=== PATIENT | female | born 1975 | race American Indian/Alaskan Native ===

== ENCOUNTER 2016-08-13 11:55 | Emergency (ER) | payer MEDICAID ==
[2016-08-13 12:06] VITALS: BP 145/79
[2016-08-13 12:51] LABS: Basophils % (Auto) 0.4 % (0.0-1.8); Eosinophils % (Auto) 1.3 % (0.0-4.3); Hemoglobin 13.2 gm/dl (10.1-14.3); Mean Corpuscular HGB Conc 32 % (30-34); Mean Corpuscular Hemoglobin 27 pg (28-32); Mean Corpuscular Volume 82 fl (79-97); Platelet Count 323 K/mm3 (140-440); Red Cell Distribution Width 13.5 % (13.2-15.2); White Blood Count 11.6 K/mm3 (4.5-11.0)
[2016-08-13 12:58] LABS: Anion Gap 19 mmol/L; Blood Urea Nitrogen 7 mg/dL (7-17); Carbon Dioxide 23 mmol/L (22-30); Chloride 99.8 mmol/L (98-107); Glucose 358 mg/dL (65-100); Potassium 4.1 mmol/L (3.6-5.0); Sodium 138 mmol/L (137-145)
[2016-08-13 13:39] LABS: Bacteria,Urine 1+ /HPF (Negative); Bilirubin,Urine NEG (Negative); Blood,Urine NEG (Negative); Ketones,Urine NEG (Negative); Leukocyte Esterase,Urine NEG (Negative); Mucus,Urine FEW /HPF; Nitrite,Urine NEG (Negative); Protein,Urine <15 mg/dL mg/dL (Negative); Urobilinogen,Urine < 2.0 mg/dL (<2.0)
[2016-08-13] MEDS ORDERED: NACL 0.9% 1000 ML 1,000 ML IV ONE (16:57)
--- NOTE | 2016-08-13 16:58 | Emergency Department Report ---
HPI - General Chief Complaint: Skin/Abscess/Foreign Body Time Seen by Provider: 08/13/16 16:30 - HPI HPI: Room 38 The patient is a 41-year-old female presenting with chief complaint of abscess. The patient states she knows no abscess in her left groin 2 days ago. Patient denies any history of drainage or fever. The patient gives her pain a score of 10/10. The patient states she has a frequent history of abscesses Location: Left groin Duration: 2 days Quality: Pain Severity: 10/10 Modifying factors: [see above] Context: [see above] Mode of transportation: Patient drove herself to the emergency department and there are no visitors present ED Past Medical Hx - Past Medical History Previous Medical History?: Yes Hx Hypertension: Yes Hx Diabetes: Yes Hx Arthritis: Yes Hx Psychiatric Treatment: Yes (schizophrenia / bipolar) Additional medical history: INSOMNIA. FIBROIDS - Surgical History Past Surgical History?: Yes Additional Surgical History: MULTIPLE ABSCESS--I&D'S. tonsillectomy. tubal ligation - Family History Family history: no significant - Social History Smoking Status: Current Every Day Smoker Substance Use Type: None - Medications Home Medications: Home Medications Medication Instructions Recorded Confirmed Last Taken Type Albuterol Sulfate [Ventolin HFA] 2 puff IH Q4H PRN 04/08/15 04/08/15 Unknown History Canagliflozin [Invokana] 1,000 mg PO DAILY 04/08/15 04/08/15 Unknown History Canagliflozin/Metformin HCl 1 each PO BID #60 tablet 04/08/15 Unknown Rx [Invokamet 150-1,000 mg Tablet] Carisoprodol [Soma] 350 mg PO TID 04/08/15 04/08/15 Unknown History Diazepam Tab [Valium] 5 mg PO BID PRN 04/08/15 04/08/15 Unknown History Gabapentin [Neurontin] 300 mg PO BID 04/08/15 04/08/15 Unknown History HYDROcodone/APAP 5-325 [[place] 1 each PO Q6HR PRN #20 tablet 04/08/15 Unknown Rx 5/325] Promethazine [Phenergan TAB] 25 mg PO Q6HR PRN #30 tab 04/08/15 Unknown Rx Sulfamethoxazole/Trimethoprim 1 each PO BID #14 tablet 04/08/15 Unknown Rx [Bactrim DS TAB] Temazepam [Restoril] 30 mg PO DAILY 04/08/15 04/08/15 Unknown History Ziprasidone [Geodon] 40 mg PO BID 04/08/15 04/08/15 Unknown History Clindamycin [Clindamycin CAP] 300 mg PO Q8H #30 cap 08/31/15 Unknown Rx HYDROcodone/APAP 10-325 [[place] 1 each PO Q8HR PRN #14 tablet 08/31/15 Unknown Rx 10-325 mg TAB] Ziprasidone [Geodon] 40 mg PO BID #60 capsule 12/23/15 Unknown Rx HYDROcodone/APAP 5-325 [[place] 1 - 2 each PO Q6HR PRN #14 tablet 08/13/16 Unknown Rx 5/325] Sulfamethoxazole/Trimethoprim 1 each PO BID #14 tablet 08/13/16 Unknown Rx [Bactrim DS TAB] ED Review of Systems ROS: Stated complaint: ABCESS ON GROIN Other details as noted in HPI Comment: All other systems reviewed and negative Constitutional: denies: chills, fever Eyes: denies: eye pain, eye discharge, vision change ENT: denies: ear pain, throat pain Respiratory: denies: cough, shortness of breath, wheezing Cardiovascular: denies: chest pain, palpitations Endocrine: no symptoms reported Gastrointestinal: denies: abdominal pain, nausea, diarrhea Genitourinary: denies: urgency, dysuria, discharge Musculoskeletal: denies: back pain, joint swelling, arthralgia Skin: lesions Neurological: denies: headache, weakness, paresthesias Psychiatric: denies: anxiety, depression Hematological/Lymphatic: denies: easy bleeding, easy bruising Physical Exam - Physical Exam Vital Signs: Vital Signs 08/13/16 12:00 Temperature 98.1 F Pulse Rate 89 Respiratory 20 Rate Blood Pressure 145/79 O2 Sat by Pulse 100 Oximetry Physical Exam: GENERAL: The patient is well-developed well-nourished female sitting on stretcher not appearing to be in acute distress. [] HEENT: Normocephalic. Atraumatic. Extraocular motions are intact. Patient has moist mucous membranes. NECK: Supple. Trachea midline CHEST/LUNGS: There is no respiratory distress noted. HEART/CARDIOVASCULAR: Regular. There is no tachycardia. ABDOMEN: Abdomen is soft SKIN: There is an approximately 2 cm diameter region of induration to the lateral aspect of the left labia with overlying erythema. There is no edema. There is no diaphoresis. NEURO: The patient is awake, alert, and oriented. The patient is cooperative. The patient has normal speech MUSCULOSKELETAL: There is no evidence of acute injury. ED Course Vital Signs 08/13/16 12:00 Temperature 98.1 F Pulse Rate 89 Respiratory 20 Rate Blood Pressure 145/79 O2 Sat by Pulse 100 Oximetry - Reevaluation(s) Reevaluation #1: 08/13/16 18:17 Accu-Chek 236 - I & D Left Groin Type of Procedure: Simple Site: left groin/labia Blade Size: 11 I & D Procedure: betadine prep, sterile dressing applied, gauze wick placed Progress: At approximately 7 mm incision was made overlying the abscess after injection of lidocaine 1% plain. Approximately 2 mL's purulent discharge expressed. Wound was irrigated copiously with normal saline and then packed with 1/4 inch iodoform gauze. Patient tolerated well ED Medical Decision Making - Lab Data Result diagrams: 08/13/16 12:28 08/13/16 12:28 Laboratory Tests 08/13/16 08/13/16 08/13/16 12:28 12:28 12:40 WBC 11.6 H RBC 5.00 Hgb 13.2 Hct 41.0 MCV 82 MCH 27 L MCHC 32 RDW 13.5 Plt Count 323 Lymph % (Auto) 23.7 [place] % (Auto) 4.5 Eos % (Auto) 1.3 Baso % (Auto) 0.4 Lymph # 2.7 Saunders # 0.5 Eos # 0.1 Baso # 0.1 Seg Neutrophils % 70.1 H Seg Neutrophils # 8.1 H Sodium 138 Potassium 4.1 Chloride 99.8 Carbon Dioxide 23 Anion Gap 19 BUN 7 Creatinine 0.5 L Estimated GFR > 60 BUN/Creatinine Ratio 14.00 Glucose 358 H Calcium 9.0 Urine Color Yellow Urine Turbidity Slightly-cloudy Urine pH 7.0 Ur Specific [place] 1.018 Urine Protein <15 mg/dl Urine Glucose (UA) Neg Urine Ketones Neg Urine Blood Neg Urine Nitrite Neg Urine Bilirubin Neg Urine Urobilinogen < 2.0 Ur Leukocyte Esterase Neg Urine WBC (Auto) 2.0 Urine RBC (Auto) 2.0 U Epithel Cells (Auto) 17.0 H Urine Bacteria (Auto) 1+ Amorphous Crystals Few Urine Mucus Few - Differential Diagnosis abscess Critical care attestation.: If time is entered above; I have spent that time in minutes in the direct care of this critically ill patient, excluding procedure time. ED Disposition Clinical Impression: Abscess of groin, left, Hyperglycemia Disposition: - TO HOME OR SELFCARE Is pt being admited?: No Does the pt Need Aspirin: No Condition: Stable Instructions: Abscess (ED) Additional Instructions: Return to the emergency Department or see your primary doctor in 48 hours for reevaluation. Return to the emergency department immediately should you develop worsening symptoms, fever, inability to tolerate food or liquid or any other concerns. Prescriptions: HYDROcodone/APAP 5-325 [[place] 5/325] 1 - 2 each PO Q6HR PRN #14 tablet PRN Reason: Pain Sulfamethoxazole/Trimethoprim [Bactrim DS TAB] 1 each PO BID #14 tablet Referrals: PRIMARY CARE [Primary Care Provider] - 08/15/16 Time of Disposition: 18:16
[2016-08-13] MEDS ORDERED: NACL 0.9% IR ONE (17:34)
[2016-08-13] MEDS ORDERED: XYLOCAINE 1% 20 mL INFILTRATI ONE (17:35)
== END 2016-08-13 18:29 | disposition home or self-care (01) ==
LOC: ED 11:55
DX: L02.214 Cutaneous abscess of groin (principal); I10 Essential (primary) hypertension; E11.65 Type 2 diabetes mellitus with hyperglycemia; M19.90 Unspecified osteoarthritis, unspecified site; F20.9 Schizophrenia, unspecified; F31.9 Bipolar disorder, unspecified; F17.210 Nicotine dependence, cigarettes, uncomplicated
CPT/HCPCS: 10060; 36415; 80048; 81001; 82962; 85025; 87116; 96360; 99284; J7030

== ENCOUNTER 2016-11-11 10:06 | Emergency (ER) | payer MEDICAID ==
--- NOTE | 2016-11-11 13:05 | Emergency Department Report ---
ED General Adult HPI - General Chief complaint: Extremity Injury, Lower Stated complaint: ABSCESS, DIABETIC NERVE PAIN Time Seen by Provider: 11/11/16 12:50 Source: patient Mode of arrival: Ambulatory Limitations: No Limitations - History of Present Illness Initial comments: PT states she has diabetic neuropathy. PT states she has had an increase in pain x 3 days. PT states her entire leg hurts. PT states she is on [place] 10mg for this. PT states she can not get more pain medication until 11-15-16. Pt states she ran out of her pain medication at the beginning of the month. PT also c/o L labial abscess. PT states she has hx of same and she is currently not on any antibiotics. PT denies fevers, chills, nausea, and vomiting. MD Complaint: Abscess and pain -: Gradual Location: genitals, lower extremity Severity scale (0 -10): 10 Quality: burning, sharp Consistency: constant Improves with: none Worsens with: movement, other (palpation ) Associated Symptoms: denies other symptoms. denies: fever/chills, loss of appetite, nausea/vomiting, weakness - Related Data Home Medications Medication Instructions Recorded Confirmed Last Taken Albuterol Sulfate [Ventolin HFA] 2 puff IH Q4H PRN 04/08/15 04/08/15 Unknown Carisoprodol [Soma] 350 mg PO TID 04/08/15 04/08/15 Unknown Diazepam Tab [Valium] 5 mg PO BID PRN 04/08/15 04/08/15 Unknown Gabapentin [Neurontin] 300 mg PO BID 04/08/15 04/08/15 Unknown Temazepam [Restoril] 30 mg PO DAILY 04/08/15 04/08/15 Unknown Previous Rx's Medication Instructions Recorded Last Taken Type HYDROcodone/APAP 10-325 [[place] 1 each PO Q8HR PRN #14 tablet 08/31/15 Unknown Rx 10-325 mg TAB] Ziprasidone [Geodon] 40 mg PO BID #60 capsule 12/23/15 Unknown Rx Clindamycin [Clindamycin CAP] 300 mg PO Q8H #30 cap 11/11/16 Unknown Rx traMADol [Ultram] 50 mg PO Q6HR PRN #12 tablet 11/11/16 Unknown Rx Allergies Allergy/AdvReac Type Severity Reaction Status Date / Time Penicillins Allergy Rash Verified 11/11/16 10:34 ED Review of Systems ROS: Stated complaint: ABSCESS, DIABETIC NERVE PAIN Other details as noted in HPI Comment: All other systems reviewed and negative Constitutional: denies: chills, fever, malaise, weakness Gastrointestinal: denies: abdominal pain, nausea, vomiting Genitourinary: abnormal menses (pt states she is late ), other (PT c/o L labial abscess ). denies: dysuria Musculoskeletal: as per HPI Skin: as per HPI ED Past Medical Hx - Past Medical History Hx Hypertension: Yes Hx Diabetes: Yes Hx Arthritis: Yes Hx Psychiatric Treatment: Yes (schizophrenia / bipolar) Additional medical history: INSOMNIA. FIBROIDS - Surgical History Additional Surgical History: MULTIPLE ABSCESS--I&D'S. tonsillectomy. tubal ligation - Social History Smoking Status: Current Every Day Smoker Substance Use Type: None - Medications Home Medications: Home Medications Medication Instructions Recorded Confirmed Last Taken Type Albuterol Sulfate [Ventolin HFA] 2 puff IH Q4H PRN 04/08/15 04/08/15 Unknown History Carisoprodol [Soma] 350 mg PO TID 04/08/15 04/08/15 Unknown History Diazepam Tab [Valium] 5 mg PO BID PRN 04/08/15 04/08/15 Unknown History Gabapentin [Neurontin] 300 mg PO BID 04/08/15 04/08/15 Unknown History Temazepam [Restoril] 30 mg PO DAILY 04/08/15 04/08/15 Unknown History HYDROcodone/APAP 10-325 [[place] 1 each PO Q8HR PRN #14 tablet 08/31/15 Unknown Rx 10-325 mg TAB] Ziprasidone [Geodon] 40 mg PO BID #60 capsule 12/23/15 Unknown Rx Clindamycin [Clindamycin CAP] 300 mg PO Q8H #30 cap 11/11/16 Unknown Rx traMADol [Ultram] 50 mg PO Q6HR PRN #12 tablet 11/11/16 Unknown Rx ED Physical Exam - General Limitations: No Limitations General appearance: alert, in no apparent distress, obese - Head Head exam: Present: atraumatic, normocephalic, normal inspection - Eye Eye exam: Present: normal appearance, PERRL, EOMI. Absent: conjunctival injection, nystagmus - ENT ENT exam: Present: normal exam, mucous membranes moist, normal external ear exam - Neck Neck exam: Present: normal inspection, full ROM - Respiratory Respiratory exam: Present: normal lung sounds bilaterally. Absent: respiratory distress, wheezes, chest wall tenderness - Cardiovascular Cardiovascular Exam: Present: regular rate, normal rhythm, normal heart sounds - GI/Abdominal GI/Abdominal exam: Present: soft, normal bowel sounds. Absent: distended, tenderness, guarding, rebound - External exam: Present: swelling (2 cm indurated area to L labia. scar noted to site. Area ttp but not fluculant. No surrounding cellulitis ) - Extremities Exam Extremities exam: Present: normal inspection, full ROM, normal capillary refill , other (PT reports pain down her R leg ). Absent: tenderness, pedal edema, joint swelling, calf tenderness - Back Exam Back exam: Present: normal inspection, full ROM. Absent: tenderness, CVA tenderness (R), CVA tenderness (L), muscle spasm, paraspinal tenderness, vertebral tenderness - Neurological Exam Neurological exam: Present: alert, oriented X3, normal gait - Psychiatric Psychiatric exam: Present: normal affect, normal mood - Skin Skin exam: Present: warm, dry, intact, normal color ED Course Vital Signs 11/11/16 11/11/16 11/11/16 10:34 14:45 15:15 Temperature 98 F Pulse Rate 89 Respiratory 16 16 16 Rate Blood Pressure 134/67 Blood Pressure [Left] O2 Sat by Pulse 100 Oximetry 11/11/16 15:49 Temperature 98.4 F Pulse Rate 84 Respiratory 18 Rate Blood Pressure Blood Pressure 157/87 [Left] O2 Sat by Pulse 100 Oximetry I was not informed of the last set of vital signs. However, pt was instructed to return to the ED in 2 days and her bp will be rechecked at that time. - Reevaluation(s) Reevaluation #1: 11/11/16 13:08 Reviewed pt's history in the [facility] [facility] website. It appears pt filled 90 tablets of [place] 10 mg on 10-31-16. 10/31/2016 2 10/31/2016 HYDROCODON-ACETAMINOPHN 10-325 90.0 30 SELAM OGU [id number] ANA (1426) 0 30.0 Medicaid G Reevaluation #2: 11/11/16 14:06 PT aware of UA result and plan of care. Reevaluation #3: 11/11/16 15:23 PT states her pain decreased sp Toradol. PT aware she will need to keep her appointment with her PCP for RX for [place]. PT given strict return precautions. PT has no questions at this time. - Pulse Oximetry Interpretation Digit-Finger Initial Pulse Oximetry Readin Actions Taken: none ED Medical Decision Making - Lab Data Result diagrams: 11/11/16 14:26 11/11/16 14:12 Labs 11/11/16 11/11/16 11/11/16 10:42 13:27 14:12 WBC RBC Hgb Hct MCV MCH MCHC RDW Plt Count Lymph % (Auto) [place] % (Auto) Eos % (Auto) Baso % (Auto) Lymph # [place] # Eos # Baso # Seg Neutrophils % Seg Neutrophils # VBG pH Sodium 137 Potassium 4.2 Chloride 100.3 Carbon Dioxide 26 Anion Gap 15 BUN 6 L Creatinine 0.4 L Estimated GFR > 60 BUN/Creatinine Ratio 15.00 Glucose 203 H POC Glucose 261 H Calcium 9.1 Urine Color Yellow Urine Turbidity Clear Urine pH 5.0 Ur Specific [place] 1.032 H Urine Protein <15 mg/dl Urine Glucose (UA) >=500 Urine Ketones Tr Urine Blood Mod Urine Nitrite Pos Urine Bilirubin Neg Urine Urobilinogen < 2.0 Ur Leukocyte Esterase Neg Urine WBC (Auto) 8.0 H Urine RBC (Auto) 10.0 U Epithel Cells (Auto) 18.0 H Urine Bacteria (Auto) 4+ Urine HCG, Qual Negative 11/11/16 11/11/16 14:12 14:26 WBC 12.1 H RBC 5.13 H Hgb 13.7 Hct 42.0 MCV 82 MCH 27 L MCHC 33 RDW 13.9 Plt Count 317 Lymph % (Auto) 27.5 [place] % (Auto) 5.5 Eos % (Auto) 1.4 Baso % (Auto) 0.5 Lymph # 3.3 [place] # 0.7 Eos # 0.2 Baso # 0.1 Seg Neutrophils % 65.1 Seg Neutrophils # 7.9 H VBG pH 7.330 Sodium Potassium Chloride Carbon Dioxide Anion Gap BUN Creatinine Estimated GFR BUN/Creatinine Ratio Glucose POC Glucose Calcium Urine Color Urine Turbidity Urine pH Ur Specific [place] Urine Protein Urine Glucose (UA) Urine Ketones Urine Blood Urine Nitrite Urine Bilirubin Urine Urobilinogen Ur Leukocyte Esterase Urine WBC (Auto) Urine RBC (Auto) U Epithel Cells (Auto) Urine Bacteria (Auto) Urine HCG, Qual UA suggests UTI, However, pt is asymptomatic. and the ua is contaminated. Urine culture pending. - Medical Decision Making PT with very early abscess to L labia. Not ready for I and D. PT aware she will need to return in 2 days for recheck and possible I and D at that time. - Differential Diagnosis abscess, cellulitis, drug seeking, chronic pain Critical Care Time: No Critical care attestation.: If time is entered above; I have spent that time in minutes in the direct care of this critically ill patient, excluding procedure time. ED Disposition Clinical Impression: Abscess of left genital labia Chronic pain Qualifiers: Chronic pain type: other chronic pain Qualified Code(s): G89.29 - Other chronic pain UTI (urinary tract infection) Qualifiers: Urinary tract infection type: acute cystitis Hematuria presence: with hematuria Qualified Code(s): N30.01 - Acute cystitis with hematuria Disposition: TO HOME OR SELFCARE Is pt being admited?: No Does the pt Need Aspirin: No Condition: Stable Instructions: Urinary Tract Infection in Women (ED), Chronic Pain (ED), Abscess (ED) Additional Instructions: Warm compresses to abscess at least four times a day. Take antibiotics as prescribed Return to the ED in 2 days for recheck No driving or Alcohol after taking Ultram for pain Return sooner if you have nausea, vomiting, fevers, chills, or elevated blood sugar Follow up with the doctor who prescribes your pain medication for a refill Prescriptions: Clindamycin [Clindamycin CAP] 300 mg PO Q8H #30 cap traMADol [Ultram] 50 mg PO Q6HR PRN #12 tablet PRN Reason: Pain Referrals: QUIN JEFFERS MD, PHD [Primary Care Provider] - 3-5 Days Time of Disposition: 15:32
[2016-11-11 13:48] LABS: Bacteria,Urine 4+ /HPF (Negative); Bilirubin,Urine NEG (Negative); Blood,Urine MOD (Negative); Ketones,Urine TR mg/dL (Negative); Leukocyte Esterase,Urine NEG (Negative); Nitrite,Urine POS (Negative); Protein,Urine <15 mg/dL mg/dL (Negative); Urobilinogen,Urine < 2.0 mg/dL (<2.0)
[2016-11-11] MEDS ORDERED: NACL 0.9% 1000 ML 1,000 ML IV ONE (14:04)
[2016-11-11] MEDS ORDERED: TORADOL IV ONE (14:05)
[2016-11-11 14:43] LABS: Anion Gap 15 mmol/L; Blood Urea Nitrogen 6 mg/dL (7-17); Calcium 9.1 mg/dL (8.4-10.2); Carbon Dioxide 26 mmol/L (22-30); Chloride 100.3 mmol/L (98-107); Glucose 203 mg/dL (65-100); Potassium 4.2 mmol/L (3.6-5.0); Sodium 137 mmol/L (137-145)
[2016-11-11 14:54] LABS: Basophils % (Auto) 0.5 % (0.0-1.8); Eosinophils % (Auto) 1.4 % (0.0-4.3); Hemoglobin 13.7 gm/dl (10.1-14.3); Mean Corpuscular HGB Conc 33 % (30-34); Mean Corpuscular Hemoglobin 27 pg (28-32); Mean Corpuscular Volume 82 fl (79-97); Platelet Count 317 K/mm3 (140-440); Red Blood Count 5.13 M/mm3 (3.65-5.03); Red Cell Distribution Width 13.9 % (13.2-15.2); White Blood Count 12.1 K/mm3 (4.5-11.0)
[2016-11-11] MEDS ORDERED: CLEOCIN PO ONE (15:34)
[2016-11-11 15:50] VITALS: BP 157/87
== END 2016-11-11 15:51 | disposition home or self-care (01) ==
LOC: ED 10:06
DX: N76.4 Abscess of vulva (principal); N30.01 Acute cystitis with hematuria; M79.604 Pain in right leg; G89.29 Other chronic pain; I10 Essential (primary) hypertension; E11.9 Type 2 diabetes mellitus without complications; F17.200 Nicotine dependence, unspecified, uncomplicated
CPT/HCPCS: 36415; 80048; 81001; 81025; 82805; 82962; 85025; 87076; 87086; 87186; 96361; 96374; 99283; J1885; J7030

== ENCOUNTER 2017-01-08 09:42 | Outpatient (CLI) | payer MEDICAID ==
[~2017-01-08 09:42] MED LIST: NACL ONE
[2017-01-08] MEDS ORDERED: XYLOCAINE TOPICAL 4% TP NR (09:56)
[2017-01-08] MEDS ORDERED: XYLOCAINE TOPICAL 4% TP ONE (10:46)
== END 2017-01-08 09:43 | disposition home or self-care (01) ==
LOC: WOUND 09:42
PROVIDERS: ATTEND Internal Medicine
DX: E11.622 Type 2 diabetes mellitus with other skin ulcer (principal); L98.491 Non-pressure chronic ulcer of skin of other sites limited to breakdown of skin; L89.214 Pressure ulcer of right hip, stage 4; E11.40 Type 2 diabetes mellitus with diabetic neuropathy, unspecified; J44.9 Chronic obstructive pulmonary disease, unspecified; I10 Essential (primary) hypertension; F17.200 Nicotine dependence, unspecified, uncomplicated; Z68.35 Body mass index [BMI] 35.0-35.9, adult

== ENCOUNTER 2017-01-22 09:48 | Outpatient (CLI) | payer MEDICAID ==
[2017-01-22] MEDS ORDERED: XYLOCAINE TOPICAL 4% TP ONE (12:00)
== END 2017-01-22 09:49 | disposition home or self-care (01) ==
LOC: WOUND 09:48
PROVIDERS: ATTEND Surgery
DX: E11.622 Type 2 diabetes mellitus with other skin ulcer (principal); L98.491 Non-pressure chronic ulcer of skin of other sites limited to breakdown of skin; L89.214 Pressure ulcer of right hip, stage 4; E11.40 Type 2 diabetes mellitus with diabetic neuropathy, unspecified; J44.9 Chronic obstructive pulmonary disease, unspecified; E66.01 Morbid (severe) obesity due to excess calories; I10 Essential (primary) hypertension; F17.200 Nicotine dependence, unspecified, uncomplicated; Z68.35 Body mass index [BMI] 35.0-35.9, adult

== ENCOUNTER 2017-02-26 09:07 | Outpatient (CLI) | payer MEDICAID ==
[2017-02-26] MEDS ORDERED: XYLOCAINE TOPICAL 4% TP ONE ×2 (09:26→09:31)
== END 2017-02-26 09:08 | disposition home or self-care (01) ==
LOC: WOUND 09:07
PROVIDERS: ATTEND Internal Medicine
DX: E11.622 Type 2 diabetes mellitus with other skin ulcer (principal); L98.491 Non-pressure chronic ulcer of skin of other sites limited to breakdown of skin; L89.214 Pressure ulcer of right hip, stage 4; E11.40 Type 2 diabetes mellitus with diabetic neuropathy, unspecified; J44.9 Chronic obstructive pulmonary disease, unspecified; E66.01 Morbid (severe) obesity due to excess calories; I10 Essential (primary) hypertension; F17.200 Nicotine dependence, unspecified, uncomplicated; Z68.35 Body mass index [BMI] 35.0-35.9, adult

== ENCOUNTER 2017-03-12 09:04 | Outpatient (CLI) | payer MEDICAID ==
[2017-03-12] MEDS ORDERED: XYLOCAINE TOPICAL 2% 5ML ONE (09:17)
[2017-03-12] MEDS ORDERED: XYLOCAINE TOPICAL 2% 5ML TP ONE (09:21)
== END 2017-03-12 09:05 | disposition home or self-care (01) ==
LOC: WOUND 09:04
PROVIDERS: ATTEND Internal Medicine
DX: E11.622 Type 2 diabetes mellitus with other skin ulcer (principal); L89.214 Pressure ulcer of right hip, stage 4; L98.491 Non-pressure chronic ulcer of skin of other sites limited to breakdown of skin; E11.40 Type 2 diabetes mellitus with diabetic neuropathy, unspecified; E11.39 Type 2 diabetes mellitus with other diabetic ophthalmic complication; H40.9 Unspecified glaucoma; J44.9 Chronic obstructive pulmonary disease, unspecified; E66.01 Morbid (severe) obesity due to excess calories; I10 Essential (primary) hypertension; F17.200 Nicotine dependence, unspecified, uncomplicated

== ENCOUNTER 2017-03-26 09:39 | Outpatient (CLI) | payer MEDICAID ==
[2017-03-26] MEDS ORDERED: XYLOCAINE TOPICAL 4% TP ONE (09:48)
== END 2017-03-26 09:40 | disposition home or self-care (01) ==
LOC: WOUND 09:39
PROVIDERS: ATTEND Internal Medicine
DX: E11.622 Type 2 diabetes mellitus with other skin ulcer (principal); L97.811 Non-pressure chronic ulcer of other part of right lower leg limited to breakdown of skin; L89.214 Pressure ulcer of right hip, stage 4; E11.40 Type 2 diabetes mellitus with diabetic neuropathy, unspecified; J44.9 Chronic obstructive pulmonary disease, unspecified; E66.01 Morbid (severe) obesity due to excess calories; E11.8 Type 2 diabetes mellitus with unspecified complications; Z68.35 Body mass index [BMI] 35.0-35.9, adult; I10 Essential (primary) hypertension; F17.200 Nicotine dependence, unspecified, uncomplicated

== ENCOUNTER 2017-04-09 09:27 | Outpatient (CLI) | payer MEDICAID ==
[2017-04-09] MEDS ORDERED: XYLOCAINE TOPICAL 4% TP ONE ×2 (09:45→09:55)
== END 2017-04-09 09:28 | disposition home or self-care (01) ==
LOC: WOUND 09:27
PROVIDERS: ATTEND Internal Medicine
DX: E11.622 Type 2 diabetes mellitus with other skin ulcer (principal); L98.411 Non-pressure chronic ulcer of buttock limited to breakdown of skin; L89.214 Pressure ulcer of right hip, stage 4; E11.40 Type 2 diabetes mellitus with diabetic neuropathy, unspecified; E66.01 Morbid (severe) obesity due to excess calories; J44.9 Chronic obstructive pulmonary disease, unspecified; I10 Essential (primary) hypertension; E11.39 Type 2 diabetes mellitus with other diabetic ophthalmic complication; H40.89 Other specified glaucoma; F17.200 Nicotine dependence, unspecified, uncomplicated

== ENCOUNTER 2017-05-20 04:39 | Emergency (ER) | payer MEDICAID ==
[2017-05-20 05:22] LABS: Basophils # (Auto) 0.1 K/mm3 (0.0-0.1); Basophils % (Auto) 0.6 % (0.0-1.8); Eosinophils # (Auto) 0.2 K/mm3 (0.0-0.4); Eosinophils % (Auto) 1.6 % (0.0-4.3); Hematocrit 42.6 % (30.3-42.9); Hemoglobin 13.9 gm/dl (10.1-14.3); Lymphocytes # (Auto) 2.5 K/mm3 (1.2-5.4); Lymphocytes % (Auto) 24.3 % (13.4-35.0); Mean Corpuscular HGB Conc 33 % (30-34); Mean Corpuscular Hemoglobin 27 pg (28-32); Mean Corpuscular Volume 83 fl (79-97); Monocytes # (Auto) 0.6 K/mm3 (0.0-0.8); Monocytes % (Auto) 5.8 % (0.0-7.3); Platelet Count 282 K/mm3 (140-440); Red Blood Count 5.15 M/mm3 (3.65-5.03); Red Cell Distribution Width 13.6 % (13.2-15.2)
[2017-05-20 06:00] LABS: Bacteria,Urine 1+ /HPF (Negative); Bilirubin,Urine NEG (Negative); Blood,Urine NEG (Negative); Color,Urine Yellow (Yellow); Mucus,Urine FEW /HPF; Protein,Urine <15 mg/dL mg/dL (Negative); RBC,Urine < 1.0 /HPF (0.0-6.0); Urobilinogen,Urine < 2.0 mg/dL (<2.0)
[2017-05-20 06:04] LABS: Alanine Aminotransferase 10 units/L (7-56); Albumin 3.7 g/dL (3.9-5); BUN/Creatinine Ratio 18; Blood Urea Nitrogen 11 mg/dL (7-17); Calcium 8.8 mg/dL (8.4-10.2); Hemolysis Index 0; Lipase 57 units/L (13-60)
--- NOTE | 2017-05-20 08:04 | Emergency Department Report ---
ED General Adult HPI - General Chief complaint: Abdominal Pain Stated complaint: ABDOMINAL,LEFT LEG PAIN Time Seen by Provider: 05/20/17 07:53 Source: patient Mode of arrival: Ambulatory Limitations: No Limitations - History of Present Illness Initial comments: Patient has a history of chronic pain. She is on gabapentin. She is diabetic with peripheral neuropathy. She states her left leg pain which between her knee and her ankle is typical of her diabetic neuropathy. She also complains of left lower quadrant pain. She states she's had some nausea and vomited once but no signs of GI bleeding. She hasn't had her insulin since yesterday. She denies fever or chills. She is not nauseated at this time. -: year(s) Location: abdomen (for 4 days), lower extremity (time series) Quality: aching Consistency: intermittent Improves with: none Worsens with: none Associated Symptoms: denies other symptoms Treatments Prior to Arrival: none - Related Data Home Medications Medication Instructions Recorded Confirmed Last Taken Albuterol Sulfate [Ventolin HFA] 2 puff IH Q4H PRN 04/08/15 04/08/15 Unknown Carisoprodol [Soma] 350 mg PO TID 04/08/15 04/08/15 Unknown Diazepam Tab [Valium] 5 mg PO BID PRN 04/08/15 04/08/15 Unknown Gabapentin [Neurontin] 300 mg PO BID 04/08/15 04/08/15 Unknown Temazepam [Restoril] 30 mg PO DAILY 04/08/15 04/08/15 Unknown Previous Rx's Medication Instructions Recorded Last Taken Type HYDROcodone/APAP 10-325 [[place] 1 each PO Q8HR PRN #14 tablet 08/31/15 Unknown Rx 10-325 mg TAB] Ziprasidone [Geodon] 40 mg PO BID #60 capsule 12/23/15 Unknown Rx Clindamycin [Clindamycin CAP] 300 mg PO Q8H #30 cap 11/11/16 Unknown Rx traMADol [Ultram] 50 mg PO Q6HR PRN #12 tablet 11/11/16 Unknown Rx HYDROcodone/APAP 5-325 [[place] 1 each PO Q6HR PRN #10 tablet 05/20/17 Unknown Rx 5/325] Nitrofurantoin Monohyd/M-Cryst 100 mg PO BID #14 capsule 05/20/17 Unknown Rx [Macrobid 100 mg Capsule] Ondansetron [Zofran Odt] 4 mg PO Q6HR #7 tab.rapdis 05/20/17 Unknown Rx Allergies Allergy/AdvReac Type Severity Reaction Status Date / Time Penicillins Allergy Rash Verified 11/11/16 10:34 ED Review of Systems ROS: Stated complaint: ABDOMINAL,LEFT LEG PAIN Other details as noted in HPI Constitutional: denies: chills, fever Eyes: denies: eye pain, eye discharge, vision change ENT: denies: ear pain, throat pain Respiratory: denies: cough, shortness of breath, wheezing Cardiovascular: denies: chest pain, palpitations Endocrine: no symptoms reported Gastrointestinal: abdominal pain, nausea, vomiting. denies: diarrhea Genitourinary: denies: urgency, dysuria, discharge Musculoskeletal: as per HPI, other. denies: back pain, joint swelling, arthralgia Skin: denies: rash, lesions Neurological: denies: headache, weakness, paresthesias Psychiatric: denies: anxiety, depression Hematological/Lymphatic: denies: easy bleeding, easy bruising ED Past Medical Hx - Past Medical History Hx Hypertension: Yes Hx Diabetes: Yes Hx Arthritis: Yes Hx Psychiatric Treatment: Yes (schizophrenia / bipolar) Additional medical history: INSOMNIA, NEUROPATHY,. FIBROIDS - Surgical History Additional Surgical History: MULTIPLE ABSCESS--I&D'S. tonsillectomy. tubal ligation - Social History Smoking Status: Current Every Day Smoker Substance Use Type: None - Medications Home Medications: Home Medications Medication Instructions Recorded Confirmed Last Taken Type Albuterol Sulfate [Ventolin HFA] 2 puff IH Q4H PRN 04/08/15 04/08/15 Unknown History Carisoprodol [Soma] 350 mg PO TID 04/08/15 04/08/15 Unknown History Diazepam Tab [Valium] 5 mg PO BID PRN 04/08/15 04/08/15 Unknown History Gabapentin [Neurontin] 300 mg PO BID 04/08/15 04/08/15 Unknown History Temazepam [Restoril] 30 mg PO DAILY 04/08/15 04/08/15 Unknown History HYDROcodone/APAP 10-325 [[place] 1 each PO Q8HR PRN #14 tablet 08/31/15 Unknown Rx 10-325 mg TAB] Ziprasidone [Geodon] 40 mg PO BID #60 capsule 12/23/15 Unknown Rx Clindamycin [Clindamycin CAP] 300 mg PO Q8H #30 cap 11/11/16 Unknown Rx traMADol [Ultram] 50 mg PO Q6HR PRN #12 tablet 11/11/16 Unknown Rx HYDROcodone/APAP 5-325 [[place] 1 each PO Q6HR PRN #10 tablet 05/20/17 Unknown Rx 5/325] Nitrofurantoin Monohyd/M-Cryst 100 mg PO BID #14 capsule 05/20/17 Unknown Rx [Macrobid 100 mg Capsule] Ondansetron [Zofran Odt] 4 mg PO Q6HR #7 tab.rapdis 05/20/17 Unknown Rx ED Physical Exam - General Limitations: Physical Limitation General appearance: alert, in no apparent distress, obese - Head Head exam: Present: atraumatic, normocephalic - Eye Eye exam: Present: normal appearance, PERRL, EOMI. Absent: scleral icterus - ENT ENT exam: Present: mucous membranes moist - Neck Neck exam: Present: normal inspection - Respiratory Respiratory exam: Present: normal lung sounds bilaterally. Absent: respiratory distress - Cardiovascular Cardiovascular Exam: Present: regular rate, normal rhythm. Absent: systolic murmur, diastolic murmur, rubs, gallop - GI/Abdominal GI/Abdominal exam: Present: soft, tenderness (mild discomfort to deep palpation in the left lower quadrant only), guarding, normal bowel sounds. Absent: distended, rebound, rigid, organomegaly, mass, bruit, pulsatile mass, hernia - Extremities Exam Extremities exam: Present: normal inspection, full ROM, normal capillary refill , other (neurovascular exam is intact). Absent: tenderness, pedal edema, joint swelling, calf tenderness - Back Exam Back exam: Present: normal inspection. Absent: CVA tenderness (R), CVA tenderness (L) - Neurological Exam Neurological exam: Present: alert, oriented X3, CN II-XII intact. Absent: motor sensory deficit - Psychiatric Psychiatric exam: Present: normal affect, normal mood - Skin Skin exam: Present: warm, dry, intact, normal color. Absent: rash ED Course Vital Signs 05/20/17 05/20/17 05/20/17 04:59 07:59 08:43 Temperature 98 F Pulse Rate 89 Respiratory 18 16 20 Rate Blood Pressure 157/90 O2 Sat by Pulse 100 99 Oximetry - Reevaluation(s) Reevaluation #1: Patient was given IV fluid and insulin. CT of the abdomen showed no correlating lesion. She is appropriate for outpatient management. She will be treated presumptively for a UTI considering her positive nitrite. She was given ceftriaxone which was well-tolerated. She will be continued on Macrobid. Urine culture will be pending. 05/20/17 09:17 Reevaluation #2: Patient states symptoms resolved. Looks well. Abdomen nontender. Ready for discharge. Went over plan. She will follow up with primary care provider. 05/20/17 09:25 ED Medical Decision Making - Lab Data Result diagrams: 05/20/17 05:09 05/20/17 05:09 Laboratory Results - last 24 hr 05/20/17 05/20/17 05/20/17 05:09 05:09 05:09 WBC 10.2 RBC 5.15 H Hgb 13.9 Hct 42.6 MCV 83 MCH 27 L MCHC 33 RDW 13.6 Plt Count 282 Lymph % (Auto) 24.3 [place] % (Auto) 5.8 Eos % (Auto) 1.6 Baso % (Auto) 0.6 Lymph # 2.5 [place] # 0.6 Eos # 0.2 Baso # 0.1 Seg Neutrophils % 67.7 Seg Neutrophils # 6.9 Sodium 137 Potassium 4.2 Chloride 99.4 Carbon Dioxide 25 Anion Gap 17 BUN 11 Creatinine 0.6 L Estimated GFR > 60 BUN/Creatinine Ratio 18 Glucose 393 H Calcium 8.8 Total Bilirubin 0.20 AST 9 ALT 10 Alkaline Phosphatase 57 Total Protein 6.6 Albumin 3.7 L Albumin/Globulin Ratio 1.3 Lipase 57 HCG, Qual Negative Urine Color Urine Turbidity Urine pH Ur Specific [place] Urine Protein Urine Glucose (UA) Urine Ketones Urine Blood Urine Nitrite Urine Bilirubin Urine Urobilinogen Ur Leukocyte Esterase Urine WBC (Auto) Urine RBC (Auto) U Epithel Cells (Auto) Urine Bacteria (Auto) Urine Mucus 05/20/17 Unknown WBC RBC Hgb Hct MCV MCH MCHC RDW Plt Count Lymph % (Auto) [place] % (Auto) Eos % (Auto) Baso % (Auto) Lymph # [place] # Eos # Baso # Seg Neutrophils % Seg Neutrophils # Sodium Potassium Chloride Carbon Dioxide Anion Gap BUN Creatinine Estimated GFR BUN/Creatinine Ratio Glucose Calcium Total Bilirubin AST ALT Alkaline Phosphatase Total Protein Albumin Albumin/Globulin Ratio Lipase HCG, Qual Urine Color Yellow Urine Turbidity Clear Urine pH 6.0 Ur Specific [place] 1.031 H Urine Protein <15 mg/dl Urine Glucose (UA) >=500 Urine Ketones Neg Urine Blood Neg Urine Nitrite Pos Urine Bilirubin Neg Urine Urobilinogen < 2.0 Ur Leukocyte Esterase Neg Urine WBC (Auto) 2.0 Urine RBC (Auto) < 1.0 U Epithel Cells (Auto) 6.0 Urine Bacteria (Auto) 1+ Urine Mucus Few Critical care attestation.: If time is entered above; I have spent that time in minutes in the direct care of this critically ill patient, excluding procedure time. ED Disposition Clinical Impression: Abdominal pain Qualifiers: Abdominal location: left lower quadrant Qualified Code(s): R10.32 - Left lower quadrant pain Type 2 diabetes mellitus with hyperglycemia Qualifiers: Diabetes mellitus intermediate insulin use: with intermediate use Qualified Code(s): E11.65 - Type 2 diabetes mellitus with hyperglycemia UTI (urinary tract infection) Qualifiers: Urinary tract infection type: site unspecified Hematuria presence: without hematuria Qualified Code(s): N39.0 - Urinary tract infection, site not specified Diabetic neuropathy Qualifiers: Diabetes mellitus type: type 2 Diabetes mellitus complication detail: with other neurological complication Qualified Code(s): E11.49 - Type 2 diabetes mellitus with other diabetic neurological complication Cholelithiasis Qualifiers: Cholelithiasis location: gallbladder Cholecystitis presence: without cholecystitis Biliary obstruction: without biliary obstruction Qualified Code(s) : K80.20 - Calculus of gallbladder without cholecystitis without obstruction Disposition: - TO HOME OR SELFCARE Is pt being admited?: No Does the pt Need Aspirin: No Condition: Stable Instructions: Diabetes Mellitus Type 2 in Adults (ED), Abdominal Pain (ED) Additional Instructions: Follow-up with your primary care provider. Use sliding scale on your insulin. Prescriptions: HYDROcodone/APAP 5-325 [[place] 5/325] 1 each PO Q6HR PRN #10 tablet PRN Reason: Pain Nitrofurantoin Monohyd/M-Cryst [Macrobid 100 mg Capsule] 100 mg PO BID #14 capsule Ondansetron [Zofran Odt] 4 mg PO Q6HR #7 tab.rapdis Referrals: QUIN JEFFERS MD, PHD [Staff Physician] - 05/22/17 Time of Disposition: 09:24
[2017-05-20] MEDS ORDERED: ZOFRAN IV ONE (08:09)
[2017-05-20] MEDS ORDERED: NACL 0.9% 1000 ML 1,000 ML IV ONE (08:09)
[2017-05-20] MEDS ORDERED: DILAUDID IV ONE (08:09)
[2017-05-20] MEDS ORDERED: ROCEPHIN/NS 1 GM/50 ML 1 GM/50 ML BAG IV ONE (08:09)
[2017-05-20] MEDS ORDERED: cefTRIAXone 1 GM in NACL 0.9% 20 ML IV ONE (08:15)
--- NOTE | 2017-05-20 09:04 | Cat Scan Report ---
FINAL REPORT EXAM: CT ABDOMEN PELVIS WO CON HISTORY: abd pain LLQ TECHNIQUE: Noncontrast CT of the abdomen and pelvis performed. No IV or gastrointestinal contrast was administered. Coronal and sagittal reformatted images were obtained. PRIORS: 04/07/2015 FINDINGS: The visualized aspects of the lung bases are clear. Within the limitations of a non-enhanced study, the visualized liver, spleen, pancreas, adrenal glands and kidneys demonstrate no significant abnormalities. There is cholelithiasis. There is no abdominal aortic aneurysm. There is no evidence of intestinal obstruction. The appendix is normal. There are no abnormal fluid collections seen. There is no free intraperitoneal air. The bladder is unremarkable. There is no abnormal pelvic mass or fluid collections seen. IMPRESSION: Cholelithiasis
[2017-05-20] MEDS ORDERED: HumuLIN R IV ONE (09:19)
[2017-05-20 10:17] VITALS: BP 144/86
== END 2017-05-20 10:15 | disposition home or self-care (01) ==
LOC: ED 04:39
DX: N39.0 Urinary tract infection, site not specified (principal); K80.20 Calculus of gallbladder without cholecystitis without obstruction; E11.40 Type 2 diabetes mellitus with diabetic neuropathy, unspecified; E11.65 Type 2 diabetes mellitus with hyperglycemia; I10 Essential (primary) hypertension; M19.90 Unspecified osteoarthritis, unspecified site; F17.200 Nicotine dependence, unspecified, uncomplicated; Z88.0 Allergy status to penicillin
CPT/HCPCS: 36415; 74176; 80053; 81001; 83690; 84703; 85025; 87086; 96361; 96374; 96375; 99284; J0696; J1170; J2405; J7030; 87076; 87186; J1815

== ENCOUNTER 2018-04-13 10:16 | Inpatient (IN) | payer MEDICAID ==
[2018-04-13 10:40] LABS: Basophils # (Auto) 0.1 K/mm3 (0.0-0.1); Basophils % (Auto) 0.4 % (0.0-1.8); Eosinophils # (Auto) 0.1 K/mm3 (0.0-0.4); Eosinophils % (Auto) 0.3 % (0.0-4.3); Hematocrit 39.4 % (30.3-42.9); Hemoglobin 12.9 gm/dl (10.1-14.3); Lymphocytes # (Auto) 2.1 K/mm3 (1.2-5.4); Lymphocytes % (Auto) 13.4 % (13.4-35.0); Mean Corpuscular HGB Conc 33 % (30-34); Mean Corpuscular Volume 82 fl (79-97); Monocytes # (Auto) 1.2 K/mm3 (0.0-0.8); Monocytes % (Auto) 7.6 % (0.0-7.3); Platelet Count 366 K/mm3 (140-440); Red Cell Distribution Width 12.9 % (13.2-15.2)
[2018-04-13] MEDS ORDERED: NACL 0.9% 500 ML 500 ML IV ONE (10:47)
[2018-04-13] MEDS ORDERED: CLEOCIN 300 MG/50 mL 300 MG/50 ML BAG IV ONE (10:47)
[2018-04-13] MEDS ORDERED: TORADOL IV ONE (10:47)
[2018-04-13] MEDS ORDERED: SUBLIMAZE IV ONE (10:47)
[2018-04-13] MEDS ORDERED: BOOSTRIX IM ONE (10:47)
[2018-04-13] MEDS ORDERED: NACL 0.9% 1000 ML 2,000 ML IV ONE (10:48)
--- NOTE | 2018-04-13 10:49 | Emergency Department Report ---
ED General Adult HPI - General Chief complaint: Wound/Laceration Stated complaint: FEET INFECTED/SWOLLEN/DIABETIC Time Seen by Provider: 04/13/18 10:39 Source: patient, RN notes reviewed, old records reviewed Mode of arrival: Ambulatory Limitations: Physical Limitation - History of Present Illness Initial comments: This is a 42-year-old female. The patient reports that she is not . Past medical history includes chronic wounds, diabetes, and psychiatric disease. Patient presents to the emergency room today with a complaint of nontraumatic right plantar medial foot pain, redness, swelling and defects under the great toe. Symptoms present for the past 3 days, aching, sharp, increased with palpation, decreased with rest, range of motion, and do not radiate anywhere. No other complaints, no other injuries, has some discomfort on the medial aspect of the right ankle secondary to walking. However, there is no ankle trauma, no ankle warmth, redness, swelling. Patient endorses that she is not . -: Gradual, days(s) Location: right, lower extremity Radiation: non-radiation Severity scale (0 -10): 10 Quality: aching Consistency: intermittent Improves with: movement, rest Associated Symptoms: rash - Related Data Home Medications Medication Instructions Recorded Confirmed Last Taken Albuterol Sulfate [Ventolin HFA] 2 puff IH Q4H PRN 04/08/15 09/28/17 Unknown Carisoprodol [Soma] 350 mg PO TID 04/08/15 09/28/17 Unknown Gabapentin [Neurontin] 300 mg PO BID 04/08/15 09/28/17 Unknown Temazepam [Restoril] 30 mg PO DAILY 04/08/15 09/28/17 Unknown Previous Rx's Medication Instructions Recorded Last Taken Type traMADol [Ultram 50 MG tab] 50 mg PO Q6HR PRN #12 tablet 11/11/16 Unknown Rx Nitrofurantoin Monohyd/M-Cryst 100 mg PO BID #14 capsule 05/20/17 Unknown Rx [Macrobid 100 mg Capsule] Ondansetron [Zofran Odt] 4 mg PO Q6HR #7 tab.rapdis 05/20/17 Unknown Rx Aspirin [Aspirin TAB] 325 mg PO QDAY #30 tablet 09/29/17 Unknown Rx AtorvaSTATin [Lipitor] 40 mg PO QHS #30 tablet 09/29/17 Unknown Rx HYDROcodone/APAP 5-325 [[place] 1 each PO Q6HR PRN #10 tablet 09/29/17 Unknown Rx 5-325 mg TAB] Lisinopril [Zestril TAB] 20 mg PO BID #30 tablet 09/29/17 Unknown Rx Ziprasidone [Geodon] 40 mg PO BID #60 capsule 09/29/17 Unknown Rx diazePAM TAB [Valium] 5 mg PO BID PRN #30 tablet 09/29/17 Unknown Rx metFORMIN 1,000 mg PO DAILY #60 09/29/17 Unknown Rx Allergies Allergy/AdvReac Type Severity Reaction Status Date / Time Penicillins Allergy Rash Verified 11/11/16 10:34 ED Review of Systems ROS: Stated complaint: FEET INFECTED/SWOLLEN/DIABETIC Other details as noted in HPI Constitutional: malaise. denies: fever Eyes: denies: vision change ENT: denies: epistaxis Respiratory: denies: cough Cardiovascular: denies: chest pain Gastrointestinal: denies: abdominal pain Genitourinary: denies: dysuria Musculoskeletal: joint swelling, arthralgia, myalgia Skin: rash, lesions, change in color Neurological: denies: weakness Psychiatric: anxiety ED Past Medical Hx - Past Medical History Previous Medical History?: Yes Hx Hypertension: Yes Hx CVA: Yes (2018) Hx Diabetes: Yes Hx Arthritis: Yes Hx Psychiatric Treatment: Yes (schizophrenia / bipolar) Additional medical history: INSOMNIA, NEUROPATHY,. FIBROIDS - Surgical History Past Surgical History?: Yes Additional Surgical History: MULTIPLE ABSCESS--I&D'S. tonsillectomy. tubal ligation - Social History Smoking Status: Current Every Day Smoker Substance Use Type: None - Medications Home Medications: Home Medications Medication Instructions Recorded Confirmed Last Taken Type Albuterol Sulfate [Ventolin HFA] 2 puff IH Q4H PRN 04/08/15 09/28/17 Unknown History Carisoprodol [Soma] 350 mg PO TID 04/08/15 09/28/17 Unknown History Gabapentin [Neurontin] 300 mg PO BID 04/08/15 09/28/17 Unknown History Temazepam [Restoril] 30 mg PO DAILY 04/08/15 09/28/17 Unknown History traMADol [Ultram 50 MG tab] 50 mg PO Q6HR PRN #12 tablet 11/11/16 09/28/17 Unknown Rx Nitrofurantoin Monohyd/M-Cryst 100 mg PO BID #14 capsule 05/20/17 09/28/17 Unknown Rx [Macrobid 100 mg Capsule] Ondansetron [Zofran Odt] 4 mg PO Q6HR #7 tab.rapdis 05/20/17 09/28/17 Unknown Rx Aspirin [Aspirin TAB] 325 mg PO QDAY #30 tablet 09/29/17 Unknown Rx AtorvaSTATin [Lipitor] 40 mg PO QHS #30 tablet 09/29/17 Unknown Rx HYDROcodone/APAP 5-325 [[place] 1 each PO Q6HR PRN #10 tablet 09/29/17 Unknown Rx 5-325 mg TAB] Lisinopril [Zestril TAB] 20 mg PO BID #30 tablet 09/29/17 Unknown Rx Ziprasidone [Geodon] 40 mg PO BID #60 capsule 09/29/17 Unknown Rx diazePAM TAB [Valium] 5 mg PO BID PRN #30 tablet 09/29/17 Unknown Rx metFORMIN 1,000 mg PO DAILY #60 09/29/17 Unknown Rx ED Physical Exam - General Limitations: No Limitations General appearance: alert, anxious, obese - Head Head exam: Present: atraumatic, normocephalic - Eye Eye exam: Present: normal appearance, EOMI. Absent: nystagmus - ENT ENT exam: Present: normal exam, normal orophraynx, mucous membranes moist, normal external ear exam - Neck Neck exam: Present: normal inspection, full ROM. Absent: tenderness, meningismus - Respiratory Respiratory exam: Present: normal lung sounds bilaterally. Absent: respiratory distress - Cardiovascular Cardiovascular Exam: Present: normal rhythm, tachycardia, normal heart sounds. Absent: systolic murmur, diastolic murmur, rubs, gallop - GI/Abdominal GI/Abdominal exam: Present: soft. Absent: distended, tenderness, guarding, rebound, rigid, pulsatile mass - Extremities Exam Extremities exam: Present: full ROM, tenderness, other (2+ pulses noted in the bilateral upper, lower extremities. Compartments soft. No long bony tenderness. The pelvis is stable.). Absent: normal inspection (on the medial dorsal and inferior aspect of the right foot, there is swelling, surrounding the great toe. There is a soft tissue defect, plantar aspect of the foot. There is no crepitus. There is no streaking. There is erythema. Right ankle has full range of motion. There is no crepitus over the ankles. No joint effusion is noted.), pedal edema, joint swelling, calf tenderness - Back Exam Back exam: Present: normal inspection, full ROM. Absent: tenderness, CVA tenderness (R), paraspinal tenderness, vertebral tenderness - Neurological Exam Neurological exam: Present: alert, oriented X3, CN II-XII intact, other (Extr aocular movements intact. Tongue midline. No facial droop. Facial sensation intact to light touch in the V1, V2, V3 distribution bilaterally. 5 and 5 strength in 4 extremities.. Sensation is intact to light touch in 4 extremities.). Absent: motor sensory deficit - Psychiatric Psychiatric exam: Present: anxious - Skin Skin exam: Present: warm, erythema ED Course Vital Signs 04/13/18 04/13/18 04/13/18 10:17 10:44 10:45 Temperature 97.6 F Pulse Rate 102 H Respiratory 20 Rate Blood Pressure 151/77 O2 Sat by Pulse 100 100 100 Oximetry 04/13/18 04/13/18 04/13/18 11:01 11:15 11:30 Temperature Pulse Rate 93 H 96 H Respiratory 24 18 Rate Blood Pressure 133/72 133/72 144/93 O2 Sat by Pulse 100 100 100 Oximetry 04/13/18 04/13/18 04/13/18 11:45 12:01 12:15 Temperature Pulse Rate 89 88 89 Respiratory 18 17 20 Rate Blood Pressure 145/71 139/64 130/71 O2 Sat by Pulse 100 100 100 Oximetry - EJ/Peripheral Line Neck R Time Out Performed: Yes Indications: nurses unable to establis Skin Cleansed in Sterile Fashion: Yes Size: 20 Dressing Placed: Tegaderm Patient Tolerated Procedure: well ED Medical Decision Making - Lab Data Result diagrams: 04/13/18 10:29 04/13/18 10:29 Vital Signs 04/13/18 04/13/18 04/13/18 10:17 10:44 10:45 Temperature 97.6 F Pulse Rate 102 H Respiratory 20 Rate Blood Pressure 151/77 O2 Sat by Pulse 100 100 100 Oximetry 04/13/18 04/13/18 04/13/18 11:01 11:15 11:30 Temperature Pulse Rate 93 H 96 H Respiratory 24 18 Rate Blood Pressure 133/72 133/72 144/93 O2 Sat by Pulse 100 100 100 Oximetry 04/13/18 04/13/18 04/13/18 11:45 12:01 12:15 Temperature Pulse Rate 89 88 89 Respiratory 18 17 20 Rate Blood Pressure 145/71 139/64 130/71 O2 Sat by Pulse 100 100 100 Oximetry Lab Results 04/13/18 04/13/18 04/13/18 Range/Units 10:29 10:29 10:29 WBC 15.3 H (4.5-11.0) K/mm3 RBC 4.80 (3.65-5.03) M/mm3 Hgb 12.9 (10.1-14.3) gm/dl Hct 39.4 (30.3-42.9) % MCV 82 (79-97) fl MCH 27 L (28-32) pg MCHC 33 (30-34) % RDW 12.9 L (13.2-15.2) % Plt Count 366 (140-440) K/mm3 Lymph % (Auto) 13.4 (13.4-35.0) % [place] % (Auto) 7.6 H (0.0-7.3) % Eos % (Auto) 0.3 (0.0-4.3) % Baso % (Auto) 0.4 (0.0-1.8) % Lymph # 2.1 (1.2-5.4) K/mm3 [place] # 1.2 H (0.0-0.8) K/mm3 Eos # 0.1 (0.0-0.4) K/mm3 Baso # 0.1 (0.0-0.1) K/mm3 Seg Neutrophils % 78.3 H (40.0-70.0) % Seg Neutrophils # 12.0 H (1.8-7.7) K/mm3 ESR 51 (0-20) mm/Hr VBG pH (7.320-7.420) Sodium 132 L (137-145) mmol/L Potassium 4.0 (3.6-5.0) mmol/L Chloride 94.3 L (98-107) mmol/L Carbon Dioxide 23 (22-30) mmol/L Anion Gap 19 mmol/L BUN 7 (7-17) mg/dL Creatinine 0.5 L (0.7-1.2) mg/dL Estimated GFR > 60 ml/min BUN/Creatinine Ratio 14 % Glucose 326 H (65-100) mg/dL POC Glucose (70-105) Lactic Acid (0.7-2.0) mmol/L Calcium 9.3 (8.4-10.2) mg/dL Total Creatine Kinase (30-135) units/L C-Reactive Protein (0.00-1.30) mg/dL 04/13/18 04/13/18 04/13/18 Range/Units 10:29 11:13 11:13 WBC (4.5-11.0) K/mm3 RBC (3.65-5.03) M/mm3 Hgb (10.1-14.3) gm/dl Hct (30.3-42.9) % MCV (79-97) fl MCH (28-32) pg MCHC (30-34) % RDW (13.2-15.2) % Plt Count (140-440) K/mm3 Lymph % (Auto) (13.4-35.0) % [place] % (Auto) (0.0-7.3) % Eos % (Auto) (0.0-4.3) % Baso % (Auto) (0.0-1.8) % Lymph # (1.2-5.4) K/mm3 [place] # (0.0-0.8) K/mm3 Eos # (0.0-0.4) K/mm3 Baso # (0.0-0.1) K/mm3 Seg Neutrophils % (40.0-70.0) % Seg Neutrophils # (1.8-7.7) K/mm3 ESR (0-20) mm/Hr VBG pH 7.412 (7.320-7.420) Sodium (137-145) mmol/L Potassium (3.6-5.0) mmol/L Chloride (98-107) mmol/L Carbon Dioxide (22-30) mmol/L Anion Gap mmol/L BUN (7-17) mg/dL Creatinine (0.7-1.2) mg/dL Estimated GFR ml/min BUN/Creatinine Ratio % Glucose (65-100) mg/dL POC Glucose (70-105) Lactic Acid 1.10 (0.7-2.0) mmol/L Calcium (8.4-10.2) mg/dL Total Creatine Kinase 28 L (30-135) units/L C-Reactive Protein 16.50 H (0.00-1.30) mg/dL 04/13/18 Range/Units 11:42 WBC (4.5-11.0) K/mm3 RBC (3.65-5.03) M/mm3 Hgb (10.1-14.3) gm/dl Hct (30.3-42.9) % MCV (79-97) fl MCH (28-32) pg MCHC (30-34) % RDW (13.2-15.2) % Plt Count (140-440) K/mm3 Lymph % (Auto) (13.4-35.0) % [place] % (Auto) (0.0-7.3) % Eos % (Auto) (0.0-4.3) % Baso % (Auto) (0.0-1.8) % Lymph # (1.2-5.4) K/mm3 [place] # (0.0-0.8) K/mm3 Eos # (0.0-0.4) K/mm3 Baso # (0.0-0.1) K/mm3 Seg Neutrophils % (40.0-70.0) % Seg Neutrophils # (1.8-7.7) K/mm3 ESR (0-20) mm/Hr VBG pH (7.320-7.420) Sodium (137-145) mmol/L Potassium (3.6-5.0) mmol/L Chloride (98-107) mmol/L Carbon Dioxide (22-30) mmol/L Anion Gap mmol/L BUN (7-17) mg/dL Creatinine (0.7-1.2) mg/dL Estimated GFR ml/min BUN/Creatinine Ratio % Glucose (65-100) mg/dL POC Glucose 290 H (70-105) Lactic Acid (0.7-2.0) mmol/L Calcium (8.4-10.2) mg/dL Total Creatine Kinase (30-135) units/L C-Reactive Protein (0.00-1.30) mg/dL - Radiology Data Radiology results: report reviewed, image reviewed X-ray of the right foot is negative for acute disease - Medical Decision Making Differential diagnosis, including are not limited to: Diabetic ulcer, cellulitis, myositis, osteomyelitis Assessment and plan: 42-year-old female with clinically infected diabetic ulcer, tachycardic, leukocytosis, but hemodynamically stable. While patient needs systemic inflammatory response syndrome criteria, her overall presentation is suggestive of localized infection, rather than systemic infection. Therefore, I do not suspect bacteremia, and I will not order blood cultures. The patient was given IV fluids, clindamycin, pain medication, and a tetanus vaccination. The medical team will admit the patient, under the services of Dr. Miller. Consult of the patient's general surgeon of record, Dr. Dong, who will follow in consultation for her wounds, and debride if necessary. Discussed this plan of care with the patient who verbalized understanding. Critical care attestation.: If time is entered above; I have spent that time in minutes in the direct care of this critically ill patient, excluding procedure time. ED Disposition Clinical Impression: Puncture wound of plantar aspect of right foot with infection Qualifiers: Encounter type: initial encounter Qualified Code(s): S91.331A - Puncture wound without foreign body, right foot, initial encounter Disposition: DC-09 OP ADMIT IP TO THIS HOSP Is pt being admited?: Yes Condition: Good
[2018-04-13 11:15] LABS: BUN/Creatinine Ratio 14; Blood Urea Nitrogen 7 mg/dL (7-17); Calcium 9.3 mg/dL (8.4-10.2); Hemolysis Index 9
[2018-04-13 11:25] LABS: C-Reactive Protein 16.5 mg/dL (0.00-1.30)
[2018-04-13] MEDS ORDERED: HumuLIN R IV ONE (11:54)
--- NOTE | 2018-04-13 11:55 | History and Physical Report ---
History of Present Illness Chief complaint: My foot hurts History of present illness: 42 YO Female with HTN, DM complicated by Neuropathy, Obesity, Schizophrenia, CVA, Nicotine Dependence, Bipolar presents to ED for evaluation. Pt states that she has experienced redness, pain, as swelling to her right foot over the past 2 days with progressively worsening symptoms over the same time frame. Pt states that pain is 5/10, constant, worse with ambulation and weight bearing and relieved with rest. Pt also reports chest pain. Pt states that pain is 3/10, lasted approximately 5 minutes, substernal, sharp, nonradiating, not worsed with exertion or relieved with rest. Pt transported to [facility] for further care and evaluation. Pt seen and evaluated in ED and found to have Sepsis secondary to diabetic foot infection. Pt initiated on sepsis protocol. Surgery team consulted in ED. Pt also found to have chest pain. Pt admitted to telemetry and initiated on Chest pain protocol. Cardiology team consulted in ED. Past History Past Medical History: arthritis, diabetes, hypertension, stroke, other (OA, Schizophrenia, Bipolar) Past Surgical History: tonsillectomy, Other (tubal ligation) Social history: smoking Family history: diabetes, hypertension Medications and Allergies Allergies Allergy/AdvReac Type Severity Reaction Status Date / Time Penicillins Allergy Rash Verified 11/11/16 10:34 Home Medications Medication Instructions Recorded Confirmed Last Taken Type Albuterol Sulfate [Ventolin HFA] 2 puff IH Q4H PRN 04/08/15 09/28/17 Unknown History Carisoprodol [Soma] 350 mg PO TID 04/08/15 09/28/17 Unknown History Gabapentin [Neurontin] 300 mg PO BID 04/08/15 09/28/17 Unknown History Temazepam [Restoril] 30 mg PO DAILY 04/08/15 09/28/17 Unknown History traMADol [Ultram 50 MG tab] 50 mg PO Q6HR PRN #12 tablet 11/11/16 09/28/17 Unknown Rx Nitrofurantoin Monohyd/M-Cryst 100 mg PO BID #14 capsule 05/20/17 09/28/17 Unknown Rx [Macrobid 100 mg Capsule] Ondansetron [Zofran Odt] 4 mg PO Q6HR #7 tab.rapdis 05/20/17 09/28/17 Unknown Rx Aspirin [Aspirin TAB] 325 mg PO QDAY #30 tablet 09/29/17 Unknown Rx AtorvaSTATin [Lipitor] 40 mg PO QHS #30 tablet 09/29/17 Unknown Rx HYDROcodone/APAP 5-325 [[place] 1 each PO Q6HR PRN #10 tablet 09/29/17 Unknown Rx 5-325 mg TAB] Lisinopril [Zestril TAB] 20 mg PO BID #30 tablet 09/29/17 Unknown Rx Ziprasidone [Geodon] 40 mg PO BID #60 capsule 09/29/17 Unknown Rx diazePAM TAB [Valium] 5 mg PO BID PRN #30 tablet 09/29/17 Unknown Rx metFORMIN 1,000 mg PO DAILY #60 09/29/17 Unknown Rx Review of Systems Constitutional: no weight loss, no weight gain, no fever, no chills Ears, nose, mouth and throat: no ear pain, no ear discharge, no tinnitis, no nose pain Breasts: no change in shape, no swelling, no mass Cardiovascular: chest pain, no palpitations, no shortness of breath, no dyspnea on exertion, no paroxysmal nocturnal dyspnea, no claudication, no phlebitis, no decreased exercise tolerance Respiratory: no cough, no cough with sputum, no excessive sputum, no hemoptysis Gastrointestinal: no abdominal pain, no nausea, no vomiting, no diarrhea, no constipation Genitourinary Female: no pelvic pain, no flank pain, no menorrhagia, no dysuria, no urinary frequency, no urgency Rectal: no pain, no incontinence, no bleeding Musculoskeletal: no neck stiffness, no neck pain, no shooting arm pain, no arm numbness/tingling, no low back pain, no shooting leg pain Integumentary: lesions, no rash, no pruritis, no redness, no sores, no wounds Neurological: no paralysis, no weakness, no parathesias, no numbness, no tingling, no seizures Psychiatric: no anxiety, no memory loss, no change in sleep habits, no sleep dis turbances, no insomnia, no hypersomnia Endocrine: no cold intolerance, no heat intolerance, no polyphagia, no excessive thirst, no polydipsia, no polyuria Hematologic/Lymphatic: no easy bruising, no easy bleeding, no lymphadenopathy Allergic/Immunologic: no urticaria, no allergic rhinitis, no wheezing, no anaphylaxis Exam - Constitutional Vitals: Temp Pulse Resp BP Pulse Ox 97.6 F 102 H 20 151/77 100 04/13/18 10:17 04/13/18 10:17 04/13/18 10:17 04/13/18 10:17 04/13/18 10:17 General appearance: Present: mild distress - EENT Eyes: Present: PERRL ENT: hearing intact, clear oral mucosa - Neck Neck: Present: supple, normal ROM - Respiratory Respiratory effort: normal Respiratory: bilateral: CTA - Cardiovascular Heart Sounds: Present: S1 & S2. Absent: rub, click - Extremities Extremity abnormal: ulceration, erythema, tenderness Peripheral Pulses: abnormal (capillary refill greater than 3.5 seconds) - Abdominal General gastrointestinal: Present: soft, non-tender, non-distended, normal bowel sounds Female genitourinary: Present: normal - Integumentary Integumentary: Present: clear, dry - Musculoskeletal Musculoskeletal: gait normal, strength equal bilaterally - Psychiatric Psychiatric: appropriate mood/affect, intact judgment & insight - Neurologic Neurologic: CNII-XII intact, moves all extremities Results - Labs CBC & Chem 7: 04/13/18 10:29 04/13/18 10:29 Labs: Abnormal lab results 04/13/18 04/13/18 04/13/18 Range/Units 10:29 10:29 10:29 WBC 15.3 H (4.5-11.0) K/mm3 MCH 27 L (28-32) pg RDW 12.9 L (13.2-15.2) % [place] % (Auto) 7.6 H (0.0-7.3) % [place] # 1.2 H (0.0-0.8) K/mm3 Seg Neutrophils % 78.3 H (40.0-70.0) % Seg Neutrophils # 12.0 H (1.8-7.7) K/mm3 Sodium 132 L (137-145) mmol/L Chloride 94.3 L (98-107) mmol/L Creatinine 0.5 L (0.7-1.2) mg/dL Glucose 326 H (65-100) mg/dL POC Glucose (70-105) Total Creatine Kinase 28 L (30-135) units/L C-Reactive Protein 16.50 H (0.00-1.30) mg/dL 04/13/18 Range/Units 11:42 WBC (4.5-11.0) K/mm3 MCH (28-32) pg RDW (13.2-15.2) % [place] % (Auto) (0.0-7.3) % [place] # (0.0-0.8) K/mm3 Seg Neutrophils % (40.0-70.0) % Seg Neutrophils # (1.8-7.7) K/mm3 Sodium (137-145) mmol/L Chloride (98-107) mmol/L Creatinine (0.7-1.2) mg/dL Glucose (65-100) mg/dL POC Glucose 290 H (70-105) Total Creatine Kinase (30-135) units/L C-Reactive Protein (0.00-1.30) mg/dL Assessment and Plan - Patient Problems (1) Sepsis Current Visit: Yes Status: Acute (2) Chest pain Current Visit: Yes Status: Acute Qualifiers: Ischemic chest pain type: stable angina pectoris Plan to address problem: Admit to telemetry, cardiology consulted, review Echo from 10/06, serial cardiac enzymes, ekg, telemetry, BNP, d dimer, morphine, supplemental oxygen, nitro, aspirin. (3) Hyponatremia syndrome Current Visit: Yes Status: Acute Plan to address problem: IVF reususcitation therapy (4) Cellulitis Current Visit: Yes Status: Acute Qualifiers: Site of cellulitis: extremity Site of cellulitis of extremity: lower extremity Laterality: right Qualified Code(s): L03.115 - Cellulitis of right lower limb Plan to address problem: IV antibiotic therapy, x ray right foot, MRI of right foot to evaluated for osteomyelitis. (5) Diabetic neuropathy Current Visit: Yes Status: Acute Qualifiers: Diabetes mellitus type: type 1 Diabetes mellitus complication detail: diabetic polyneuropathy Qualified Code(s): E10.42 - Type 1 diabetes mellitus with diabetic polyneuropathy Plan to address problem: Pain control, supportive care, continue current therapy (6) DVT prophylaxis Current Visit: Yes Status: Acute Plan to address problem: SCD to BLE while in bed.
[2018-04-13] MEDS ORDERED: NACL 0.9% 1000 ML IV ONE (11:57)
[2018-04-13] MEDS ORDERED: TYLENOL PO PRN (11:57)
[2018-04-13] MEDS ORDERED: ZOFRAN IV PRN (11:57)
[2018-04-13] MEDS ORDERED: PROVENTIL IH PRN ×2 (11:57→12:42)
[2018-04-13] MEDS ORDERED: SODIUM CHLORIDE FLUSH SYRINGE 10 ML IV PRN ×2 (11:57→12:47)
[2018-04-13] MEDS ORDERED: VANCOMYCIN/NS 1 GM/250 ML 1 GM/250 ML BAG IV ONE (12:13)
[2018-04-13] MEDS ORDERED: VALIUM PO PRN (12:14)
[2018-04-13] MEDS ORDERED: PROAIR IH PRN (12:14)
--- NOTE | 2018-04-13 12:21 | XRay Report ---
FINAL REPORT EXAM: XR FOOT 2V RT HISTORY: right foot pain swelling ucer infection TECHNIQUE: AP and lateral radiographs of the right foot. PRIORS: None. FINDINGS: No fracture. No dislocation. Normal mineralization. No soft tissue abnormality. No bony erosion or periosteal reaction. Probable old right distal fibular fracture is partially image d. IMPRESSION: No acute right foot abnormality.
[2018-04-13] MEDS ORDERED: VANCOMYCIN 2,000 MG in NACL 0.9% 500 ML 500 ML IV SCH (12:30)
[2018-04-13] MEDS ORDERED: RESTORIL PO PRN (12:44)
[2018-04-13] MEDS ORDERED: NITROSTAT SL PRN (12:47)
[2018-04-13] MEDS ORDERED: BABY ASPIRIN PO STA (12:47)
[2018-04-13] MEDS ORDERED: VANCOMYCIN PHARMACY TO DOSE IV SCH (13:00)
[2018-04-13] MEDS ORDERED: VANCOMYCIN 2,000 MG in NACL 0.9% 500 ML 500 ML IV ONE (13:00)
[2018-04-13] MEDS ORDERED: ASPIRIN ONE (13:47)
--- NOTE | 2018-04-13 14:24 | Consultation ---
History of Present Illness Consult date: 04/13/18 Chief complaint: right foot wound - History of present illness History of present illness: 42 yo F with hx of DM and previous treatement in wound care center for ischial wound presents with a right plantar foot wound. Patient states she had a callus at that area and she picked at it. This led to a small hole that never healed. Over the last 2 days it has become more tender and the top of her foot has become red and swollen. In the records, she has 2 missed wound care visits and states that she did not go because she didn't need it. No f/c. No drainage from wound. She has never had a wound in this area before. She admits to decreased sensation in the feet. Past History Past Medical History: arthritis, diabetes, hypertension, stroke, other (OA, Schizophrenia, Bipolar) Past Surgical History: tonsillectomy, Other (tubal ligation) Social history: smoking Family history: diabetes, hypertension Medications and Allergies Allergies Allergy/AdvReac Type Severity Reaction Status Date / Time Penicillins Allergy Rash Verified 11/11/16 10:34 Home Medications Medication Instructions Recorded Confirmed Last Taken Type traMADol [Ultram 50 MG tab] 50 mg PO Q6HR PRN #12 tablet 11/11/16 09/28/17 Unknown Rx Aspirin [Aspirin TAB] 325 mg PO QDAY #30 tablet 09/29/17 04/13/18 04/13/18 13:54 Rx AtorvaSTATin [Lipitor] 40 mg PO QHS #30 tablet 09/29/17 04/13/18 1 Day Ago Rx ~04/12/18 HYDROcodone/APAP 5-325 [[place] 1 each PO Q6HR PRN #10 tablet 09/29/17 04/13/18 1 Day Ago Rx 5-325 mg TAB] ~04/12/18 Lisinopril [Zestril TAB] 20 mg PO BID #30 tablet 09/29/17 04/13/18 1 Day Ago Rx ~04/12/18 metFORMIN 1,000 mg PO DAILY #60 09/29/17 04/13/18 1 Day Ago Rx ~04/12/18 Active Meds: Active Medications Acetaminophen (Tylenol) 650 mg PO Q4H PRN PRN Reason: Pain MILD(1-3)/Fever >100.5/RODRIGUEZ Acetaminophen/Hydrocodone Bitart ([place] 5/325) 1 each PO Q6HR PRN PRN Reason: Pain Albuterol (Proventil) 2.5 mg IH Q4HRT PRN PRN Reason: Shortness Of Breath Aspirin (Aspirin) 325 mg PO QDAY JUANITA Atorvastatin Calcium (Lipitor) 40 mg PO QHS JUANITA Carisoprodol (Soma) 350 mg PO TID JUANITA Diazepam (Valium) 5 mg PO BID PRN PRN Reason: Anxiety Gabapentin (Neurontin) 300 mg PO BID JUANITA Vancomycin HCl 2,000 mg/ (Sodium Chloride) 540 mls @ 250 mls/hr IV ONCE ONE Stop: 04/13/18 15:09 Vancomycin HCl 1,750 mg/ (Sodium Chloride) 535 mls @ 333.333 mls/hr IV Q12H JUANITA Nitroglycerin (Nitrostat) 0.4 mg SL Q5M PRN PRN Reason: Chest Pain Ondansetron HCl (Zofran) 4 mg IV Q8H PRN PRN Reason: Nausea And Vomiting Ondansetron HCl (Zofran Odt) 4 mg PO Q6HR JUANITA Sodium Chloride (Sodium Chloride Flush Syringe 10 Ml) 10 ml IV BID JUANITA Sodium Chloride (Sodium Chloride Flush Syringe 10 Ml) 10 ml IV PRN PRN PRN Reason: LINE FLUSH Temazepam (Restoril) 30 mg PO QHS PRN PRN Reason: Sleep Tramadol HCl (Ultram) 50 mg PO Q6HR PRN PRN Reason: Pain Ziprasidone (Geodon) 40 mg PO BID JUANITA Review of Systems All systems: negative (10 pt ROS performed and negative except for that listed in HPI) Exam Vital Signs Temp Pulse Resp BP Pulse Ox 97.6 F 102 H 20 151/77 100 04/13/18 10:17 04/13/18 10:17 04/13/18 10:17 04/13/18 10:17 04/13/18 10:17 Narrative exam: Gen; AAOx3. NAd ENT: no scleral icterus or conjunctival pallor CV: s1, S2+ Resp: even and unlabored Ext: right foot with cellulitis of dorsal medial aspect of foot. 1 cm wound on the plantar aspect of the foot with overlying eschar. Wound probes to subcutaneous tissue. No drainage. There is a surrounding callus. There is TTP. No fluctuance. No crepitus. There is 1 cm blister along the medial aspect of the great toe Results - Labs 04/13/18 10:29 04/13/18 10:29 Abnormal lab results 04/13/18 04/13/18 04/13/18 Range/Units 10:29 10:29 10:29 WBC 15.3 H (4.5-11.0) K/mm3 MCH 27 L (28-32) pg RDW 12.9 L (13.2-15.2) % [place] % (Auto) 7.6 H (0.0-7.3) % [place] # 1.2 H (0.0-0.8) K/mm3 Seg Neutrophils % 78.3 H (40.0-70.0) % Seg Neutrophils # 12.0 H (1.8-7.7) K/mm3 Sodium 132 L (137-145) mmol/L Chloride 94.3 L (98-107) mmol/L Creatinine 0.5 L (0.7-1.2) mg/dL Glucose 326 H (65-100) mg/dL POC Glucose (70-105) Total Creatine Kinase 28 L (30-135) units/L C-Reactive Protein 16.50 H (0.00-1.30) mg/dL 04/13/18 Range/Units 11:42 WBC (4.5-11.0) K/mm3 MCH (28-32) pg RDW (13.2-15.2) % [place] % (Auto) (0.0-7.3) % [place] # (0.0-0.8) K/mm3 Seg Neutrophils % (40.0-70.0) % Seg Neutrophils # (1.8-7.7) K/mm3 Sodium (137-145) mmol/L Chloride (98-107) mmol/L Creatinine (0.7-1.2) mg/dL Glucose (65-100) mg/dL POC Glucose 290 H (70-105) Total Creatine Kinase (30-135) units/L C-Reactive Protein (0.00-1.30) mg/dL Diabetes panel 04/13/18 Range/Units 10:29 Sodium 132 L (137-145) mmol/L Potassium 4.0 (3.6-5.0) mmol/L Chloride 94.3 L (98-107) mmol/L Carbon Dioxide 23 (22-30) mmol/L BUN 7 (7-17) mg/dL Creatinine 0.5 L (0.7-1.2) mg/dL Glucose 326 H (65-100) mg/dL Calcium 9.3 (8.4-10.2) mg/dL Calcium panel 04/13/18 Range/Units 10:29 Calcium 9.3 (8.4-10.2) mg/dL Pituitary panel 04/13/18 Range/Units 10:29 Sodium 132 L (137-145) mmol/L Potassium 4.0 (3.6-5.0) mmol/L Chloride 94.3 L (98-107) mmol/L Carbon Dioxide 23 (22-30) mmol/L BUN 7 (7-17) mg/dL Creatinine 0.5 L (0.7-1.2) mg/dL Glucose 326 H (65-100) mg/dL Calcium 9.3 (8.4-10.2) mg/dL Adrenal panel 04/13/18 Range/Units 10:29 Sodium 132 L (137-145) mmol/L Potassium 4.0 (3.6-5.0) mmol/L Chloride 94.3 L (98-107) mmol/L Carbon Dioxide 23 (22-30) mmol/L BUN 7 (7-17) mg/dL Creatinine 0.5 L (0.7-1.2) mg/dL Glucose 326 H (65-100) mg/dL Calcium 9.3 (8.4-10.2) mg/dL - Imaging Additional studies: Xray R foot Assessment and Plan 42 yo F with 1. uncontrolled DM 2. right foot wound 3. right foot cellulitis Xray R foot - no acute abnormality Plan: 1. diabetic diet, strict glucose control 2. IVF 3. IV abx 4. prn pain control 5. HbA1C 6. will monitor for response to abx. If minimal or no improvement, discussed OR with patient to unroof the ulcer and explore wound. 7. MRI R foot to r/o osteo 8. repeat CBC in am Thank you, please call with questions
[2018-04-13] MEDS: SOMA PO SCH ×2 (15:59→20:00)
[2018-04-13] MEDS: HumaLOG SUB-Q SCH ×2 (18:25→22:43)
[2018-04-13] MEDS: NORCO 5/325 PO PRN (18:48)
[2018-04-13] MEDS: ZOFRAN ODT PO SCH (18:49)
[2018-04-13] MEDS: GEODON PO SCH (22:18)
[2018-04-13] MEDS: NEURONTIN PO SCH (22:19)
[2018-04-13] MEDS: SODIUM CHLORIDE FLUSH SYRINGE 10 ML IV SCH (22:20)
[2018-04-14] MEDS: VANCOMYCIN 1,750 MG in NACL 0.9% 500 ML 500 ML IV SCH ×2 (01:41→13:55)
[2018-04-14] MEDS: ZOFRAN ODT PO SCH ×4 (06:00→17:37)
[2018-04-14] MEDS: SOMA PO SCH ×3 (09:17→20:00)
[2018-04-14] MEDS: GEODON PO SCH ×2 (10:56→21:44)
[2018-04-14] MEDS ORDERED: XYLOCAINE 1% 20 mL INFILTRATI ONE (11:26)
[2018-04-14] MEDS ORDERED: MORPHINE IV ONE (11:26)
[2018-04-14 11:53] LABS: Hematocrit 34.9 % (30.3-42.9); Hemoglobin 11.3 gm/dl (10.1-14.3); Mean Corpuscular HGB Conc 33 % (30-34); Mean Corpuscular Volume 82 fl (79-97); Platelet Count 329 K/mm3 (140-440); Red Blood Count 4.27 M/mm3 (3.65-5.03); Red Cell Distribution Width 13.3 % (13.2-15.2)
--- NOTE | 2018-04-14 12:41 | Consultation ---
History of Present Illness Consult date: 04/14/18 Past History Past Medical History: arthritis, diabetes, hypertension, stroke, other (OA, Schizophrenia, Bipolar) Past Surgical History: tonsillectomy, Other (tubal ligation) Social history: smoking Family history: diabetes, hypertension Medications and Allergies Allergies Allergy/AdvReac Type Severity Reaction Status Date / Time Penicillins Allergy Rash Verified 11/11/16 10:34 Home Medications Medication Instructions Recorded Confirmed Last Taken Type traMADol [Ultram 50 MG tab] 50 mg PO Q6HR PRN #12 tablet 11/11/16 04/13/18 Unknown Rx Aspirin [Aspirin TAB] 325 mg PO QDAY #30 tablet 09/29/17 04/13/18 04/13/18 13:54 Rx AtorvaSTATin [Lipitor] 40 mg PO QHS #30 tablet 09/29/17 04/13/18 1 Day Ago Rx ~04/12/18 HYDROcodone/APAP 5-325 [[place] 1 each PO Q6HR PRN #10 tablet 09/29/17 04/13/18 1 Day Ago Rx 5-325 mg TAB] ~04/12/18 metFORMIN 1,000 mg PO DAILY #60 09/29/17 04/13/18 1 Day Ago Rx ~04/12/18 Levemir (Nf) 50 units SQ BID 04/13/18 04/13/18 04/13/18 History Lisinopril [Zestril TAB] 20 mg PO DAILY 04/13/18 04/13/18 1 Day Ago History ~04/12/18 Ziprasidone 40 mg PO BID 04/13/18 04/13/18 04/11/18 History Active Meds: Active Medications Acetaminophen (Tylenol) 650 mg PO Q4H PRN PRN Reason: Pain MILD(1-3)/Fever >100.5/RODRIGUEZ Acetaminophen/Hydrocodone Bitart ([place] 5/325) 1 each PO Q6HR PRN PRN Reason: Pain Last Admin: 04/13/18 18:48 Dose: 1 each Documented by: Albuterol (Proventil) 2.5 mg IH Q4HRT PRN PRN Reason: Shortness Of Breath Aspirin (Aspirin) 325 mg PO QDAY JUANITA Atorvastatin Calcium (Lipitor) 40 mg PO QHS JUANITA Last Admin: 04/13/18 22:19 Dose: 40 mg Documented by: Carisoprodol (Soma) 350 mg PO TID [facility] Last Admin: 04/13/18 20:00 Dose: 350 mg Documented by: Diazepam (Valium) 5 mg PO BID PRN PRN Reason: Anxiety Gabapentin (Neurontin) 300 mg PO BID [facility] Last Admin: 04/13/18 22:19 Dose: 300 mg Documented by: Vancomycin HCl 1,750 mg/ (Sodium Chloride) 535 mls @ 333.333 mls/hr IV Q12H [facility] Last Admin: 04/14/18 01:41 Dose: 333.333 mls/hr Documented by: Insulin Glargine (Lantus) 25 units SUB-Q BID [facility] Insulin Human Lispro (Humalog) 0 unit SUB-Q ACHS [facility]; Protocol Last Admin: 04/13/18 22:43 Dose: Not Given Documented by: Nitroglycerin (Nitrostat) 0.4 mg SL Q5M PRN PRN Reason: Chest Pain Ondansetron HCl (Zofran) 4 mg IV Q8H PRN PRN Reason: Nausea And Vomiting Ondansetron HCl (Zofran Odt) 4 mg PO Q6HR [facility] Last Admin: 04/13/18 18:49 Dose: 4 mg Documented by: Sodium Chloride (Sodium Chloride Flush Syringe 10 Ml) 10 ml IV BID [facility] Last Admin: 04/13/18 22:20 Dose: 10 ml Documented by: Sodium Chloride (Sodium Chloride Flush Syringe 10 Ml) 10 ml IV PRN PRN PRN Reason: LINE FLUSH Temazepam (Restoril) 30 mg PO QHS PRN PRN Reason: Sleep Tramadol HCl (Ultram) 50 mg PO Q6HR PRN PRN Reason: Pain Ziprasidone (Geodon) 40 mg PO BID [facility] Last Admin: 04/13/18 22:18 Dose: 40 mg Documented by: Physical Examination Vital Signs Temp Pulse Resp BP Pulse Ox 97.6 F 102 H 20 151/77 100 04/13/18 10:17 04/13/18 10:17 04/13/18 10:17 04/13/18 10:17 04/13/18 10:17 Results 04/14/18 11:27 04/13/18 10:29 CBC 04/14/18 Range/Units 11:27 WBC 12.1 H (4.5-11.0) K/mm3 RBC 4.27 (3.65-5.03) M/mm3 Hgb 11.3 (10.1-14.3) gm/dl Hct 34.9 (30.3-42.9) % Plt Count 329 (140-440) K/mm3 Assessment and Plan full c/s dictated thx
--- NOTE | 2018-04-14 13:15 | Procedure Note ---
Date of procedure: 04/14/18 Pre-op diagnosis: infected right diabetic foot wound Post-op diagnosis: same Procedure: excisional debridement of right infected diabetic foot wound with drainage of abscess Findings: Upon examination today, the patient had persistent cellulitis of the right foot along with purulent drainage from the foot wound. Therefore, debridement was recommended. Consent obtained. The right foot was prepped with betadine and a time out performed. The patient was premedicated with IV morphine 2mg. The skin was anesthetized with 1% lidocaine. The necrotic skin and subcutaneous tissue was sharply debrided using a 15 blade, foreceps, and scissors. There was drainage of minimal purulent fluid which was cultured. The wound probed to 2 cm in the 7 oclock position at the deepest point. The abscess cavity was completely evacuated and loculations broken up using a cotton tip applicator. Predebridement measurement: 1 cm x 1cm x 0.2 cm Post debridement measurement: 2.5X 5 cm x 1.5cm The wound was irrigated and hemostasis achieved with pressure. No bleeding was seen at the end of the procedure. The skin was cleansed and the wound packed with 1 piece of mesalt packing. The wound was covered with 4x4 gauze and wrapped with kerlex. This was secured with tape. The patient tolerated the procedure well. All sharps were disposed of appropriately. Anesthesia: local Surgeon: MEKA BATES Estimated blood loss: minimal Pathology: list (cultures) Specimen disposition: to lab Condition: stable Disposition: floor
[2018-04-14] MEDS: LANTUS SUB-Q SCH ×2 (13:16→21:44)
[2018-04-14] MEDS: NEURONTIN PO SCH ×2 (13:17→21:43)
[2018-04-14] MEDS: ASPIRIN PO SCH (13:17)
--- NOTE | 2018-04-14 14:11 | Progress Note ---
Assessment and Plan Assessment and plan: Sepsis secondary to right diabetic foot ulcer with abscess -Status post I&D -On IV antibiotic with vancomycin -ID recommended adding aztreonam and Flagyl -blood and wound cultures pending DM2 with hyperglycemia -Insulin regimen adjusted, we will monitor -hba1c pending HTN -Controlled on meds Psych disorder(bipolar, schizophrenia) -Continue home med Hyperlipidemia -On statin Pseudohyponatremia -corrected Na level is 137 Obesity with BMI of 36.7 -Lifestyle modification recommended Disp: For d/c when medically stable History Interval history: Patient complained of right foot pain Hospitalist Physical - Constitutional Vitals: Temp Pulse Resp BP Pulse Ox 97.7 F 101 H 20 127/90 100 04/14/18 12:26 04/14/18 12:25 04/14/18 12:25 04/14/18 12:25 04/14/18 12:25 General appearance: Present: no acute distress - EENT Eyes: Present: PERRL, EOM intact ENT: hearing intact, clear oral mucosa - Neck Neck: Present: supple - Respiratory Respiratory effort: normal Respiratory: bilateral: CTA - Cardiovascular Rhythm: regular (tachycardia) Heart Sounds: Present: S1 & S2 - Extremities Extremity abnormal: edema (with open wound on the plantar surface of the right foot) - Abdominal General gastrointestinal: soft, non-tender, normal bowel sounds - Neurologic Neurologic: CNII-XII intact Results - Labs CBC & Chem 7: 04/14/18 11:27 04/13/18 10:29 Labs: Laboratory Last Values WBC 12.1 K/mm3 (4.5-11.0) H 04/14/18 11:27 RBC 4.27 M/mm3 (3.65-5.03) 04/14/18 11:27 Hgb 11.3 gm/dl (10.1-14.3) 04/14/18 11:27 Hct 34.9 % (30.3-42.9) 04/14/18 11:27 MCV 82 fl (79-97) 04/14/18 11:27 MCH 27 pg (28-32) L 04/14/18 11:27 MCHC 33 % (30-34) 04/14/18 11:27 RDW 13.3 % (13.2-15.2) 04/14/18 11:27 Plt Count 329 K/mm3 (140-440) 04/14/18 11:27 Lymph % (Auto) 13.4 % (13.4-35.0) 04/13/18 10:29 [place] % (Auto) 7.6 % (0.0-7.3) H 04/13/18 10:29 Eos % (Auto) 0.3 % (0.0-4.3) 04/13/18 10:29 Baso % (Auto) 0.4 % (0.0-1.8) 04/13/18 10:29 Lymph # 2.1 K/mm3 (1.2-5.4) 04/13/18 10:29 [place] # 1.2 K/mm3 (0.0-0.8) H 04/13/18 10:29 Eos # 0.1 K/mm3 (0.0-0.4) 04/13/18 10:29 Baso # 0.1 K/mm3 (0.0-0.1) 04/13/18 10:29 Seg Neutrophils % 78.3 % (40.0-70.0) H 04/13/18 10:29 Seg Neutrophils # 12.0 K/mm3 (1.8-7.7) H 04/13/18 10:29 ESR 51 mm/Hr (0-20) 04/13/18 10:29 D-Dimer 209.79 ng/mlDDU (0-234) 04/13/18 15:07 VBG pH 7.412 (7.320-7.420) 04/13/18 11:13 Sodium 132 mmol/L (137-145) L 04/13/18 10:29 Potassium 4.0 mmol/L (3.6-5.0) 04/13/18 10:29 Chloride 94.3 mmol/L (98-107) L 04/13/18 10:29 Carbon Dioxide 23 mmol/L (22-30) 04/13/18 10:29 Anion Gap 19 mmol/L 04/13/18 10:29 BUN 7 mg/dL (7-17) 04/13/18 10:29 Creatinine 0.5 mg/dL (0.7-1.2) L 04/13/18 10:29 Estimated GFR > 60 ml/min 04/13/18 10:29 BUN/Creatinine Ratio 14 % 04/13/18 10:29 Glucose 326 mg/dL (65-100) H 04/13/18 10:29 POC Glucose 186 (70-105) H 04/14/18 12:27 Hemoglobin A1c 10.9 % (4-6) H 04/14/18 11:27 Lactic Acid 1.70 mmol/L (0.7-2.0) 04/13/18 20:22 Calcium 9.3 mg/dL (8.4-10.2) 04/13/18 10:29 Total Creatine Kinase 28 units/L (30-135) L 04/13/18 10:29 Troponin T < 0.010 ng/mL (0.00-0.029) 04/13/18 20:22 C-Reactive Protein 16.50 mg/dL (0.00-1.30) H 04/13/18 10:29 NT-Pro-B Natriuret Pep 67.46 pg/mL (0-450) 04/13/18 15:01
[2018-04-14] MEDS ORDERED: ZIPRASIDONE 40 MG PO SCH (14:15)
[2018-04-14] MEDS: FLAGYL 500 MG/100 ML 500 MG/100 ML BAG IV SCH ×2 (14:30→21:44)
[2018-04-14] MEDS: NACL 0.9% IV SCH ×2 (14:57→21:44)
[2018-04-14] MEDS: AZACTAM IV SCH ×2 (14:57→21:44)
[2018-04-14] MEDS: HumaLOG SUB-Q SCH ×3 (15:37→17:15)
[2018-04-14] MEDS: ZESTRIL PO SCH (16:03)
--- NOTE | 2018-04-14 16:20 | Consultation ---
History of Present Illness - Reason for Consult Consult date: 04/14/18 right foot infection Requesting physician: NIKOLE TAMEZ - History of Present Illness 42 y/o female with history of uncontrolled DM admitted on 04/13/2018 due to worsening right plantar foot wound for 2 weeks. Patient states she had a callus at that area and she picked at it. This led to a small hole that never healed. Over the last 2 days it has become more tender and the top of her foot has become red and swollen. In the records, she has 2 missed wound care visits and states that she did not go because she didn't need it. In the ED, VS stable except HR 102. WBC 15.3. CRP 16. A1C 10.6. Foot XR neg. Review of Systems: General: no fever, chills, nightsweats, unintentional weight change, or change in appetite Cutaneous: no rash, pruritus Head: no headaches or injury Eyes: no changes in vision, eye pain, double vision Ears: no ear pain, ear discharge, ringing or hearing loss Nose: no nose bleeding, stuffiness Mouth & throat: no bleeding gums, no horseness, no dental problems, or swollen glands Neck: no pain, node enlargement/lumps, tyroid enlargement or tenderness Respiratory: no cough, wheezing, sputum, hemoptysis, pleuritic chest pain Cardiovascular: no chest pain, leg edema, cyanosis, CARRILLO, orthopnea Musculoskeletal: + decreased feet sensation, right foot wound Gastrointestinal: no nausea, vomiting, hematemesis, diarrhea, constipation, melena, bright red blood in stools, fecal incontinence, jaundice Genitourinary/Reproductive: no frequent urination, dysuria, hematuria, incontinence Neurogical: no seizures, no headaches, no weakness, no paresthesias, no loss of speech or vision; no memory loss, no vertigo, no tremors, no numbness Psychiatric: stable mood; no excessive anxiety, sadness or moodiness Past History Past Medical History: arthritis, diabetes, hypertension, stroke, other (OA, Schizophrenia, Bipolar) Past Surgical History: tonsillectomy, Other (tubal ligation) Social history: smoking Family history: diabetes, hypertension Medications and Allergies Allergies Allergy/AdvReac Type Severity Reaction Status Date / Time Penicillins Allergy Rash Verified 11/11/16 10:34 Home Medications Medication Instructions Recorded Confirmed Last Taken Type traMADol [Ultram 50 MG tab] 50 mg PO Q6HR PRN #12 tablet 11/11/16 04/13/18 U nknown Rx Aspirin [Aspirin TAB] 325 mg PO QDAY #30 tablet 09/29/17 04/13/18 04/13/18 13:54 Rx AtorvaSTATin [Lipitor] 40 mg PO QHS #30 tablet 09/29/17 04/13/18 1 Day Ago Rx ~04/12/18 HYDROcodone/APAP 5-325 [[place] 1 each PO Q6HR PRN #10 tablet 09/29/17 04/13/18 1 Day Ago Rx 5-325 mg TAB] ~04/12/18 metFORMIN 1,000 mg PO DAILY #60 09/29/17 04/13/18 1 Day Ago Rx ~04/12/18 Levemir (Nf) 50 units SQ BID 04/13/18 04/13/18 04/13/18 History Lisinopril [Zestril TAB] 20 mg PO DAILY 04/13/18 04/13/18 1 Day Ago History ~04/12/18 Ziprasidone 40 mg PO BID 04/13/18 04/13/18 04/11/18 History Active Meds: Active Medications Acetaminophen (Tylenol) 650 mg PO Q4H PRN PRN Reason: Pain MILD(1-3)/Fever >100.5/RODRIGUEZ Acetaminophen/Hydrocodone Bitart ([place] 5/325) 1 each PO Q6HR PRN PRN Reason: Pain Last Admin: 04/13/18 18:48 Dose: 1 each Documented by: Albuterol (Proventil) 2.5 mg IH Q4HRT PRN PRN Reason: Shortness Of Breath Aspirin (Aspirin) 325 mg PO QDAY [facility] Last Admin: 04/14/18 13:17 Dose: 325 mg Documented by: Atorvastatin Calcium (Lipitor) 40 mg PO QHS [facility] Last Admin: 04/13/18 22:19 Dose: 40 mg Documented by: Carisoprodol (Soma) 350 mg PO TID [facility] Last Admin: 04/14/18 13:17 Dose: 350 mg Documented by: Diazepam (Valium) 5 mg PO BID PRN PRN Reason: Anxiety Gabapentin (Neurontin) 300 mg PO BID [facility] Last Admin: 04/14/18 13:17 Dose: 300 mg Documented by: Vancomycin HCl 1,750 mg/ (Sodium Chloride) 535 mls @ 333.333 mls/hr IV Q12H [facility] Last Admin: 04/14/18 13:55 Dose: 333.333 mls/hr Documented by: Aztreonam 1,000 mg/ Sodium (Chloride) 50 mls @ 50 mls/hr IV Q8HR [facility]; Protocol Last Admin: 04/14/18 14:57 Dose: 50 mls/hr Documented by: Metronidazole (Flagyl 500 Mg/100 Ml) 500 mg in 100 mls @ 100 mls/hr IV Q8HR [facility]; Protocol Last Admin: 04/14/18 14:30 Dose: 100 mls/hr Documented by: Insulin Glargine (Lantus) 25 units SUB-Q BID [facility] Last Admin: 04/14/18 13:16 Dose: 25 units Documented by: Insulin Human Lispro (Humalog) 0 unit SUB-Q ACHS [facility]; Protocol Last Admin: 04/14/18 15:41 Dose: 2 unit Documented by: Lisinopril (Zestril) 20 mg PO DAILY [facility] Last Admin: 04/14/18 16:03 Dose: 20 mg Documented by: Nitroglycerin (Nitrostat) 0.4 mg SL Q5M PRN PRN Reason: Chest Pain Ondansetron HCl (Zofran) 4 mg IV Q8H PRN PRN Reason: Nausea And Vomiting Ondansetron HCl (Zofran Odt) 4 mg PO Q6HR [facility] Last Admin: 04/14/18 12:55 Dose: 4 mg Documented by: Sodium Chloride (Sodium Chloride Flush Syringe 10 Ml) 10 ml IV BID [facility] Last Admin: 04/13/18 22:20 Dose: 10 ml Documented by: Sodium Chloride (Sodium Chloride Flush Syringe 10 Ml) 10 ml IV PRN PRN PRN Reason: LINE FLUSH Temazepam (Restoril) 30 mg PO QHS PRN PRN Reason: Sleep Tramadol HCl (Ultram) 50 mg PO Q6HR PRN PRN Reason: Pain Ziprasidone (Geodon) 40 mg PO BID [facility] Last Admin: 04/14/18 10:56 Dose: 40 mg Documented by: Physical Examination - Physical Exam Narrative exam: General appearance: Alert in NAD, conversant Eyes: anicteric sclerae, moist conjunctivae; no lid-lag; PERRLA HENT: Atraumatic; oropharynx clear with moist mucous membranes and no mucosal ulcerations/no oral thrush; normal hard and soft palate. Normal external ears. Neck: Trachea midline; supple, no thyromegaly or lymphadenopathy Lungs: CTA, with normal respiratory effort and no intercostal retractions CV: RRR, no murmurs Abdomen: Soft, non-tender; no masses or hepatosplenomegaly Extremities: + right foot w dressings Skin: Normal temperature, turgor and texture; no rash, ulcers or subcutaneous nodules Psych: Appropriate affect, alert and oriented to person, place and time. Neuro: alert and oriented x 3. Moving all extermities - Constitutional Vitals: Vital Signs Temp Pulse Resp BP Pulse Ox 97.7 F 101 H 20 127/90 100 04/14/18 12:26 04/14/18 12:25 04/14/18 12:25 04/14/18 12:25 04/14/18 12:25 Temperature -Last 24 Hours Temperature 97.7 F Temperature 98.1 F Temperature 98.0 F Temperature 98.1 F Temperature 98.0 F Results - Labs CBC & Chem 7: 04/14/18 11:27 04/13/18 10:29 Labs: Abnormal lab results 04/13/18 04/14/18 04/14/18 Range/Units 20:55 05:25 11:27 WBC 12.1 H (4.5-11.0) K/mm3 MCH 27 L (28-32) pg POC Glucose 138 H 195 H (70-105) Hemoglobin A1c (4-6) % 04/14/18 04/14/18 Range/Units 11:27 12:27 WBC (4.5-11.0) K/mm3 MCH (28-32) pg POC Glucose 186 H (70-105) Hemoglobin A1c 10.9 H (4-6) % Assessment and Plan Cultures: Blood culture pending Assessment: 42 y/o female with history of uncontrolled DM admitted on 04/13/2018 due to worsening right plantar foot wound for 2 weeks: 1) Sepsis: Present on admission, manifested by tachycardia, leukocytosis. Etiology most likely right diabetic foot infection. 2) Right diabetic foot infection: likely polimicrobial.CRP 16.Foot XR neg. 3) DM uncontrolled A1C 10.6. I Recommendations: - follow-up blood cultures, urine culture - obtain MRI foot - surgery on board - start aztreonam and flagyl - continue vancomycin - arterial dopplers Will follow. Grecia Gotti MD Infectious Diseases [employer] [facility] ([facility]) M [phone] O [phone]
--- NOTE | 2018-04-14 16:57 | Consultation ---
CARDIOLOGY CONSULTATION LOCATION: Room 484 REFERRING PHYSICIAN: Dr. Miller, Hospitalist Service. REASON FOR CONSULTATION: Advice regarding chest pain. HISTORY OF PRESENT ILLNESS: The patient is a 42-year-old -[place] female with a history of hypertension, diabetes, neuropathy, obesity, schizophrenia, CVA, nicotine dependence, bipolar disorder, who presents to the ER. She has had pain in her right leg over the past 2 days. This has been worsening. Apparently, per record during the ER visit, she describes sharp, substernal, nonradiating, random pain, which lasted 5 minutes in her chest. Upon interview today, life. abdominal pain, hematochezia, melena, or hemoptysis. No fevers, chills, nausea or vomiting. No blurred vision or headache. PAST MEDICAL HISTORY: As aforementioned. PAST SURGICAL HISTORY: Tonsillectomy and tubal ligation. SOCIAL HISTORY: Smoking. FAMILY HISTORY: Diabetes and hypertension. MEDICATIONS: Inpatient and outpatient medications reviewed. ALLERGIES: SHE IS ALLERGIC TO PENICILLIN. REVIEW OF SYSTEMS: As per HPI. PHYSICAL EXAMINATION: VITAL SIGNS: Blood pressure is 127/90. She is afebrile. Tele reveals sinus rhythm in the 90s. O2 sat is 98% on room air. HEENT: Sclerae anicteric. PERRLA. NECK: Supple, no masses, no JVD. CHEST: Clear to auscultation bilaterally. Good air movement. CARDIOVASCULAR: Regular rate and rhythm, S1, S2. ABDOMEN: Soft, nontender, nondistended. Normoactive bowel sounds. BREASTS: No mass or bruits. EXTREMITIES: Right lower extremity painful with mild swelling. Left lower extremity, unremarkable. LABORATORY DATA: ECG reveals normal sinus rhythm, right bundle branch block. WBC is 12.1, hemoglobin 11.3, hematocrit 34.9, platelets are 329. D-dimer is normal. Cardiac enzymes are negative x 2. Potassium 4.0, sodium 132 and creatinine is normal. Glucose is elevated. ProBNP is also normal. The patient has been evaluated by General Surgery and monitor right foot wound, IV antibiotics. At this point, the patient declines and states that she has not had any chest pain ever. This contradicts her Emergency Room now and history and physical. Cardiac enzymes are negative. EKG is unremarkable for acute changes. We will check an echocardiogram. We will follow along with you. JOB# [id number] SBM/NTS
[2018-04-14] MEDS: NORCO 5/325 PO PRN ×2 (17:35→21:43)
[2018-04-14] MEDS: SODIUM CHLORIDE FLUSH SYRINGE 10 ML IV SCH (21:45)
[2018-04-15] MEDS: VANCOMYCIN 1,750 MG in NACL 0.9% 500 ML 500 ML IV SCH ×2 (01:40→13:20)
[2018-04-15] MEDS: AZACTAM IV SCH ×3 (05:21→22:43)
[2018-04-15] MEDS: NACL 0.9% IV SCH ×3 (05:21→22:43)
[2018-04-15] MEDS: FLAGYL 500 MG/100 ML 500 MG/100 ML BAG IV SCH ×3 (05:21→22:43)
[2018-04-15 05:40] LABS: Basophils # (Auto) 0.1 K/mm3 (0.0-0.1); Basophils % (Auto) 0.5 % (0.0-1.8); Eosinophils # (Auto) 0.1 K/mm3 (0.0-0.4); Eosinophils % (Auto) 0.6 % (0.0-4.3); Hematocrit 33.1 % (30.3-42.9); Hemoglobin 10.9 gm/dl (10.1-14.3); Lymphocytes # (Auto) 1.7 K/mm3 (1.2-5.4); Lymphocytes % (Auto) 15.2 % (13.4-35.0); Mean Corpuscular HGB Conc 33 % (30-34); Mean Corpuscular Volume 83 fl (79-97); Monocytes % (Auto) 8.7 % (0.0-7.3); Platelet Count 283 K/mm3 (140-440); Red Blood Count 4.02 M/mm3 (3.65-5.03); Red Cell Distribution Width 13.3 % (13.2-15.2)
[2018-04-15 05:54] LABS: Alanine Aminotransferase 7 units/L (7-56); Albumin 2.4 g/dL (3.9-5); BUN/Creatinine Ratio 14; Blood Urea Nitrogen 11 mg/dL (7-17); Calcium 8.1 mg/dL (8.4-10.2); Hemolysis Index 9
[2018-04-15] MEDS: ZOFRAN ODT PO SCH ×3 (06:00→20:56)
[2018-04-15] MEDS: ASPIRIN PO SCH (10:12)
[2018-04-15] MEDS: NEURONTIN PO SCH ×2 (10:12→22:42)
[2018-04-15] MEDS: ZESTRIL PO SCH (10:13)
[2018-04-15] MEDS: NORCO 5/325 PO PRN ×3 (10:13→22:42)
[2018-04-15] MEDS: HumaLOG SUB-Q SCH ×4 (10:15→22:00)
[2018-04-15] MEDS: LANTUS SUB-Q SCH ×2 (10:16→22:44)
[2018-04-15] MEDS: GEODON PO SCH ×2 (10:18→22:00)
[2018-04-15] MEDS: SODIUM CHLORIDE FLUSH SYRINGE 10 ML IV SCH (10:20)
[2018-04-15] MEDS: SOMA PO SCH ×4 (10:22→20:00)
--- NOTE | 2018-04-15 10:31 | Progress Note ---
Assessment and Plan Cultures: Blood culture 04/14/2018 no growth so far Wound culture 04/14/2018 normal skin dario Assessment: 42 y/o female with history of uncontrolled DM admitted on 04/13/2018 due to worsening right plantar foot wound for 2 weeks: 1) Sepsis: improving. Etiology most likely right diabetic foot infection. 2) Right diabetic foot infection: likely polimicrobial. CRP 16. Foot XR neg. S/p bedside debridement on 04/14 finding necrotic skin and subcutaneous tissue sharply debrided, drainage of minimal purulent fluid 3) DM uncontrolled A1C 10.6. 4) Penicillin allergy Recommendations: - follow-up blood cultures, wound culture - obtain MRI foot - pending - surgery on board - continue aztreonam and flagyl - continue vancomycin - arterial dopplers - pending Will follow. Grecia Gotti MD Infectious Diseases [employer] [facility] ([facility]) M [phone] O [phone] Subjective Date of service: 04/15/18 Principal diagnosis: right foot infection Interval history: Remains c/o right foot pain 9 of 10, no fever, no N/V/D ROS: as above, rest negative. Objective - Exam Narrative Exam: General appearance: Alert in NAD, conversant Eyes: anicteric sclerae, moist conjunctivae; no lid-lag; PERRLA HENT: Atraumatic; oropharynx clear with moist mucous membranes and no mucosal ulcerations/no oral thrush; normal hard and soft palate. Normal external ears. Neck: Trachea midline; supple, no thyromegaly or lymphadenopathy Lungs: CTA, with normal respiratory effort and no intercostal retractions CV: RRR, no murmurs Abdomen: Soft, non-tender; no masses or hepatosplenomegaly Extremities: + right foot w dressings Skin: Normal temperature, turgor and texture; no rash, ulcers or subcutaneous nodules Psych: Appropriate affect, alert and oriented to person, place and time. Neuro: alert and oriented x 3. Moving all extermities - Constitutional Vitals: Vital Signs Temp Pulse Resp BP Pulse Ox 98.4 F 102 H 18 136/74 100 04/15/18 10:11 04/15/18 10:11 04/15/18 10:11 04/15/18 10:11 04/15/18 10:11 Temperature -Last 24 Hours Temperature 98.4 F Temperature 98.0 F Temperature 98.0 F Temperature 98.7 F Temperature 98.0 F Temperature 97.7 F - Labs CBC & Chem 7: 04/15/18 05:08 04/15/18 05:08 Labs: Abnormal lab results 04/14/18 04/14/18 04/14/18 Range/Units 11:27 11:27 12:27 WBC 12.1 H (4.5-11.0) K/mm3 MCH 27 L (28-32) pg [place] % (Auto) (0.0-7.3) % Rhea # (0.0-0.8) K/mm3 Seg Neutrophils % (40.0-70.0) % Seg Neutrophils # (1.8-7.7) K/mm3 Sodium (137-145) mmol/L Carbon Dioxide (22-30) mmol/L Glucose (65-100) mg/dL POC Glucose 186 H (70-105) Hemoglobin A1c 10.9 H (4-6) % Calcium (8.4-10.2) mg/dL Total Protein (6.3-8.2) g/dL Albumin (3.9-5) g/dL 04/14/18 04/14/18 04/15/18 Range/Units 17:15 21:43 05:06 WBC (4.5-11.0) K/mm3 MCH (28-32) pg [place] % (Auto) (0.0-7.3) % Rhea # (0.0-0.8) K/mm3 Seg Neutrophils % (40.0-70.0) % Seg Neutrophils # (1.8-7.7) K/mm3 Sodium (137-145) mmol/L Carbon Dioxide (22-30) mmol/L Glucose (65-100) mg/dL POC Glucose 250 H 229 H 282 H (70-105) Hemoglobin A1c (4-6) % Calcium (8.4-10.2) mg/dL Total Protein (6.3-8.2) g/dL Albumin (3.9-5) g/dL 04/15/18 04/15/18 Range/Units 05:08 05:08 WBC 11.3 H (4.5-11.0) K/mm3 MCH 27 L (28-32) pg [place] % (Auto) 8.7 H (0.0-7.3) % Rhea # 1.0 H (0.0-0.8) K/mm3 Seg Neutrophils % 75.0 H (40.0-70.0) % Seg Neutrophils # 8.5 H (1.8-7.7) K/mm3 Sodium 134 L (137-145) mmol/L Carbon Dioxide 21 L (22-30) mmol/L Glucose 245 H (65-100) mg/dL POC Glucose (70-105) Hemoglobin A1c (4-6) % Calcium 8.1 L (8.4-10.2) mg/dL Total Protein 6.0 L (6.3-8.2) g/dL Albumin 2.4 L (3.9-5) g/dL
--- NOTE | 2018-04-15 14:13 | Progress Note ---
Assessment and Plan Currently stable cardiac status. No current c/o chest pain. Echo reviewed - EF 50-55%, no significant abnormalities. Nothing further to add from cardiac perspective at this time. Will sign off. Please call if needed. The patient has been seen in conjunction with Dr. Polk who agrees with the assessment and plan of care. - Patient Problems (1) Wound of right lower extremity Current Visit: Yes Status: Acute (2) Sepsis Current Visit: Yes Status: Acute (3) Uncontrolled diabetes mellitus Current Visit: Yes Status: Chronic (4) Neuropathy Current Visit: Yes Status: Chronic (5) HTN (hypertension) Current Visit: Yes Status: Chronic (6) Obesity Current Visit: Yes Status: Chronic (7) Psychiatric disorder Current Visit: Yes Status: Acute (8) History of CVA (cerebrovascular accident) Current Visit: Yes Status: Chronic (9) Tobacco use Current Visit: Yes Status: Chronic Subjective Date of service: 04/15/18 Principal diagnosis: right foot infection Interval history: pt resting in bed, no current cardiac complaints. Objective Last Vital Signs Temp 97.8 F 04/15/18 12:19 Pulse 91 H 04/15/18 12:19 Resp 18 04/15/18 10:11 BP 103/52 04/15/18 12:19 Pulse Ox 100 04/15/18 12:19 - Physical Examination General: No Apparent Distress HEENT: Positive: PERRL, Normocephaly, Mucus Membranes Moist Neck: Positive: neck supple, trachea midline Cardiac: Positive: Reg Rate and Rhythm, S1/S2 Lungs: Positive: clear to auscultation Neuro: Positive: Grossly Intact Abdomen: Positive: Soft. Negative: Tender Skin: Negative: Rash, Wound Musculoskeletal: No Pain Extremities: Absent: edema - Labs and Meds Cardiac Enzymes 04/15/18 Range/Units 05:08 AST 8 (5-40) units/L CBC 04/15/18 Range/Units 05:08 WBC 11.3 H (4.5-11.0) K/mm3 RBC 4.02 (3.65-5.03) M/mm3 Hgb 10.9 (10.1-14.3) gm/dl Hct 33.1 (30.3-42.9) % Plt Count 283 (140-440) K/mm3 Lymph # 1.7 (1.2-5.4) K/mm3 [place] # 1.0 H (0.0-0.8) K/mm3 Eos # 0.1 (0.0-0.4) K/mm3 Baso # 0.1 (0.0-0.1) K/mm3 Comprehensive Metabolic Panel 04/15/18 Range/Units 05:08 Sodium 134 L (137-145) mmol/L Potassium 3.7 (3.6-5.0) mmol/L Chloride 103.8 (98-107) mmol/L Carbon Dioxide 21 L (22-30) mmol/L BUN 11 (7-17) mg/dL Creatinine 0.8 D (0.7-1.2) mg/dL Glucose 245 H (65-100) mg/dL Calcium 8.1 L (8.4-10.2) mg/dL AST 8 (5-40) units/L ALT 7 (7-56) units/L Alkaline Phosphatase 69 (35-129) units/L Total Protein 6.0 L (6.3-8.2) g/dL Albumin 2.4 L (3.9-5) g/dL - Imaging and Cardiology EKG: report reviewed, image reviewed Echo: report reviewed - Telemetry EKG Rhythm: Sinus Rhythm
--- NOTE | 2018-04-15 15:35 | Event Note ---
Date: 04/15/18 Dressing changed by sex therapist today. I discussed with her and noted the photos of the wound taken today. Will plan for further bedside debridement tomorrow. Will discuss with patient.
--- NOTE | 2018-04-15 18:00 | Progress Note ---
Subjective Date of service: 04/15/18 Principal diagnosis: right foot infection Interval history: 52-year-old female admitted for right foot infection All INTERDISCIPLINARY notes reviewed Lab results reviewed Patient complains of pain in the right foot Denies fever or chills Denies chest pain shortness of breath nausea or abdominal pain Sepsis secondary to right diabetic foot ulcer with abscess -Status post I&D -On IV antibiotic with vancomycin -ID added aztreonam and Flagyl -blood and wound cultures pending DM2 with hyperglycemia Poorly controlled -Insulin regimen adjusted, we will monitor -hba1c >10 HTN -Controlled on meds Psych disorder(bipolar, schizophrenia) -Continue home med Hyperlipidemia -On statin Pseudohyponatremia -corrected Na level is 137 Obesity with BMI of 36.7 -Lifestyle modification recommended Objective HEENT normocephalic pupils are round reacting to light throat is clear Neck supple no significant adenopathy Lungs clear to auscultation Heart S1-S2 regular rate and rhythm Abdomen is soft nontender no hepatosplenomegaly Extremities right foot covered in dressing [employer] patient is alert and oriented no focal deficit Psychiatry normal mood and affect Objective - Constitutional Vitals: Vital Signs - 12hr 04/15/18 04/15/18 04/15/18 10:11 12:19 17:12 Temperature 98.4 F 97.8 F 98.1 F Pulse Rate 102 H 91 H 92 H Respiratory 18 18 Rate Blood Pressure 136/74 103/52 109/60 O2 Sat by Pulse 100 100 100 Oximetry - Labs CBC & Chem 7: 04/15/18 05:08 04/15/18 05:08 Labs: Abnormal lab results 04/14/18 04/15/18 04/15/18 Range/Units 21:43 05:06 05:08 WBC 11.3 H (4.5-11.0) K/mm3 MCH 27 L (28-32) pg [place] % (Auto) 8.7 H (0.0-7.3) % [place] # 1.0 H (0.0-0.8) K/mm3 Seg Neutrophils % 75.0 H (40.0-70.0) % Seg Neutrophils # 8.5 H (1.8-7.7) K/mm3 Sodium (137-145) mmol/L Carbon Dioxide (22-30) mmol/L Glucose (65-100) mg/dL POC Glucose 229 H 282 H (70-105) Calcium (8.4-10.2) mg/dL Total Protein (6.3-8.2) g/dL Albumin (3.9-5) g/dL 04/15/18 04/15/18 04/15/18 Range/Units 05:08 11:30 17:13 WBC (4.5-11.0) K/mm3 MCH (28-32) pg [place] % (Auto) (0.0-7.3) % [place] # (0.0-0.8) K/mm3 Seg Neutrophils % (40.0-70.0) % Seg Neutrophils # (1.8-7.7) K/mm3 Sodium 134 L (137-145) mmol/L Carbon Dioxide 21 L (22-30) mmol/L Glucose 245 H (65-100) mg/dL POC Glucose 260 H 228 H (70-105) Calcium 8.1 L (8.4-10.2) mg/dL Total Protein 6.0 L (6.3-8.2) g/dL Albumin 2.4 L (3.9-5) g/dL
[2018-04-16] MEDS: VANCOMYCIN 1,750 MG in NACL 0.9% 500 ML 500 ML IV SCH ×2 (01:54→16:08)
[2018-04-16] MEDS: AZACTAM IV SCH (06:13)
[2018-04-16] MEDS: NACL 0.9% IV SCH (06:13)
[2018-04-16] MEDS: FLAGYL 500 MG/100 ML 500 MG/100 ML BAG IV SCH (06:13)
[2018-04-16] MEDS: HumaLOG SUB-Q SCH ×4 (07:31→21:58)
[2018-04-16] MEDS: ASPIRIN PO SCH (10:30)
[2018-04-16] MEDS: ZESTRIL PO SCH (10:31)
[2018-04-16] MEDS: NEURONTIN PO SCH ×2 (10:32→21:50)
[2018-04-16] MEDS: NORCO 5/325 PO PRN ×2 (10:32→20:37)
[2018-04-16] MEDS: GEODON PO SCH ×2 (10:34→21:50)
[2018-04-16] MEDS: SOMA PO SCH ×3 (10:36→21:50)
[2018-04-16] MEDS: SODIUM CHLORIDE FLUSH SYRINGE 10 ML IV SCH ×4 (10:42→21:51)
[2018-04-16] MEDS: LANTUS SUB-Q SCH ×2 (10:43→22:34)
--- NOTE | 2018-04-16 10:49 | Progress Note ---
Assessment and Plan Cultures: 04/14/18 Wound: Staph aureus 42 y/o female with history of uncontrolled DM admitted on 04/13/2018 due to worsening right plantar foot wound for 2 weeks: 1) Sepsis: improving. Etiology most likely right diabetic foot infection. 2) Right diabetic foot infection: Staph Aureus, CRP 16. Foot XR neg. S/p bedside debridement on 04/14 finding necrotic skin and subcutaneous tissue sharply debrided, drainage of minimal purulent fluid 3) DM uncontrolled A1C 10.6. 4) Penicillin allergy Recommendations: - follow-up blood cultures, wound culture - obtain MRI foot - report pending - surgery on board - discontinue aztreonam and flagyl - continue vancomycin - contact isolation [facility] M: [phone] O:[phone] Subjective Date of service: 04/16/18 Principal diagnosis: right foot infection Interval history: Patient seen and examined. Complains of right foot pain, 5/10. No fevers. Objective - Exam Narrative Exam: General appearance: Alert in NAD, conversant, acute distress - right foot pain Eyes: anicteric sclerae, moist conjunctivae; no lid-lag; PERRLA HENT: Atraumatic; oropharynx clear with moist mucous membranes and no mucosal ulcerations/no oral thrush; normal hard and soft palate. Normal external ears. Neck: Trachea midline; supple, no thyromegaly or lymphadenopathy Lungs: CTA, with normal respiratory effort and no intercostal retractions CV: RRR, no murmurs Abdomen: Soft, non-tender; no masses or hepatosplenomegaly Extremities: + right foot w dressings Skin: Normal temperature, turgor and texture; no rash, ulcers or subcutaneous nodules Psych: Appropriate affect, alert and oriented to person, place and time. Neuro: alert and oriented x 3. Moving all extermities - Constitutional Vitals: Vital Signs Temp Pulse Resp BP Pulse Ox 97.9 F 101 H 20 161/79 100 04/16/18 10:39 04/16/18 10:39 04/16/18 10:39 04/16/18 10:39 04/16/18 10:39 Temperature -Last 24 Hours Temperature 97.9 F Temperature 97.9 F Temperature 98.3 F Temperature 98.3 F Temperature 98.5 F Temperature 98.1 F Temperature 97.8 F - Labs CBC & Chem 7: 04/15/18 05:08 04/15/18 05:08 Labs: Abnormal lab results 04/15/18 04/15/18 04/15/18 Range/Units 11:30 17:13 20:32 POC Glucose 260 H 228 H 234 H (70-105) 04/16/18 Range/Units 05:55 POC Glucose 256 H (70-105)
[2018-04-16] MEDS ORDERED: XYLOCAINE TOPICAL 4% TP ONE (12:53)
--- NOTE | 2018-04-16 12:54 | Progress Note ---
Assessment and Plan 42 yo F with 1. uncontrolled DM 2. right foot wound s/p debridement on 04/14/18 3. right foot cellulitis Xray R foot - no acute abnormality Plan: 1. diabetic diet, strict glucose control 2. IVF 3. IV abx 4. prn pain control 5. MRI R foot to r/o osteo pending 6. WBC trending down 7. will perform bedside debridement today for slough on wound base. Thank you, please call with questions Subjective Date of service: 04/16/18 Narrative: Pt seen and examined. No complaints. Feels better. No f/c. Objective Vital Signs - 12hr 04/16/18 04/16/18 04/16/18 03:58 07:29 10:39 Temperature 98.3 F 97.9 F 97.9 F Pulse Rate 88 92 H 101 H Respiratory 18 20 20 Rate Blood Pressure 101/48 117/63 161/79 O2 Sat by Pulse 98 97 100 Oximetry - General physical appearance Narrative Exam: Gen: AAOx3. NAD CV: S1, S2+ Resp: even and unlabored Ext; R foot dressing removed and all packing removed. Wound base with thick adherent slough. periwound skin is unremarkable. Small wound at lateral aspect of great toe has necrotic eschar. Cellulitis of dorum of foot is much improved. Edema is much improved. - Labs 04/15/18 05:08 04/15/18 05:08
[2018-04-16] MEDS ORDERED: LANTUS SUB-Q SCH (13:45)
--- NOTE | 2018-04-16 14:04 | Event Note ---
Date: 04/16/18 Returned to patient's bedside with supplies and consent form for bedside debridement. Patient off the floor for MRI. Will come back tomorrow for d ebridement which is not urgent. I notified nursing of the plan and dressing will be applied by nursing today.
[2018-04-16] MEDS: ULTRAM PO PRN (16:08)
--- NOTE | 2018-04-16 19:51 | Progress Note ---
Assessment and Plan Assessment and plan: 52-year-old female admitted for right foot infection All INTERDISCIPLINARY notes reviewed Lab results reviewed Patient complains of pain in the right foot Denies fever or chills Denies chest pain shortness of breath nausea or abdominal pain Sepsis secondary to right diabetic foot ulcer with abscess -Status post I&D -On IV antibiotic with vancomycin -ID added aztreonam and Flagyl -blood and wound cultures pending DM2 with hyperglycemia Poorly controlled -Insulin regimen adjusted, we will monitor -hba1c >10 HTN -Controlled on meds --Severe malnutrition:Supportive care and nutrition consult Psych disorder(bipolar, schizophrenia) -Continue home med Hyperlipidemia -On statin Pseudohyponatremia -corrected Na level is 137 Obesity with BMI of 36.7 -Lifestyle modification recommended History Interval history: Patient seen and examined medical records reviewed Scheduled for surgical debridement today Patient went for an MRI study Surgery following No new complaints Vital signs reviewed Hospitalist Physical - Constitutional Vitals: Temp Pulse Resp BP Pulse Ox 98.0 F 89 20 162/84 100 04/16/18 15:30 04/16/18 15:30 04/16/18 15:30 04/16/18 15:30 04/16/18 15:30 General appearance: Present: no acute distress, well-nourished - EENT Eyes: Present: PERRL, EOM intact - Neck Neck: Present: supple, normal ROM - Respiratory Respiratory effort: normal Respiratory: bilateral: diminished, negative: rales, rhonchi, wheezing - Cardiovascular Rhythm: regular Heart Sounds: Present: S1 & S2 - Extremities Extremities: no ischemia, No edema - Abdominal General gastrointestinal: soft, non-tender, non-distended, normal bowel sounds - Integumentary Integumentary: Present: clear, warm - Psychiatric Psychiatric: appropriate mood/affect, cooperative - Neurologic Neurologic: CNII-XII intact, focal deficits Results - Labs CBC & Chem 7: 04/15/18 05:08 04/15/18 05:08 Labs: Laboratory Last Values WBC 11.3 K/mm3 (4.5-11.0) H 04/15/18 05:08 RBC 4.02 M/mm3 (3.65-5.03) 04/15/18 05:08 Hgb 10.9 gm/dl (10.1-14.3) 04/15/18 05:08 Hct 33.1 % (30.3-42.9) 04/15/18 05:08 MCV 83 fl (79-97) 04/15/18 05:08 MCH 27 pg (28-32) L 04/15/18 05:08 MCHC 33 % (30-34) 04/15/18 05:08 RDW 13.3 % (13.2-15.2) 04/15/18 05:08 Plt Count 283 K/mm3 (140-440) 04/15/18 05:08 Lymph % (Auto) 15.2 % (13.4-35.0) 04/15/18 05:08 [place] % (Auto) 8.7 % (0.0-7.3) H 04/15/18 05:08 Eos % (Auto) 0.6 % (0.0-4.3) 04/15/18 05:08 Baso % (Auto) 0.5 % (0.0-1.8) 04/15/18 05:08 Lymph # 1.7 K/mm3 (1.2-5.4) 04/15/18 05:08 [place] # 1.0 K/mm3 (0.0-0.8) H 04/15/18 05:08 Eos # 0.1 K/mm3 (0.0-0.4) 04/15/18 05:08 Baso # 0.1 K/mm3 (0.0-0.1) 04/15/18 05:08 Seg Neutrophils % 75.0 % (40.0-70.0) H 04/15/18 05:08 Seg Neutrophils # 8.5 K/mm3 (1.8-7.7) H 04/15/18 05:08 ESR 51 mm/Hr (0-20) 04/13/18 10:29 D-Dimer 209.79 ng/mlDDU (0-234) 04/13/18 15:07 VBG pH 7.412 (7.320-7.420) 04/13/18 11:13 Sodium 134 mmol/L (137-145) L 04/15/18 05:08 Potassium 3.7 mmol/L (3.6-5.0) 04/15/18 05:08 Chloride 103.8 mmol/L (98-107) 04/15/18 05:08 Carbon Dioxide 21 mmol/L (22-30) L 04/15/18 05:08 Anion Gap 13 mmol/L 04/15/18 05:08 BUN 11 mg/dL (7-17) 04/15/18 05:08 Creatinine 0.8 mg/dL (0.7-1.2) D 04/15/18 05:08 Estimated GFR > 60 ml/min 04/15/18 05:08 BUN/Creatinine Ratio 14 % 04/15/18 05:08 Glucose 245 mg/dL (65-100) H 04/15/18 05:08 POC Glucose 269 (70-105) H 04/16/18 15:31 Hemoglobin A1c 10.9 % (4-6) H 04/14/18 11:27 Lactic Acid 1.70 mmol/L (0.7-2.0) 04/13/18 20:22 Calcium 8.1 mg/dL (8.4-10.2) L 04/15/18 05:08 Total Bilirubin 0.20 mg/dL (0.1-1.2) 04/15/18 05:08 AST 8 units/L (5-40) 04/15/18 05:08 ALT 7 units/L (7-56) 04/15/18 05:08 Alkaline Phosphatase 69 units/L (35-129) 04/15/18 05:08 Total Creatine Kinase 28 units/L (30-135) L 04/13/18 10:29 Troponin T < 0.010 ng/mL (0.00-0.029) 04/13/18 20:22 C-Reactive Protein 16.50 mg/dL (0.00-1.30) H 04/13/18 10:29 NT-Pro-B Natriuret Pep 67.46 pg/mL (0-450) 04/13/18 15:01 Total Protein 6.0 g/dL (6.3-8.2) L 04/15/18 05:08 Albumin 2.4 g/dL (3.9-5) L 04/15/18 05:08 Albumin/Globulin Ratio 0.7 % 04/15/18 05:08 Vancomycin Trough 16.0 ug/mL (5.0-20.0) 04/15/18 11:38 Nutrition/Malnutrition Assess - Dietary Evaluation Nutrition/Malnutrition Findings: Nutrition Notes Start: 04/15/18 15:25 Freq: Status: Active Protocol: Document 04/15/18 15:25 OL (Rec: 04/15/18 15:30 OL [id number]) Nutrition Notes Need for Assessment generated from: assessment consultant Initial or Follow up Assessment Current Diagnosis Diabetes Sepsis Hypertension Stroke Current Diet cardiac/consistent CHO Labs/Tests A1c 10.9 Pertinent Medications Reviewed Height 5 ft 10 in Weight 116 kg [place] Body Weight (kg) 68.18 BMI 36.6 Weight Status Morbidly Obese Subjective/Other Information RD screen for new onset of DM. Pt. with DM for past 17.5 years. Pt. reports decreased appetite for the past week, but is eating well today. Reviewed A1c with pt. Pt. does not have glucometer at home and is requesting assistance. Informed case management. Burn Absent Trauma Absent #1 Nutrition Diagnosis Inadequate oral intake Etiology decreased appetite As Evidenced by Signs and Symptoms altered nutrition related labs , pt. report Is patient on ventilator? No Is Patient Ambulatory and/or Out of Bed Yes REE-([facility]-ambulatory/OOB) [ 2463.825 NUTR.MSJOOB] Kcal/Kg value to use for calculation 16 Approximate Energy Requirements Using 1856 kcal/Kg Calculation Used for Recommendations Kcal/kg Additional Notes adj. wt. 92kg protein (1-1.2gm/kg adj. wt.): 92-110gm fluid: 1mL/kcal or per MD Nutrition Intervention Change Diet Order: Continue consistent CHO/ cardiac Goal #1 Diet to meet 75% of energy and protein needs Anticipated Discharge Needs: Cardiac/consistent CHO Follow-Up By: 04/17/18 Additional Comments f/u: intakes, need for ONS
--- NOTE | 2018-04-16 21:59 | Magnetic Resonance Report ---
FINAL REPORT EXAM: MR LE JOINT RT WO/W CON HISTORY: right foot cellulitismultihance 20mLinpatient TECHNIQUE: MRI of the right foot: Axial: Fat-suppressed T2 Sagittal: T1, STIR Coronal: T1, fat-suppressed T2 PRIORS: Right foot radiographs from 04/13/2018 FINDINGS: Bones and bone marrow: There is normal osseous marrow signal. Joints spaces: The joint spaces are normal. Soft Tissues: There is mild soft tissue swelling and edema of the dorsal surface of the midfoot and a long the medial side of the foot at the level of the 1st metatarsal head. There is a subcutaneous enc apsulated fluid collection on the plantar surface of foot underlying the 1st metatarsal head consiste nt with an abscess. It measures 1.2 cm transverse by 1.3 cm AP x 8 mm in depth. Just distal to this, also on the plantar surface is a 1 cm skin ulcer. Sinus Tarsi: The sinus tarsi is intact. Plantar aponeurosis: The plantar aponeurosis is unremarkable. IMPRESSION: 1. Small abscess in the plantar subcutaneous soft tissues of the foot underlying the 1st metatarsal h ead 2. Small skin ulcer is located just distal to the abscess 3. No evidence of osteomyelitis 4. Soft tissue swelling and edema of the foot on the dorsal surface of the foot and medially around t he 1st metatarsophalangeal joint consistent with cellulitis
[2018-04-17] MEDS: VANCOMYCIN 1,750 MG in NACL 0.9% 500 ML 500 ML IV SCH ×2 (03:15→17:49)
--- NOTE | 2018-04-17 09:49 | Progress Note ---
Assessment and Plan Cultures: 04/14/18 Wound: Staph aureus 42 y/o female with history of uncontrolled DM admitted on 04/13/2018 due to worsening right plantar foot wound for 2 weeks: 1) Sepsis: improving. Etiology most likely right diabetic foot infection. 2) Right diabetic foot infection: Staph Aureus, CRP 16. Foot XR neg. S/p bedside debridement on 04/14 finding necrotic skin and subcutaneous tissue sharply debrided, drainage of minimal purulent fluid. S/P Depbridement today -MRI left foot report reviewed 1.2 x 1.3 cm abscess in the area of the first metatarsal head. Wound was debrided today and no abscess encountered. 3) DM uncontrolled A1C 10.6. 4) Penicillin allergy Recommendations: - follow-up blood cultures, wound culture - surgery on board - continue vancomycin - contact isolation - At discharge will do zyvox 600mg po BID x 14 days , Approved by case management [employer] M: [phone] O:[phone] Subjective Date of service: 04/17/18 Principal diagnosis: right foot infection Interval history: Patient seen and examined. Complains of right foot pain, 03/31. No fevers. Objective - Exam Narrative Exam: General appearance: Alert in NAD, conversant, acute distress - right foot pain Eyes: anicteric sclerae, moist conjunctivae; no lid-lag; PERRLA HENT: Atraumatic; oropharynx clear with moist mucous membranes and no mucosal ulcerations/no oral thrush; normal hard and soft palate. Normal external ears. Neck: Trachea midline; supple, no thyromegaly or lymphadenopathy Lungs: CTA, with normal respiratory effort and no intercostal retractions CV: RRR, no murmurs Abdomen: Soft, non-tender; no masses or hepatosplenomegaly Extremities: + right foot w dressings Skin: Normal temperature, turgor and texture; no rash, ulcers or subcutaneous nodules Psych: Appropriate affect, alert and oriented to person, place and time. Neuro: alert and oriented x 3. Moving all extermities - Constitutional Vitals: Vital Signs Temp Pulse Resp BP Pulse Ox 97.4 F L 76 18 142/71 96 04/17/18 07:53 04/17/18 04:29 04/17/18 07:53 04/17/18 07:53 04/17/18 04:29 Temperature -Last 24 Hours Temperature 97.4 F Temperature 97.6 F Temperature 98.4 F Temperature 98.5 F Temperature 98.0 F Temperature 97.9 F - Labs CBC & Chem 7: 04/15/18 05:08 04/15/18 05:08 Labs: Abnormal lab results 04/16/18 04/16/18 04/16/18 Range/Units 10:40 15:31 22:10 POC Glucose 258 H 269 H 287 H (70-105) 04/17/18 Range/Units 05:35 POC Glucose 191 H (70-105)
[2018-04-17] MEDS: HumaLOG SUB-Q SCH ×5 (09:53→23:20)
[2018-04-17] MEDS: SODIUM CHLORIDE FLUSH SYRINGE 10 ML IV SCH ×2 (10:07→21:41)
[2018-04-17] MEDS: ULTRAM PO PRN (12:45)
[2018-04-17] MEDS: NORCO 5/325 PO PRN (14:03)
[2018-04-17] MEDS: SOMA PO SCH ×3 (15:03→21:40)
[2018-04-17] MEDS: ASPIRIN PO SCH (15:03)
[2018-04-17] MEDS: ZESTRIL PO SCH (15:03)
[2018-04-17] MEDS: GEODON PO SCH ×2 (15:04→21:40)
[2018-04-17] MEDS: LANTUS SUB-Q SCH ×2 (15:04→23:19)
[2018-04-17] MEDS: NEURONTIN PO SCH ×2 (15:04→23:19)
--- NOTE | 2018-04-17 15:49 | Procedure Note ---
Date of procedure: 04/17/18 Pre-op diagnosis: right foot wound Post-op diagnosis: same Procedure: open excisional debridement of right foot wound Findings: Consent obtained. 4% topical lidocaine was applied to the wound prior to debridement. Right foot prepped and time out performed. Using foreceps, 15 blade, and scissors an excisional debridement was performed of slough and necrotic subcutaneous tissue. The wound on the lateral aspect of the great toe probed to fascia and the plantar wound probed to healthy subcutaneous tissue. Both wounds were probed with a hemostat circumfrentially and no drainage was appreciated. There was bleeding from the skin edges which was controlled with pressure. The wounds were irrigated and packed with alginate. This was covered with dry 4x4 gauze and wrapped with kerlix. The patient tolerated the procedure well. All sharps were disposed of appropriately. Anesthesia: local Surgeon: MEKA BATES Estimated blood loss: minimal Pathology: none Condition: stable Disposition: floor
--- NOTE | 2018-04-17 15:52 | Event Note ---
Date: 04/17/18 MRI left foot report reviewed 1.2 x 1.3 cm abscess in the area of the first metatarsal head. Wound was debrided today and no abscess encountered. Continue IV abx for small abscess seen on MRI. Wound cultures finalized - staph aureus.
--- NOTE | 2018-04-17 17:06 | Progress Note ---
Assessment and Plan Assessment and plan: --Acute respiratory failure with hypoxia and hypercapnea s/p intubation and on MV, extubated yesterday continue oxygen nebulizers supportive care and pulmonary following --Hyperkalemia; resolved, potassium level 3.5 --Mild Hypokalemia: Closely monitor --SIRS/Suspected sepsis source of infection unknown, probably blisters on the skin Urinalysis and chest x-ray negative On IV antibiotic Rocephin , CSF and blood cultures negative so far sputum cultures positive for kamran albicans-insignificant --Acute alcohol withdrawal On CIWA protocol --Seizure disorder with breakthrough seizure Seizure likely due to alcohol withdrawal On propofol drip --Lactic acidosis:resolved Probably secondary to the seizures --Severe Malnutrition: nutrition suppliments,supportive care --Hypernatremia: Free water, D5 W if no improvement --Severe acute metabolic acidosis Resolved continue IV fluid and monitor --Accelerated Hypertension; Continue current antihypertensives and when necessary medications --History of right upper extremity DVT Continue eliquis --Blisters on the extremities ;Probable allergic reaction Continue steroid --Transaminitis: Likely secondary to alcohol abuse/cirrhosis Trending down --History of cirrhosis/hepatitis outpatient follow-up with GI --History of alcohol dependence Strongly adviced to quit, recommend alcohol rehabilitation program --Mild malnutrition ; Supportive care, nutrition supplements --GI prophylaxis with Famotidine --DVT prophylaxis; patient is already on Eliquis Critical care time 35 minutes History Interval history: Patient [facility] and examned [facility] Hospital[facility] Physical - Constitutional Vitals: Temp Pulse Resp BP Pulse Ox 97.4 F L 76 18 142/71 96 04/17/18 07:53 04/17/18 04:29 04/17/18 07:53 04/17/18 07:53 04/17/18 04:29 General appearance: Present: no acute distress, well-nourished - EENT Eyes: Present: PERRL, EOM intact - Neck Neck: Present: supple, normal ROM - Respiratory Respiratory effort: normal Respiratory: bilateral: diminished, negative: rales, rhonchi, wheezing - Cardiovascular Rhythm: regular Heart Sounds: Present: S1 & S2 - Extremities Extremities: no ischemia, No edema - Abdominal General gastrointestinal: soft, non-tender, non-distended, normal bowel sounds - Integumentary Integumentary: Present: clear, warm - Psychiatric Psychiatric: appropriate mood/affect, cooperative - Neurologic Neurologic: CNII-XII intact, moves all extremities Results - Labs CBC & Chem 7: 04/15/18 05:08 04/15/18 05:08 Labs: Laboratory Last Values WBC 11.3 K/mm3 (4.5-11.0) H 04/15/18 05:08 RBC 4.02 M/mm3 (3.65-5.03) 04/15/18 05:08 Hgb 10.9 gm/dl (10.1-14.3) 04/15/18 05:08 Hct 33.1 % (30.3-42.9) 04/15/18 05:08 MCV 83 fl (79-97) 04/15/18 05:08 MCH 27 pg (28-32) L 04/15/18 05:08 MCHC 33 % (30-34) 04/15/18 05:08 RDW 13.3 % (13.2-15.2) 04/15/18 05:08 Plt Count 283 K/mm3 (140-440) 04/15/18 05:08 Lymph % (Auto) 15.2 % (13.4-35.0) 04/15/18 05:08 [place] % (Auto) 8.7 % (0.0-7.3) H 04/15/18 05:08 Eos % (Auto) 0.6 % (0.0-4.3) 04/15/18 05:08 Baso % (Auto) 0.5 % (0.0-1.8) 04/15/18 05:08 Lymph # 1.7 K/mm3 (1.2-5.4) 04/15/18 05:08 [place] # 1.0 K/mm3 (0.0-0.8) H 04/15/18 05:08 Eos # 0.1 K/mm3 (0.0-0.4) 04/15/18 05:08 Baso # 0.1 K/mm3 (0.0-0.1) 04/15/18 05:08 Seg Neutrophils % 75.0 % (40.0-70.0) H 04/15/18 05:08 Seg Neutrophils # 8.5 K/mm3 (1.8-7.7) H 04/15/18 05:08 ESR 51 mm/Hr (0-20) 04/13/18 10:29 D-Dimer 209.79 ng/mlDDU (0-234) 04/13/18 15:07 VBG pH 7.412 (7.320-7.420) 04/13/18 11:13 Sodium 134 mmol/L (137-145) L 04/15/18 05:08 Potassium 3.7 mmol/L (3.6-5.0) 04/15/18 05:08 Chloride 103.8 mmol/L (98-107) 04/15/18 05:08 Carbon Dioxide 21 mmol/L (22-30) L 04/15/18 05:08 Anion Gap 13 mmol/L 04/15/18 05:08 BUN 11 mg/dL (7-17) 04/15/18 05:08 Creatinine 0.8 mg/dL (0.7-1.2) D 04/15/18 05:08 Estimated GFR > 60 ml/min 04/15/18 05:08 BUN/Creatinine Ratio 14 % 04/15/18 05:08 Glucose 245 mg/dL (65-100) H 04/15/18 05:08 POC Glucose 198 (70-105) H 04/17/18 15:50 Hemoglobin A1c 10.9 % (4-6) H 04/14/18 11:27 Lactic Acid 1.70 mmol/L (0.7-2.0) 04/13/18 20:22 Calcium 8.1 mg/dL (8.4-10.2) L 04/15/18 05:08 Total Bilirubin 0.20 mg/dL (0.1-1.2) 04/15/18 05:08 AST 8 units/L (5-40) 04/15/18 05:08 ALT 7 units/L (7-56) 04/15/18 05:08 Alkaline Phosphatase 69 units/L (35-129) 04/15/18 05:08 Total Creatine Kinase 28 units/L (30-135) L 04/13/18 10:29 Troponin T < 0.010 ng/mL (0.00-0.029) 04/13/18 20:22 C-Reactive Protein 16.50 mg/dL (0.00-1.30) H 04/13/18 10:29 NT-Pro-B Natriuret Pep 67.46 pg/mL (0-450) 04/13/18 15:01 Total Protein 6.0 g/dL (6.3-8.2) L 04/15/18 05:08 Albumin 2.4 g/dL (3.9-5) L 04/15/18 05:08 Albumin/Globulin Ratio 0.7 % 04/15/18 05:08 Vancomycin Trough 16.0 ug/mL (5.0-20.0) 04/15/18 11:38 Nutrition/Malnutrition Assess - Dietary Evaluation Nutrition/Malnutrition Findings: Nutrition Notes Start: 04/15/18 15:25 Freq: Status: Active Protocol: Document 04/17/18 13:43 JANIS (Rec: 04/17/18 13:48 JANIS [id number]) Co-Sign 04/17/18 13:43 LP Nutrition Notes Initial or Follow up Reassessment Current Diagnosis Diabetes Sepsis Hypertension Stroke Current Diet NPO Labs/Tests A1C 10.9 Pertinent Medications Reviewed Height 5 ft 10 in Weight 116 kg [place] Body Weight (kg) 68.18 BMI 36.6 Weight Status Morbidly Obese Subjective/Other Information Pt. f/u for intakes and need for ONS. Pt. was NPO for testing today. Prior to NPO status., pt. was not consuming her meals due to poor appetite and not liking hospital food. Pt. stated she has been experiencing some constipation. Pt. denied Glucerna. Computational Sciences Professor encouraged pt . to try to eat a few bites of food every few minutes. Burn Absent Trauma Absent #1 Nutrition Diagnosis Inadequate oral intake Diagnosis Progress(for reassessment Continues documentation) Is patient on ventilator? No Is Patient Ambulatory and/or Out of Bed Yes REE-([facility]-ambulatory/OOB) [ 2463.825 NUTR.MSJOOB] Kcal/Kg value to use for calculation 16 Approximate Energy Requirements Using 1856 kcal/Kg Calculation Used for Recommendations Kcal/kg Additional Notes adj. wt. 92kg protein (1-1.2gm/kg adj. wt.): 92-110gm fluid: 1mL/kcal or per MD Nutrition Intervention Change Diet Order: Continue consistent CHO/ cardiac Goal #1 Diet advancement Anticipated Discharge Needs: Cardiac/consistent CHO Follow-Up By: 04/19/18 Additional Comments F/u for diet advancement
[2018-04-18] MEDS: VANCOMYCIN 1,750 MG in NACL 0.9% 500 ML 500 ML IV SCH (06:22)
[2018-04-18] MEDS: ULTRAM PO PRN (06:30)
[2018-04-18] MEDS: SOMA PO SCH ×2 (08:37→15:07)
[2018-04-18] MEDS: HumaLOG SUB-Q SCH ×2 (08:57→13:01)
[2018-04-18] MEDS: LANTUS SUB-Q SCH (10:15)
[2018-04-18] MEDS: NEURONTIN PO SCH (10:16)
[2018-04-18] MEDS: ZESTRIL PO SCH (10:16)
[2018-04-18] MEDS: GEODON PO SCH (10:16)
[2018-04-18] MEDS: SODIUM CHLORIDE FLUSH SYRINGE 10 ML IV SCH (10:16)
[2018-04-18] MEDS: ASPIRIN PO SCH (10:16)
--- NOTE | 2018-04-18 10:32 | Progress Note ---
Assessment and Plan 42 yo F with 1. uncontrolled DM 2. right foot wound s/p debridement on 04/14/18 and on 04/17/18 3. right foot cellulitis Xray R foot - no acute abnormality MRI R foot - small abscess, no osteomyelitis Plan: 1. diabetic diet, strict glucose control 2. abx per ID 3. prn pain control 4. Pt is a good candidate for HBOT. I discussed hyperbaric therapy with her. She will need to stop smoking and she is agreeable to quitting. Will obtain baseline CXR. Will follow up with her as outpatient in wound care clinic - appointment dang chavez for Saturday 04/22 at 10 am 5. Pt is able to do own dressing changes upon discharge. OK to DC from surgery standpoint Thank you, please call with questions Subjective Date of service: 04/18/18 Narrative: Pt seen and examined. No acute complaints. States foot is feeling better. No f/c. Objective Vital Signs - 12hr 04/18/18 05:27 Temperature 98.5 F Pulse Rate 92 H Respiratory 20 Rate Blood Pressure 155/71 O2 Sat by Pulse 95 Oximetry - General physical appearance Narrative Exam: Gen: AAOx3. NAD CV: s1, S2+ Resp: even and unlabored Ext; R foot dressing and all packing removed. wounds appear healthy with yellow subcutaneous tissue at base without slough or necrosis. Cellulitis over dorsum of foot is improving. + 3 edema of foot and ankle. Wounds packed with one piece of alginate and covered with 4x4 gauze, wrapped with kerlex. - Labs 04/15/18 05:08 04/15/18 05:08
[2018-04-18 12:24] VITALS: BP 139/77
--- NOTE | 2018-04-18 14:41 | Discharge Summary ---
Providers - Providers Date of Admission: 04/13/18 11:57 Date of discharge: 04/18/18 Attending physician: ARYAN CUNHA 04/13/18 Consult to Cardiac Rehabilitation [CONS] Routine Reason For Exam: Phase I 04/13/18 11:35 Consult to Physician [CONS] Urgent Comment: Dr. Burnham spoke with Dr. Bates @ 1829 Consulting Provider: MEKA BATES Physician Instructions: Reason For Exam: sirs wound 04/14/18 13:11 Consult to Physician [CONS] Routine Comment: Consulting Provider: ROBB GLASGOW Physician Instructions: Reason For Exam: RT diabetic foot ulcer 04/15/18 14:24 Consult to Wound/ET Nurse [CONS] Routine Reason For Exam: wound eval 04/18/18 07:39 Consult to Wound/ET Nurse [CONS] Routine Reason For Exam: wound eval Primary care physician: QUIN JEFFERS Hospitalization Reason for admission: infected nonhealing right foot wound Condition: Good Pertinent studies: Right foot x-ray; no acute abnormality Echo; EF 50-55% MRI lower extremity; small abscess in the plantar subcutaneous soft tissue of the foot Small skin ulcer located just distal to the abscess No evidence of osteomyelitis Soft tissue swelling Procedures: Excisional debridement of right infected diabetic foot wound and drainage of abscess Hospital course: Lorene jackson 42-year-old female patient with significant history of hypertension diabetes mellitus neuropathy obesity schizophrenia CVA tobacco use was admitted through emergency room with worsening shortness of breath and acute respiratory failure Requiring intubation successfully extubated later. right foot nonhealing ulcers infected wound Patient was initially evaluated and admitted to the hospital symptomatically managed managed with empiric antibiotic subsequently evaluated by surgery, patient's wound was thoroughly evaluated by MRI of the foot which revealed soft tissue swelling and infection and small abscess, Surgery evaluated the patient MRI did not reveal any osteomyelitis, patient had excision biopsy with incision and drainage of abscess,Patient received wound care and antibiotics Today patient is comfortable in no new complaints, Vital signs stable physical examination unremarkable Clear by surgery for discharge and follow up with the outpatient wound clinic possible home health with home wound care Patient is hemodynamically and clinically stable at discharge Discharge diagnosis; --Acute respiratory failure with hypoxia and hypercapnea s/p intubation and on MV, extubated yesterday continue oxygen nebulizers supportive care and pulmonary following --Hyperkalemia; resolved, potassium level 3.5 --Mild Hypokalemia: Closely monitor --SIRS/Suspected sepsis source of infection unknown, probably blisters on the skin Urinalysis and chest x-ray negative On IV antibiotic Rocephin , CSF and blood cultures negative so far sputum cultures positive for kamran albicans-insignificant --Acute alcohol withdrawal On CIWA protocol --Seizure disorder with breakthrough seizure Seizure likely due to alcohol withdrawal On propofol drip --Lactic acidosis:resolved Probably secondary to the seizures --Severe Malnutrition: nutrition suppliments,supportive care --Hypernatremia: Free water, D5 W if no improvement --Severe acute metabolic acidosis Resolved continue IV fluid and monitor --Accelerated Hypertension; Continue current antihypertensives and when necessary medications --History of right upper extremity DVT Continue eliquis --Blisters on the extremities ;Probable allergic reaction Continue steroid --Transaminitis: Likely secondary to alcohol abuse/cirrhosis Trending down --History of cirrhosis/hepatitis outpatient follow-up with GI --History of alcohol dependence Strongly adviced to quit, recommend alcohol rehabilitation program --Mild malnutrition ; Supportive care, nutrition supplements --GI prophylaxis with Famotidine --DVT prophylaxis; patient is already on Eliquis Critical care time 35 minutes Disposition: [id number] HOME UNDER [facility] Time spent for discharge: 35 min Core Measure Documentation - Palliative Care Palliative Care/ Comfort Measures: Not Applicable - Core Measures Any of the following diagnoses?: none Exam - Constitutional Vitals: Temp Pulse Resp BP Pulse Ox 98.7 F 83 16 139/77 98 04/18/18 12:21 04/18/18 12:21 04/18/18 12:21 04/18/18 12:21 04/18/18 12:21 General appearance: Present: no acute distress, well-nourished - EENT Eyes: Present: PERRL, EOM intact - Neck Neck: Present: supple, normal ROM - Respiratory Respiratory effort: normal Respiratory: bilateral: diminished, negative: rales, rhonchi, wheezing - Cardiovascular Rhythm: regular Heart Sounds: Present: S1 & S2 - Extremities Extremities: no ischemia, No edema, abnormal (infected wound) Extremity abnormal: edema - Abdominal General gastrointestinal: Present: soft, non-tender, non-distended, normal bowel sounds - Integumentary Integumentary: Present: clear, warm - Musculoskeletal Musculoskeletal: strength equal bilaterally - Psychiatric Psychiatric: appropriate mood/affect, cooperative - Neurologic Neurologic: CNII-XII intact, moves all extremities Plan Activity: advance as tolerated, fall precautions Diet: diabetic Wound: per wound nurse instructions Additional Instructions: Outpatient wound care 04/22/18 at 10 AM. Patient strongly advised smoking cessation. Advised to comply with medications and follow-up visits. ID recommend Zyvox 600 po bid x 14 days Follow up with: PETE KEBEDE MD [Referring] - 3-5 Days MEKA BATES DO [Staff Physician] - 7 Days Prescriptions: Linezolid [Zyvox] 600 mg PO BID #28 tablet
[2018-04-18] MEDS ORDERED: VANCOMYCIN 1,750 MG in NACL 0.9% 500 ML 500 ML IV SCH (18:00)
--- NOTE | 2018-04-18 21:42 | XRay Report ---
PROCEDURE: XR CHEST ROUTINE 2V TECHNIQUE: PA and lateral chest radiographs were obtained. HISTORY: for hyperbaric oxygen therapy COMPARISONS: None. FINDINGS: Heart: Normal. Mediastinum/Vessels: Normal. Lungs/Pleural space: Normal. Bony thorax: No acute osseous abnormality. IMPRESSION: Normal examination. This document is electronically signed by Vic Lr MD., April 18 2018 09:40:25 PM ET
== END 2018-04-18 16:00 | disposition home health service (06) | DRG 853 ==
LOC: ED 10:16 → 3A 11:57 → 4A 13:34 → 3A 04-17 18:51
PROVIDERS: ADMIT Internal Medicine; ATTEND Internal Medicine
PROC: 3E0234Z Introduction of Serum, Toxoid and Vaccine into Muscle, Percutaneous Approach (ICD-10-PCS; 2018-04-13)
PROC: 0JBQ0ZZ Excision of Right Foot Subcutaneous Tissue and Fascia, Open Approach (ICD-10-PCS; principal; 2018-04-14)
PROC: 0JBQ0ZZ Excision of Right Foot Subcutaneous Tissue and Fascia, Open Approach (ICD-10-PCS; 2018-04-14)
PROC: 0JBQ0ZZ Excision of Right Foot Subcutaneous Tissue and Fascia, Open Approach (ICD-10-PCS; 2018-04-17)
DX: A41.9 Sepsis, unspecified organism (principal); E43 Unspecified severe protein-calorie malnutrition; J96.01 Acute respiratory failure with hypoxia; J96.02 Acute respiratory failure with hypercapnia; E87.1 Hypo-osmolality and hyponatremia; L03.115 Cellulitis of right lower limb; R07.9 Chest pain, unspecified; I10 Essential (primary) hypertension; E66.9 Obesity, unspecified; E10.621 Type 1 diabetes mellitus with foot ulcer; L97.519 Non-pressure chronic ulcer of other part of right foot with unspecified severity; E10.65 Type 1 diabetes mellitus with hyperglycemia; L02.611 Cutaneous abscess of right foot; E87.0 Hyperosmolality and hypernatremia; G40.909 Epilepsy, unspecified, not intractable, without status epilepticus; F17.210 Nicotine dependence, cigarettes, uncomplicated; F20.9 Schizophrenia, unspecified; E10.42 Type 1 diabetes mellitus with diabetic polyneuropathy; F31.9 Bipolar disorder, unspecified; Z79.4 Long term (current) use of insulin; Z68.36 Body mass index [BMI] 36.0-36.9, adult; Z83.3 Family history of diabetes mellitus; Z82.49 Family history of ischemic heart disease and other diseases of the circulatory system; Z90.89 Acquired absence of other organs; Z98.51 Tubal ligation status; Z88.0 Allergy status to penicillin; Z79.51 Long term (current) use of inhaled steroids; Z79.899 Other long term (current) drug therapy; Z79.82 Long term (current) use of aspirin; Z71.6 Tobacco abuse counseling; Z23 Encounter for immunization
CPT/HCPCS: 36415; 71046; 80048; 80053; 80202; 82140; 82550; 82805; 82962; 83036; 83880; 84484; 85025; 85027; 85379; 85652; 86140; 87040; 87076; 87116; 87186; 90715; 93005; 93010; 93306; 99406; G0378; A9270-GY; A9577; J1815; J1885; J2270; J3010; J3370; J7030; J7040; Q0162

== ENCOUNTER 2018-04-22 10:00 | Outpatient (CLI) | payer MEDICAID ==
[2018-04-22] MEDS ORDERED: AD OINTMENT TP SCH (11:00)
[2018-04-22] MEDS ORDERED: XYLOCAINE TOPICAL 4% TP ONE (11:35)
== END 2018-04-22 10:01 | disposition home or self-care (01) ==
LOC: WOUND 10:00
PROVIDERS: ATTEND Surgery
DX: E11.621 Type 2 diabetes mellitus with foot ulcer (principal); L97.412 Non-pressure chronic ulcer of right heel and midfoot with fat layer exposed; E11.40 Type 2 diabetes mellitus with diabetic neuropathy, unspecified; E11.39 Type 2 diabetes mellitus with other diabetic ophthalmic complication; H42 Glaucoma in diseases classified elsewhere; I10 Essential (primary) hypertension; F41.9 Anxiety disorder, unspecified; F32.9 Major depressive disorder, single episode, unspecified; K21.9 Gastro-esophageal reflux disease without esophagitis; J42 Unspecified chronic bronchitis; F17.200 Nicotine dependence, unspecified, uncomplicated
CPT/HCPCS: 11042; G0463; 99215; A6250

== ENCOUNTER 2018-04-29 09:47 | Outpatient (CLI) | payer MEDICAID | END 2018-04-29 09:48 | disposition home or self-care (01) | LOC: WOUND 09:47 | PROVIDERS: ATTEND Surgery | DX: E11.621 Type 2 diabetes mellitus with foot ulcer (principal); L97.525 Non-pressure chronic ulcer of other part of left foot with muscle involvement without evidence of necrosis; E11.40 Type 2 diabetes mellitus with diabetic neuropathy, unspecified; E11.39 Type 2 diabetes mellitus with other diabetic ophthalmic complication; H42 Glaucoma in diseases classified elsewhere; I10 Essential (primary) hypertension; J42 Unspecified chronic bronchitis; F17.200 Nicotine dependence, unspecified, uncomplicated; Z79.4 Long term (current) use of insulin ==

== ENCOUNTER 2018-05-06 10:48 | Outpatient (CLI) | payer MEDICAID ==
[2018-05-06] MEDS ORDERED: XYLOCAINE TOPICAL 4% TP ONE (12:00)
== END 2018-05-06 10:49 | disposition home or self-care (01) ==
LOC: WOUND 10:48
PROVIDERS: ATTEND Surgery
DX: E11.621 Type 2 diabetes mellitus with foot ulcer (principal); L97.512 Non-pressure chronic ulcer of other part of right foot with fat layer exposed; E11.40 Type 2 diabetes mellitus with diabetic neuropathy, unspecified; E11.39 Type 2 diabetes mellitus with other diabetic ophthalmic complication; H42 Glaucoma in diseases classified elsewhere; I10 Essential (primary) hypertension; J42 Unspecified chronic bronchitis; F17.200 Nicotine dependence, unspecified, uncomplicated; Z79.4 Long term (current) use of insulin
CPT/HCPCS: 87075; 87076; 87116; 87186

== ENCOUNTER 2018-05-06 12:39 | Inpatient (IN) | payer MEDICAID ==
[2018-05-06] MEDS: DILAUDID IV PRN ×2 (15:13→18:04)
[2018-05-06] MEDS: ZOFRAN IV PRN (15:13)
[2018-05-06] MEDS: HABITROL TD SCH (17:11)
[2018-05-06] MEDS: HumaLOG SUB-Q SCH ×2 (18:55→22:35)
--- NOTE | 2018-05-06 19:23 | Consultation ---
History of Present Illness Consult date: 05/06/18 Chief complaint: foot wound - History of present illness History of present illness: 42 yo F with hx of DM and right foot wound was sent to the hospital from wound care clinic after evaluation due to worsening foot infection. The patient has a history of hospitalization at [facility] in mar 2017 for foot wound. The wound was debrided and patient was discharged on zyvox. Wound cultures grew staph aureus at that time. The patient presented for her weekly visit at the wound care center. Her wound was seen to have deteriorated with increasing cellulitis over the lateral and dorsal aspect of the foot. There was purulent drainage from the wound. There was swelling of the ankle. The wound was debrided and bone was visible. Past History Past Medical History: diabetes Past Surgical History: Other (wound debridement) Social history: no significant social history Family history: no significant family history Medications and Allergies Allergies Allergy/AdvReac Type Severity Reaction Status Date / Time Penicillins Allergy Rash Verified 11/11/16 10:34 Home Medications Medication Instructions Recorded Confirmed Last Taken Type traMADol [Ultram 50 MG tab] 50 mg PO Q6HR PRN #12 tablet 11/11/16 05/06/18 Unknown Rx Aspirin [Aspirin TAB] 325 mg PO QDAY #30 tablet 09/29/17 05/06/18 04/13/18 13:54 Rx AtorvaSTATin [Lipitor] 40 mg PO QHS #30 tablet 09/29/17 05/06/18 1 Day Ago Rx ~04/12/18 HYDROcodone/APAP 5-325 [[place] 1 each PO Q6HR PRN #10 tablet 09/29/17 05/06/18 1 Day Ago Rx 5-325 mg TAB] ~04/12/18 metFORMIN 1,000 mg PO DAILY #60 09/29/17 05/06/18 1 Day Ago Rx ~04/12/18 Levemir (Nf) 50 units SQ BID 04/13/18 05/06/18 04/13/18 History Lisinopril [Zestril TAB] 20 mg PO DAILY 04/13/18 05/06/18 1 Day Ago History ~04/12/18 Ziprasidone 40 mg PO BID 04/13/18 05/06/18 04/11/18 History Carisoprodol [Soma] 350 mg PO TID tablet 04/18/18 05/06/18 Unknown Rx Gabapentin [Neurontin] 300 mg PO BID capsule 04/18/18 05/06/18 Unknown Rx Linezolid [Zyvox] 600 mg PO BID #28 tablet 04/18/18 05/06/18 Unknown Rx diazePAM TAB [Valium] 5 mg PO BID PRN tablet 04/18/18 05/06/18 Unknown Rx Active Meds: Active Medications Acetaminophen (Tylenol) 650 mg PO Q6H PRN PRN Reason: Pain, Mild (1-3) Hydromorphone HCl (Dilaudid) 0.5 mg IV Q3H PRN PRN Reason: Pain , Severe (7-10) Last Admin: 05/06/18 18:04 Dose: 0.5 mg Documented by: Insulin Human Lispro (Humalog) 0 unit SUB-Q ACHS [facility]; Protocol Last Admin: 05/06/18 18:55 Dose: 8 unit Documented by: Nicotine (Habitrol) 14 mg TD QDAY [facility] Last Admin: 05/06/18 17:11 Dose: 14 mg Documented by: Ondansetron HCl (Zofran) 4 mg IV Q6H PRN PRN Reason: Nausea And Vomiting Last Admin: 05/06/18 15:13 Dose: 4 mg Documented by: Exam Vital Signs Temp Pulse Resp BP Pulse Ox 99.1 F 116 H 16 165/70 99 05/06/18 14:46 05/06/18 14:46 05/06/18 14:46 05/06/18 14:46 05/06/18 14:46 Results - Labs Abnormal lab results 05/06/18 Range/Units 15:37 POC Glucose 428 H (70-105)
--- NOTE | 2018-05-06 19:24 | Event Note ---
Date: 05/06/18 42 yo F with hx of DM and right foot wound was sent to the hospital from wound care clinic after evaluation due to worsening foot infection. The patient has a history of hospitalization at [facility] in mar 2017 for foot wound. The wound was debrided and patient was discharged on zyvox. Wound cultures grew staph aureus at that time. The patient presented for her weekly visit at the wound care center. Her wound was seen to have deteriorated with increasing cellulitis over the lateral and dorsal aspect of the foot. There was purulent drainage from the wound. There was swelling of the ankle. The wound was debrided and bone was visible. Discussed with Dr. Ha who accepted patient for direct admission. Will order CBC and blood cultures and start patient on antibiotics. Wound cultures were obtained in wound care clinic today. consulting networking engineer consulted. Will consult ID for likely need for predatory animal exterminator antibiotics. May need further debridement. Will follow.
[2018-05-06] MEDS ORDERED: VANCOMYCIN 2,000 MG in NACL 0.9% 500 ML 500 ML IV ONE (20:00)
[2018-05-06] MEDS ORDERED: VANCOMYCIN PHARMACY TO DOSE IV SCH (20:00)
[2018-05-06 20:26] LABS: Basophils # (Auto) 0.1 K/mm3 (0.0-0.1); Basophils % (Auto) 0.7 % (0.0-1.8); Eosinophils # (Auto) 0.2 K/mm3 (0.0-0.4); Eosinophils % (Auto) 1.2 % (0.0-4.3); Hemoglobin 10.4 gm/dl (10.1-14.3); Lymphocytes # (Auto) 2.4 K/mm3 (1.2-5.4); Lymphocytes % (Auto) 12.8 % (13.4-35.0); Mean Corpuscular HGB Conc 35 % (30-34); Mean Corpuscular Volume 79 fl (79-97); Monocytes # (Auto) 1.3 K/mm3 (0.0-0.8); Monocytes % (Auto) 7.1 % (0.0-7.3); Platelet Count 539 K/mm3 (140-440); Red Blood Count 3.81 M/mm3 (3.65-5.03); Red Cell Distribution Width 13.8 % (13.2-15.2)
[2018-05-07] MEDS: DILAUDID IV PRN ×3 (01:00→18:28)
--- NOTE | 2018-05-07 07:40 | History and Physical Report ---
CHIEF COMPLAINT: Worsening right foot infection. HISTORY OF PRESENT ILLNESS: A 42-year-old female with history of poorly controlled diabetes and right foot wound infection and being directly admitted on the referral by Dr. Dong. The patient apparently has severely uncontrolled diabetes and worsening foot infection. The patient was recently discharged from the hospital in 2018 after being treated for right foot wound. The patient was discharged on Zyvox. At that time, wound cultures grew Staph aureus. The patient presented for a weekly visit at the wound care center. The wound seems to have deteriorated with increasing cellulitis over the lateral and dorsal aspect of the foot. There was purulent discharge from the wound. There are also swelling of the ankle. The wound was debrided and the bone was visible. The patient is being admitted for IV antibiotics and also ID consult and further management of the wound. No fever or chills. PAST MEDICAL HISTORY: Significant for insulin-dependent diabetes, right foot infection, hyperlipidemia, muscle spasms, peripheral neuropathy, hypertension, chronic pain, depression. PAST SURGICAL HISTORY: Right foot wound debridement extensively. FAMILY HISTORY: Hypertension. SOCIAL HISTORY: Does not smoke. No alcohol, no recreational drugs. REVIEW OF SYSTEMS: Significant for right foot wound infection, but no fever or chills. Otherwise, review of systems negative. A 14-point review of systems done. Has some numbness and tingling in both the feet and the legs. PHYSICAL EXAMINATION: GENERAL: Middle-aged female, cooperative during examination. VITAL SIGNS: Temperature is 99.1, pulse is 116, respirations are 16, sats are 99%, blood pressure 165/70. HEENT: Unremarkable. Pupils equal and reactive. NECK: Supple, no lymphadenopathy, no thyromegaly. LUNGS: Clear to auscultation and percussion. Good air entry. CARDIOVASCULAR SYSTEM: S1, S2 heard. No gallop, no murmur, no rub. Apical impulse in left fifth intercostal space in midclavicular line. ABDOMEN: Soft and benign. No hepatosplenomegaly. No guarding, no rigidity. Hernial orifices are normal. EXTREMITIES: Right foot wound deep, was debrided 7 x 7 cm on the dorsum and lateral aspect of the right foot. LABORATORY DATA: Significant for white count of 18,600, H and H is 10.4 and 30.0, platelet count is 539,000. Electrolytes are not available. Glucose is 428 and 281. ASSESSMENT AND PLAN: 1. Right foot cellulitis. The patient started on Unasyn and vancomycin. Surgery consulted. The patient needs further debridement and wound care. Wound care consult also requested. 2. Uncontrolled diabetes. The patient restarted on Levemir. 3. Peripheral neuropathy. Continue gabapentin. 4. Hyperlipidemia. Continue atorvastatin. 5. Muscle spasms. Continue Soma. 6. Hypertension. Continue lisinopril. 7. Depression. Continue ziprasidone. 8. Deep venous thrombosis prophylaxis, Lovenox 40 mg subcutaneous daily. JOB# [id number] VSM/NTS
[2018-05-07 07:51] LABS: Albumin 2.6 g/dL (3.9-5); BUN/Creatinine Ratio 13; Blood Urea Nitrogen 8 mg/dL (7-17); Calcium 8.6 mg/dL (8.4-10.2); Hemolysis Index 0
[2018-05-07 08:09] LABS: Alanine Aminotransferase < 5 units/L (7-56)
[2018-05-07] MEDS: HumaLOG SUB-Q SCH ×4 (08:34→21:56)
[2018-05-07 08:40] LABS: Basophils # (Auto) 0.1 K/mm3 (0.0-0.1); Basophils % (Auto) 0.5 % (0.0-1.8); Eosinophils # (Auto) 0.2 K/mm3 (0.0-0.4); Eosinophils % (Auto) 1.6 % (0.0-4.3); Hematocrit 31.3 % (30.3-42.9); Hemoglobin 10.3 gm/dl (10.1-14.3); Lymphocytes # (Auto) 2.1 K/mm3 (1.2-5.4); Lymphocytes % (Auto) 14.8 % (13.4-35.0); Mean Corpuscular HGB Conc 33 % (30-34); Mean Corpuscular Volume 79 fl (79-97); Monocytes # (Auto) 1.1 K/mm3 (0.0-0.8); Monocytes % (Auto) 7.7 % (0.0-7.3); Platelet Count 475 K/mm3 (140-440); Red Blood Count 3.94 M/mm3 (3.65-5.03); Red Cell Distribution Width 13.9 % (13.2-15.2)
[2018-05-07] MEDS ORDERED: LEVEMIR 50 UNIT SQ SCH (10:00)
[2018-05-07] MEDS ORDERED: LANTUS SUB-Q SCH (10:00)
[2018-05-07] MEDS ORDERED: ZIPRASIDONE 40 MG PO SCH (10:00)
[2018-05-07] MEDS: HABITROL TD SCH (10:35)
[2018-05-07] MEDS ORDERED: CEPHULAC PO ONE (11:00)
[2018-05-07] MEDS ORDERED: VALIUM PO PRN (11:00)
[2018-05-07] MEDS: VANCOMYCIN 1,750 MG in NACL 0.9% 500 ML 500 ML IV SCH ×2 (12:06→21:54)
[2018-05-07] MEDS: ASPIRIN PO SCH (12:07)
[2018-05-07] MEDS: NEURONTIN PO SCH ×2 (12:08→21:55)
[2018-05-07] MEDS: ZESTRIL PO SCH (12:08)
[2018-05-07] MEDS: SOMA PO SCH ×3 (12:09→20:34)
[2018-05-07] MEDS: LANTUS SUB-Q SCH ×2 (12:51→21:55)
[2018-05-07] MEDS: GEODON PO SCH ×2 (12:52→21:54)
--- NOTE | 2018-05-07 13:29 | Progress Note ---
Assessment and Plan 42 yo F with 1. infected right diabetic foot wound 2. osteomyelitis 3. diabetes mellitus Plan: 1. follow up wound cultures from 05/06 taken at wound care clinic 2. IV abx 3. follow up blcx 4. trend WBC 5. strict glucose control 6. offloading 7. 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 ID consult pending 9. NPO p MN tonight - will schedule for debridement in am 05/08/18 Thank you, please call with questions. Subjective Date of service: 05/07/18 Narrative: Pt seen and examined. No complaints. R foot pain is better. No f/c. Objective Vital Signs - 12hr 05/07/18 05/07/18 05/07/18 05:24 11:04 11:30 Temperature 97.9 F 98.1 F Pulse Rate 81 87 Respiratory 18 20 16 Rate Blood Pressure 123/69 137/74 O2 Sat by Pulse 98 99 Oximetry - General physical appearance Narrative Exam: Gen; AAOx3. NAD CV: S1, S2+ resp; even and unlabored Ext: R foot with dressing in place, intact. No drainage - Labs 05/07/18 07:34 05/07/18 04:26 Diabetes panel 05/07/18 Range/Units 04:26 Sodium 131 L (137-145) mmol/L Potassium 3.6 (3.6-5.0) mmol/L Chloride 94.1 L (98-107) mmol/L Carbon Dioxide 26 (22-30) mmol/L BUN 8 (7-17) mg/dL Creatinine 0.6 L (0.7-1.2) mg/dL Glucose 292 H (65-100) mg/dL Calcium 8.6 (8.4-10.2) mg/dL AST 5 (5-40) units/L ALT < 5 L (7-56) units/L Alkaline Phosphatase 93 (35-129) units/L Total Protein 6.8 (6.3-8.2) g/dL Albumin 2.6 L (3.9-5) g/dL Calcium panel 05/07/18 Range/Units 04:26 Calcium 8.6 (8.4-10.2) mg/dL Albumin 2.6 L (3.9-5) g/dL Pituitary panel 05/07/18 Range/Units 04:26 Sodium 131 L (137-145) mmol/L Potassium 3.6 (3.6-5.0) mmol/L Chloride 94.1 L (98-107) mmol/L Carbon Dioxide 26 (22-30) mmol/L BUN 8 (7-17) mg/dL Creatinine 0.6 L (0.7-1.2) mg/dL Glucose 292 H (65-100) mg/dL Calcium 8.6 (8.4-10.2) mg/dL Adrenal panel 05/07/18 Range/Units 04:26 Sodium 131 L (137-145) mmol/L Potassium 3.6 (3.6-5.0) mmol/L Chloride 94.1 L (98-107) mmol/L Carbon Dioxide 26 (22-30) mmol/L BUN 8 (7-17) mg/dL Creatinine 0.6 L (0.7-1.2) mg/dL Glucose 292 H (65-100) mg/dL Calcium 8.6 (8.4-10.2) mg/dL Total Bilirubin 0.30 (0.1-1.2) mg/dL AST 5 (5-40) units/L ALT < 5 L (7-56) units/L Alkaline Phosphatase 93 (35-129) units/L Total Protein 6.8 (6.3-8.2) g/dL Albumin 2.6 L (3.9-5) g/dL
--- NOTE | 2018-05-07 15:26 | Progress Note ---
Assessment and Plan - Patient Problems (1) Diabetic foot ulcer with osteomyelitis Current Visit: Yes Status: Acute Plan to address problem: S/p debridement IV Abx ID Consult (2) IDDM (insulin dependent diabetes mellitus) Current Visit: Yes Status: Chronic Plan to address problem: Poorly controlled Adjust dosage (3) HTN (hypertension) Current Visit: No Status: Chronic Qualifiers: Hypertension type: essential hypertension Qualified Code(s): I10 - Essential (primary) hypertension Plan to address problem: Cont antihypertensives (4) Neuropathy Current Visit: No Status: Chronic Plan to address problem: Cont Gabapentin (5) HLD (hyperlipidemia) Current Visit: Yes Status: Chronic Qualifiers: Hyperlipidemia type: mixed hyperlipidemia Qualified Code(s): E78.2 - Mixed hyperlipidemia Plan to address problem: Cont statins (6) DVT prophylaxis Current Visit: No Status: Acute Plan to address problem: SCD's and GI prophylaxis Subjective Date of service: 05/07/18 Principal diagnosis: Rt foot wound and cellulitis Interval history: S/p debridement Objective - Constitutional Vitals: Vital Signs - 12hr 05/07/18 05/07/18 05/07/18 05:24 11:04 11:30 Temperature 97.9 F 98.1 F Pulse Rate 81 87 Respiratory 18 20 16 Rate Blood Pressure 123/69 137/74 O2 Sat by Pulse 98 99 Oximetry General appearance: Present: no acute distress, well-nourished - EENT Eyes: PERRL, EOM intact ENT: hearing intact, clear oral mucosa Ears: bilateral: normal - Neck Neck: supple, normal ROM - Respiratory Respiratory effort: normal Respiratory: bilateral: CTA - Breasts Breasts: normal - Cardiovascular Heart rate: 78 Rhythm: regular Heart Sounds: Present: S1 & S2. Absent: gallop, rub Extremities: pulses intact, No edema, normal color, Full ROM - Gastrointestinal General gastrointestinal: Present: soft, non-tender, non-distended, normal bowel sounds - Genitourinary Female genitourinary: normal - Integumentary Integumentary: clear, warm, dry - Musculoskeletal Musculoskeletal: 1, strength equal bilaterally - Neurologic Neurologic: moves all extremities - Psychiatric Psychiatric: memory intact, appropriate mood/affect, intact judgment & insight - Labs CBC & Chem 7: 05/10/18 00:26 05/07/18 04:26 Labs: Abnormal lab results 05/06/18 05/06/1805/06/19 Range/Units 15:37 20:03 22:14 WBC 18.6 H (4.5-11.0) K/mm3 Hct 30.0 L (30.3-42.9) % MCH 27 L (28-32) pg MCHC 35 H (30-34) % Plt Count 539 H (140-440) K/mm3 Lymph % (Auto) 12.8 L (13.4-35.0) % [place] % (Auto) (0.0-7.3) % [place] # 1.3 H (0.0-0.8) K/mm3 Seg Neutrophils % 78.2 H (40.0-70.0) % Seg Neutrophils # 14.5 H (1.8-7.7) K/mm3 Sodium (137-145) mmol/L Chloride (98-107) mmol/L Creatinine (0.7-1.2) mg/dL Glucose (65-100) mg/dL POC Glucose 428 H 281 H (70-105) ALT (7-56) units/L Albumin (3.9-5) g/dL 05/07/18 05/07/18 05/07/18 Range/Units 04:26 07:34 07:43 WBC 14.2 H (4.5-11.0) K/mm3 Hct (30.3-42.9) % MCH 26 L (28-32) pg MCHC (30-34) % Plt Count 475 H (140-440) K/mm3 Lymph % (Auto) (13.4-35.0) % [place] % (Auto) 7.7 H (0.0-7.3) % [place] # 1.1 H (0.0-0.8) K/mm3 Seg Neutrophils % 75.4 H (40.0-70.0) % Seg Neutrophils # 10.7 H (1.8-7.7) K/mm3 Sodium 131 L (137-145) mmol/L Chloride 94.1 L (98-107) mmol/L Creatinine 0.6 L (0.7-1.2) mg/dL Glucose 292 H (65-100) mg/dL POC Glucose 252 H (70-105) ALT < 5 L (7-56) units/L Albumin 2.6 L (3.9-5) g/dL 05/07/18 Range/Units 12:09 WBC (4.5-11.0) K/mm3 Hct (30.3-42.9) % MCH (28-32) pg MCHC (30-34) % Plt Count (140-440) K/mm3 Lymph % (Auto) (13.4-35.0) % [place] % (Auto) (0.0-7.3) % [place] # (0.0-0.8) K/mm3 Seg Neutrophils % (40.0-70.0) % Seg Neutrophils # (1.8-7.7) K/mm3 Sodium (137-145) mmol/L Chloride (98-107) mmol/L Creatinine (0.7-1.2) mg/dL Glucose (65-100) mg/dL POC Glucose 252 H (70-105) ALT (7-56) units/L Albumin (3.9-5) g/dL
--- NOTE | 2018-05-07 16:22 | Consultation ---
History of Present Illness - Reason for Consult Consult date: 05/07/18 Osteomylitis right foot Requesting physician: HILLARY ANTONY - History of Present Illness This patient is a 42 year old female with a past medical history of uncontrolled DM, known to ID from a previous admission on 04/13/18 due to worsening right plantar foot wound. MRI at that time showed small abscess at the 1st MT head 1.3x1.2 cm with no evidence of osteomylitis. Debridement at the bedside on 04/14/18 finding necrotic skin and sucutaneous tissue with drainage of minimal purulent fluid. Right foot wound culture grew Staph aureus and patient was discharged home on Zyvox 600mg Po for 14 days. The patient presented on 05/06/18 for her weekly visit at the wound care center and her wound was seen to have deteriorates with increasing cellulitis over the lateral and doral aspect of the foot with purulent drainage and swelling of the ankle. The wound was then debrided and bone was visible. Patent was then sent to [facility] for admission for assisted antibiotics and further debridement. On admission WBC was 18.6, Creatinine 0.6, Temperature 99.1, HR 116, BP 146/96. Blood cultures were drawn and are in progress. Review of Systems: General: no fever, no chills, nightsweats, unintentional weight change, or change in appetite Cutaneous: no rash, pruritus Head: no headaches or injury Eyes: no changes in vision, eye pain, double vision Ears: no ear pain, ear discharge, ringing or hearing loss Nose: no nose bleeding, stuffiness Mouth & throat: no bleeding gums, no horseness, no dental problems, or swollen glands Neck: no pain, node enlargement/lumps, tyroid enlargement or tenderness Respiratory: no cough, wheezing, sputum, hemoptysis, pleuritic chest pain Cardiovascular: no chest pain, leg edema, cyanosis, CARRILLO, orthopnea Musculoskeletal: First metatarsal right foot wound Gastrointestinal: no nausea, vomiting, hematemesis, diarrhea, constipation, melena, bright red blood in stools, fecal incontinence, jaundice Genitourinary/Reproductive: + frequent urination, no dysuria, hematuria, incontinence Neurogical: no seizures, no headaches, no weakness, no paresthesias, no loss of speech or vision; no memory loss, no vertigo, no tremors, no numbness Psychiatric: stable mood; no excessive anxiety, sadness or moodiness Medications and Allergies Allergies Allergy/AdvReac Type Severity Reaction Status Date / Time Penicillins Allergy Rash Verified 11/11/16 10:34 Home Medications Medication Instructions Recorded Confirmed Last Taken Type traMADol [Ultram 50 MG tab] 50 mg PO Q6HR PRN #12 tablet 11/11/16 05/06/18 Unknown Rx Aspirin [Aspirin TAB] 325 mg PO QDAY #30 tablet 09/29/17 05/06/18 04/13/18 13:54 Rx AtorvaSTATin [Lipitor] 40 mg PO QHS #30 tablet 09/29/17 05/06/18 1 Day Ago Rx ~04/12/18 HYDROcodone/APAP 5-325 [[place] 1 each PO Q6HR PRN #10 tablet 09/29/17 05/06/18 1 Day Ago Rx 5-325 mg TAB] ~04/12/18 metFORMIN 1,000 mg PO DAILY #60 09/29/17 05/06/18 1 Day Ago Rx ~04/12/18 Levemir (Nf) 50 units SQ BID 04/13/18 05/06/18 04/13/18 History Lisinopril [Zestril TAB] 20 mg PO DAILY 04/13/18 05/06/18 1 Day Ago History ~04/12/18 Ziprasidone 40 mg PO BID 04/13/18 05/06/18 04/11/18 History Carisoprodol [Soma] 350 mg PO TID tablet 04/18/18 05/06/18 Unknown Rx Gabapentin [Neurontin] 300 mg PO BID capsule 04/18/18 05/06/18 Unknown Rx Linezolid [Zyvox] 600 mg PO BID #28 tablet 04/18/18 05/06/18 Unknown Rx diazePAM TAB [Valium] 5 mg PO BID PRN tablet 04/18/18 05/06/18 Unknown Rx Active Meds: Active Medications Acetaminophen (Tylenol) 650 mg PO Q6H PRN PRN Reason: Pain, Mild (1-3) Aspirin (Aspirin) 325 mg PO QDAY [facility] Last Admin: 05/07/18 12:07 Dose: 325 mg Documented by: Atorvastatin Calcium (Lipitor) 40 mg PO QHS [facility] Carisoprodol (Soma) 350 mg PO TID [facility] Last Admin: 05/07/18 12:09 Dose: Not Given Documented by: Diazepam (Valium) 5 mg PO BID PRN PRN Reason: Anxiety Gabapentin (Neurontin) 300 mg PO BID [facility] Last Admin: 05/07/18 12:08 Dose: 300 mg Documented by: Hydromorphone HCl (Dilaudid) 0.5 mg IV Q3H PRN PRN Reason: Pain , Severe (7-10) Last Admin: 05/07/18 10:34 Dose: 0.5 mg Documented by: Vancomycin HCl 1,750 mg/ (Sodium Chloride) 535 mls @ 333.333 mls/hr IV Q12HR [facility] Last Admin: 05/07/18 12:06 Dose: 333.333 mls/hr Documented by: Insulin Glargine (Lantus) 50 units SUB-Q BID [facility] Last Admin: 05/07/18 12:51 Dose: 50 units Documented by: Insulin Human Lispro (Humalog) 0 unit SUB-Q ACHS [facility]; Protocol Last Admin: 05/07/18 12:50 Dose: 4 unit Documented by: Lisinopril (Zestril) 20 mg PO DAILY [facility] Last Admin: 05/07/18 12:08 Dose: 20 mg Documented by: Nicotine (Habitrol) 14 mg TD QDAY [facility] Last Admin: 05/07/18 10:35 Dose: 14 mg Documented by: Ondansetron HCl (Zofran) 4 mg IV Q6H PRN PRN Reason: Nausea And Vomiting Last Admin: 05/06/18 15:13 Dose: 4 mg Documented by: Tramadol HCl (Ultram) 50 mg PO Q6HR PRN PRN Reason: Pain Ziprasidone (Geodon) 40 mg PO BID [facility] Last Admin: 05/07/18 12:52 Dose: 40 mg Documented by: Physical Examination - Physical Exam Narrative exam: Constitutional: Asleep, easily arousable . No acute distress Head, Ears, Nose: Normocephalic, atraumatic. External ears, nose normal Eyes: Conjunctivae/corneas clear. No icterus. No ptosis. Neck: Supple, no meningeal signs Oral: dentition fair, no. thrush Cardiovascular: S1, S2 normal. Respiratory: Good air entry, clear to auscultation bilaterally GI: Soft, non-tender; bowel sounds normal. No peritoneal signs Musculoskeletal: No pedal edema, Diabetic foot wound first metarsal to the right foot., Per wound care: wound measurements 5.5x4.0x2.5. No odor. Skin: no rash, no edema, + dressing, D & I Hem/Lymphatic: No palpable cervical or supraclavicular nodes. No lymphangitis Psych: Mood ok. Affect normal Neurological: Awake, alert, oriented. - Constitutional Vitals: Vital Signs Temp Pulse Resp BP Pulse Ox 98.1 F 87 16 137/74 99 05/07/18 11:30 05/07/18 11:30 05/07/18 11:30 05/07/18 11:30 05/07/18 11:30 Temperature -Last 24 Hours Temperature 98.1 F Temperature 97.9 F Temperature 98.5 F Temperature 98.1 F Results - Labs CBC & Chem 7: 05/07/18 07:34 05/07/18 04:26 Labs: Abnormal lab results 05/06/18 05/06/18 05/07/18 Range/Units 20:03 22:14 04:26 WBC 18.6 H (4.5-11.0) K/mm3 Hct 30.0 L (30.3-42.9) % MCH 27 L (28-32) pg MCHC 35 H (30-34) % Plt Count 539 H (140-440) K/mm3 Lymph % (Auto) 12.8 L (13.4-35.0) % [place] % (Auto) (0.0-7.3) % [place] # 1.3 H (0.0-0.8) K/mm3 Seg Neutrophils % 78.2 H (40.0-70.0) % Seg Neutrophils # 14.5 H (1.8-7.7) K/mm3 Sodium 131 L (137-145) mmol/L Chloride 94.1 L (98-107) mmol/L Creatinine 0.6 L (0.7-1.2) mg/dL Glucose 292 H (65-100) mg/dL POC Glucose 281 H (70-105) ALT < 5 L (7-56) units/L Albumin 2.6 L (3.9-5) g/dL 05/07/18 05/07/18 05/07/18 Range/Units 07:34 07:43 12:09 WBC 14.2 H (4.5-11.0) K/mm3 Hct (30.3-42.9) % MCH 26 L (28-32) pg MCHC (30-34) % Plt Count 475 H (140-440) K/mm3 Lymph % (Auto) (13.4-35.0) % [place] % (Auto) 7.7 H (0.0-7.3) % [place] # 1.1 H (0.0-0.8) K/mm3 Seg Neutrophils % 75.4 H (40.0-70.0) % Seg Neutrophils # 10.7 H (1.8-7.7) K/mm3 Sodium (137-145) mmol/L Chloride (98-107) mmol/L Creatinine (0.7-1.2) mg/dL Glucose (65-100) mg/dL POC Glucose 252 H 252 H (70-105) ALT (7-56) units/L Albumin (3.9-5) g/dL 05/07/18 Range/Units 16:09 WBC (4.5-11.0) K/mm3 Hct (30.3-42.9) % MCH (28-32) pg MCHC (30-34) % Plt Count (140-440) K/mm3 Lymph % (Auto) (13.4-35.0) % [place] % (Auto) (0.0-7.3) % [place] # (0.0-0.8) K/mm3 Seg Neutrophils % (40.0-70.0) % Seg Neutrophils # (1.8-7.7) K/mm3 Sodium (137-145) mmol/L Chloride (98-107) mmol/L Creatinine (0.7-1.2) mg/dL Glucose (65-100) mg/dL POC Glucose 277 H (70-105) ALT (7-56) units/L Albumin (3.9-5) g/dL Assessment and Plan Cultures: 05/06/18 Blood: In progress A/P: 42-year-old patient a past medical history of uncontrolled DM, know to ID from a previous admisson on 04/13/18 due to worsening right plantar foot wound. MRI at that time sh owed small abscess at the 1st MT head 1.3x1.2 cm with no evidence of osteomylitis. Debridement at the bedside on 04/14/18 finding necrotic skin and sucutaneous tissue with drainage of minimal purulent fluid. Right food wound culture grew Staph aureus and patient was discharged home on Zyvox 600mg PPo for 14 days. The patient presented on 05/06/18 for her weekly visit at the wound care center and her wound was seen to have deteriorates with increasing cellulitis over the lateral and doral aspect of the foot with purulent drainage. Now admitted with: 1. Sepsis: evidenced by leukocytosis and tachycardia. Etiology most likely right diabetic foot ulcer. no Fever. Patient currently being treated with vancomycin and cefepime. . Blood cultures drawn and are pending. 2. Diabetic Foot Wound:: First metatarsal right foot. wound measures 5.5x4.0x2.5 , no odor. S/p debrdement with bone visible. at wound care office 05/06/18. Wound cultures sent,. Debridement scheduled for tomorrow with Dr. Tila carson. 3. Type 2 Diabetes Mellitus: Recommend tight gylcemic control. 4. Penicillin Allergy: Remote allergy reported rash. Has taken Amoxicillin in the past without reaction. 5. Tobacco Abuse: recommended smoking cessation. Plan: -f/u wound cultures -f/u blood cultures -order CRP, ESR -continue Vancomycin PK dosing -Start Cefepime 2gms IV every 8 hours -Order PICC line d/w Dr. Nicholas Escamilla, NURSE TECH [facility] M: [id number] O:[phone] -
[2018-05-07] MEDS: MAXIPIME/NS 2 GM/100 ML 2 GM/100 ML BAG IV SCH ×2 (20:34→23:31)
[2018-05-08 01:21] LABS: Basophils # (Auto) 0.1 K/mm3 (0.0-0.1); Basophils % (Auto) 0.6 % (0.0-1.8); Eosinophils # (Auto) 0.2 K/mm3 (0.0-0.4); Eosinophils % (Auto) 1.2 % (0.0-4.3); Hematocrit 30.2 % (30.3-42.9); Lymphocytes # (Auto) 1.7 K/mm3 (1.2-5.4); Lymphocytes % (Auto) 11.4 % (13.4-35.0); Mean Corpuscular HGB Conc 33 % (30-34); Mean Corpuscular Volume 79 fl (79-97); Monocytes # (Auto) 1.2 K/mm3 (0.0-0.8); Platelet Count 485 K/mm3 (140-440); Red Blood Count 3.84 M/mm3 (3.65-5.03); Red Cell Distribution Width 13.9 % (13.2-15.2)
[2018-05-08 02:23] LABS: Erythrocyte Sedimentation Rate > 140.0 mm/Hr (0-20)
[2018-05-08] MEDS: MAXIPIME/NS 2 GM/100 ML 2 GM/100 ML BAG IV SCH ×3 (05:23→21:55)
[2018-05-08] MEDS: SOMA PO SCH ×3 (08:51→21:53)
[2018-05-08] MEDS: HumaLOG SUB-Q SCH ×4 (08:51→21:54)
--- NOTE | 2018-05-08 08:59 | Progress Note ---
Assessment and Plan Cultures: 05/06/18 Blood: Gram Positive Cocci 1 out of 2 bottles 05/06/18 MRSA PCR: negative A/P: 42-year-old patient a past medical history of uncontrolled DM, know to ID from a previous admisson on 04/13/18 due to worsening right plantar foot wound. MRI at that time sh owed small abscess at the 1st MT head 1.3x1.2 cm with no eviden ce of osteomylitis. Debridement at the bedside on 04/14/18 finding necrotic skin and sucutaneous tissue with drainage of minimal purulent fluid. Right food wound culture grew Staph aureus and patient was discharged home on Zyvox 600mg PPo for 14 days. The patient presented on 05/06/18 for her weekly visit at the wound care center and her wound was seen to have deteriorates with increasing cellulitis over the lateral and doral aspect of the foot with purulent drainage. Now admitted with: 1. Sepsis: evidenced by leukocytosis and tachycardia. Etiology most likely right diabetic foot ulcer. no Fever. Patient currently being treated with vancomycin and cefepime, Gram Postive bacteremia, 1 out of 2 bottles. -ESR >140 -CRP 13.70 2. GPC Bacteremia: 1 out of 2 bottles, likely staph, source right diabetic foot infection. Order new blood cultures to ensure clearance. 3. Diabetic Foot Wound:: First metatarsal right foot. wound measures 5.5x4.0x2.5 , no odor. S/p debrdement with bone visible. at wound care office 05/06/18. Given bone exposure in a diabetic foot wound, will treat as acute osteomyelitis. PICC line ordered. Wound cultures sent, Debridement scheduled today. Dr. Dong following 4. Type 2 Diabetes Mellitus: Recommend tight gylcemic control. 5. Penicillin Allergy: Remote allergy reported rash. Has taken Amoxicillin in the past without reaction. 6. Tobacco Abuse: recommended smoking cessation. Plan: -f/u wound cultures -f/u blood cultures for ID and MANJU's -continue Vancomycin PK dosing -continue Cefepime 2gms IV every 8 hours -New blood cultures ordered [facility] M: [phone] O:[phone] - Subjective Date of service: 05/08/18 Interval history: Patient seen and examined. Denied generalized pain, SOB or rashes. No fevers. Objective - Exam Narrative Exam: Constitutional: Awake. Alert . No acute distress Head, Ears, Nose: Normocephalic, atraumatic. External ears, nose normal Eyes: Conjunctivae/corneas clear. No icterus. No ptosis. Neck: Supple, no meningeal signs Oral: dentition fair, no. thrush Cardiovascular: S1, S2 normal. Respiratory: Good air entry, clear to auscultation bilaterally GI: Soft, non-tender; bowel sounds normal. No peritoneal signs Musculoskeletal: No pedal edema, Diabetic foot wound first metarsal to the right foot., Per wound care: wound measurements 5.5x4.0x2.5. No odor. Skin: no rash, no edema, + dressing, D & I Hem/Lymphatic: No palpable cervical or supraclavicular nodes. No lymphangitis Psych: Mood ok. Affect normal Neurological: Awake, alert, oriented. - Constitutional Vitals: Vital Signs Temp Pulse Resp BP Pulse Ox 99.8 F H 127 H 18 158/86 99 05/07/18 18:09 05/07/18 18:09 05/07/18 22:00 05/07/18 18:09 05/07/18 18:09 Temperature -Last 24 Hours Temperature 99.8 F Temperature 98.1 F - Labs CBC & Chem 7: 05/08/18 01:07 05/07/18 04:26 Labs: Abnormal lab results 05/07/18 05/07/18 05/07/18 Range/Units 12:09 16:09 21:48 WBC (4.5-11.0) K/mm3 Hgb (10.1-14.3) gm/dl Hct (30.3-42.9) % MCH (28-32) pg Plt Count (140-440) K/mm3 Lymph % (Auto) (13.4-35.0) % [place] % (Auto) (0.0-7.3) % [place] # (0.0-0.8) K/mm3 Seg Neutrophils % (40.0-70.0) % Seg Neutrophils # (1.8-7.7) K/mm3 POC Glucose 252 H 277 H 290 H (70-105) Hemoglobin A1c (4-6) % C-Reactive Protein (0.00-1.30) mg/dL 05/08/18 05/08/18 05/08/18 Range/Units 01:07 01:07 04:46 WBC 14.6 H (4.5-11.0) K/mm3 Hgb 10.0 L (10.1-14.3) gm/dl Hct 30.2 L (30.3-42.9) % MCH 26 L (28-32) pg Plt Count 485 H (140-440) K/mm3 Lymph % (Auto) 11.4 L (13.4-35.0) % [place] % (Auto) 8.0 H (0.0-7.3) % [place] # 1.2 H (0.0-0.8) K/mm3 Seg Neutrophils % 78.8 H (40.0-70.0) % Seg Neutrophils # 11.5 H (1.8-7.7) K/mm3 POC Glucose (70-105) Hemoglobin A1c 11.5 H (4-6) % C-Reactive Protein 13.70 H (0.00-1.30) mg/dL 05/08/18 Range/Units 07:29 WBC (4.5-11.0) K/mm3 Hgb (10.1-14.3) gm/dl Hct (30.3-42.9) % MCH (28-32) pg Plt Count (140-440) K/mm3 Lymph % (Auto) (13.4-35.0) % [place] % (Auto) (0.0-7.3) % [place] # (0.0-0.8) K/mm3 Seg Neutrophils % (40.0-70.0) % Seg Neutrophils # (1.8-7.7) K/mm3 POC Glucose 289 H (70-105) Hemoglobin A1c (4-6) % C-Reactive Protein (0.00-1.30) mg/dL
[2018-05-08] MEDS: VANCOMYCIN 1,750 MG in NACL 0.9% 500 ML 500 ML IV SCH ×2 (11:01→23:02)
[2018-05-08] MEDS: HABITROL TD SCH (11:10)
[2018-05-08] MEDS: LANTUS SUB-Q SCH ×2 (11:10→21:55)
[2018-05-08] MEDS: ASPIRIN PO SCH (11:51)
[2018-05-08] MEDS: NEURONTIN PO SCH ×2 (11:51→21:54)
[2018-05-08] MEDS: ZESTRIL PO SCH ×2 (11:51→16:28)
[2018-05-08] MEDS: GEODON PO SCH ×2 (11:51→21:54)
--- NOTE | 2018-05-08 12:04 | Event Note ---
Date: 05/08/18 Preop note: Pt scheduled for debridement of right foot wound. I discussed all risks, benefits, and alternatives to procedure with her and consent obtained. Pt is NPO, on IVF, and IV abx.
[2018-05-08] MEDS ORDERED: MARCAINE 0.5% INFILTRATI ONE (13:13)
[2018-05-08] MEDS ORDERED: HYDROGEN PEROXIDE ONE (13:13)
[2018-05-08] MEDS ORDERED: SUBLIMAZE ONE (13:20)
[2018-05-08] MEDS ORDERED: XYLOCAINE MPF 2% ONE (13:20)
[2018-05-08] MEDS ORDERED: DIPRIVAN 10 MG/ML IV ONE ×2 (13:20→14:17)
[2018-05-08] MEDS ORDERED: VERSED ONE (13:42)
[2018-05-08] MEDS ORDERED: NACL 0.9% 1000 ML 1,000 ML IV SCH (13:52)
[2018-05-08] MEDS ORDERED: VERSED IV NR (14:00)
[2018-05-08] MEDS ORDERED: NACL 0.9% 1000 ML IR ONE (14:28)
--- NOTE | 2018-05-08 14:52 | Post Operative Note ---
Date of procedure: 05/08/18 Pre-op diagnosis: infected right diabetic foot wound Post-op diagnosis: same Findings: 1. Exposed bone of great toe 2. abscess cavity at the dorsal aspect of the foot 3. necrotic skin, subcutaneous tissue Wound measurements: 8 cm x 6 cm x 3 cm Procedure: excisional debridement of infected right foot wound Anesthesia: MAC Surgeon: MEKA BATES Estimated blood loss: minimal Pathology: none Condition: stable Disposition: PACU
--- NOTE | 2018-05-08 15:43 | Anesthesia Consultation ---
Anesthesia Consult and Med Hx Date of service: 05/08/18 - Airway Anesthetic Teeth Evaluation: Good ROM Head & Neck: Adequate Mental/Hyoid Distance: Adequate Mallampati Class: Class III Intubation Access Assessment: Possibly Difficult - Pulmonary Exam CTA: Yes - Cardiac Exam Cardiac Exam: RRR - Pre-Operative Health Status ASA Pre-Surgery Classification: ASA3 Proposed Anesthetic Plan: MAC - Pulmonary Hx Smoking: Yes Hx Asthma: No Hx Respiratory Symptoms: No COPD: No - Cardiovascular System Hx Hypertension: Yes Hx Heart Attack/AMI: No Hx Percutaneous Transluminal Coronary Angioplasty (PTCA): No Hx Cardia Arrhythmia: No - Central Nervous System 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 TTE EF 50-55%, normal RV function. Elevated glucose treated with SQ insulin prior to arrival to [facility]. Will monitor glucose perioperatively.
--- NOTE | 2018-05-08 15:43 | Anesthesia Day of Surgery ---
Anesthesia Day of Surgery - Day of Surgery Patient Examined: Yes Patient H&P Reviewed: Yes Patient is NPO: Yes
--- NOTE | 2018-05-08 15:43 | Post Anesthesia Evaluation ---
- Post Anesthesia Evaluation Patient Participated: Yes Airway Patent: Yes Stable Respiratory Function: Yes Nausea/Vomiting: No Temp > 96.8F: Yes Pain Manageable: Yes Adequeate Hydration: Yes Anesthesia Complications: No
--- NOTE | 2018-05-08 16:09 | Progress Note ---
Assessment and Plan - Patient Problems (1) Diabetic foot ulcer with osteomyelitis Current Visit: Yes Status: Acute Plan to address problem: S/p debridement IV Abx ID Consult (2) IDDM (insulin dependent diabetes mellitus) Current Visit: Yes Status: Chronic Plan to address problem: Poorly controlled Adjust dosage (3) HTN (hypertension) Current Visit: No Status: Chronic Qualifiers: Hypertension type: essential hypertension Qualified Code(s): I10 - Essential (primary) hypertension Plan to address problem: Cont antihypertensives (4) Neuropathy Current Visit: No Status: Chronic Plan to address problem: Cont Gabapentin (5) HLD (hyperlipidemia) Current Visit: Yes Status: Chronic Qualifiers: Hyperlipidemia type: mixed hyperlipidemia Qualified Code(s): E78.2 - Mixed hyperlipidemia Plan to address problem: Cont statins (6) DVT prophylaxis Current Visit: No Status: Acute Plan to address problem: SCD's and GI prophylaxis Subjective Date of service: 05/08/18 Principal diagnosis: Rt Foot wound and cellulitis Interval history: S/p debridement Objective - Constitutional Vitals: Vital Signs - 12hr 05/08/18 05/08/18 05/08/18 12:12 12:14 12:50 Temperature 99.0 F 99.0 F 98.7 F Pulse Rate 100 H 104 H Respiratory 16 18 18 Rate Blood Pressure 159/76 157/86 O2 Sat by Pulse 100 100 Oximetry 05/08/18 05/08/18 05/08/18 12:55 14:52 14:55 Temperature 98.7 F 98.0 F Pulse Rate 104 H 100 H 105 H Respiratory 18 18 18 Rate Blood Pressure 157/86 160/79 164/87 O2 Sat by Pulse 100 99 99 Oximetry 05/08/18 05/08/18 05/08/18 15:00 15:05 15:20 Temperature Pulse Rate 104 H 104 H 104 H Respiratory 18 18 15 Rate Blood Pressure 151/87 143/70 146/69 O2 Sat by Pulse 99 100 100 Oximetry General appearance: Present: no acute distress, well-nourished - EENT Eyes: PERRL, EOM intact ENT: hearing intact, clear oral mucosa Ears: bilateral: normal - Neck Neck: supple, normal ROM - Respiratory Respiratory effort: normal Respiratory: bilateral: CTA - Breasts Breasts: normal - Cardiovascular Heart rate: 78 Rhythm: regular Heart Sounds: Present: S1 & S2. Absent: gallop, rub Extremities: pulses intact, No edema, normal color, Full ROM, abnormal (Rt foot wound ) Extremity abnormal: other (Rt foot wound with bone exposed) - Gastrointestinal General gastrointestinal: Present: soft, non-tender, non-distended, normal bowel sounds - Genitourinary Female genitourinary: normal - Integumentary Integumentary: clear, warm, dry - Musculoskeletal Musculoskeletal: 1, strength equal bilaterally - Neurologic Neurologic: moves all extremities - Psychiatric Psychiatric: memory intact, appropriate mood/affect, intact judgment & insight - Labs CBC & Chem 7: 05/10/18 00:26 05/07/18 04:26 Labs: Abnormal lab results 05/07/18 05/07/18 05/08/18 Range/Units 16:09 21:48 01:07 WBC 14.6 H (4.5-11.0) K/mm3 Hgb 10.0 L (10.1-14.3) gm/dl Hct 30.2 L (30.3-42.9) % MCH 26 L (28-32) pg Plt Count 485 H (140-440) K/mm3 Lymph % (Auto) 11.4 L (13.4-35.0) % [place] % (Auto) 8.0 H (0.0-7.3) % [place] # 1.2 H (0.0-0.8) K/mm3 Seg Neutrophils % 78.8 H (40.0-70.0) % Seg Neutrophils # 11.5 H (1.8-7.7) K/mm3 POC Glucose 277 H 290 H (70-105) Hemoglobin A1c (4-6) % C-Reactive Protein (0.00-1.30) mg/dL 05/08/18 05/08/18 05/08/18 Range/Units 01:07 04:46 07:29 WBC (4.5-11.0) K/mm3 Hgb (10.1-14.3) gm/dl Hct (30.3-42.9) % MCH (28-32) pg Plt Count (140-440) K/mm3 Lymph % (Auto) (13.4-35.0) % [place] % (Auto) (0.0-7.3) % [place] # (0.0-0.8) K/mm3 Seg Neutrophils % (40.0-70.0) % Seg Neutrophils # (1.8-7.7) K/mm3 POC Glucose 289 H (70-105) Hemoglobin A1c 11.5 H (4-6) % C-Reactive Protein 13.70 H (0.00-1.30) mg/dL 05/08/18 05/08/18 Range/Units 14:05 15:08 WBC (4.5-11.0) K/mm3 Hgb (10.1-14.3) gm/dl Hct (30.3-42.9) % MCH (28-32) pg Plt Count (140-440) K/mm3 Lymph % (Auto) (13.4-35.0) % [place] % (Auto) (0.0-7.3) % [place] # (0.0-0.8) K/mm3 Seg Neutrophils % (40.0-70.0) % Seg Neutrophils # (1.8-7.7) K/mm3 POC Glucose 178 H 177 H (70-105) Hemoglobin A1c (4-6) % C-Reactive Protein (0.00-1.30) mg/dL
[2018-05-08] MEDS: DILAUDID IV PRN ×3 (16:20→23:09)
[2018-05-08] MEDS ORDERED: CEPHULAC PO ONE (17:20)
[2018-05-08] MEDS: ZOFRAN IV PRN (22:07)
[2018-05-09] MEDS: MAXIPIME/NS 2 GM/100 ML 2 GM/100 ML BAG IV SCH (05:59)
[2018-05-09] MEDS: DILAUDID IV PRN ×3 (08:31→21:56)
[2018-05-09] MEDS: HumaLOG SUB-Q SCH ×5 (09:22→21:59)
[2018-05-09] MEDS: LANTUS SUB-Q SCH ×3 (09:22→22:00)
--- NOTE | 2018-05-09 09:29 | Progress Note ---
Assessment and Plan Cultures: 05/06/18 Blood: Staph aureus, 2 out of 2 bottles 05/06/18 MRSA PCR: negative A/P: 42-year-old patient a past medical history of uncontrolled DM, know to ID from a previous admisson on 04/13/18 due to worsening right plantar foot wound. MRI at that time showed small abscess at the 1st MT head 1.3x1.2 cm with no evidence of osteomylitis. Debridement at the bedside on 04/14/18 finding necrotic skin and sucutaneous tissue with drainage of minimal purulent fluid. Right food wound culture grew Staph aureus and patient was discharged home on Zyvox 600mg PPo for 14 days. The patient presented on 05/06/18 for her weekly visit at the wound care center and her wound was seen to have deteriorates with increasing cellulitis over the lateral and doral aspect of the foot with purulent drainage. Now admitted with: 1. Sepsis: Improved, continuing leukocytosis. Etiology most likely right diabetic foot ulcer. no Fever. Patient currently being treated with vancomycin , Staph aureus bacteremia, 2 out of 2 bottles. -ESR >140 -CRP 13.70 2. Staph aureus bacteremia: 2 out of 2 bottles, source right diabetic foot infection. f/u repeat blood cultures to ensure clearance. Order TTE 3. Diabetic Foot Wound:: First metatarsal right foot. wound measures 5.5x4.0x2.5 , no odor. S/p debrdement with bone visible. at wound care office 05/06/18. Given bone exposure in a diabetic foot wound, will treat as acute osteo myelitis. s/p excisional debridement 05/08/18. 4. Type 2 Diabetes Mellitus: Recommend tight gylcemic control. 5. Penicillin Allergy: Remote allergy reported rash. Has taken Amoxicillin in the past without reaction. Tolerating cephalosporin without reaction. 6. Tobacco Abuse: recommended smoking cessation. Plan: -f/u wound cultures -f/u blood cultures for ID and MANJU's -continue Vancomycin PK dosing -discontinue Cefepime -CBC ordered for tomorrow -TTE ordered [facility] M: [phone] O:[phone] - Subjective Date of service: 05/09/18 Objective - Constitutional Vitals: Vital Signs Temp Pulse Resp BP Pulse Ox 99.3 F 96 H 18 106/46 95 05/09/18 05:54 05/09/18 05:54 05/09/18 05:54 05/09/18 05:54 05/09/18 05:54 Temperature -Last 24 Hours Temperature 99.3 F Temperature 98.8 F Temperature 99.4 F Temperature 97.8 F Temperature 98.0 F Temperature 98.7 F Temperature 98.7 F Temperature 99.0 F Temperature 99.0 F - Labs CBC & Chem 7: 05/08/18 01:07 05/07/18 04:26 Labs: Abnormal lab results 05/08/18 05/08/18 05/08/18 Range/Units 12:18 14:05 15:08 POC Glucose 204 H 178 H 177 H (70-105) 05/08/18 05/08/18 05/09/18 Range/Units 16:16 21:20 07:34 POC Glucose 241 H 298 H 226 H (70-105)
[2018-05-09] MEDS: ZOFRAN IV PRN ×2 (09:41→21:57)
[2018-05-09] MEDS: SOMA PO SCH ×4 (12:38→21:47)
[2018-05-09] MEDS: HABITROL TD SCH (12:52)
[2018-05-09] MEDS: ZESTRIL PO SCH (12:52)
[2018-05-09] MEDS: NEURONTIN PO SCH ×2 (12:52→21:47)
[2018-05-09] MEDS: ASPIRIN PO SCH (12:52)
[2018-05-09] MEDS: GEODON PO SCH ×4 (12:53→21:59)
[2018-05-09] MEDS: VANCOMYCIN 1,750 MG in NACL 0.9% 500 ML 500 ML IV SCH ×2 (13:30→22:04)
--- NOTE | 2018-05-09 14:26 | Progress Note ---
Assessment and Plan - Patient Problems (1) Diabetic foot ulcer with osteomyelitis Current Visit: Yes Status: Acute Plan to address problem: S/p debridement IV Abx Final wound culture from 05/06/18 - Klebsiella and Staph aureus (please see [facility] for sensitivities Wound vac applied Good seal (2) IDDM (insulin dependent diabetes mellitus) Current Visit: Yes Status: Chronic Plan to address problem: Poorly controlled Adjust dosage (3) HTN (hypertension) Current Visit: No Status: Chronic Qualifiers: Hypertension type: essential hypertension Qualified Code(s): I10 - Essential (primary) hypertension Plan to address problem: Cont antihypertensives (4) Neuropathy Current Visit: No Status: Chronic Plan to address problem: Cont Gabapentin (5) HLD (hyperlipidemia) Current Visit: Yes Status: Chronic Qualifiers: Hyperlipidemia type: mixed hyperlipidemia Qualified Code(s): E78.2 - Mixed hyperlipidemia Plan to address problem: Cont statins (6) DVT prophylaxis Current Visit: No Status: Acute Plan to address problem: SCD's and GI prophylaxis Subjective Date of service: 05/09/18 Principal diagnosis: Rt foot wound and cellulitis Interval history: S/p debridement Objective - Constitutional Vitals: Vital Signs - 12hr 05/09/18 05/09/18 05/09/18 05:54 11:36 12:52 Temperature 99.3 F 98.1 F Pulse Rate 96 H 91 H 107 H Respiratory 18 18 Rate Blood Pressure 106/46 155/73 Blood Pressure 126/68 [Left] O2 Sat by Pulse 95 98 Oximetry General appearance: Present: no acute distress, well-nourished - EENT Eyes: PERRL, EOM intact ENT: hearing intact, clear oral mucosa Ears: bilateral: normal - Neck Neck: supple, normal ROM - Respiratory Respiratory effort: normal Respiratory: bilateral: CTA - Breasts Breasts: normal - Cardiovascular Rhythm: regular Heart Sounds: Present: S1 & S2. Absent: gallop, rub Extremities: pulses intact, No edema, normal color, Full ROM - Gastrointestinal General gastrointestinal: Present: soft, non-tender, non-distended, normal bowel sounds - Genitourinary Female genitourinary: normal - Integumentary Integumentary: clear, warm, dry - Musculoskeletal Musculoskeletal: 1, strength equal bilaterally - Neurologic Neurologic: moves all extremities - Psychiatric Psychiatric: memory intact, appropriate mood/affect, intact judgment & insight - Labs CBC & Chem 7: 05/10/18 00:26 05/07/18 04:26 Labs: Abnormal lab results 05/08/18 05/08/18 05/08/18 Range/Units 12:18 15:08 16:16 POC Glucose 204 H 177 H 241 H (70-105) 05/08/18 05/09/18 05/09/18 Range/Units 21:20 07:34 11:15 POC Glucose 298 H 226 H 201 H (70-105)
--- NOTE | 2018-05-09 15:04 | Vascular Lab Report ---
PROCEDURE: VL ARTERIAL DUPLEX LE RT TECHNIQUE: Grayscale and color and spectral Doppler ultrasound imaging of the right lower extremity arterial system was performed. HISTORY: PAD, wound COMPARISONS: None. FINDINGS: Calcified atherosclerotic plaque is seen throughout the right lower extremity arterial system. There is no flow within the right distal superficial femoral artery concerning for occlusion. No aneurysm w as seen. A focal hypoechoic structure is seen in the right proximal thigh with a fatty hilum measurin g 2.2 x 1.5 cm with internal color flow. Peak systolic velocity in centimeters per second and waveform characteristics: Proximal CONCRETE PUMP OPERATOR: 180 triphasic Distal CONCRETE PUMP OPERATOR: 152 triphasic PFA: 135 triphasic Proximal SFA: 188 monophasic MID SFA: 114 monophasic Distal SFA: No flow Popliteal: 47-109 monophasic CRIME SCENE TECHNICIAN: 55 monophasic SYD: 75 monophasic IMPRESSION: 1. 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 2. Moderate right lower extremity peripheral arterial disease with mild focal stenosis of the right p roximal superficial femoral artery. 3. Mildly enlarged lymph node in the right proximal thigh which may be reactive neoplastic involvemen t is not excluded. This document is electronically signed by Criselda Chowdary., May 09 2018 03:01:47 PM ET
--- NOTE | 2018-05-09 16:34 | Progress Note ---
Assessment and Plan 42 yo F s/p excisional debridement of infected right foot wound, POD 1 1. infected right diabetic foot wound 2. osteomyelitis 3. diabetes mellitus 4. PAD RLE arterial duplex with signs of PAD Plan: 1. follow up wound cultures from 05/06 taken at wound care clinic 2. IV abx 3. follow up blcx 4. trend WBC 5. strict glucose control 6. offloading, PT consult 7. 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 ID recs appreciated 9. vascular consult - Dr. Juarez 10. c/w wound vac Thank you, please call with questions. Subjective Date of service: 05/09/18 Narrative: Pt seen and examined. Doing well. No complaints. No f/c. Objective Vital Signs - 12hr 05/09/18 05/09/18 05/09/18 05:54 11:36 12:52 Temperature 99.3 F 98.1 F Pulse Rate 96 H 91 H 107 H Respiratory 18 18 Rate Blood Pressure 106/46 155/73 Blood Pressure 126/68 [Left] O2 Sat by Pulse 95 98 Oximetry - General physical appearance Narrative Exam: Gen: AAOx3. NAD CV: s1, S2+ Resp: even and unlabored Ext; R foot wound with vac in place, no leak, good seal @-125mmHg suction - Labs 05/08/18 01:07 05/07/18 04:26
[2018-05-10 00:41] LABS: Basophils # (Auto) 0.1 K/mm3 (0.0-0.1); Basophils % (Auto) 0.4 % (0.0-1.8); Eosinophils # (Auto) 0.2 K/mm3 (0.0-0.4); Eosinophils % (Auto) 1.1 % (0.0-4.3); Hematocrit 28.9 % (30.3-42.9); Hemoglobin 9.4 gm/dl (10.1-14.3); Lymphocytes # (Auto) 2.1 K/mm3 (1.2-5.4); Lymphocytes % (Auto) 11.3 % (13.4-35.0); Mean Corpuscular HGB Conc 33 % (30-34); Mean Corpuscular Volume 78 fl (79-97); Monocytes # (Auto) 1.5 K/mm3 (0.0-0.8); Platelet Count 502 K/mm3 (140-440); Red Cell Distribution Width 14.1 % (13.2-15.2)
[2018-05-10] MEDS: DILAUDID IV PRN ×3 (05:33→20:56)
[2018-05-10] MEDS: SOMA PO SCH ×3 (08:14→20:57)
[2018-05-10] MEDS: HumaLOG SUB-Q SCH ×7 (08:20→22:55)
--- NOTE | 2018-05-10 08:56 | Progress Note ---
Assessment and Plan Cultures: 05/06/18 Blood: Staph aureus, 2 out of 2 bottles 05/06/18 MRSA PCR: negative 05/06/18 Wound: Klebsiella and Staph aureus, erazo susceptible 05/08/18 Blood: GPC 1 out of 2 bottles A/P: 42-year-old patient a past medical history of uncontrolled DM, know to ID from a previous admisson on 04/13/18 due to worsening right plantar foot wound. MRI at that time showed small abscess at the 1st MT head 1.3x1.2 cm with no evidence of osteomylitis. Debridement at the bedside on 04/14/18 finding necrotic skin and sucutaneous tissue with drainage of minimal purulent fluid. Right food wound culture grew Staph aureus and patient was discharged home on Zyvox 600mg PPo for 14 days. The patient presented on 05/06/18 for her weekly visit at the wound care center and her wound was seen to have deteriorates with increasing cellulitis over the lateral and doral aspect of the foot with purulent drainage. Now admitted with: 1. Sepsis: Improved, continuing leukocytosis. Etiology Staph aureus bacteremia. Source most likely right diabetic foot ulcer. no Fever. Patient currently being treated with vancomycin and cefazolin. Staph aureus bacteremia, 2 out of 2 bottles, repeat culture GPC 1 out of 2 bottles. -ESR >140 -CRP 13.70 2. Staph aureus bacteremia: 2 out of 2 bottles, source right diabetic foot infection. f/u repeat blood cultures show GPC 1 out of 2 bottles. f/u ID and MANJU's. F/u TTE 3. Diabetic Foot Wound:: First metatarsal right foot. wound measures 5.5x4.0x2.5 , no odor. S/p debrdement with bone visible. at wound care office 05/06/18. Given bone exposure in a diabetic foot wound, will treat as acute osteomyelitis. s/p excisional debridement 05/08/18. Culture grew Klebsiella and staph aureus, erazo susceptible. Will add cefazolin for MSSA. MRI ordered of right foot. Arterial Gram: Calcified atherosclerotic plaque is seen throughout the right lower extremity arterial system. There is no flow within the right distal superficial femoral artery concerning for occlusion. No aneurysm was seen 4. Type 2 Diabetes Mellitus: Recommend tight gylcemic control. 5. Penicillin Allergy: Remote allergy reported rash. Has taken Amoxicillin in the past without reaction. Tolerating cephalosporin without reaction. 6. Tobacco Abuse: recommended smoking cessation. 7. Right buttocks abscess- history of bacteremia 2012 and 2014, +/- MRSA. Currently has minimal drainage. Wound culture sent. CT of abdomen and pelvis ordered. 8. History of CVA 2018- left facial droop today. Will order CT of head. Plan: -f/u wound culture for ID and MANJU's -f/u blood cultures for ID and MANJU's -continue Vancomycin PK dosing -f/u TTE -Anticipate 6 weeks of abx of OPAT from clearance -CT of abdomen and pelvis with contrast for right buttock abscess evaluation -culture of right buttocks wound sent -CT of head for facial droop -consider OLGA for Sunday for history of Bacteremia, possible CVA -order MRI of right foot -Add cefazolin 2gm q 8, outpatient wound culture grew MSSA -Order new blood cultures to ensure clearance d/w Dr. Dalton Peterson will be air conditioning installer this weekend, , please call for questions. [facility] M: [phone] O:[phone] - Subjective Date of service: 05/10/18 Principal diagnosis: Rt foot wound and cellulitis Interval history: Patient seen and examined. Denied generalized pain, SOB or rashes. No fevers. Left facial droop observed. Family at bedside. Objective - Exam Narrative Exam: Constitutional: Awake. Alert . No acute distress. + left facial droop Head, Ears, Nose: Normocephalic, atraumatic. External ears, nose normal Eyes: Conjunctivae/corneas clear. No icterus. No ptosis. Neck: Supple, no meningeal signs Oral: dentition fair, no. thrush Cardiovascular: S1, S2 normal. Respiratory: Good air entry, clear to auscultation bilaterally GI: Soft, non-tender; bowel sounds normal. No peritoneal signs Musculoskeletal: No pedal edema, Diabetic foot wound first metarsal to the right foot., Per wound care: wound measurements 5.5x4.0x2.5. No odor. Skin: no rash, no edema, + dressing, D & I Hem/Lymphatic: No palpable cervical or supraclavicular nodes. No lymphangitis Psych: Mood ok. Affect normal Neurological: Awake, alert, + left facial dropp on exam - Constitutional Vitals: Vital Signs Temp Pulse Resp BP Pulse Ox 99.0 F 95 H 20 123/68 99 05/10/18 05:23 05/10/18 05:23 05/10/18 05:23 05/10/18 05:23 05/10/18 05:23 Temperature -Last 24 Hours Temperature 99.0 F Temperature 99.5 F Temperature 98.9 F Temperature 98.1 F - Labs CBC & Chem 7: 05/10/18 00:26 05/07/18 04:26 Labs: Abnormal lab results 05/09/18 05/09/18 05/09/18 Range/Units 11:15 16:02 21:36 WBC (4.5-11.0) K/mm3 Hgb (10.1-14.3) gm/dl Hct (30.3-42.9) % MCV (79-97) fl MCH (28-32) pg Plt Count (140-440) K/mm3 Lymph % (Auto) (13.4-35.0) % [place] % (Auto) (0.0-7.3) % [place] # (0.0-0.8) K/mm3 Seg Neutrophils % (40.0-70.0) % Seg Neutrophils # (1.8-7.7) K/mm3 POC Glucose 201 H 263 H 136 H (70-105) 05/10/18 Range/Units 00:26 WBC 18.9 H (4.5-11.0) K/mm3 Hgb 9.4 L (10.1-14.3) gm/dl Hct 28.9 L (30.3-42.9) % MCV 78 L (79-97) fl MCH 26 L (28-32) pg Plt Count 502 H (140-440) K/mm3 Lymph % (Auto) 11.3 L (13.4-35.0) % [place] % (Auto) 8.0 H (0.0-7.3) % [place] # 1.5 H (0.0-0.8) K/mm3 Seg Neutrophils % 79.2 H (40.0-70.0) % Seg Neutrophils # 15.0 H (1.8-7.7) K/mm3 POC Glucose (70-105)
[2018-05-10] MEDS: ZOFRAN IV PRN ×2 (09:14→10:49)
[2018-05-10] MEDS: HABITROL TD SCH (10:12)
--- NOTE | 2018-05-10 10:26 | Consultation ---
History of Present Illness - Reason for Consult Consult date: 05/10/18 PVD with osteomyelitis - History of Present Illness 42 year old female with a past medical history of uncontrolled DM, with worsening right plantar foot wound. MRI at that time showed small abscess at the 1st MT head 1.3x1.2 cm with no evidence of osteomylitis in 04/09. Debridement at the bedside on 04/14/18 finding necrotic skin and sucutaneous tissue with drainage of minimal purulent fluid. Right foot wound culture grew Staph aureus and patient was discharged home on Zyvox 600mg Po for 14 days. The patient presented on 05/06/18 for her weekly visit at the wound care center and her wound was seen to have deteriorates with increasing cellulitis over the lateral and doral aspect of the foot with purulent drainage and swelling of the ankle. The wound was then debrided and bone was visible. 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 On admission WBC was 18.6, Creatinine 0.6, Temperature 99.1, HR 116, BP 146/96. Blood cultures were drawn and are in progress. Patient was examined today and has palpable left pedal pulses are nonpalpable right pedal pulses with SFA occlusion on arterial Doppler. I had a discussion about limb salvage with the patient and explained the importance of a multidisciplinary approach. Patient understands. Patient has also been vomiting and has some abdominal pain. Primary is dealing with this issue. Past History Past Medical History: diabetes (IDDM ; neuropathy), hypertension, hyperlipidemia, other (right foot infection ; chronic pain, depression) Past Surgical History: Other (foot wound debridements) Social history: denies: smoking, alcohol abuse, IV drug use Family history: hypertension Medications and Allergies Allergies Allergy/AdvReac Type Severity Reaction Status Date / Time Penicillins Allergy Rash Verified 11/11/16 10:34 Home Medications Medication Instructions Recorded Confirmed Last Taken Type traMADol [Ultram 50 MG tab] 50 mg PO Q6HR PRN #12 tablet 11/11/16 05/06/18 Unknown Rx Aspirin [Aspirin TAB] 325 mg PO QDAY #30 tablet 09/29/17 05/06/18 04/13/18 13:54 Rx AtorvaSTATin [Lipitor] 40 mg PO QHS #30 tablet 09/29/17 05/06/18 1 Day Ago Rx ~04/12/18 HYDROcodone/APAP 5-325 [Pinon 1 each PO Q6HR PRN #10 tablet 09/29/17 05/06/18 1 Day Ago Rx 5-325 mg TAB] ~04/12/18 metFORMIN 1,000 mg PO DAILY #60 09/29/17 05/06/18 1 Day Ago Rx ~04/12/18 Levemir (Nf) 50 units SQ BID 04/13/18 05/06/18 04/13/18 History Lisinopril [Zestril TAB] 20 mg PO DAILY 04/13/18 05/06/18 1 Day Ago History ~04/12/18 Ziprasidone 40 mg PO BID 04/13/18 05/06/18 04/11/18 History Carisoprodol [Soma] 350 mg PO TID tablet 04/18/18 05/06/18 Unknown Rx Gabapentin [Neurontin] 300 mg PO BID capsule 04/18/18 05/06/18 Unknown Rx Linezolid [Zyvox] 600 mg PO BID #28 tablet 04/18/18 05/06/18 Unknown Rx diazePAM TAB [Valium] 5 mg PO BID PRN tablet 04/18/18 05/06/18 Unknown Rx Active Meds: Active Medications Acetaminophen (Tylenol) 650 mg PO Q6H PRN PRN Reason: Pain, Mild (1-3) Aspirin (Aspirin) 325 mg PO QDAY [facility] Last Admin: 05/09/18 12:52 Dose: 325 mg Documented by: Atorvastatin Calcium (Lipitor) 40 mg PO QHS [facility] Last Admin: 05/09/18 21:47 Dose: 40 mg Documented by: Carisoprodol (Soma) 350 mg PO TID [facility] Last Admin: 05/10/18 08:14 Dose: 350 mg Documented by: Diazepam (Valium) 5 mg PO BID PRN PRN Reason: Anxiety Gabapentin (Neurontin) 300 mg PO BID [facility] Last Admin: 05/09/18 21:47 Dose: 300 mg Documented by: Hydromorphone HCl (Dilaudid) 0.5 mg IV Q3H PRN PRN Reason: Pain , Severe (7-10) Last Admin: 05/10/18 05:33 Dose: 0.5 mg Documented by: Vancomycin HCl 1,750 mg/ (Sodium Chloride) 535 mls @ 333.333 mls/hr IV Q12HR [facility] Last Admin: 05/09/18 22:04 Dose: 333.333 mls/hr Documented by: Insulin Glargine (Lantus) 50 units SUB-Q BID [facility] Last Admin: 05/09/18 22:00 Dose: Not Given Documented by: Insulin Human Lispro (Humalog) 0 unit SUB-Q ACHS [facility]; Protocol Last Admin: 05/10/18 08:20 Dose: Not Given Documented by: Insulin Human Lispro (Humalog) 6 unit SUB-Q AC [facility] Last Admin: 05/10/18 09:17 Dose: Not Given Documented by: Lisinopril (Zestril) 20 mg PO DAILY [facility] Last Admin: 05/09/18 12:52 Dose: 20 mg Documented by: Metoclopramide HCl (Reglan) 10 mg PO Q6H PRN PRN Reason: Nausea And Vomiting Nicotine (Habitrol) 14 mg TD QDAY [facility] Last Admin: 05/10/18 10:12 Dose: 14 mg Documented by: Ondansetron HCl (Zofran) 4 mg IV Q6H PRN PRN Reason: Nausea And Vomiting Last Admin: 05/10/18 09:14 Dose: 4 mg Documented by: Tramadol HCl (Ultram) 50 mg PO Q6HR PRN PRN Reason: Pain Ziprasidone (Geodon) 40 mg PO BID [facility] Last Admin: 05/09/18 21:59 Dose: Not Given Documented by: Review of Systems All systems: negative (see HPI) Exam - Constitutional Vitals: Temp Pulse Resp BP Pulse Ox 99.0 F 95 H 20 123/68 99 05/10/18 05:23 05/10/18 05:23 05/10/18 05:23 05/10/18 05:23 05/10/18 05:23 General appearance: Present: no acute distress - EENT Eyes: Present: EOM intact ENT: hearing intact - Respiratory Respiratory effort: normal - Extremities Extremities: normal temperature, normal color, abnormal (right foot bandage with wound vac ; palpable left pedal pulse ; nonpalpable right pedal pulse) - Psychiatric Psychiatric: appropriate mood/affect, cooperative - Neurologic Neurologic: other (right sided weakness) Results - Labs CBC & Chem 7: 05/10/18 00:26 05/07/18 04:26 Labs: Abnormal lab results 05/09/18 05/09/18 05/09/18 Range/Units 11:15 16:02 21:36 WBC (4.5-11.0) K/mm3 Hgb (10.1-14.3) gm/dl Hct (30.3-42.9) % MCV (79-97) fl MCH (28-32) pg Plt Count (140-440) K/mm3 Lymph % (Auto) (13.4-35.0) % [place] % (Auto) (0.0-7.3) % [place] # (0.0-0.8) K/mm3 Seg Neutrophils % (40.0-70.0) % Seg Neutrophils # (1.8-7.7) K/mm3 POC Glucose 201 H 263 H 136 H (70-105) 05/10/18 Range/Units 00:26 WBC 18.9 H (4.5-11.0) K/mm3 Hgb 9.4 L (10.1-14.3) gm/dl Hct 28.9 L (30.3-42.9) % MCV 78 L (79-97) fl MCH 26 L (28-32) pg Plt Count 502 H (140-440) K/mm3 Lymph % (Auto) 11.3 L (13.4-35.0) % [place] % (Auto) 8.0 H (0.0-7.3) % [place] # 1.5 H (0.0-0.8) K/mm3 Seg Neutrophils % 79.2 H (40.0-70.0) % Seg Neutrophils # 15.0 H (1.8-7.7) K/mm3 POC Glucose (70-105) - Imaging and Cardiology Venous US: report reviewed, image reviewed (arterial doppler) Assessment and Plan 42-year-old female with uncontrolled diabetes with diabetic right sided first digit wound with debridement 2, neuropathy, and currently on antibiotics. Arterial Doppler demonstrates compromise of the right lower extremity. Discussed endovascular revascularization which the patient. Discussed with the patient she needs to offload the right foot. This was already discussed with the patient by Dr. Dong which I agreed with. Explained that if she walks on the foot it will never heal. Discussed with the patient that she needs to optimize her diabetic control in order to heal the wound is well. Discussed with the patient that she needs to follow-up with wound care which she is already doing. Patient is having some abdominal pain with nausea and vomiting. Discussed this with the hospitalist. Blood cultures of also recently been positive. They're getting redrawn today. Tentative plan for revascularization on Sunday based on blood cultures and n/v status. Nothing by mouth for Sunday.
[2018-05-10] MEDS: VANCOMYCIN 1,750 MG in NACL 0.9% 500 ML 500 ML IV SCH ×2 (10:46→22:57)
[2018-05-10] MEDS: GEODON PO SCH ×2 (10:59→22:30)
[2018-05-10] MEDS: ASPIRIN PO SCH (10:59)
[2018-05-10] MEDS: NEURONTIN PO SCH ×2 (11:00→22:30)
[2018-05-10] MEDS: LANTUS SUB-Q SCH ×2 (11:00→22:48)
[2018-05-10] MEDS: ZESTRIL PO SCH (11:06)
--- NOTE | 2018-05-10 11:34 | XRay Report ---
ABDOMINAL SERIES: History: Abdominal pain. Erect chest film shows no acute or significant changes involving the heart or lung green. There is no evidence of free air beneath the diaphragms. The gas pattern within the abdomen is unremarkable. There is no evidence of bowel dilatation, significant air-fluid levels, or masses. Organ shadows are unremarkable. IMPRESSION: Abdominal series within normal limits.
[2018-05-10] MEDS ORDERED: CEPHULAC PO ONE (15:45)
--- NOTE | 2018-05-10 17:05 | Cat Scan Report ---
PROCEDURE: CT abdomen and pelvis with contrast. TECHNIQUE: Computerized axial tomography of the abdomen and pelvis was performed after the IV inject ion of iodinated nonionic contrast. CT DOSE LENGTH PRODUCT: Not provided mGycm HISTORY: persistent MSSA bacteremia with right buttock absc COMPARISONS: CT abdomen and pelvis 05/20/2017. Dictation not available. FINDINGS: The lung bases are clear. There are no pleural effusions. The heart size is normal. The liver, pancre as and spleen appear normal. The gallbladder is present. There may be some tiny gallstones layer depe ndently. There is no biliary dilatation. The adrenal glands are not enlarged. Both kidneys appear nor mal in size and configuration. The abdominal aorta has a normal caliber. There is no retroperitoneal adenopathy. The unopacified gastrointestinal tract is unremarkable. A normal appendix is visible. The bladder, uterus and adnexal regions appear normal. The regional skeleton appears intact. There is no evidence of an abscess in the soft tissues of the right buttock. The lateral skin surface of the rig ht buttock was incompletely imaged because of the patient's obesity. IMPRESSION: Possible cholelithiasis. No definite soft tissue abscess. This document is electronically signed by Vito New MD., May 10 2018 05:03:45 PM ET
[2018-05-10] MEDS: ceFAZolin 2 GM in NACL 0.9% 100 ML IV SCH ×2 (17:11→22:25)
--- NOTE | 2018-05-10 17:33 | Cat Scan Report ---
PROCEDURE: CT HEAD/BRAIN WO CON TECHNIQUE: CT examination of the head without IV contrast HISTORY: facial droop COMPARISONS: Brain MRI September 28, [address] September 27, 2017 FINDINGS: No acute air-fluid level visualized in the included air-filled sinuses. Bone windows demonstrate no acute fracture. The brain is without mass, mass effect, hemorrhage, or acute infarct. There is no extra-axial intracranial bleed, brain bleed, or midline shift. The ventricles and sulci are age-appropriate. IMPRESSION: No acute CVA, intracranial bleed, or brain mass This document is electronically signed by Rebel Lee MD., May 10 2018 05:30:39 PM ET
[2018-05-10] MEDS: REGLAN PO PRN (20:56)
--- NOTE | 2018-05-10 23:01 | Magnetic Resonance Report ---
PROCEDURE: MRI RIGHT FOOT WITH CONTRAST TECHNIQUE: Magnetic resonance imaging of the RIGHT foot was performed using standard pulse sequences after the IV injection of paramagnetic contrast. CPT 29604 HISTORY: Laceration. Evaluate osteomyelitis. COMPARISONS: The prior MRI of the thoracic 04/16/2018 . FINDINGS: There is now a large ulceration medial aspect distal end of the great toe, distal metatarsal and prox imal phalanx. There is decreased T1 signal in the distal end of the first metatarsal and proximal pha lanx. On T2-weighted images this shows increased T2 signal. There is also increased T2 signal in the distal phalanx. After administering gadolinium there is enhancement of the distal end of the first me tatarsal, the proximal two thirds of the proximal phalanx of the great toe and the medial sesamoid harvinder ne.. No other abnormal areas of enhancement are seen. There is skin thickening and edema in the dista l end of the foot. I do not see a cutaneous abscess. No other abnormalities are seen. IMPRESSION: There is now a large ulceration involving the medial aspect of the distal end of the right foot media lly adjacent to the great toe as described. Abnormal signal changes seen in the distal end of the fir st metatarsal, proximal phalanx of the great toe and medial sesamoid bone as described with enhanceme nt consistent with osteomyelitis. Edematous changes are also seen in the distal phalanx of the great toe. No fractures are seen. No cutaneous abscess identified. Subcutaneous edema visualized suggesting cellulitis. This document is electronically signed by Dashawn Lee MD., May 10 2018 10:59:41 PM ET
--- NOTE | 2018-05-11 01:57 | Progress Note ---
Assessment and Plan - Patient Problems (1) Diabetic foot ulcer with osteomyelitis Current Visit: Yes Status: Acute Plan to address problem: S/p debridement IV Abx Final wound culture from 05/06/18 - Klebsiella and Staph aureus (please see [facility] for sensitivities Wound vac applied Good seal (2) IDDM (insulin dependent diabetes mellitus) Current Visit: Yes Status: Chronic Plan to address problem: Poorly controlled Adjust dosage (3) HTN (hypertension) Current Visit: No Status: Chronic Qualifiers: Hypertension type: essential hypertension Qualified Code(s): I10 - Essential (primary) hypertension Plan to address problem: Cont antihypertensives (4) Neuropathy Current Visit: No Status: Chronic Plan to address problem: Cont Gabapentin (5) HLD (hyperlipidemia) Current Visit: Yes Status: Chronic Qualifiers: Hyperlipidemia type: mixed hyperlipidemia Qualified Code(s): E78.2 - Mixed hyperlipidemia Plan to address problem: Cont statins (6) DVT prophylaxis Current Visit: No Status: Acute Plan to address problem: SCD's and GI prophylaxis Subjective Date of service: 05/10/18 Principal diagnosis: Rt foot wound and cellulitis Interval history: S/p debridement Objective - Constitutional Vitals: Vital Signs - 12hr 05/10/18 05/11/18 17:17 00:32 Temperature 98.4 F 98.3 F Pulse Rate 109 H 91 H Respiratory 20 20 Rate Blood Pressure 159/89 141/65 O2 Sat by Pulse 99 99 Oximetry General appearance: Present: no acute distress, well-nourished - EENT Eyes: PERRL, EOM intact ENT: hearing intact, clear oral mucosa Ears: bilateral: normal - Neck Neck: supple, normal ROM - Respiratory Respiratory effort: normal Respiratory: bilateral: CTA - Breasts Breasts: normal - Cardiovascular Rhythm: regular Heart Sounds: Present: S1 & S2. Absent: gallop, rub Extremities: pulses intact, No edema, normal color, Full ROM, abnormal (Rt foot in deressing) - Gastrointestinal General gastrointestinal: Present: soft, non-tender, non-distended, normal bowel sounds - Genitourinary Female genitourinary: normal - Integumentary Integumentary: clear, warm, dry - Musculoskeletal Musculoskeletal: 1, strength equal bilaterally - Neurologic Neurologic: moves all extremities - Psychiatric Psychiatric: memory intact, appropriate mood/affect, intact judgment & insight - Labs CBC & Chem 7: 05/10/18 00:26 05/07/18 04:26 Labs: Abnormal lab results 05/10/18 05/10/18 05/10/18 Range/Units 11:04 17:19 22:21 POC Glucose 119 H 150 H 120 H (70-105)
--- NOTE | 2018-05-11 03:14 | Vascular Lab Report ---
PROCEDURE: RIGHT LOWER EXTREMITY ARTERIAL DUPLEX DOPPLER WITH ALISSON TECHNIQUE: Duplex Doppler ultrasound of either the RIGHT lower extremity arteries or arterial bypass grafts was performed with image documentation. Noninvasive physiologic studies of the distal smudger ior tibial and/or anterior tibial/dorsalis pedis arteries for [place] [id number], [id number] HISTORY: Peripheral artery disease, leg wound COMPARISONS: None . FINDINGS: Arterial waveforms: Triphasic . Thrombus: None . Stenosis: None . Color signal: Normal . Significant segmental velocity differential: None. Ankle-brachial index (ALISSON): 0.81 on the right, 0.99 on the left Arterial bypass graft: Not present . IMPRESSION: No evidence of significant arterial insufficiency in the RIGHT lower extremity. This document is electronically signed by hCerry Grace DO., May 11 2018 03:11:04 AM ET
[2018-05-11] MEDS: DILAUDID IV PRN ×5 (03:19→21:40)
[2018-05-11] MEDS: ceFAZolin 2 GM in NACL 0.9% 100 ML IV SCH ×3 (06:31→21:36)
[2018-05-11] MEDS: HumaLOG SUB-Q SCH ×7 (07:30→22:36)
[2018-05-11] MEDS ORDERED: APRESOLINE IV ONE (07:51)
[2018-05-11] MEDS: TYLENOL PO PRN ×2 (08:06→17:54)
[2018-05-11] MEDS: REGLAN PO PRN ×3 (08:06→17:49)
[2018-05-11] MEDS: HABITROL TD SCH (10:35)
[2018-05-11] MEDS: SOMA PO SCH ×3 (10:35→20:18)
[2018-05-11] MEDS: ASPIRIN PO SCH (10:36)
[2018-05-11] MEDS: NEURONTIN PO SCH ×2 (10:36→21:37)
[2018-05-11] MEDS: ZESTRIL PO SCH (10:36)
[2018-05-11] MEDS: GEODON PO SCH ×2 (10:37→21:37)
[2018-05-11] MEDS: LANTUS SUB-Q SCH (10:37)
--- NOTE | 2018-05-11 11:45 | Progress Note ---
Assessment and Plan Assessment and plan: --Right facial weakness; neuro workup is in progress Patient feels slightly better, not a candidate for TPA Physical therapy, neurology is already consulted --Diabetic foot ulcer with osteomyelitis; wound care Status post debridement, continue current antibiotics Surgery following, wound cultures positive, continue wound VAC Antibiotics per ID --Type 2 diabetes mellitus; Accu-Chek sliding scale coverage and ADA diet, Insulin as needed Patient's hemoglobin A1c is 11.5, however her blood sugars are within normal limits DC long-acting insulin Lantus, continue sliding scale coverage with Regular Insulin --Diabetic nephropathy; stable on gabapentin and supportive care --Hypertension; moderate control Continue current antihypertensives and when necessary medications --Dyslipidemia; continue statin, low cholesterol diet --DVT prophylaxis; Lovenox --Moderate obesity; BMI 38.0, advised weight reduction When medically stable Monitor patient closely and adjust the management as needed Follow neuro workup, neurology evaluation and recommendations Physical therapy occupational therapy Plan of care is reviewed with the patient and her nurse History Interval history: Patient seen and examined medical records reviewed Patient had history of CVA with right-sided weakness, had worsening weakness on the right side yesterday Neuro workup is in progress Patient feels slightly better now new complaints Vital signs noted Hospitalist Physical - Constitutional Vitals: Temp Pulse Resp BP Pulse Ox 98.3 F 83 20 168/78 93 05/11/18 00:32 05/11/18 08:06 05/11/18 07:27 05/11/18 10:36 05/11/18 07:27 General appearance: Present: no acute distress, well-nourished - EENT Eyes: Present: PERRL, EOM intact - Neck Neck: Present: supple, normal ROM - Respiratory Respiratory effort: normal Respiratory: bilateral: diminished, negative: rales, rhonchi, wheezing - Cardiovascular Rhythm: regular Heart Sounds: Present: S1 & S2 - Extremities Extremities: no ischemia, No edema - Abdominal General gastrointestinal: soft, non-tender, non-distended, normal bowel sounds - Integumentary Integumentary: Present: clear, warm - Psychiatric Psychiatric: appropriate mood/affect, cooperative - Neurologic Neurologic: other (residual right-sided weakness) Results - Labs CBC & Chem 7: 05/10/18 00:26 05/07/18 04:26 Labs: Laboratory Last Values WBC 18.9 K/mm3 (4.5-11.0) H 05/10/18 00:26 RBC 3.70 M/mm3 (3.65-5.03) 05/10/18 00:26 Hgb 9.4 gm/dl (10.1-14.3) L 05/10/18 00:26 Hct 28.9 % (30.3-42.9) L 05/10/18 00:26 MCV 78 fl (79-97) L 05/10/18 00: MCH 26 pg (28-32) L 05/10/18 00: MCHC 33 % (30-34) 05/10/18 00: RDW 14.1 % (13.2-15.2) 05/10/18 00:26 Plt Count 502 K/mm3 (140-440) H 05/10/18 00:26 Lymph % (Auto) 11.3 % (13.4-35.0) L 05/10/18 00: [place] % (Auto) 8.0 % (0.0-7.3) H 05/10/18 00:26 Eos % (Auto) 1.1 % (0.0-4.3) 05/10/18 00:26 Baso % (Auto) 0.4 % (0.0-1.8) 05/10/18 00:26 Lymph # 2.1 K/mm3 (1.2-5.4) 05/10/18 00:26 [place] # 1.5 K/mm3 (0.0-0.8) H 05/10/18 00:26 Eos # 0.2 K/mm3 (0.0-0.4) 05/10/18 00:26 Baso # 0.1 K/mm3 (0.0-0.1) 05/10/18 00:26 Seg Neutrophils % 79.2 % (40.0-70.0) H 05/10/18 00: Seg Neutrophils # 15.0 K/mm3 (1.8-7.7) H 05/10/18 00:26 ESR > 140.0 mm/Hr (0-20) 05/08/18 01:07 Sodium 131 mmol/L (137-145) L 05/07/18 04:26 Potassium 3.6 mmol/L (3.6-5.0) 05/07/18 04:26 Chloride 94.1 mmol/L (98-107) L 05/07/18 04:26 Carbon Dioxide 26 mmol/L (22-30) 05/07/18 04:26 Anion Gap 15 mmol/L 05/07/18 04:26 BUN 8 mg/dL (7-17) 05/07/18 04:26 Creatinine 0.6 mg/dL (0.7-1.2) L 05/07/18 04:26 Estimated GFR > 60 ml/min 05/07/18 04:26 BUN/Creatinine Ratio 13 % 05/07/18 04:26 Glucose 292 mg/dL (65-100) H 05/07/18 04:26 POC Glucose 122 (70-105) H 05/11/18 07:48 Hemoglobin A1c 11.5 % (4-6) H 05/08/18 04:46 Calcium 8.6 mg/dL (8.4-10.2) 05/07/18 04:26 Total Bilirubin 0.30 mg/dL (0.1-1.2) 05/07/18 04:26 AST 5 units/L (5-40) 05/07/18 04:26 ALT < 5 units/L (7-56) L 05/07/18 04:26 Alkaline Phosphatase 93 units/L (35-129) 05/07/18 04:26 C-Reactive Protein 13.70 mg/dL (0.00-1.30) H 05/08/18 01:07 Total Protein 6.8 g/dL (6.3-8.2) 05/07/18 04:26 Albumin 2.6 g/dL (3.9-5) L 05/07/18 04:26 Albumin/Globulin Ratio 0.6 % 05/07/18 04:26 Vancomycin Trough 13.4 ug/mL (5.0-20.0) 05/08/18 09:00 Active Medications - Current Medications Current Medications: Generic Name Dose Route Start Last Admin Trade Name Freq PRN Reason Stop Dose Admin Acetaminophen 650 mg 05/06/18 14:48 05/11/18 08:06 Tylenol PO 650 mg Q6H PRN Administration Pain, Mild (1-3) Aspirin 325 mg 05/07/18 11:00 05/11/18 10:36 Aspirin PO 325 mg QDAY JUANITA Administration Atorvastatin Calcium 40 mg 05/07/18 22:00 05/10/18 22:30 Lipitor PO 40 mg QHS [facility] Administration Carisoprodol 350 mg 05/07/18 11:00 05/11/18 10:35 Soma PO 350 mg TID [facility] Administration Diazepam 5 mg 05/07/18 11:00 Valium PO BID PRN Anxiety Gabapentin 300 mg 05/07/18 11:00 05/11/18 10:36 Neurontin PO 300 mg BID [facility] Administration Hydromorphone HCl 0.5 mg 05/06/18 14:47 05/11/18 10:43 Dilaudid IV 0.5 mg Q3H PRN Administration Pain , Severe (7-10) Cefazolin Sodium 2 gm/ Sodium 100 mls @ 200 mls/hr 05/10/18 14:00 05/11/18 06:31 Chloride IV 200 mls/hr Q8HR [facility] Administration Protocol Insulin Glargine 50 units 05/07/18 12:00 05/11/18 10:37 Lantus SUB-Q Not Given BID [facility] Insulin Human Lispro 0 unit 05/06/18 18:33 05/11/18 07:30 Humalog SUB-Q Not Given ACHS [facility] Protocol Insulin Human Lispro 6 unit 05/09/18 16:30 05/11/18 10:37 Humalog SUB-Q 6 unit AC [facility] Administration Lisinopril 20 mg 05/07/18 11:00 05/11/18 10:36 Zestril PO 20 mg DAILY [facility] Administration Metoclopramide HCl 10 mg 05/10/18 09:30 05/11/18 08:06 Reglan PO 10 mg Q6H PRN Administration Nausea And Vomiting Nicotine 14 mg 05/06/18 17:00 05/11/18 10:35 Habitrol TD 14 mg QDAY [facility] Administration Ondansetron HCl 4 mg 05/06/18 14:55 05/10/18 10:49 Zofran IV 4 mg Q6H PRN Administration Nausea And Vomiting Tramadol HCl 50 mg 05/07/18 07:09 Ultram PO Q6HR PRN Pain Ziprasidone 40 mg 05/07/18 12:00 05/11/18 10:37 Geodon PO Not Given BID [facility] Nutrition/Malnutrition Assess - Dietary Evaluation Nutrition/Malnutrition Findings: Nutrition Notes Start: 05/07/18 15:26 Freq: Status: Active Protocol: Document 05/07/18 15:26 RM (Rec: 05/07/18 15:27 RM [id number]) Nutrition Notes 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 Pj 21 points. Nutrition Intervention Revisit per MD consult or patient Sign Off request:
--- NOTE | 2018-05-11 15:21 | Progress Note ---
Assessment and Plan 42 yo F s/p excisional debridement of infected right foot wound, POD 3 1. infected right diabetic foot wound 2. osteomyelitis 3. diabetes mellitus 4. PAD RLE arterial duplex with signs of PAD MRI RLE - osteomyelitis, cellulitis, no abscess Right toe wound culture from 05/06/18 - Klebsiella and Staph aureus (please see Independent IP for sensitivities) Gluteal wound culture - gram negative rods Plan: 1. Diabetic diet 2. IV abx, ID on board 3. c/w wound vac - to be changed sunday by general administrator. Will switch to home vac which is at bedside upon discharge 4. packing to right gluteal wound by nursing daily - orders placed 5. strict glucose control 6. offloading, PT consult 7. optimize nutrition 8. PICC line pending 9. vascular consult - seen by Dr. Juarez. Plan for angiography on Sunday. Thank you, please call with questions. Subjective Date of service: 05/11/18 Narrative: Pt seen and examined. No complaints. Notes reviewed and ID concerned about possible abscess of right gluteal area. Pt states she had a wound in this area some time ago which was treated at the wound care center. It healed but every now and then will open back up when she wears tight clothing. She denies pain, f/c. Objective Vital Signs - 12hr 05/11/18 05/11/18 05/11/18 07:27 08:06 10:36 Temperature Pulse Rate 83 83 Respiratory 20 Rate Blood Pressure 183/94 183/84 168/78 O2 Sat by Pulse 93 Oximetry 05/11/18 12:36 Temperature 98.5 F Pulse Rate 77 Respiratory 16 Rate Blood Pressure 107/64 O2 Sat by Pulse 99 Oximetry - General physical appearance Narrative Exam: Gen: AAOx3. NAD ENT: no scleral icterus or conjunctival pallor CV: s1, s2+ resp: even and unlabored Abd: soft Ext: RLE wound vac in place with minimal sanguenous drainage in canister, good seal, no leak. Gluteal: R inner gluteal area with old scar and small 2 cm opening -probed with cotton tip applicator. It is 1 cm in depth, there is no tunneling. Small amount of purulent drainage. No fluctuance, induration or erythema. No TTP. Packed with one piece of 1/4 iodoform packing. Covered with foam dressing. - Labs 05/10/18 00:26 05/07/18 04:26
--- NOTE | 2018-05-11 17:41 | Vascular Lab Report ---
PROCEDURE: VL CAROTID DUPLEX BILAT TECHNIQUE: Grayscale and color Doppler ultrasound examination of the carotid and vertebral artery sy stems bilaterally. Maximum peak systolic velocity (PSV) / end diastolic velocity (EDV) measurements w ere obtained. HISTORY: CVA -new onset COMPARISONS: None. FINDINGS: Right Carotid System Right Common Carotid Artery (RCCA): 113 cm/s Right Internal Carotid Artery (KELL): 119 cm/s Right External Carotid Artery (RECA): 117 cm/s Right Vertebral Artery (RVA): 92 cm/s Other findings: Mild intimal thickening, no significant atherosclerotic plaque. Left Carotid System Left Common Carotid Artery (LCCA): 131 cm/s Left Internal Carotid Artery (LICA): 84 cm/s Left External Carotid Artery (LECA): 109 cm/s Left Vertebral Artery (LVA): 9.1 cm/s Other findings: Mild intimal thickening, no significant atherosclerotic plaque. Impression: Right internal carotid artery: Internal carotid artery flow within normal limits (<125 cm/s). Left internal carotid artery: Internal carotid artery flow within normal limits (<125 cm/s). Vertebral arteries: Bilateral antegrade flow. This document is electronically signed by Brown Bella DO., May 11 2018 05:39:00 PM ET
--- NOTE | 2018-05-11 18:47 | Progress Note ---
Subjective Date of service: 05/11/18 Principal diagnosis: Rt foot wound and cellulitis Interval history: the CT of head is basically normal but there is spinal neuropathy and myoclonus etiology and w/u is pending plan further follow up thorough chart review donwe full note dictated Objective - Vital Sign Vital Signs - 12hr 05/11/18 05/11/18 05/11/18 07:27 08:06 10:36 Temperature Pulse Rate 83 83 Respiratory 20 Rate Blood Pressure 183/94 183/84 168/78 O2 Sat by Pulse 93 Oximetry 05/11/18 05/11/18 12:36 16:46 Temperature 98.5 F 97.6 F Pulse Rate 77 86 Respiratory 16 15 Rate Blood Pressure 107/64 123/73 O2 Sat by Pulse 99 99 Oximetry - Laboratory Findings CBC and BMP: 05/10/18 00:26 05/07/18 04:26 Abnormal Lab Findings: Abnormal Labs 05/06/18 05/06/18 05/06/18 15:37 20:03 22:14 WBC 18.6 H Hgb Hct 30.0 L MCV MCH 27 L MCHC 35 H Plt Count 539 H Lymph % (Auto) 12.8 L [place] % (Auto) [place] # 1.3 H Seg Neutrophils % 78.2 H Seg Neutrophils # 14.5 H Sodium Chloride Creatinine Glucose POC Glucose 428 H 281 H Hemoglobin A1c ALT C-Reactive Protein Albumin 05/07/18 05/07/18 05/07/18 04:26 07:34 07:43 WBC 14.2 H Hgb Hct MCV MCH 26 L MCHC Plt Count 475 H Lymph % (Auto) [place] % (Auto) 7.7 H [place] # 1.1 H Seg Neutrophils % 75.4 H Seg Neutrophils # 10.7 H Sodium 131 L Chloride 94.1 L Creatinine 0.6 L Glucose 292 H POC Glucose 252 H Hemoglobin A1c ALT < 5 L C-Reactive Protein Albumin 2.6 L 05/07/18 05/07/18 05/07/18 12:09 16:09 21:48 WBC Hgb Hct MCV MCH MCHC Plt Count Lymph % (Auto) [place] % (Auto) [place] # Seg Neutrophils % Seg Neutrophils # Sodium Chloride Creatinine Glucose POC Glucose 252 H 277 H 290 H Hemoglobin A1c ALT C-Reactive Protein Albumin 05/08/18 05/08/18 05/08/18 01:07 01:07 04:46 WBC 14.6 H Hgb 10.0 L Hct 30.2 L MCV MCH 26 L MCHC Plt Count 485 H Lymph % (Auto) 11.4 L [place] % (Auto) 8.0 H [place] # 1.2 H Seg Neutrophils % 78.8 H Seg Neutrophils # 11.5 H Sodium Chloride Creatinine Glucose POC Glucose Hemoglobin A1c 11.5 H ALT C-Reactive Protein 13.70 H Albumin 05/08/18 05/08/18 05/08/18 07:29 12:18 14:05 WBC Hgb Hct MCV MCH MCHC Plt Count Lymph % (Auto) [place] % (Auto) [place] # Seg Neutrophils % Seg Neutrophils # Sodium Chloride Creatinine Glucose POC Glucose 289 H 204 H 178 H Hemoglobin A1c ALT C-Reactive Protein Albumin 05/08/18 05/08/18 05/08/18 15:08 16:16 21:20 WBC Hgb Hct MCV MCH MCHC Plt Count Lymph % (Auto) [place] % (Auto) [place] # Seg Neutrophils % Seg Neutrophils # Sodium Chloride Creatinine Glucose POC Glucose 177 H 241 H 298 H Hemoglobin A1c ALT C-Reactive Protein Albumin 05/09/18 05/09/18 05/09/18 07:34 11:15 16:02 WBC Hgb Hct MCV MCH MCHC Plt Count Lymph % (Auto) [place] % (Auto) [place] # Seg Neutrophils % Seg Neutrophils # Sodium Chloride Creatinine Glucose POC Glucose 226 H 201 H 263 H Hemoglobin A1c ALT C-Reactive Protein Albumin 05/09/18 05/10/18 05/10/18 21:36 00:26 11:04 WBC 18.9 H Hgb 9.4 L Hct 28.9 L MCV 78 L MCH 26 L MCHC Plt Count 502 H Lymph % (Auto) 11.3 L [place] % (Auto) 8.0 H [place] # 1.5 H Seg Neutrophils % 79.2 H Seg Neutrophils # 15.0 H Sodium Chloride Creatinine Glucose POC Glucose 136 H 119 H Hemoglobin A1c ALT C-Reactive Protein Albumin 05/10/18 05/10/18 05/11/18 17:19 22:21 07:48 WBC Hgb Hct MCV MCH MCHC Plt Count Lymph % (Auto) [place] % (Auto) [place] # Seg Neutrophils % Seg Neutrophils # Sodium Chloride Creatinine Glucose POC Glucose 150 H 120 H 122 H Hemoglobin A1c ALT C-Reactive Protein Albumin
[2018-05-11] MEDS: LOVENOX SUB-Q SCH (21:38)
--- NOTE | 2018-05-11 22:26 | Consultation ---
HISTORY OF PRESENT ILLNESS: This is a 42-year-old female that is admitted to the Emergency Room of [facility]. The patient was initially admitted because of severe pain in her legs and marked weakness. She had had a prior history of having diabetes and by history was operated on and then developed possibly cellulitis and/or sepsis. The patient developed worsening of her leg movement, developed lisa tremulousness and myoclonus in her legs. She denied a prior history of this in the past. She does have a history of infections and elevated blood sugars in the range of 150 to 119. When she presented to the Emergency Room, she was seen by the surgeon and also Dr. Ha. The patient had diabetic foot with osteomyelitis, diabetes, hypertension, severe neuropathy and hyperlipidemia. PHYSICAL EXAMINATION: VITAL SIGNS: On my examination of the patient, she is fully alert and responsive. NEUROLOGIC: Cranial nerves II through XII are intact. The conspicuous part of her examination is bilateral lower limb myoclonus, which is not sustainable, somewhat more so over the left than the right. The right foot of course is heavily bandaged related to her recent infection. She is able to feel her legs somewhat, but there is a marked reduction in sensation. She has no reflexes. Upper extremity examination is normal. Cranial nerves are intact. Neck is supple. Speech is clear. Motor tone is otherwise unremarkable. I could not obviously walk the patient because she is at bed rest, given the severity of the problem with her right leg. ASSESSMENT AND RECOMMENDATIONS: I would recommend further diagnostic workup at this point for her neuropathy. Depending on the past history, I will speak with Dr. Juarez regarding other vascular studies and will go over these, they are quite extensive. JOB# [id number] JANA/NTS
[2018-05-12] MEDS: ceFAZolin 2 GM in NACL 0.9% 100 ML IV SCH ×3 (06:04→21:36)
[2018-05-12] MEDS: HumaLOG SUB-Q SCH ×8 (07:30→23:15)
[2018-05-12] MEDS: REGLAN PO PRN ×3 (08:14→17:03)
[2018-05-12] MEDS: DILAUDID IV PRN ×4 (08:22→21:35)
--- NOTE | 2018-05-12 09:09 | Progress Note ---
Assessment and Plan Assessment and plan: --Diabetic ulcer with osteomyelitis right foot; wound care Status post debridement, continue current antibiotics per ID Surgery following, wound cultures positive, continue wound VAC IR planning revascularization tomorrow --Right facial weakness; possible TIA symptoms resolved neuro workup is in progress, neurology following Carotid Doppler; right and left internal carotid artery flow within normal limits CT head no acute abnormalities, Physical therapy, neurology following --Type 2 diabetes mellitus; Accu-Chek sliding scale coverage and ADA diet, Insulin as needed Patient's hemoglobin A1c is 11.5, however her blood sugars are within normal limits DC long-acting insulin Lantus, continue sliding scale coverage with Regular Insulin --Diabetic nephropathy; stable on gabapentin and supportive care --Hypertension; moderate control Continue current antihypertensives and when necessary medications --Dyslipidemia; continue statin, low cholesterol diet --DVT prophylaxis; Lovenox --Moderate obesity; BMI 38.0, advised weight reduction When medically stable Physical therapy occupational therapy Plan of care is reviewed with the patient and her nurse Nothing by mouth midnight for the procedure History Interval history: Patient seen and examined medical records reviewed No new events reported by the nursing staff Patient's facial weakness completely resolved Neuro workup is in progress Alert awake oriented 3 Vital signs reviewed Hospitalist Physical - Constitutional Vitals: Temp Pulse Resp BP Pulse Ox 98.5 F 105 H 20 145/79 98 05/12/18 05:21 05/12/18 05:21 05/12/18 05:21 05/12/18 05:21 05/12/18 05:21 General appearance: Present: no acute distress, well-nourished, obese (morbidly obese) - EENT Eyes: Present: PERRL, EOM intact - Neck Neck: Present: supple, normal ROM - Respiratory Respiratory effort: normal Respiratory: bilateral: diminished, negative: rales, rhonchi, wheezing - Cardiovascular Rhythm: regular Heart Sounds: Present: S1 & S2 - Extremities Extremities: abnormal (right foot dressing/wound VAC in place) Extremity abnormal: edema - Abdominal General gastrointestinal: soft, non-tender, non-distended, normal bowel sounds - Integumentary Integumentary: Present: clear, warm - Psychiatric Psychiatric: appropriate mood/affect, cooperative - Neurologic Neurologic: moves all extremities Results - Labs CBC & Chem 7: 05/10/18 00:26 05/07/18 04:26 Labs: Laboratory Last Values WBC 18.9 K/mm3 (4.5-11.0) H 05/10/18 00:26 RBC 3.70 M/mm3 (3.65-5.03) 05/10/18 00:26 Hgb 9.4 gm/dl (10.1-14.3) L 05/10/18 00:26 Hct 28.9 % (30.3-42.9) L 05/10/18 00: MCV 78 fl (79-97) L 05/10/18 00: MCH 26 pg (28-32) L 05/10/18 00: MCHC 33 % (30-34) 05/10/18 00: RDW 14.1 % (13.2-15.2) 05/10/18 00:26 Plt Count 502 K/mm3 (140-440) H 05/10/18 00:26 Lymph % (Auto) 11.3 % (13.4-35.0) L 05/10/18 00: [place] % (Auto) 8.0 % (0.0-7.3) H 05/10/18 00:26 Eos % (Auto) 1.1 % (0.0-4.3) 05/10/18 00: Baso % (Auto) 0.4 % (0.0-1.8) 05/10/18 00: Lymph # 2.1 K/mm3 (1.2-5.4) 05/10/18 00: [place] # 1.5 K/mm3 (0.0-0.8) H 05/10/18 00:26 Eos # 0.2 K/mm3 (0.0-0.4) 05/10/18 00:26 Baso # 0.1 K/mm3 (0.0-0.1) 05/10/18 00:26 Seg Neutrophils % 79.2 % (40.0-70.0) H 05/10/18 00: Seg Neutrophils # 15.0 K/mm3 (1.8-7.7) H 05/10/18 00:26 ESR > 140.0 mm/Hr (0-20) 05/08/18 01:07 Sodium 131 mmol/L (137-145) L 05/07/18 04:26 Potassium 3.6 mmol/L (3.6-5.0) 05/07/18 04:26 Chloride 94.1 mmol/L (98-107) L 05/07/18 04:26 Carbon Dioxide 26 mmol/L (22-30) 05/07/18 04:26 Anion Gap 15 mmol/L 05/07/18 04:26 BUN 8 mg/dL (7-17) 05/07/18 04:26 Creatinine 0.6 mg/dL (0.7-1.2) L 05/07/18 04:26 Estimated GFR > 60 ml/min 05/07/18 04:26 BUN/Creatinine Ratio 13 % 05/07/18 04:26 Glucose 292 mg/dL (65-100) H 05/07/18 04:26 POC Glucose 196 (70-105) H 05/11/18 22:01 Hemoglobin A1c 11.5 % (4-6) H 05/08/18 04:46 Calcium 8.6 mg/dL (8.4-10.2) 05/07/18 04:26 Total Bilirubin 0.30 mg/dL (0.1-1.2) 05/07/18 04:26 AST 5 units/L (5-40) 05/07/18 04:26 ALT < 5 units/L (7-56) L 05/07/18 04:26 Alkaline Phosphatase 93 units/L (35-129) 05/07/18 04:26 C-Reactive Protein 13.70 mg/dL (0.00-1.30) H 05/08/18 01:07 Total Protein 6.8 g/dL (6.3-8.2) 05/07/18 04:26 Albumin 2.6 g/dL (3.9-5) L 05/07/18 04:26 Albumin/Globulin Ratio 0.6 % 05/07/18 04:26 Vancomycin Trough 13.4 ug/mL (5.0-20.0) 05/08/18 09:00 Active Medications - Current Medications Current Medications: Generic Name Dose Route Start Last Admin Trade Name Freq PRN Reason Stop Dose Admin Acetaminophen 650 mg 05/06/18 14:48 05/11/18 17:54 Tylenol PO 650 mg Q6H PRN Administration Pain, Mild (1-3) Aspirin 325 mg 05/07/18 11:00 05/11/18 10:36 Aspirin PO 325 mg QDAY JUANITA Administration Atorvastatin Calcium 40 mg 05/07/18 22:00 05/11/18 21:37 Lipitor PO 40 mg QHS JUANITA Administration Carisoprodol 350 mg 05/07/18 11:00 05/11/18 20:18 Soma PO 350 mg TID JUANITA Administration Diazepam 5 mg 05/07/18 11:00 Valium PO BID PRN Anxiety Enoxaparin Sodium 40 mg 05/11/18 22:00 05/11/18 21:38 Lovenox SUB-Q 40 mg QDAY@2200 JUANITA Administration Gabapentin 300 mg 05/07/18 11:00 05/11/18 21:37 Neurontin PO 300 mg BID [facility] Administration Hydromorphone HCl 0.5 mg 05/06/18 14:47 05/12/18 08:22 Dilaudid IV 0.5 mg Q3H PRN Administration Pain , Severe (7-10) Cefazolin Sodium 2 gm/ Sodium 100 mls @ 200 mls/hr 05/10/18 14:00 05/12/18 06:04 Chloride IV 200 mls/hr Q8HR JUANITA Administration Protocol Insulin Human Lispro 0 unit 05/06/18 18:33 05/12/18 07:30 Humalog SUB-Q 4 unit ACHS [facility] Administration Protocol Insulin Human Lispro 6 unit 05/09/18 16:30 05/12/18 07:30 Humalog SUB-Q 6 unit AC [facility] Administration Lisinopril 20 mg 05/07/18 11:00 05/11/18 10:36 Zestril PO 20 mg DAILY JUANITA Administration Metoclopramide HCl 10 mg 05/11/18 13:10 05/12/18 08:14 Reglan PO 10 mg ACHS PRN Administration Nausea And Vomiting Nicotine 14 mg 05/06/18 17:00 05/11/18 10:35 Habitrol TD 14 mg QDAY [facility] Administration Ondansetron HCl 4 mg 05/06/18 14:55 05/10/18 10:49 Zofran IV 4 mg Q6H PRN Administration Nausea And Vomiting Tramadol HCl 50 mg 05/07/18 07:09 Ultram PO Q6HR PRN Pain Ziprasidone 40 mg 05/07/18 12:00 05/11/18 21:37 Geodon PO 40 mg BID JUANITA Administration Nutrition/Malnutrition Assess - Dietary Evaluation Nutrition/Malnutrition Findings: Nutrition Notes Start: 05/07/18 15:26 Freq: Status: Active Protocol: Document 05/07/18 15:26 RM (Rec: 05/07/18 15:27 RM [id number]) Nutrition Notes Need for Assessment generated from: wildlife control agent Initial or Follow up Brief Note Subjective/Other Information Screened for skin risk. Pj 21 points. Nutrition Intervention Revisit per MD consult or patient Sign Off request:
[2018-05-12] MEDS: ASPIRIN PO SCH (10:57)
[2018-05-12] MEDS: NEURONTIN PO SCH ×2 (10:58→21:20)
[2018-05-12] MEDS: SOMA PO SCH ×3 (10:58→21:21)
[2018-05-12] MEDS: ZESTRIL PO SCH (10:58)
[2018-05-12] MEDS: HABITROL TD SCH (10:59)
[2018-05-12] MEDS: GEODON PO SCH ×3 (11:00→21:24)
[2018-05-12] MEDS: LOVENOX SUB-Q SCH (21:20)
[2018-05-12] MEDS: LANTUS SUB-Q SCH (23:13)
[2018-05-13] MEDS: ceFAZolin 2 GM in NACL 0.9% 100 ML IV SCH ×3 (05:23→22:02)
[2018-05-13] MEDS: ZOFRAN IV PRN (06:03)
[2018-05-13] MEDS: DILAUDID IV PRN ×3 (06:09→22:06)
[2018-05-13] MEDS ORDERED: NACL 0.9% 500 ML 500 ML ONE (07:52)
[2018-05-13] MEDS ORDERED: NACL 0.9% 500 ML 500 ML IV SCH (08:00)
[2018-05-13] MEDS ORDERED: XYLOCAINE 2% INFILTRATI ONE (08:33)
[2018-05-13] MEDS ORDERED: HEPARIN/NS 5000 UNIT/500ML(CATH LAB) 1,000 ML IR ONE (08:33)
[2018-05-13] MEDS ORDERED: HEPARIN 10,000 UNITS/10 ML ONE (08:33)
[2018-05-13] MEDS: HumaLOG SUB-Q SCH ×7 (08:43→22:05)
[2018-05-13] MEDS: SUBLIMAZE ONE ×5 (09:06→10:04)
[2018-05-13] MEDS: VERSED ONE ×5 (09:06→10:04)
--- NOTE | 2018-05-13 09:15 | Progress Note ---
Assessment and Plan Cultures: 05/06/18 Blood: Staph aureus, 2 out of 2 bottles 05/06/18 MRSA PCR: negative 05/06/18 Wound: Klebsiella and Staph aureus, erazo susceptible 05/08/18 Blood: GPC 1 out of 2 bottles A/P: 42-year-old patient a past medical history of uncontrolled DM, know to ID from a previous admisson on 04/13/18 due to worsening right plantar foot wound. MRI at that time showed small abscess at the 1st MT head 1.3x1.2 cm with no evidence of osteomylitis. Debridement at the bedside on 04/14/18 finding necrotic skin and sucutaneous tissue with drainage of minimal purulent fluid. Right food wound culture grew Staph aureus and patient was discharged home on Zyvox 600mg PPo for 14 days. The patient presented on 05/06/18 for her weekly visit at the wound care center and her wound was seen to have deteriorates with increasing cellulitis over the lateral and doral aspect of the foot with purulent drainage. Now admitted with: 1. Sepsis: Improved, continuing leukocytosis. Etiology Staph aureus bacteremia. Source, right diabetic foot ulcer, right gluteal wound. no Fever. Patient currently being treated with cefazolin. Staph aureus bacteremia, 2 out of 2 bottles, repeat culture GPC 1 out of 2 bottles. -ESR >140 -CRP 13.70 2. Staph aureus bacteremia: 2 out of 2 bottles, source right diabetic foot infection. f/u repeat blood cultures show GPC 1 out of 2 bottles. f/u ID and MANJU's. TTE shows no valvular vegetation. 3. Diabetic Foot Wound:: First metatarsal right foot. wound measures 5.5x4.0x2.5 , no odor. S/p debrdement with bone visible. at wound care office 05/06/18. Given bone exposure in a diabetic foot wound, will treat as acute osteomyelitis. s/p excisional debridement 05/08/18. Culture grew Klebsiella and staph aureus, erazo susceptible. Will add cefazolin for MSSA. MRI ordered of right foot. Arterial Gram: Calcified atherosclerotic plaque is seen throughout the right lower extremity arterial system. There is no flow within the right distal superficial femoral artery concerning for occlusion. No aneurysm was seen MRI of right foot: Abnormal signal changes seen in the distal end of the first metatarsal, proximal phalanx of the great toe and medial sesamoid bone as described with enhancement consistent with osteomyelitis. 4. Type 2 Diabetes Mellitus: Recommend tight gylcemic control. 5. Penicillin Allergy: Remote allergy reported rash. Has taken Amoxicillin in the past without reaction. Tolerating cephalosporin without reaction. 6. Tobacco Abuse: recommended smoking cessation. 7. Right buttock wound - history of bacteremia 2012 and 2014, +/- MRSA. C urrently has minimal drainage. Gluteal culture grew MDR E. coli and Kelbsiella. Abdomen and Pelvis CT: There is no evidence of an abscess in the soft tissues of the right buttock. 8. History of CVA 2018- left facial droop improved. CT of head shows no acute CVA, intracranial bleed or brain mass. New onset right side weakness. MRI brain ordered. 9. Peripheral Vascular disease: s/p Angioplasty of right superficial femoral artery today- Dr. Juarez following Plan: -Anticipate discharge on Cefazolin 2gms q 8 hours for total 6 weeks ending 06-21-18 -order placed with case management -f/u OLGA for history of recurrent Bacteremia (discussed with Dr. Cotto) -continue cefazolin 2gm q 8, D4 -f/u MRI head/brain [facility] M: [id number] O:[phone] - Subjective Date of service: 05/13/18 Principal diagnosis: Rt foot wound and cellulitis Interval history: Patient seen and examined. Denied generalized pain, SOB or rashes. No fevers. Left facial droop improved today. Objective - Exam Narrative Exam: Constitutional: Awake. Alert . No acute distress. + left facial droop Head, Ears, Nose: Normocephalic, atraumatic. External ears, nose normal Eyes: Conjunctivae/corneas clear. No icterus. No ptosis. Neck: Supple, no meningeal signs Oral: dentition fair, no. thrush Cardiovascular: S1, S2 normal. Respiratory: Good air entry, clear to auscultation bilaterally GI: Soft, non-tender; bowel sounds normal. No peritoneal signs Musculoskeletal: No pedal edema, Diabetic foot wound first metarsal to the right foot., Per wound care: wound measurements 5.5x4.0x2.5. Right gluteal wound, + prulent drainage. Skin: no rash, no edema, + right foot dressing, D & I Hem/Lymphatic: No palpable cervical or supraclavicular nodes. No lymphangitis Psych: Mood ok. Affect normal Neurological: Awake, alert, + left facial droop on exam- improved - Constitutional Vitals: Vital Signs Temp Pulse Resp BP Pulse Ox 98.9 F 104 H 20 156/83 98 05/13/18 04:07 05/13/18 04:07 05/13/18 04:07 05/13/18 04:07 05/13/18 04:07 Temperature -Last 24 Hours Temperature 98.9 F Temperature 98.5 F Temperature 97.6 F Temperature 97.4 F - Labs CBC & Chem 7: 05/10/18 00:26 05/07/18 04:26 Labs: Abnormal lab results 05/12/18 05/12/18 05/12/18 Range/Units 08:05 12:15 16:56 POC Glucose 271 H 235 H 312 H (70-105) 05/12/18 05/13/18 Range/Units 21:18 07:22 POC Glucose 167 H 276 H (70-105)
[2018-05-13] MEDS: PLAVIX PO SCH (10:44)
--- NOTE | 2018-05-13 10:46 | Operative Report ---
Operative Report Operative Report: EXAM: 1. Ultrasound-guided access of the left femoral artery. 2. Angiography of the left lower extremity. 3. Selection of the abdominal aorta with angiography. 4. Selection of the right external iliac artery, superficial femoral artery, and popliteal artery with angiography of the right lower extremity. 5. Placement of a 7 mm spider embolic protection device in the right popliteal artery 6. Atherectomy of the right proximal superficial femoral artery and distal superficial femoral artery with a Hawkone M device 7. Angioplasty of the right proximal superficial femoral artery with a 6 mm x 80 mm iNPACT DCB 8. Angioplasty of the right distal superficial femoral artery with a 6 mm x 120 mm iNPACT DCB 9. Capture of the embolic protection device with postprocedural angiography DATE: 05/13/18 [employer] COMPENSATION: LARRY WIGGINS MD INDICATION: Critical limb ischemia of the right lower extremity with nonhealing ulceration with repeated infections and peripheral vascular disease MEDICATIONS: Please see nursing report for full details. DEVICES: 6 mm x 80 mm iNPACT DCB 6 mm x 120 mm iNPACT DCB Hawkone M device 7 mm spider EPD CONTRAST: 90 mL of nonionic contrast PROCEDURE: The risks, benefits, and alternatives are discussed with the patient; written informed consent was obtained. The groins were prepped and draped in a sterile fashion. The abdomen was taped up. 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 I selected a part of the vessel which was straight and compressible as most of the common femoral artery had a downward trajectory. Under direct ultrasound guidance, the left femoral artery was accessed with a 21-gauge micropuncture needle. 0.018 inch wire was passed into the aorta. Needle was exchanged for transitional dilator. Wire was exchanged for 0.035 inch wire. Transitional dilator was exchanged for a 5 Austrian sheath. 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 The access was in the proximal most portion of the superficial femoral artery. Flush catheter was used to select the abdominal aorta and digital subtraction angiography was performed. The infrarenal abdominal aorta, bilateral common iliacs, bilateral internal iliacs, and bilateral external iliac arteries were patent. The right external iliac artery was selected and digital subtraction angiography was performed. The right superficial femoral artery was selected and digital subtraction angiography was performed. The right common femoral artery, profunda femoral artery, and external iliac artery was patent. The proximal right superficial femoral artery had a 50% narrowing. The mid superficial femoral artery was patent. The distal right superficial femoral artery was occluded with reconstitution after the occlusion which was approximately 8 cm. The popliteal artery distal to the occlusion was patent and there was 3 vessel runoff to the foot. The patient was heparinized. Sheath was exchanged for 6 Austrian 45 cm [place] destination positioned in the right common femoral artery. With the use of roadmap imaging, a navicross catheter, and the V18 wire, the catheter was used across the occlusion and select the popliteal artery. Digital subtraction angiography was performed confirming position. 7 mm spider embolic protection device was deployed. Atherectomy was then performed of the occluded superficial femoral artery. There is less than 20% residual narrowing. Atherectomy was then performed of right proximal superficial femoral artery. There is less than 20% residual narrowing. 6 mm x 120 mm drug-coated balloon balloon was used to perform angioplasty of the right distal superficial femoral artery and a 6 mm x 80 mm drug-coated will and sheath perform angioplasty of the right proximal superficial femoral artery. Digital subtraction angiography demonstrates less than 10% residual narrowing at the proximal superficial femoral artery and distal superficial femoral artery. Embolic protection device was then retrieved. Digital subtraction angiography demonstrated no distal embolization. Sheath was retracted to the left external iliac artery. ACT was obtained which was 169. At this point, the sheath was pulled and pressure was held until hemostasis was achieved. Pressure dressing applied. FINDINGS: Please see procedure note above IMPRESSION: 1. Successful atherectomy and angioplasty with drug-coated balloon of the right superficial femoral artery as described above.
--- NOTE | 2018-05-13 10:50 | Event Note ---
Date: 05/13/18 Successful atherectomy and angioplasty with DCB of the right superficial femoral artery. Flat for 8 hrs. Discussed with patient. Discussed with her that for the next 48 hrs very important not to vomit. Not to eat without pretreatment with reglan. Started patient on plavix. Followup in 2-4 weeks at [facility] ([facility]).
[2018-05-13] MEDS: SOMA PO SCH ×3 (11:40→20:52)
[2018-05-13] MEDS: HABITROL TD SCH (11:41)
[2018-05-13] MEDS: ZESTRIL PO SCH (11:41)
[2018-05-13] MEDS: GEODON PO SCH ×2 (11:41→22:03)
[2018-05-13] MEDS: NEURONTIN PO SCH ×2 (11:42→22:03)
[2018-05-13] MEDS: ASPIRIN PO SCH (11:43)
--- NOTE | 2018-05-13 13:32 | Progress Note ---
Assessment and Plan 42 yo F s/p excisional debridement of infected right foot wound, on 05/08/18, POD 5 1. infected right diabetic foot wound 2. osteomyelitis 3. diabetes mellitus 4. PAD RLE arterial duplex with signs of PAD MRI RLE - osteomyelitis, cellulitis, no abscess Right toe wound culture from 05/06/18 - Klebsiella and Staph aureus (please see [facility] for sensitivities) Gluteal wound culture - gram negative rods Plan: 1. Diabetic diet, NPO p MN 2. IV abx, ID on board 3. 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 Vac taken down today and wound with slough and periwound skin breakdown. Will plan for debridement tomorrow in OR. Pt added to schedule for 11 am 4. packing to right gluteal wound by nursing daily - orders placed 5. strict glucose control 6. offloading, PT consult 7. optimize nutrition 8. PICC line pending Thank you, please call with questions. Subjective Date of service: 05/13/18 Narrative: Pt seen and examined. No complaints. had RLE revascularization performed today. No f/c Objective Vital Signs - 12hr 05/13/18 05/13/18 05/13/18 04:07 11:41 12:40 Temperature 98.9 F 98.0 F Pulse Rate 104 H 96 H Respiratory 20 16 Rate Blood Pressure 156/83 155/64 149/74 O2 Sat by Pulse 98 99 Oximetry - General physical appearance Narrative Exam: Gen: AAOx3. NAD CV: s1, S2+ resp; even and unlabored Ext: R foot dressing c/d/i - Labs 05/10/18 00:26 05/07/18 04:26
--- NOTE | 2018-05-13 14:31 | Anesthesia Consultation ---
Anesthesia Consult and Med Hx Date of service: 05/13/18 - Airway Anesthetic Teeth Evaluation: Poor, Chipped (upper front ), Caps (gold upper front) ROM Head & Neck: Adequate Mental/Hyoid Distance: Adequate Mallampati Class: Class II Intubation Access Assessment: Probably Good - Pulmonary Exam CTA: Yes - Cardiac Exam Cardiac Exam: RRR - Pre-Operative Health Status ASA Pre-Surgery Classification: ASA3 Proposed Anesthetic Plan: MAC - Pulmonary Hx Smoking: Yes - Cardiovascular System Hx Hypertension: Yes - Central Nervous System CVA: Yes (09/2017 w/ residual right-sided weakness) - Endocrine Hx Insulin Dependent Diabetes: Yes - Other Systems Hx Obesity: Yes - Additional Comments Anesthesia Medical History Comments: PMH IDDM, HTN, CVA presenting with osteomyelitis. TTE 109 EF 50-55%, normal RV function. Tolerated debriedment 3.20.19
--- NOTE | 2018-05-13 16:07 | Progress Note ---
Assessment and Plan Assessment and plan: --Revascularization of right lower extremity by IR today With multiple vascular procedures Wound Vac dced, started Plavix --Diabetic ulcer with osteomyelitis right foot; wound care Status post debridement, antibiotics per ID, I recommend OLGA s/p revascularization per IR --Right facial weakness; possible TIA symptoms resolved neuro workup is in progress, neurology following Carotid Doppler; right and left internal carotid artery flow within normal limits CT head no acute abnormalities, Physical therapy, neurology following --Type 2 diabetes mellitus; Accu-Chek sliding scale coverage and ADA diet, Insulin as needed Patient's hemoglobin A1c is 11.5, however her blood sugars are within normal limits DC long-acting insulin Lantus, continue sliding scale coverage with Regular Insulin --Diabetic nephropathy; stable on gabapentin and supportive care --Hypertension; moderate control Continue current antihypertensives and when necessary medications --Dyslipidemia; continue statin, low cholesterol diet --DVT prophylaxis; Lovenox --Moderate obesity; BMI 38.0, advised weight reduction When medically stable Physical therapy occupational therapy Plan of care is reviewed with the patient and her nurse Nothing by mouth midnight for the procedure History Interval history: Patient seen and examined medical history significant The patient underwent revascularization of left lower extremity and left femoral artery by IR today Patient tolerated the procedure well, Feels better no new complaints Alert awake oriented 3, Vital signs reviewed Hospitalist Physical - Constitutional Vitals: Temp Pulse Resp BP Pulse Ox 98.0 F 96 H 16 149/74 99 05/13/18 12:40 05/13/18 12:40 05/13/18 12:40 05/13/18 12:40 05/13/18 12:40 General appearance: Present: no acute distress, well-nourished, obese - EENT Eyes: Present: PERRL, EOM intact - Neck Neck: Present: supple, normal ROM - Respiratory Respiratory effort: normal Respiratory: bilateral: diminished, negative: rales, rhonchi, wheezing - Cardiovascular Rhythm: regular Heart Sounds: Present: S1 & S2 - Extremities Extremities: No edema, abnormal (Rt.LE dressing in place) - Abdominal General gastrointestinal: soft, non-tender, non-distended, normal bowel sounds - Integumentary Integumentary: Present: clear, warm - Psychiatric Psychiatric: appropriate mood/affect, cooperative - Neurologic Neurologic: CNII-XII intact, moves all extremities Results - Labs CBC & Chem 7: 05/10/18 00:26 05/07/18 04:26 Labs: Laboratory Last Values WBC 18.9 K/mm3 (4.5-11.0) H 05/10/18 00:26 RBC 3.70 M/mm3 (3.65-5.03) 05/10/18 00:26 Hgb 9.4 gm/dl (10.1-14.3) L 05/10/18 00: Hct 28.9 % (30.3-42.9) L 05/10/18 00: MCV 78 fl (79-97) L 05/10/18 00: MCH 26 pg (28-32) L 05/10/18 00: MCHC 33 % (30-34) 05/10/18 00: RDW 14.1 % (13.2-15.2) 05/10/18 00:26 Plt Count 502 K/mm3 (140-440) H 05/10/18 00:26 Lymph % (Auto) 11.3 % (13.4-35.0) L 05/10/18 00:26 Garden % (Auto) 8.0 % (0.0-7.3) H 05/10/18 00:26 Eos % (Auto) 1.1 % (0.0-4.3) 05/10/18 00:26 Baso % (Auto) 0.4 % (0.0-1.8) 05/10/18 00:26 Lymph # 2.1 K/mm3 (1.2-5.4) 05/10/18 00:26 Garden # 1.5 K/mm3 (0.0-0.8) H 05/10/18 00:26 Eos # 0.2 K/mm3 (0.0-0.4) 05/10/18 00:26 Baso # 0.1 K/mm3 (0.0-0.1) 05/10/18 00:26 Seg Neutrophils % 79.2 % (40.0-70.0) H 05/10/18 00:26 Seg Neutrophils # 15.0 K/mm3 (1.8-7.7) H 05/10/18 00:26 ESR > 140.0 mm/Hr (0-20) 05/08/18 01:07 Activated Clotting Time 169 (74-137) H 05/13/18 10:10 Sodium 131 mmol/L (137-145) L 05/07/18 04:26 Potassium 3.6 mmol/L (3.6-5.0) 05/07/18 04:26 Chloride 94.1 mmol/L (98-107) L 05/07/18 04:26 Carbon Dioxide 26 mmol/L (22-30) 05/07/18 04:26 Anion Gap 15 mmol/L 05/07/18 04:26 BUN 8 mg/dL (7-17) 05/07/18 04:26 Creatinine 0.6 mg/dL (0.7-1.2) L 05/07/18 04:26 Estimated GFR > 60 ml/min 05/07/18 04:26 BUN/Creatinine Ratio 13 % 05/07/18 04:26 Glucose 292 mg/dL (65-100) H 05/07/18 04:26 POC Glucose 233 (70-105) H 05/13/18 12:53 Hemoglobin A1c 11.5 % (4-6) H 05/08/18 04:46 Calcium 8.6 mg/dL (8.4-10.2) 05/07/18 04:26 Total Bilirubin 0.30 mg/dL (0.1-1.2) 05/07/18 04:26 AST 5 units/L (5-40) 05/07/18 04:26 ALT < 5 units/L (7-56) L 05/07/18 04:26 Alkaline Phosphatase 93 units/L (35-129) 05/07/18 04:26 C-Reactive Protein 13.70 mg/dL (0.00-1.30) H 05/08/18 01:07 Total Protein 6.8 g/dL (6.3-8.2) 05/07/18 04:26 Albumin 2.6 g/dL (3.9-5) L 05/07/18 04:26 Albumin/Globulin Ratio 0.6 % 05/07/18 04:26 Vancomycin Trough 13.4 ug/mL (5.0-20.0) 05/08/18 09:00 Active Medications - Current Medications Current Medications: Generic Name Dose Route Start Last Admin Trade Name Андрейq PRN Reason Stop Dose Admin Acetaminophen 650 mg 05/06/18 14:48 05/11/18 17:54 Tylenol PO 650 mg Q6H PRN Administration Pain, Mild (1-3) Aspirin 325 mg 05/07/18 11:00 05/13/18 11:43 Aspirin PO Not Given QDAY JUANITA Atorvastatin Calcium 40 mg 05/07/18 22:00 05/12/18 21:20 Lipitor PO 40 mg QHS JUANITA Administration Carisoprodol 350 mg 05/07/18 11:00 05/13/18 13:24 Soma PO 350 mg TID JUANITA Administration Clopidogrel Bisulfate 75 mg 05/13/18 11:00 05/13/18 10:44 Plavix PO 75 mg QDAY JUANITA Administration Diazepam 5 mg 05/07/18 11:00 Valium PO BID PRN Anxiety Enoxaparin Sodium 40 mg 05/11/18 22:00 05/12/18 21:20 Lovenox SUB-Q 40 mg QDAY@2200 JUANITA Administration Gabapentin 300 mg 05/07/18 11:00 05/13/18 11:42 Neurontin PO 300 mg BID JUANITA Administration Hydromorphone HCl 0.5 mg 05/06/18 14:47 05/13/18 11:44 Dilaudid IV 0.5 mg Q3H PRN Administration Pain , Severe (7-10) Cefazolin Sodium 2 gm/ Sodium 100 mls @ 200 mls/hr 05/10/18 14:00 05/13/18 13:41 Chloride IV 06/21/18 13:59 200 mls/hr Q8HR JUANITA Administration Protocol Sodium Chloride 500 mls @ 50 mls/hr 05/13/18 08:00 05/13/18 08:21 Nacl 0.9% 500 Ml IV 50 mls/hr DIRECT JUANITA Administration Sodium Chloride 1,000 mls @ 75 mls/hr 05/13/18 15:00 Nacl 0.45% 1000 Ml IV DIRECT JUANITA Insulin Glargine 6 units 05/12/18 22:00 05/12/18 23:13 Lantus SUB-Q 6 units QHS JUANITA Administration Insulin Human Lispro 0 unit 05/06/18 18:33 05/13/18 13:24 Humalog SUB-Q 3 unit ACHS JUANITA Administration Protocol Insulin Human Lispro 6 unit 05/09/18 16:30 05/13/18 13:24 Humalog SUB-Q 6 unit AC JUANITA Administration Lisinopril 20 mg 05/07/18 11:00 05/13/18 11:41 Zestril PO 20 mg DAILY JUANITA Administration Metoclopramide HCl 10 mg 05/11/18 13:10 05/12/18 17:03 Reglan PO 10 mg ACHS PRN Administration Nausea And Vomiting Nicotine 14 mg 05/06/18 17:00 05/13/18 11:41 Habitrol TD 14 mg QDAY JUANITA Administration Ondansetron HCl 4 mg 05/06/18 14:55 05/13/18 06:03 Zofran IV 4 mg Q6H PRN Administration Nausea And Vomiting Tramadol HCl 50 mg 05/07/18 07:09 Ultram PO Q6HR PRN Pain Ziprasidone 40 mg 05/07/18 12:00 05/13/18 11:41 Geodon PO 40 mg BID JUANITA Administration Nutrition/Malnutrition Assess - Dietary Evaluation Nutrition/Malnutrition Findings: Nutrition Notes Start: 05/07/18 15:26 Freq: Status: Active Protocol: Document 05/13/18 13:07 OH (Rec: 05/13/18 13:27 OH [id number]) Nutrition Notes Need for Assessment generated from: LOS Initial or Follow up Assessment Current Diagnosis Diabetes,Sepsis Other Pertinent Diagnosis R FOOT WOUND; Osteomylitis; smoker Current Diet Consistent CHO Labs/Tests Na131 K+ 3.6 Alb 2.6 Pertinent Medications Lovenox Humalog Plavix Lantus Height 5 ft 10 in Weight 121.5 kg [place] Body Weight (kg) 68.18 BMI 38.4 Intake Prior to Admission Fair Weight Status Morbidly Obese Subjective/Other Information Pt. previously screened for skin risk. Pt. lying in bed post surgery for revascularization of R foot. Pt. admitted from wound clinic due to cellulitis. Pt. w/hx of smoking. Pt. reports she checks bs 6x/day. Pt. unable to verbalize kal hgba1c was and why measured. Pt. verbalized consumpmtion of fruit punch/water at home. She states she exercises on the treadmill 1-2x wk for 30 minutes but unsure if that occurs based on hx and BMI. Percent of energy/protein needs met: >50% Burn Absent Trauma Absent Current % PO Fair (50-74%) #2 Nutrition Diagnosis Food and nutrition-related knowledge deficit Etiology inadequate DM related education As Evidenced by Signs and Symptoms poor understanding of diabetic recommendations and affects of high bloodsugar levels Diagnosis Progress(for reassessment Continues documentation) #1 Nutrition Diagnosis Increased nutrient needs ( specify in comment below) Comments: PROTEIN Etiology Increased nutrient needs As Evidenced by Signs and Symptoms R foot wound/hx cellulitis/ debridement/osteomylitis Is patient on ventilator? No Is Patient Ambulatory and/or Out of Bed No REE-([facility]-confined to bed) 2337.072 Kcal/Kg value to use for calculation 18 Approximate Energy Requirements Using 2187 kcal/Kg Calculation Used for Recommendations Kcal/kg Additional Notes PRO 0.8-1.0 g/kg/adj bw 66-82 g/day ADJ BW 81.3 kgs Nutrition Intervention Change Diet Order: Cont Consistent CHO diet Add Supplement/Snack (indicate name/kcal SAVANNA BID /protein ) Provides kCal: 190 Provides Protein (gm) 5 Teaching Recipient Patient Learning Readiness Fair Teaching Methods Discussion,Handout Response to Teaching Verbalize understanding, Reinforcement needed Education Handouts Provided ADA counting CHO; Discussed w/ pt why/how often hgba1c is tested. Enc pt to follow up w/ PCP regarding better control of diabetes. Sugg limiting simple CHO foods such as fruit punch/packaged foods as often as possible to improve health status and reduce wt. Barriers to Learning Motivation,Physical,Age related,Cultural,Financial, Environmental,Social RD phone number provided Yes Patient aware of follow up options Yes Goal #1 Consumption of >75% of meal trays to meet kcal/PRO needs Goal #2 Initiation of Savanna bid to increase wound healing Anticipated Discharge Needs: DM referral Follow-Up By: 05/16/18
--- NOTE | 2018-05-13 16:14 | Event Note ---
Date: 05/13/18 Successful revascularization of the right lower extremity SFA. Has palpable pedal pulses bilaterally. Continue ASA and plavix. Can switch ASA 325 to 81 EC.
[2018-05-13] MEDS: NACL 0.45% 1000 ML 1,000 ML IV SCH (16:50)
[2018-05-13] MEDS: ULTRAM PO PRN (19:05)
--- NOTE | 2018-05-13 20:00 | Magnetic Resonance Report ---
PROCEDURE: MR BRAIN WO CON TECHNIQUE: T1 and T2-weighted sagittal, axial, coronal and diffusion-weighted images of the brain we re obtained. HISTORY: New onset CVA with Rt sided weakness COMPARISONS: Head CT dated May 10, 2018 and MRI brain also performed today FINDINGS: There are no areas of abnormal intracranial signal and no evidence of intracranial mass. There is no evidence of acute ischemia nor intracranial hemorrhage. The ventricles are normal size. Expected flow void is demonstrated within the major intracranial vessels. The extracranial structures are notable for an approximately 7 mm region of abnormal signal in the ri ght parotid gland that appears to follow fat signal on all sequences. IMPRESSION: 1. Approximately 7 mm region of abnormal signal in the right parotid gland and that appears to follow fat signal on all sequences. 2. Otherwise unremarkable study. No evidence of acute infarct. This document is electronically signed by Jenn Florez MD., May 13 2018 07:58:51 PM ET
[2018-05-13] MEDS: LOVENOX SUB-Q SCH (22:03)
[2018-05-13] MEDS: LANTUS SUB-Q SCH (22:04)
--- NOTE | 2018-05-13 22:07 | Magnetic Resonance Report ---
PROCEDURE: MR MRA HEAD WO CON TECHNIQUE: Axial 3-D [id number] MR angiography of the [place] and brain was performed. The source images were reconstructed in various views using maximum intensity projection. HISTORY: New Rt sided weakness COMPARISONS: None . FINDINGS: Vertebral arteries: Normal . Basilar artery: Normal . Internal carotid arteries: Normal . Anterior cerebral arteries: Normal . Middle cerebral arteries: Normal . Posterior cerebral arteries: Normal . Branch occlusions: None . Vascular malformations: None . IMPRESSION: No evidence of arterial occlusion or significant arterial stenosis . This document is electronically signed by Rosanna Paniagua MD., May 13 2018 10:05:01 PM ET
[2018-05-13] MEDS: REGLAN PO PRN (22:16)
[2018-05-14] MEDS: ceFAZolin 2 GM in NACL 0.9% 100 ML IV SCH ×2 (05:18→16:23)
[2018-05-14] MEDS: HumaLOG SUB-Q SCH ×7 (08:35→22:43)
--- NOTE | 2018-05-14 09:29 | Progress Note ---
Assessment and Plan Cultures: 04/14/18 right foot wound: MSSA 05/06/18 Blood: Staph aureus, 2 out of 2 bottles 05/06/18 MRSA PCR: negative 05/06/18 right foot wound: Klebsiella and Staph aureus, erazo susceptible 05/08/18 Blood: GPC 1 out of 2 bottles 05/10/18 Blood: no growth to date 05/10/18 Gluteal: MDR E.coli and klebsiella A/P: 42-year-old patient a past medical history of uncontrolled DM, know to ID from a previous admisson on 04/13/18 due to worsening right plantar foot wound. MRI at that time showed small abscess at the 1st MT head 1.3x1.2 cm with no evidence of osteomylitis. Debridement at the bedside on 04/14/18 finding necrotic skin and sucutaneous tissue with drainage of minimal purulent fluid. Right food wound culture grew Staph aureus and patient was discharged home on Zyvox 600mg PPo for 14 days. The patient presented on 05/06/18 for her weekly visit at the wound care center and her wound was seen to have deteriorates with increasing cellulitis over the lateral and doral aspect of the foot with purulent drainage. Now admitted with: 1. Sepsis: Improved, continuing leukocytosis. Etiology Staph aureus bacteremia. Source, right diabetic foot ulcer, right gluteal wound. no Fever. Patient currently being treated with cefazolin. Staph aureus bacteremia, 2 out of 2 bottles, repeat culture GPC 1 out of 2 bottles. -ESR >140 -CRP 13.70 2. Staph aureus bacteremia: 2 out of 2 bottles, source right diabetic foot infection. f/u repeat blood cultures show GPC 1 out of 2 bottles. f/u ID and MANJU's. TTE shows no valvular vegetation. f/u OLGA. 3. Diabetic Foot Wound with necrotizing infection and osteomyelitis: First metatarsal right foot. wound measures 5.5x4.0x2.5 , no odor. S/p debrdement with bone visible. at wound care office 05/06/18. Given bone exposure in a diabetic foot wound, will treat as acute osteomyelitis. s/p excisional debridement 05/08/18. Culture grew Klebsiella and staph aureus, erazo susceptible. Further excisional debridement today, abscess cavity tunneling to mid foot, plantar aspect, necrotic subcutaneous tissue. Tendon and bone visible. At the end of procedure wound measured 10 cm x 5 cm x 3 cm. Amputation likely in light of worsening wound. Dr. Dong following Arterial Gram: Calcified atherosclerotic plaque is seen throughout the right lower extremity arterial system. There is no flow within the right distal superficial femoral artery concerning for occlusion. No aneurysm was seen MRI of right foot: Abnormal signal changes seen in the distal end of the first metatarsal, proximal phalanx of the great toe and medial sesamoid bone as described with enhancement consistent with osteomyelitis. 4. Type 2 Diabetes Mellitus: Recommend tight gylcemic control. 5. Penicillin Allergy: Remote allergy reported rash. Has taken Amoxicillin in the past without reaction. Tolerating cephalosporin without reaction. 6. Tobacco Abuse: recommended smoking cessation. 7. Right buttock wound - history of bacteremia 2012 and 2014, +/- MRSA. Currently has minimal drainage. Gluteal culture grew MDR E. coli and Kelbsiella. Abdomen and Pelvis CT: There is no evidence of an abscess in the soft tissues of the right buttock. 8. History of CVA 2017- CT of head shows no acute CVA, intracranial bleed or brain mass. New onset right side weakness. Improved. MRI Brain- No areas of abnormal intracranial signal and no evidence of intracranial mass. There is no evidence of acute ischemia nor intracranial hemorrhage. MRA Head- No evidence of arterial occlusion or significant arterial stenosis . 9. Peripheral Vascular disease: s/p Angioplasty of right superficial femoral artery today- Dr. Juarez following Plan: -Anticipate discharge on Cefazolin 2gms q 8 hours for total 6 weeks ending 06-21-18 for now -Amputation likely in light of worsening wound, full course of antibiotic treatment pending amputation/results of OLGA -f/u OLGA for history of recurrent Bacteremia (discussed with Dr. Cotto) -continue cefazolin 2gm q 8, which covers MSSA septicemia and Ecoli/Kleb from gluteal wound, D5 - [facility] [facility] M: [phone] O:[phone] - Subjective Date of service: 05/14/18 Principal diagnosis: Rt foot wound and cellulitis Interval history: Patient seen and examined. Complains of right foot pain, s/p excisional debridment . Sitting up in the bed eating. No fevers Objective - Exam Narrative Exam: Constitutional: Awake. Alert .Right foot pain Head, Ears, Nose: Normocephalic, atraumatic. External ears, nose normal Eyes: Conjunctivae/corneas clear. No icterus. No ptosis. Neck: Supple, no meningeal signs Oral: dentition fair, no. thrush Cardiovascular: S1, S2 normal. Respiratory: Good air entry, clear to auscultation bilaterally GI: Soft, non-tender; bowel sounds normal. No peritoneal signs Musculoskeletal: No pedal edema, Diabetic foot wound first metarsal to the right foot., Per wound care: wound measurements 5.5x4.0x2.5. Right gluteal wound, + prulent drainage. Skin: no rash, no edema, + right foot dressing, s/p excisional debridement today Hem/Lymphatic: No palpable cervical or supraclavicular nodes. No lymphangitis Psych: Mood ok. Affect normal Neurological: Awake, alert, - Constitutional Vitals: Vital Signs Temp Pulse Resp BP Pulse Ox 98.5 F 84 16 111/59 98 05/14/18 04:48 05/14/18 04:48 05/14/18 04:48 05/14/18 04:48 05/14/18 04:48 Temperature -Last 24 Hours Temperature 98.5 F Temperature 98.8 F Temperature 98.7 F Temperature 98.0 F - Labs CBC & Chem 7: 05/10/18 00:26 05/07/18 04:26 Labs: Abnormal lab results 05/13/18 05/13/18 05/13/18 Range/Units 10:10 12:53 16:14 Activated Clotting Time 169 H (74-137) POC Glucose 233 H 247 H (70-105) 05/13/18 05/14/18 Range/Units 21:40 07:57 Activated Clotting Time (74-137) POC Glucose 248 H 288 H (70-105)
[2018-05-14] MEDS: SOMA PO SCH ×3 (10:00→21:50)
[2018-05-14] MEDS: NEURONTIN PO SCH ×2 (10:00→22:42)
--- NOTE | 2018-05-14 10:18 | Progress Note ---
Assessment and Plan Assessment and plan: --Diabetic ulcer with osteomyelitis right foot; wound care Status post debridement, antibiotics per ID, I recommend OLGA s/p revascularization per IR for Surgical debridement today --Revascularization of right lower extremity by IR today With multiple vascular procedures Wound Vac dced, started Plavix --Right facial weakness; possible TIA symptoms resolved neuro workup is in progress, neurology following Carotid Doppler; right and left internal carotid artery flow within normal limits CT head no acute abnormalities, Physical therapy, neurology following --Type 2 diabetes mellitus; Accu-Chek sliding scale coverage and ADA diet, Insulin as needed Patient's hemoglobin A1c is 11.5, however her blood sugars are within normal limits DC long-acting insulin Lantus, continue sliding scale coverage with Regular Insulin --Diabetic nephropathy; stable on gabapentin and supportive care --Hypertension; moderate control Continue current antihypertensives and when necessary medications --Dyslipidemia; continue statin, low cholesterol diet --DVT prophylaxis; Lovenox --Moderate obesity; BMI 38.0, advised weight reduction When medically stable Physical therapy occupational therapy Plan of care is reviewed with the patient and her nurse History Interval history: Patient seen and examined medical records reviewed Patient is scheduled for surgical debridement, nothing by mouth status Alert awake oriented 3 Vital signs noted Hospitalist Physical - Constitutional Vitals: Temp Pulse Resp BP Pulse Ox 98.5 F 84 16 111/59 98 05/14/18 04:48 05/14/18 04:48 05/14/18 04:48 05/14/18 04:48 05/14/18 04:48 General appearance: Present: no acute distress, well-nourished, obese - EENT Eyes: Present: PERRL, EOM intact - Neck Neck: Present: supple, normal ROM - Respiratory Respiratory effort: normal Respiratory: bilateral: diminished, negative: rales, rhonchi, wheezing - Cardiovascular Rhythm: regular Heart Sounds: Present: S1 & S2 - Extremities Extremities: no ischemia, abnormal (right foot in dressing) - Abdominal General gastrointestinal: soft, non-tender, non-distended, normal bowel sounds - Integumentary Integumentary: Present: clear, warm - Psychiatric Psychiatric: appropriate mood/affect, cooperative - Neurologic Neurologic: moves all extremities Results - Labs CBC & Chem 7: 05/10/18 00:26 05/07/18 04:26 Labs: Laboratory Last Values WBC 18.9 K/mm3 (4.5-11.0) H 05/10/18 00:26 RBC 3.70 M/mm3 (3.65-5.03) 05/10/18 00:26 Hgb 9.4 gm/dl (10.1-14.3) L 05/10/18 00:26 Hct 28.9 % (30.3-42.9) L 05/10/18 00:26 MCV 78 fl (79-97) L 05/10/18 00: MCH 26 pg (28-32) L 05/10/18 00: MCHC 33 % (30-34) 05/10/18 00: RDW 14.1 % (13.2-15.2) 05/10/18 00: Plt Count 502 K/mm3 (140-440) H 05/10/18 00: Lymph % (Auto) 11.3 % (13.4-35.0) L 05/10/18 00: [place] % (Auto) 8.0 % (0.0-7.3) H 05/10/18 00: Eos % (Auto) 1.1 % (0.0-4.3) 05/10/18 00: Baso % (Auto) 0.4 % (0.0-1.8) 05/10/18 00: Lymph # 2.1 K/mm3 (1.2-5.4) 05/10/18 00:26 [place] # 1.5 K/mm3 (0.0-0.8) H 05/10/18 00:26 Eos # 0.2 K/mm3 (0.0-0.4) 05/10/18 00:26 Baso # 0.1 K/mm3 (0.0-0.1) 05/10/18 00:26 Seg Neutrophils % 79.2 % (40.0-70.0) H 05/10/18 00: Seg Neutrophils # 15.0 K/mm3 (1.8-7.7) H 05/10/18 00:26 ESR > 140.0 mm/Hr (0-20) 05/08/18 01:07 Activated Clotting Time 169 (74-137) H 05/13/18 10:10 Sodium 131 mmol/L (137-145) L 05/07/18 04:26 Potassium 3.6 mmol/L (3.6-5.0) 05/07/18 04:26 Chloride 94.1 mmol/L (98-107) L 05/07/18 04:26 Carbon Dioxide 26 mmol/L (22-30) 05/07/18 04:26 Anion Gap 15 mmol/L 05/07/18 04:26 BUN 8 mg/dL (7-17) 05/07/18 04:26 Creatinine 0.6 mg/dL (0.7-1.2) L 05/07/18 04:26 Estimated GFR > 60 ml/min 05/07/18 04:26 BUN/Creatinine Ratio 13 % 05/07/18 04:26 Glucose 292 mg/dL (65-100) H 05/07/18 04:26 POC Glucose 288 (70-105) H 05/14/18 07:57 Hemoglobin A1c 11.5 % (4-6) H 05/08/18 04:46 Calcium 8.6 mg/dL (8.4-10.2) 05/07/18 04:26 Total Bilirubin 0.30 mg/dL (0.1-1.2) 05/07/18 04:26 AST 5 units/L (5-40) 05/07/18 04:26 ALT < 5 units/L (7-56) L 05/07/18 04:26 Alkaline Phosphatase 93 units/L (35-129) 05/07/18 04:26 C-Reactive Protein 13.70 mg/dL (0.00-1.30) H 05/08/18 01:07 Total Protein 6.8 g/dL (6.3-8.2) 05/07/18 04:26 Albumin 2.6 g/dL (3.9-5) L 05/07/18 04:26 Albumin/Globulin Ratio 0.6 % 05/07/18 04:26 Vancomycin Trough 13.4 ug/mL (5.0-20.0) 05/08/18 09:00 Active Medications - Current Medications Current Medications: Generic Name Dose Route Start Last Admin Trade Name Freq PRN Reason Stop Dose Admin Acetaminophen 650 mg 05/06/18 14:48 05/11/18 17:54 Tylenol PO 650 mg Q6H PRN Administration Pain, Mild (1-3) Aspirin 325 mg 05/07/18 11:00 05/13/18 11:43 Aspirin PO Not Given QDAY JUANITA Atorvastatin Calcium 40 mg 05/07/18 22:00 05/13/18 22:04 Lipitor PO 40 mg QHS JUANITA Administration Carisoprodol 350 mg 05/07/18 11:00 05/13/18 20:52 Soma PO 350 mg TID JUANITA Administration Clopidogrel Bisulfate 75 mg 05/13/18 11:00 05/13/18 10:44 Plavix PO 75 mg QDAY JUANITA Administration Diazepam 5 mg 05/07/18 11:00 Valium PO BID PRN Anxiety Enoxaparin Sodium 40 mg 05/11/18 22:00 05/13/18 22:03 Lovenox SUB-Q Not Given QDAY@2200 [facility] Gabapentin 300 mg 05/07/18 11:00 05/13/18 22:03 Neurontin PO 300 mg BID JUANITA Administration Hydromorphone HCl 0.5 mg 05/06/18 14:47 05/13/18 22:06 Dilaudid IV 0.5 mg Q3H PRN Administration Pain , Severe (7-10) Cefazolin Sodium 2 gm/ Sodium 100 mls @ 200 mls/hr 05/10/18 14:00 05/14/18 05:18 Chloride IV 06/21/18 13:59 200 mls/hr Q8HR JUANITA Administration Protocol Sodium Chloride 500 mls @ 50 mls/hr 05/13/18 08:00 05/13/18 08:21 Nacl 0.9% 500 Ml IV 50 mls/hr DIRECT JUANITA Administration Sodium Chloride 1,000 mls @ 75 mls/hr 05/13/18 15:00 05/13/18 16:50 Nacl 0.45% 1000 Ml IV 75 mls/hr DIRECT JUANITA Administration Insulin Glargine 6 units 05/12/18 22:00 05/13/18 22:04 Lantus SUB-Q 6 units QHS JUANITA Administration Insulin Human Lispro 0 unit 05/06/18 18:33 05/14/18 08:35 Humalog SUB-Q 4 unit ACHS JUANITA Administration Protocol Insulin Human Lispro 6 unit 05/09/18 16:30 05/14/18 08:36 Humalog SUB-Q Not Given AC [facility] Lisinopril 20 mg 05/07/18 11:00 05/13/18 11:41 Zestril PO 20 mg DAILY JUANITA Administration Metoclopramide HCl 10 mg 05/11/18 13:10 05/13/18 22:16 Reglan PO 10 mg ACHS PRN Administration Nausea And Vomiting Nicotine 14 mg 05/06/18 17:00 05/13/18 11:41 Habitrol TD 14 mg QDAY JUANITA Administration Ondansetron HCl 4 mg 05/06/18 14:55 05/13/18 06:03 Zofran IV 4 mg Q6H PRN Administration Nausea And Vomiting Tramadol HCl 50 mg 05/07/18 07:09 05/13/18 19:05 Ultram PO 50 mg Q6HR PRN Administration Pain Ziprasidone 40 mg 05/07/18 12:00 05/13/18 22:03 Geodon PO 40 mg BID JUANITA Administration Nutrition/Malnutrition Assess - Dietary Evaluation Nutrition/Malnutrition Findings: Nutrition Notes Start: 05/07/18 15:26 Freq: Status: Active Protocol: Document 05/13/18 13:07 [place] (Rec: 05/13/18 13:27 OH [id number]) Nutrition Notes Need for Assessment generated from: LOS Initial or Follow up Assessment Current Diagnosis Diabetes,Sepsis Other Pertinent Diagnosis R FOOT WOUND; Osteomylitis; smoker Current Diet Consistent CHO Labs/Tests Na131 K+ 3.6 Alb 2.6 Pertinent Medications Lovenox Humalog Plavix Lantus Height 5 ft 10 in Weight 121.5 kg [place] Body Weight (kg) 68.18 BMI 38.4 Intake Prior to Admission Fair Weight Status Morbidly Obese Subjective/Other Information Pt. previously screened for skin risk. Pt. lying in bed post surgery for revascularization of R foot. Pt. admitted from wound clinic due to cellulitis. Pt. w/hx of smoking. Pt. reports she checks bs 6x/day. Pt. unable to verbalize kal hgba1c was and why measured. Pt. verbalized consumpmtion of fruit punch/water at home. She states she exercises on the treadmill 1-2x wk for 30 minutes but unsure if that occurs based on hx and BMI. Percent of energy/protein needs met: >50% Burn Absent Trauma Absent Current % PO Fair (50-74%) #2 Nutrition Diagnosis Food and nutrition-related knowledge deficit Etiology inadequate DM related education As Evidenced by Signs and Symptoms poor understanding of diabetic recommendations and affects of high bloodsugar levels Diagnosis Progress(for reassessment Continues documentation) #1 Nutrition Diagnosis Increased nutrient needs ( specify in comment below) Comments: PROTEIN Etiology Increased nutrient needs As Evidenced by Signs and Symptoms R foot wound/hx cellulitis/ debridement/osteomylitis Is patient on ventilator? No Is Patient Ambulatory and/or Out of Bed No REE-([place]-St. Jeor-confined to bed) 2337.072 Kcal/Kg value to use for calculation 18 Approximate Energy Requirements Using 2187 kcal/Kg Calculation Used for Recommendations Kcal/kg Additional Notes PRO 0.8-1.0 g/kg/adj bw 66-82 g/day ADJ BW 81.3 kgs Nutrition Intervention Change Diet Order: Cont Consistent CHO diet Add Supplement/Snack (indicate name/kcal SAVANNA BID /protein ) Provides kCal: 190 Provides Protein (gm) 5 Teaching Recipient Patient Learning Readiness Fair Teaching Methods Discussion,Handout Response to Teaching Verbalize understanding, Reinforcement needed Education Handouts Provided ADA counting CHO; Discussed w/ pt why/how often hgba1c is tested. Enc pt to follow up w/ PCP regarding better control of diabetes. Sugg limiting simple CHO foods such as fruit punch/packaged foods as often as possible to improve health status and reduce wt. Barriers to Learning Motivation,Physical,Age related,Cultural,Financial, Environmental,Social RD phone number provided Yes Patient aware of follow up options Yes Goal #1 Consumption of >75% of meal trays to meet kcal/PRO needs Goal #2 Initiation of [place] bid to increase wound healing Anticipated Discharge Needs: DM referral Follow-Up By: 05/16/18
[2018-05-14] MEDS: GEODON PO SCH ×2 (10:31→22:42)
[2018-05-14] MEDS ORDERED: NACL 0.9% 1000 ML 1,000 ML IV SCH ×3 (10:50→14:00)
[2018-05-14] MEDS ORDERED: DILAUDID ONE (11:10)
[2018-05-14] MEDS ORDERED: VERSED ONE (11:11)
[2018-05-14] MEDS ORDERED: DIPRIVAN 10 MG/ML IV ONE (11:11)
[2018-05-14] MEDS ORDERED: XYLOCAINE MPF 2% ONE (11:11)
[2018-05-14] MEDS ORDERED: MARCAINE 0.5% INFILTRATI ONE (11:15)
[2018-05-14] MEDS ORDERED: HYDROGEN PEROXIDE ONE (11:15)
--- NOTE | 2018-05-14 11:16 | Anesthesia Day of Surgery ---
Anesthesia Day of Surgery - Day of Surgery Patient Examined: Yes (Arrived from floor without IV access. 20g PIV placed with US guidance.) Patient H&P Reviewed: Yes Patient is NPO: Yes
[2018-05-14] MEDS ORDERED: NACL 0.9% IR ONE (11:45)
--- NOTE | 2018-05-14 12:19 | Post Operative Note ---
Date of procedure: 05/14/18 Pre-op diagnosis: infected right diabetic foot wound Post-op diagnosis: same Findings: abscess cavity tunneling to mid foot, plantar aspect, necrotic subcutaneous tissue. Tendon and bone visible Wound measured 10 cm x 5 cm x 3 cm at the end of the case Procedure: exicisional debridement of infected right foot wound Anesthesia: MAC Surgeon: MEKA BATES Estimated blood loss: minimal Pathology: none Condition: stable Disposition: PACU
[2018-05-14] MEDS: SUBLIMAZE IV PRN ×2 (13:00→13:10)
[2018-05-14] MEDS ORDERED: NACL 0.9% 1000 ML 1,000 ML ONE (14:03)
--- NOTE | 2018-05-14 15:23 | Progress Note ---
Subjective Date of service: 05/14/18 Principal diagnosis: Rt foot wound and cellulitis Interval history: spinal spasms somewhat better... there has been surgical management see notes further w/u pending suspect diabetic complications Objective - Vital Sign Vital Signs - 12hr 05/14/18 05/14/18 05/14/18 04:48 10:30 12:15 Temperature 98.5 F 97.7 F 97.2 F L Pulse Rate 84 95 H 103 H Respiratory 16 20 11 L Rate Blood Pressure 111/59 154/87 174/96 O2 Sat by Pulse 98 99 100 Oximetry 05/14/18 05/14/18 05/14/18 12:20 12:25 12:30 Temperature Pulse Rate 100 H 101 H 97 H Respiratory 16 16 16 Rate Blood Pressure 157/76 165/78 152/79 O2 Sat by Pulse 100 100 100 Oximetry 05/14/18 05/14/18 05/14/18 12:45 13:00 13:10 Temperature Pulse Rate 94 H 87 Respiratory 17 16 14 Rate Blood Pressure 162/85 146/72 O2 Sat by Pulse 96 97 Oximetry 05/14/18 13:16 Temperature 97.7 F Pulse Rate 93 H Respiratory 14 Rate Blood Pressure 142/67 O2 Sat by Pulse 97 Oximetry - Laboratory Findings CBC and BMP: 05/10/18 00:26 05/07/18 04:26 Abnormal Lab Findings: Abnormal Labs 05/06/18 05/06/18 05/06/18 15:37 20:03 22:14 WBC 18.6 H Hgb Hct 30.0 L MCV MCH 27 L MCHC 35 H Plt Count 539 H Lymph % (Auto) 12.8 L [place] % (Auto) [place] # 1.3 H Seg Neutrophils % 78.2 H Seg Neutrophils # 14.5 H Activated Clotting Time Sodium Chloride Creatinine Glucose POC Glucose 428 H 281 H Hemoglobin A1c ALT C-Reactive Protein Albumin 05/07/18 05/07/18 05/07/18 04:26 07:34 07:43 WBC 14.2 H Hgb Hct MCV MCH 26 L MCHC Plt Count 475 H Lymph % (Auto) [place] % (Auto) 7.7 H [place] # 1.1 H Seg Neutrophils % 75.4 H Seg Neutrophils # 10.7 H Activated Clotting Time Sodium 131 L Chloride 94.1 L Creatinine 0.6 L Glucose 292 H POC Glucose 252 H Hemoglobin A1c ALT < 5 L C-Reactive Protein Albumin 2.6 L 05/07/18 05/07/18 05/07/18 12:09 16:09 21:48 WBC Hgb Hct MCV MCH MCHC Plt Count Lymph % (Auto) [place] % (Auto) [place] # Seg Neutrophils % Seg Neutrophils # Activated Clotting Time Sodium Chloride Creatinine Glucose POC Glucose 252 H 277 H 290 H Hemoglobin A1c ALT C-Reactive Protein Albumin 05/08/18 05/08/18 05/08/18 01:07 01:07 04:46 WBC 14.6 H Hgb 10.0 L Hct 30.2 L MCV MCH 26 L MCHC Plt Count 485 H Lymph % (Auto) 11.4 L [place] % (Auto) 8.0 H [place] # 1.2 H Seg Neutrophils % 78.8 H Seg Neutrophils # 11.5 H Activated Clotting Time Sodium Chloride Creatinine Glucose POC Glucose Hemoglobin A1c 11.5 H ALT C-Reactive Protein 13.70 H Albumin 05/08/18 05/08/18 05/08/18 07:29 12:18 14:05 WBC Hgb Hct MCV MCH MCHC Plt Count Lymph % (Auto) [place] % (Auto) [place] # Seg Neutrophils % Seg Neutrophils # Activated Clotting Time Sodium Chloride Creatinine Glucose POC Glucose 289 H 204 H 178 H Hemoglobin A1c ALT C-Reactive Protein Albumin 05/08/18 05/08/18 05/08/18 15:08 16:16 21:20 WBC Hgb Hct MCV MCH MCHC Plt Count Lymph % (Auto) [place] % (Auto) [place] # Seg Neutrophils % Seg Neutrophils # Activated Clotting Time Sodium Chloride Creatinine Glucose POC Glucose 177 H 241 H 298 H Hemoglobin A1c ALT C-Reactive Protein Albumin 05/09/18 05/09/18 05/09/18 07:34 11:15 16:02 WBC Hgb Hct MCV MCH MCHC Plt Count Lymph % (Auto) [place] % (Auto) [place] # Seg Neutrophils % Seg Neutrophils # Activated Clotting Time Sodium Chloride Creatinine Glucose POC Glucose 226 H 201 H 263 H Hemoglobin A1c ALT C-Reactive Protein Albumin 05/09/18 05/10/18 05/10/18 21:36 00:26 11:04 WBC 18.9 H Hgb 9.4 L Hct 28.9 L MCV 78 L MCH 26 L MCHC Plt Count 502 H Lymph % (Auto) 11.3 L [place] % (Auto) 8.0 H [place] # 1.5 H Seg Neutrophils % 79.2 H Seg Neutrophils # 15.0 H Activated Clotting Time Sodium Chloride Creatinine Glucose POC Glucose 136 H 119 H Hemoglobin A1c ALT C-Reactive Protein Albumin 05/10/18 05/10/18 05/11/18 17:19 22:21 07:48 WBC Hgb Hct MCV MCH MCHC Plt Count Lymph % (Auto) [place] % (Auto) [place] # Seg Neutrophils % Seg Neutrophils # Activated Clotting Time Sodium Chloride Creatinine Glucose POC Glucose 150 H 120 H 122 H Hemoglobin A1c ALT C-Reactive Protein Albumin 05/11/18 05/11/18 05/12/18 16:54 22:01 08:05 WBC Hgb Hct MCV MCH MCHC Plt Count Lymph % (Auto) [place] % (Auto) [place] # Seg Neutrophils % Seg Neutrophils # Activated Clotting Time Sodium Chloride Creatinine Glucose POC Glucose 210 H 196 H 271 H Hemoglobin A1c ALT C-Reactive Protein Albumin 05/12/18 05/12/18 05/12/18 12:15 16:56 21:18 WBC Hgb Hct MCV MCH MCHC Plt Count Lymph % (Auto) [place] % (Auto) [place] # Seg Neutrophils % Seg Neutrophils # Activated Clotting Time Sodium Chloride Creatinine Glucose POC Glucose 235 H 312 H 167 H Hemoglobin A1c ALT C-Reactive Protein Albumin 05/13/18 05/13/18 05/13/18 07:22 10:10 12:53 WBC Hgb Hct MCV MCH MCHC Plt Count Lymph % (Auto) [place] % (Auto) [place] # Seg Neutrophils % Seg Neutrophils # Activated Clotting Time 169 H Sodium Chloride Creatinine Glucose POC Glucose 276 H 233 H Hemoglobin A1c ALT C-Reactive Protein Albumin 05/13/18 05/13/18 05/14/18 16:14 21:40 07:57 WBC Hgb Hct MCV MCH MCHC Plt Count Lymph % (Auto) [place] % (Auto) [place] # Seg Neutrophils % Seg Neutrophils # Activated Clotting Time Sodium Chloride Creatinine Glucose POC Glucose 247 H 248 H 288 H Hemoglobin A1c ALT C-Reactive Protein Albumin 05/14/18 05/14/18 10:49 12:32 WBC Hgb Hct MCV MCH MCHC Plt Count Lymph % (Auto) [place] % (Auto) [place] # Seg Neutrophils % Seg Neutrophils # Activated Clotting Time Sodium Chloride Creatinine Glucose POC Glucose 204 H 199 H Hemoglobin A1c ALT C-Reactive Protein Albumin
[2018-05-14] MEDS: ULTRAM PO PRN (16:18)
[2018-05-14] MEDS: REGLAN PO PRN ×2 (16:18→22:42)
[2018-05-14] MEDS: ZESTRIL PO SCH (16:30)
[2018-05-14] MEDS: PLAVIX PO SCH (16:30)
[2018-05-14] MEDS: HABITROL TD SCH (16:30)
[2018-05-14] MEDS: ASPIRIN PO SCH (16:31)
--- NOTE | 2018-05-14 16:41 | XRay Report ---
PROCEDURE: XR CHEST 1V AP TECHNIQUE: Single frontal view of the chest HISTORY: Right arm PICC placement COMPARISONS: Chest radiograph performed on 04/18/2018 FINDINGS: Right upper extremity PICC line with tip in the upper right atrium. The cardiomediastinal silhouette is normal in appearance. The lungs are clear without focal consolidation. No pleural effusion or pneumothorax. No acute bony or soft tissue abnormality. IMPRESSION: No acute cardiac pulmonary disease. Right upper extremity PICC line with tip in the upper right atrium. This document is electronically signed by Giovana Chester MD., May 14 2018 04:40:09 PM ET
--- NOTE | 2018-05-14 16:56 | Anesthesia Consultation ---
Anesthesia Consult and Med Hx Date of service: 05/15/18 - Airway Anesthetic Teeth Evaluation: Poor ROM Head & Neck: Adequate Mental/Hyoid Distance: Adequate Mallampati Class: Class II Intubation Access Assessment: Probably Good - Pulmonary Exam CTA: Yes - Cardiac Exam Cardiac Exam: RRR - Pre-Operative Health Status ASA Pre-Surgery Classification: ASA3 Proposed Anesthetic Plan: General, MAC - Pulmonary Hx Smoking: Yes Hx Asthma: No Hx Respiratory Symptoms: No SOB: Yes (occasional ) COPD: No - Cardiovascular System Hx Hypertension: Yes Hx Heart Attack/AMI: No Hx Percutaneous Transluminal Coronary Angioplasty (PTCA): No Hx Cardia Arrhythmia: No Hx Pacemaker: No Hx Internal Defibrillator: No - Central Nervous System 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 TTE EF 50-55%, normal RV function. Tolerated debriedment 3..19
[2018-05-14] MEDS ORDERED: SUBLIMAZE ONE (18:26)
[2018-05-14] MEDS ORDERED: ALUM-MAG HYDROX-SIMETH 200-200-20MG/5ML PO PRN (22:24)
[2018-05-14] MEDS: LANTUS SUB-Q SCH (22:43)
[2018-05-14] MEDS: DILAUDID IV PRN (22:58)
[2018-05-15] MEDS: LOVENOX SUB-Q SCH ×2 (00:12→21:19)
[2018-05-15] MEDS: ceFAZolin 2 GM in NACL 0.9% 100 ML IV SCH ×4 (00:13→21:28)
[2018-05-15 01:24] LABS: Basophils % (Auto) 0.2 % (0.0-1.8); Eosinophils # (Auto) 0.3 K/mm3 (0.0-0.4); Eosinophils % (Auto) 2.1 % (0.0-4.3); Hematocrit 25.5 % (30.3-42.9); Hemoglobin 8.3 gm/dl (10.1-14.3); Lymphocytes # (Auto) 1.9 K/mm3 (1.2-5.4); Lymphocytes % (Auto) 13.5 % (13.4-35.0); Mean Corpuscular HGB Conc 32 % (30-34); Mean Corpuscular Volume 78 fl (79-97); Monocytes % (Auto) 7.1 % (0.0-7.3); Platelet Count 436 K/mm3 (140-440); Red Blood Count 3.27 M/mm3 (3.65-5.03); Red Cell Distribution Width 13.9 % (13.2-15.2)
[2018-05-15] MEDS: HumaLOG SUB-Q SCH ×7 (08:31→21:20)
[2018-05-15] MEDS: SOMA PO SCH ×3 (08:32→21:19)
--- NOTE | 2018-05-15 09:24 | Progress Note ---
Assessment and Plan Cultures: 04/14/18 right foot wound: MSSA 05/06/18 Blood: Staph aureus, 2 out of 2 bottles 05/06/18 MRSA PCR: negative 05/06/18 right foot wound: Klebsiella and Staph aureus, erazo susceptible 05/08/18 Blood: GPC 1 out of 2 bottles 05/10/18 Blood: no growth to date 05/10/18 Gluteal: MDR E.coli and klebsiella A/P: 42-year-old patient a past medical history of uncontrolled DM, know to ID from a previous admisson on 04/13/18 due to worsening right plantar foot wound. MRI at that time showed small abscess at the 1st MT head 1.3x1.2 cm with no evidence of osteomylitis. Debridement at the bedside on 04/14/18 finding necrotic skin and sucutaneous tissue with drainage of minimal purulent fluid. Right food wound culture grew Staph aureus and patient was discharged home on Zyvox 600mg PPo for 14 days. The patient presented on 05/06/18 for her weekly visit at the wound care center and her wound was seen to have deteriorated with increasing cellulitis over the lateral and doral aspect of the foot with purulent drainage. Now admitted with: 1. Sepsis: Improved,leukocytosis trending down. Etiology Staph aureus bacteremia. Source, right diabetic foot ulcer, right gluteal wound. no Fever. Patient currently being treated with cefazolin. Staph aureus bacteremia, 2 out of 2 bottles, repeat culture GPC 1 out of 2 bottles. -ESR >140 -CRP 13.70 2. Staph aureus bacteremia: 2 out of 2 bottles, source right diabetic foot infection. f/u repeat blood cultures show GPC 1 out of 2 bottles.. TTE shows no valvular vegetation. f/u OLGA, report pending. 3. Diabetic Foot Wound with necrotizing infection and osteomyelitis: First metatarsal right foot. wound measures 5.5x4.0x2.5 , no odor. S/p debrdement with bone visible. at wound care office 05/06/18. Given bone exposure in a diabetic foot wound, will treat as acute osteomyelitis. s/p excisional debridement 05/08/18. Culture grew Klebsiella and staph aureus, erazo susceptible. Further excisional debridement today, abscess cavity tunneling to mid foot, cortez ntar aspect, necrotic subcutaneous tissue. Tendon and bone visible. At the end of procedure wound measured 10 cm x 5 cm x 3 cm. The patient's great toe with dry gangrene and likely will not be viable. The remainder of the foot has good perfusion, amputation of the great toe likely, will attempt wound healing with OPAT, HBOT and revasulazation. Dr. Dong discussed with patient. Arterial Gram: Calcified atherosclerotic plaque is seen throughout the right lower extremity arterial system. There is no flow within the right distal superficial femoral artery concerning for occlusion. No aneurysm was seen MRI of right foot: Abnormal signal changes seen in the distal end of the first metatarsal, proximal phalanx of the great toe and medial sesamoid bone as described with enhancement consistent with osteomyelitis. 4. Type 2 Diabetes Mellitus: Recommend tight gylcemic control. 5. Penicillin Allergy: Remote allergy reported rash. Has taken Amoxicillin in the past without reaction. Tolerating cephalosporin without reaction. 6. Tobacco Abuse: recommended smoking cessation. 7. Right buttock wound - history of bacteremia 2012 and 2014, +/- MRSA. Gluteal culture grew MDR E. coli and Kelbsiella. Abdomen and Pelvis CT: There is no evidence of an abscess in the soft tissues of the right buttock. 8. History of CVA 2017- CT of head shows no acute CVA, intracranial bleed or brain mass. New onset right side weakness. Resolved. MRI Brain- No areas of abnormal intracranial signal and no evidence of intracranial mass. There is no evidence of acute ischemia nor intracranial hemorrhage. MRA Head- No evidence of arterial occlusion or significant arterial stenosis . 9. Peripheral Vascular disease: s/p Angioplasty of right superficial femoral artery 05/13/18. Dr. Juarez following Plan: -Anticipate discharge on Cefazolin 2gms q 8 hours for total 6 weeks ending 06-21-18 -Amputation of right great toe likely in the future, will attempt wound healing with OPAT, HBOT and revasculazation -OLGA done, final report pending -continue cefazolin 2gm q 8, which covers MSSA septicemia and Ecoli/Kleb from gluteal wound, D5 -CRP ordered [facility] M: [phone] O:[phone] - Subjective Date of service: 05/15/18 Principal diagnosis: Rt foot wound and cellulitis Interval history: Patient seen and examined. No acute distress, generalized weakness. No fevers. Objective - Exam Narrative Exam: Constitutional: Awake. Alert . no acute distress Head, Ears, Nose: Normocephalic, atraumatic. External ears, nose normal Eyes: Conjunctivae/corneas clear. No icterus. No ptosis. Neck: Supple, no meningeal signs Oral: dentition fair, no. thrush Cardiovascular: S1, S2 normal. Respiratory: Good air entry, clear to auscultation bilaterally GI: Soft, non-tender; bowel sounds normal. No peritoneal signs Musculoskeletal: No pedal edema, Diabetic foot wound first metarsal to the right foot., Per wound care: wound measurements 5.5x4.0x2.5. Right gluteal wound, + prulent drainage. Skin: no rash, no edema, + right foot dressing, s/p excisional debridement today Hem/Lymphatic: No palpable cervical or supraclavicular nodes. No lymphangitis Psych: Mood ok. Affect normal Neurological: Awake, alert, - Constitutional Vitals: Vital Signs Temp Pulse Resp BP Pulse Ox 99.4 F 87 16 137/75 100 05/15/18 04:52 05/15/18 04:52 05/15/18 04:52 05/15/18 04:52 05/15/18 04:52 Temperature -Last 24 Hours Temperature 99.4 F Temperature 99.5 F Temperature 98.4 F Temperature 97.8 F Temperature 97.7 F Temperature 97.2 F Temperature 97.7 F Temperature 97.7 F - Labs CBC & Chem 7: 05/15/18 01:02 05/07/18 04:26 Labs: Abnormal lab results 05/14/18 05/14/18 05/14/18 Range/Units 10:49 12:32 16:29 WBC (4.5-11.0) K/mm3 RBC (3.65-5.03) M/mm3 Hgb (10.1-14.3) gm/dl Hct (30.3-42.9) % MCV (79-97) fl MCH (28-32) pg [place] # (0.0-0.8) K/mm3 Seg Neutrophils % (40.0-70.0) % Seg Neutrophils # (1.8-7.7) K/mm3 POC Glucose 204 H 199 H 249 H (70-105) 03/05/15/18 05/15/18 Range/Units 21:55 01:02 07:29 WBC 14.4 H (4.5-11.0) K/mm3 RBC 3.27 L (3.65-5.03) M/mm3 Hgb 8.3 L (10.1-14.3) gm/dl Hct 25.5 L (30.3-42.9) % MCV 78 L (79-97) fl MCH 25 L (28-32) pg [place] # 1.0 H (0.0-0.8) K/mm3 Seg Neutrophils % 77.1 H (40.0-70.0) % Seg Neutrophils # 11.1 H (1.8-7.7) K/mm3 POC Glucose 198 H 203 H (70-105)
[2018-05-15] MEDS ORDERED: DAKIN'S HALF STRENGTH TP PRN (10:15)
[2018-05-15] MEDS ORDERED: HURRICAINE ONE 20% TOPICAL SPRAY MM NR (11:00)
--- NOTE | 2018-05-15 11:10 | Progress Note ---
Assessment and Plan 42 yo F s/p excisional debridement of infected right foot wound, POD, s/p excisional debridement of right foot wound 05/08/18 1. infected right diabetic foot wound 2. osteomyelitis 3. diabetes mellitus 4. PAD RLE arterial duplex with signs of PAD MRI RLE - osteomyelitis, cellulitis, no abscess Right toe wound culture from 05/06/18 - Klebsiella and Staph aureus ([facility] Gluteal wound culture - gram negative rods Plan: 1. Diabetic diet, strict glucose control 2. IV abx, ID on board 3. packing to right gluteal wound by nursing daily - orders placed 4. dakins packing to right foot wound BID - orders placed and d/w RN 5. offloading, PT consult 6. optimize nutrition, antiemetics 7. PICC line pending 8. s/p revascularization of RLE by IR on 05/13/18 The patient's great toe with dry gangrene and likely will not be viable. The remainder of the foot has good perfusion. Will need to monitor wound for further breakdown. I have seen the patient with Dr. Cox to evaluate for amputation. The patient may require amputation of the great toe, however does not need to be done urgently. Patient is approved for hyperbaric oxygen. We should start HBOT as soon as possible to help wound healing now that peripheral arterial flow is improved s/p revascularization. This may help to avoid further amputation. I discussed this with the patient. She is tearful but understands. I explained that she will likely need amputation of great toe on right and that if the wound does not heal with IV abx, HBOT, revascularization, may need to consider further amputation. She understands. Thank you, please call with questions. Subjective Date of service: 05/15/18 Narrative: Pt seen and examined. c/o nausea and 1 episode of emesis. No f/c. c/o burning pain in right foot. Objective Vital Signs - 12hr 05/14/18 05/15/18 05/15/18 23:28 01:00 04:52 Temperature 99.4 F Pulse Rate 87 Respiratory 16 16 Rate Respiratory 18 Rate [Bilateral Leg] Blood Pressure 137/75 O2 Sat by Pulse 100 Oximetry - General physical appearance Narrative Exam: Gen; AAOx3. NAD CV: s1, S2+ resp; even and unlabored Ext; R foot dressing removed and all packing removed. Great toe with dry gangrene. There is slough to most of the wound bed. The wound edges are clean. There are some areas of the wound bed with red healthy appearing tissue. There is bone and tendon exposed. Periwound skin is hyperemic, erythematous. Palpable DP pulse. +edema of ankle and foot. +motor 2-5 toes. Foot is warm. Wound bed covered with adaptic, ABD pad and wrapped with kerlix. - Labs 05/15/18 01:02 05/07/18 04:26
--- NOTE | 2018-05-15 11:24 | Progress Note ---
Assessment and Plan Assessment and plan: --Diabetic ulcer with osteomyelitis right foot; wound care Status post debridement again yesterday, antibiotics per ID, OLGA today --Constipation: mom as needed --Revascularization of right lower extremity by IR today With multiple vascular procedures Wound Vac dced, started Plavix --Right facial weakness; possible TIA symptoms resolved neuro workup is in progress, neurology following Carotid Doppler; right and left internal carotid artery flow within normal limits CT head no acute abnormalities, Physical therapy, neurology following --Type 2 diabetes mellitus; Accu-Chek sliding scale coverage and ADA diet, Insulin as needed Patient's hemoglobin A1c is 11.5, however her blood sugars are within normal limits DC long-acting insulin Lantus, continue sliding scale coverage with Regular Insulin --Diabetic nephropathy; stable on gabapentin and supportive care --Hypertension; moderate control Continue current antihypertensives and when necessary medications --Dyslipidemia; continue statin, low cholesterol diet --Severe Malnutrition/hypoalbuminemia; nutrition supplements and supportive care --DVT prophylaxis; Lovenox --Moderate obesity; BMI 38.0, advised weight reduction When medically stable Physical therapy occupational therapy Plan of care is reviewed with the patient and her nurse History Interval history: Patient seen and examined medical records reviewed Patient underwent OLGA today No new complaints vital signs reviewed Hospitalist Physical - Constitutional Vitals: Temp Pulse Resp BP Pulse Ox 99.4 F 87 16 137/75 100 05/15/18 04:52 05/15/18 04:52 05/15/18 04:52 05/15/18 04:52 05/15/18 04:52 General appearance: Present: no acute distress, well-nourished, obese - EENT Eyes: Present: PERRL, scleral icterus - Neck Neck: Present: supple, normal ROM - Respiratory Respiratory effort: normal - Cardiovascular Rhythm: regular - Extremities Extremities: no ischemia, pulses intact - Abdominal General gastrointestinal: soft, non-tender, non-distended, normal bowel sounds - Integumentary Integumentary: Present: clear, warm - Psychiatric Psychiatric: appropriate mood/affect, cooperative - Neurologic Neurologic: moves all extremities Results - Labs CBC & Chem 7: 05/15/18 01:02 05/07/18 04:26 Labs: Laboratory Last Values WBC 14.4 K/mm3 (4.5-11.0) H 05/15/18 01:02 RBC 3.27 M/mm3 (3.65-5.03) L 05/15/18 01:02 Hgb 8.3 gm/dl (10.1-14.3) L 05/15/18 01:02 Hct 25.5 % (30.3-42.9) L 05/15/18 01:02 MCV 78 fl (79-97) L 05/15/18 01:02 MCH 25 pg (28-32) L 05/15/18 01:02 MCHC 32 % (30-34) 05/15/18 01:02 RDW 13.9 % (13.2-15.2) 05/15/18 01:02 Plt Count 436 K/mm3 (140-440) 05/15/18 01:02 Lymph % (Auto) 13.5 % (13.4-35.0) 05/15/18 01:02 [place] % (Auto) 7.1 % (0.0-7.3) 05/15/18 01:02 Eos % (Auto) 2.1 % (0.0-4.3) 05/15/18 01:02 Baso % (Auto) 0.2 % (0.0-1.8) 05/15/18 01:02 Lymph # 1.9 K/mm3 (1.2-5.4) 05/15/18 01:02 [place] # 1.0 K/mm3 (0.0-0.8) H 05/15/18 01:02 Eos # 0.3 K/mm3 (0.0-0.4) 05/15/18 01:02 Baso # 0.0 K/mm3 (0.0-0.1) 05/15/18 01:02 Seg Neutrophils % 77.1 % (40.0-70.0) H 05/15/18 01:02 Seg Neutrophils # 11.1 K/mm3 (1.8-7.7) H 05/15/18 01:02 ESR > 140.0 mm/Hr (0-20) 05/08/18 01:07 Activated Clotting Time 169 (74-137) H 05/13/18 10:10 Sodium 131 mmol/L (137-145) L 05/07/18 04:26 Potassium 3.6 mmol/L (3.6-5.0) 05/07/18 04:26 Chloride 94.1 mmol/L (98-107) L 05/07/18 04:26 Carbon Dioxide 26 mmol/L (22-30) 05/07/18 04:26 Anion Gap 15 mmol/L 05/07/18 04:26 BUN 8 mg/dL (7-17) 05/07/18 04:26 Creatinine 0.6 mg/dL (0.7-1.2) L 05/07/18 04:26 Estimated GFR > 60 ml/min 05/07/18 04:26 BUN/Creatinine Ratio 13 % 05/07/18 04:26 Glucose 292 mg/dL (65-100) H 05/07/18 04:26 POC Glucose 203 (70-105) H 05/15/18 07:29 Hemoglobin A1c 11.5 % (4-6) H 05/08/18 04:46 Calcium 8.6 mg/dL (8.4-10.2) 05/07/18 04:26 Total Bilirubin 0.30 mg/dL (0.1-1.2) 05/07/18 04:26 AST 5 units/L (5-40) 05/07/18 04:26 ALT < 5 units/L (7-56) L 05/07/18 04:26 Alkaline Phosphatase 93 units/L (35-129) 05/07/18 04:26 C-Reactive Protein 13.70 mg/dL (0.00-1.30) H 05/08/18 01:07 Total Protein 6.8 g/dL (6.3-8.2) 05/07/18 04:26 Albumin 2.6 g/dL (3.9-5) L 05/07/18 04:26 Albumin/Globulin Ratio 0.6 % 05/07/18 04:26 Vancomycin Trough 13.4 ug/mL (5.0-20.0) 05/08/18 09:00 Active Medications - Current Medications Current Medications: Generic Name Dose Route Start Last Admin Trade Name Freq PRN Reason Stop Dose Admin Acetaminophen 650 mg 05/06/18 14:48 05/11/18 17:54 Tylenol PO 650 mg Q6H PRN Administration Pain, Mild (1-3) Al Hydrox/Mg Hydrox/Simethicone 30 ml 05/14/18 22:24 03/26/19 22:58 Alum-Mag Hydrox-Simeth 468-870-51qb/5ml PO 30 ml Q4H PRN Administration Indigestion Aspirin 325 mg 05/07/18 11:00 05/14/18 16:31 Aspirin PO 325 mg QDAY JUANITA Administration Atorvastatin Calcium 40 mg 05/07/18 22:00 05/14/18 22:42 Lipitor PO 40 mg QHS JUANITA Administration Benzocaine 3 spray 05/15/18 11:00 Hurricaine One 20% Topical [place] MM PREOP NR Carisoprodol 350 mg 05/07/18 11:00 05/14/18 21:50 Soma PO 350 mg TID JUANITA Administration Clopidogrel Bisulfate 75 mg 05/13/18 11:00 05/14/18 16:30 Plavix PO 75 mg QDAY JUANITA Administration Diazepam 5 mg 05/07/18 11:00 Valium PO BID PRN Anxiety Enoxaparin Sodium 40 mg 05/11/18 22:00 05/15/18 00:12 Lovenox SUB-Q 40 mg QDAY@2200 JUANITA Administration Fentanyl 50 mcg 05/14/18 11:16 05/14/18 13:10 Sublimaze IV 50 mcg Q5MIN PRN Administration Pain , Severe (7-10) Gabapentin 300 mg 05/07/18 11:00 05/14/18 22:42 Neurontin PO 300 mg BID JUANITA Administration Hydromorphone HCl 0.5 mg 05/06/18 14:47 05/14/18 22:58 Dilaudid IV 0.5 mg Q3H PRN Administration Pain , Severe (7-10) Cefazolin Sodium 2 gm/ Sodium 100 mls @ 200 mls/hr 05/10/18 14:00 05/15/18 05:49 Chloride IV 06/21/18 13:59 200 mls/hr Q8HR JUANITA Administration Protocol Sodium Chloride 500 mls @ 50 mls/hr 05/13/18 08:00 05/13/18 08:21 Nacl 0.9% 500 Ml IV 50 mls/hr DIRECT JUANITA Administration Sodium Chloride 1,000 mls @ 75 mls/hr 05/13/18 15:00 05/13/18 16:50 Nacl 0.45% 1000 Ml IV 75 mls/hr DIRECT JUANITA Administration Insulin Glargine 10 units 05/14/18 10:25 05/14/18 22:43 Lantus SUB-Q 10 units QHS JUANITA Administration Insulin Human Lispro 0 unit 05/06/18 18:33 05/15/18 08:32 Humalog SUB-Q 3 unit ACHS JUANITA Administration Protocol Insulin Human Lispro 6 unit 05/09/18 16:30 05/14/18 19:56 Humalog SUB-Q Not Given AC JUANITA Lisinopril 20 mg 05/07/18 11:00 05/14/18 16:30 Zestril PO 20 mg DAILY JUANITA Administration Magnesium Hydroxide 30 ml 05/15/18 11:20 Milk Of Magnesia PO 05/15/18 11:21 ONCE ONE Magnesium Hydroxide 30 ml 05/15/18 11:20 Milk Of Magnesia PO QDAY PRN Constipation Metoclopramide HCl 10 mg 05/11/18 13:10 05/14/18 22:42 Reglan PO 10 mg ACHS PRN Administration Nausea And Vomiting Nicotine 14 mg 05/06/18 17:00 05/14/18 16:30 Habitrol TD 14 mg QDAY JUANITA Administration Ondansetron HCl 4 mg 05/06/18 14:55 05/13/18 06:03 Zofran IV 4 mg Q6H PRN Administration Nausea And Vomiting Sodium Hypochlorite 1 applic 05/15/18 10:15 Dakin's Half Strength TP Q12H PRN Wound Care Tramadol HCl 50 mg 05/07/18 07:09 05/14/18 16:18 Ultram PO 50 mg Q6HR PRN Administration Pain Ziprasidone 40 mg 05/07/18 12:00 05/14/18 22:42 Geodon PO 40 mg BID JUANITA Administration Nutrition/Malnutrition Assess - Dietary Evaluation Nutrition/Malnutrition Findings: Nutrition Notes Start: 05/07/18 15:26 Freq: Status: Active Protocol: Document 05/13/18 13:07 OH (Rec: 05/13/18 13:27 OH [id number]) Nutrition Notes Need for Assessment generated from: LOS Initial or Follow up Assessment Current Diagnosis Diabetes,Sepsis Other Pertinent Diagnosis R FOOT WOUND; Osteomylitis; smoker Current Diet Consistent CHO Labs/Tests Na131 K+ 3.6 Alb 2.6 Pertinent Medications Lovenox Humalog Plavix Lantus Height 5 ft 10 in Weight 121.5 kg [place] Body Weight (kg) 68.18 BMI 38.4 Intake Prior to Admission Fair Weight Status Morbidly Obese Subjective/Other Information Pt. previously screened for skin risk. Pt. lying in bed post surgery for revascularization of R foot. Pt. admitted from wound clinic due to cellulitis. Pt. w/hx of smoking. Pt. reports she checks bs 6x/day. Pt. unable to verbalize kal hgba1c was and why measured. Pt. verbalized consumpmtion of fruit punch/water at home. She states she exercises on the treadmill 1-2x wk for 30 minutes but unsure if that occurs based on hx and BMI. Percent of energy/protein needs met: >50% Burn Absent Trauma Absent Current % PO Fair (50-74%) #2 Nutrition Diagnosis Food and nutrition-related knowledge deficit Etiology inadequate DM related education As Evidenced by Signs and Symptoms poor understanding of diabetic recommendations and affects of high bloodsugar levels Diagnosis Progress(for reassessment Continues documentation) #1 Nutrition Diagnosis Increased nutrient needs ( specify in comment below) Comments: PROTEIN Etiology Increased nutrient needs As Evidenced by Signs and Symptoms R foot wound/hx cellulitis/ debridement/osteomylitis Is patient on ventilator? No Is Patient Ambulatory and/or Out of Bed No REE-(D Lo-St. or-confined to bed) 2337.072 Kcal/Kg value to use for calculation 18 Approximate Energy Requirements Using 2187 kcal/Kg Calculation Used for Recommendations Kcal/kg Additional Notes PRO 0.8-1.0 g/kg/adj bw 66-82 g/day ADJ BW 81.3 kgs Nutrition Intervention Change Diet Order: Cont Consistent CHO diet Add Supplement/Snack (indicate name/kcal SAVANNA BID /protein ) Provides kCal: 190 Provides Protein (gm) 5 Teaching Recipient Patient Learning Readiness Fair Teaching Methods Discussion,Handout Response to Teaching Verbalize understanding, Reinforcement needed Education Handouts Provided ADA counting CHO; Discussed w/ pt why/how often hgba1c is tested. Enc pt to follow up w/ PCP regarding better control of diabetes. Sugg limiting simple CHO foods such as fruit punch/packaged foods as often as possible to improve health status and reduce wt. Barriers to Learning Motivation,Physical,Age related,Cultural,Financial, Environmental,Social RD phone number provided Yes Patient aware of follow up options Yes Goal #1 Consumption of >75% of meal trays to meet kcal/PRO needs Goal #2 Initiation of [place] bid to increase wound healing Anticipated Discharge Needs: DM referral Follow-Up By: 05/16/18
[2018-05-15] MEDS ORDERED: NACL 0.9% 500 ML 500 ML IV SCH (12:00)
[2018-05-15] MEDS ORDERED: MILK OF MAGNESIA PO ONE (12:00)
--- NOTE | 2018-05-15 12:22 | Operative Report ---
PREOPERATIVE DIAGNOSIS: Infected right diabetic foot wound. POSTOPERATIVE DIAGNOSIS: Infected right diabetic foot wound. FINDINGS: Abscess cavity tunneling to the mid foot, plantar aspect. Necrotic subcutaneous tissue. Tendon and bone visible. Postoperative wound measurements are 10 cm x 5 cm x 3 cm. PROCEDURE: Excisional debridement of infected right foot wound, skin, subcutaneous tissue, bone. ANESTHESIA: MAC. SURGEON: Cathleen Dong DO ESTIMATED BLOOD LOSS: Minimal. PATHOLOGY: None. CONDITION: Stable. DISPOSITION: To PACU. HISTORY OF PRESENT ILLNESS AND INDICATION: The patient is a 43-year-old female, who has a history of an infected right diabetic foot wound. She was taken to the OR on 05/08/2018 for debridement, where she did have exposed bone of her great toe, abscess cavity at the dorsal aspect of the foot and necrotic skin and subcutaneous tissue, which were all debrided. The patient then went for vascular studies, which showed significant occlusion of the right SFA for which she underwent revascularization on 05/13/2018. Unfortunately, on the last dressing change, the wound did appear to have deteriorated and therefore it was decided to take the patient back to the operating room. I discussed all risks, benefits, alternatives of surgery with the patient and consent was obtained. DESCRIPTION OF PROCEDURE: The patient was identified in the preoperative area and taken back to the operating room, placed on the operating table in supine position. After anesthesia was induced, a bump was placed behind the right calf in order to elevate the right foot. The dressing and packing were removed and the foot was prepped with Betadine in the usual sterile fashion. The foot was then draped in sterile fashion and a timeout performed. The necrotic skin, subcutaneous tissue and bone were then debrided sharply using forceps, scissors, 15 blade and curette. Periwound callus was debrided sharply using forceps and scissors. The wound was probed and there was an extensive tunnel going from the wound to the mid foot, plantar aspect. Upon exploring this area, there was expression of purulent material and therefore, the skin overlying the abscess cavity was excised and connected to the remainder of the wound and the abscess cavity unroofed completely. All of the purulent material was expressed. Devitalized subcutaneous tissue and skin were removed sharply using forceps, scissors as well as a 15 blade. The remainder of the wound was probed and no other abscess cavities were identified. There was good bleeding from the wound edges as well as from the base of the wound. The first metatarsal was completely exposed and there was poor perfusion of the surrounding subcutaneous tissue in this area. The great toe had dry gangrene and there was no bleeding from the wound bed in this area. The wound was irrigated copiously with pulse lavage. The bleeding was controlled with a combination of electrocautery, pressure, Surgicel. Surgicel was packed into the mid and proximal part of the wound and the wound bed compressed. At the end of the case, there was adequate hemostasis without bleeding. The wound was then packed with 1 piece of saline moistened Kerlix. The periwound tissue was covered with Adaptic and the entire wound was then covered with 4 x 4 gauze, ABD pad, and wrapped with Kerlix. The Kerlix was secured with tape. At the end of the case; all sponge, instrument, sharp counts were correct x 2. The patient was awoken from anesthesia and taken to PACU in stable condition. JOB# [id number] ZENY/RICK
--- NOTE | 2018-05-15 13:23 | Anesthesia Day of Surgery ---
Anesthesia Day of Surgery - Day of Surgery Patient Examined: Yes Patient H&P Reviewed: Yes Patient is NPO: Yes
--- NOTE | 2018-05-15 13:52 | Progress Note ---
Subjective Date of service: 05/15/18 Principal diagnosis: Rt foot wound and cellulitis Interval history: post surgical wound of foot new labs show mild anemia will check B12 /Folate as could be answer to spinal myoclonus otherwise monitor closely Objective - Vital Sign Vital Signs - 12hr 05/15/18 05/15/18 05/15/18 04:52 11:48 11:55 Temperature 99.4 F Pulse Rate 87 Pulse Rate [ 96 H 76 Intra-Procedure ] Pulse Rate [ Post-Procedure] Respiratory 16 Rate Respiratory 20 20 Rate [Intra- Procedure] Respiratory Rate [Post- Procedure] Blood Pressure 137/75 Blood Pressure 167/91 140/77 [Intra- Procedure] Blood Pressure [Post-Procedure ] O2 Sat by Pulse 100 Oximetry O2 Sat by Pulse 100 95 Oximetry [ Intra-Procedure ] O2 Sat by Pulse Oximetry [Post -Procedure] 05/15/18 05/15/18 05/15/18 11:59 12:03 12:05 Temperature Pulse Rate Pulse Rate [ 82 85 80 Intra-Procedure ] Pulse Rate [ Post-Procedure] Respiratory Rate Respiratory 22 20 16 Rate [Intra- Procedure] Respiratory Rate [Post- Procedure] Blood Pressure Blood Pressure 138/77 133/80 123/78 [Intra- Procedure] Blood Pressure [Post-Procedure ] O2 Sat by Pulse Oximetry O2 Sat by Pulse 100 100 100 Oximetry [ Intra-Procedure ] O2 Sat by Pulse Oximetry [Post -Procedure] 05/15/18 05/15/18 12:22 12:30 Temperature Pulse Rate Pulse Rate [ Intra-Procedure ] Pulse Rate [ 95 H 92 H Post-Procedure] Respiratory Rate Respiratory Rate [Intra- Procedure] Respiratory 20 18 Rate [Post- Procedure] Blood Pressure Blood Pressure [Intra- Procedure] Blood Pressure 181/63 165/95 [Post-Procedure ] O2 Sat by Pulse Oximetry O2 Sat by Pulse Oximetry [ Intra-Procedure ] O2 Sat by Pulse 100 Oximetry [Post -Procedure] - Laboratory Findings CBC and BMP: 05/15/18 01:02 05/07/18 04:26 Abnormal Lab Findings: Abnormal Labs 05/06/18 05/06/18 05/06/18 15:37 20:03 22:14 WBC 18.6 H RBC Hgb Hct 30.0 L MCV MCH 27 L MCHC 35 H Plt Count 539 H Lymph % (Auto) 12.8 L Forrest % (Auto) Forrest # 1.3 H Seg Neutrophils % 78.2 H Seg Neutrophils # 14.5 H Activated Clotting Time Sodium Chloride Creatinine Glucose POC Glucose 428 H 281 H Hemoglobin A1c ALT C-Reactive Protein Albumin 05/07/18 05/07/18 05/07/18 04:26 07:34 07:43 WBC 14.2 H RBC Hgb Hct MCV MCH 26 L MCHC Plt Count 475 H Lymph % (Auto) Forrest % (Auto) 7.7 H Forrest # 1.1 H Seg Neutrophils % 75.4 H Seg Neutrophils # 10.7 H Activated Clotting Time Sodium 131 L Chloride 94.1 L Creatinine 0.6 L Glucose 292 H POC Glucose 252 H Hemoglobin A1c ALT < 5 L C-Reactive Protein Albumin 2.6 L 05/07/18 05/07/18 05/07/18 12:09 16:09 21:48 WBC RBC Hgb Hct MCV MCH MCHC Plt Count Lymph % (Auto) Forrest % (Auto) Forrest # Seg Neutrophils % Seg Neutrophils # Activated Clotting Time Sodium Chloride Creatinine Glucose POC Glucose 252 H 277 H 290 H Hemoglobin A1c ALT C-Reactive Protein Albumin 05/08/18 05/08/18 05/08/18 01:07 01:07 04:46 WBC 14.6 H RBC Hgb 10.0 L Hct 30.2 L MCV MCH 26 L MCHC Plt Count 485 H Lymph % (Auto) 11.4 L Forrest % (Auto) 8.0 H Forrest # 1.2 H Seg Neutrophils % 78.8 H Seg Neutrophils # 11.5 H Activated Clotting Time Sodium Chloride Creatinine Glucose POC Glucose Hemoglobin A1c 11.5 H ALT C-Reactive Protein 13.70 H Albumin 05/08/18 05/08/18 05/08/18 07:29 12:18 14:05 WBC RBC Hgb Hct MCV MCH MCHC Plt Count Lymph % (Auto) Forrest % (Auto) Forrest # Seg Neutrophils % Seg Neutrophils # Activated Clotting Time Sodium Chloride Creatinine Glucose POC Glucose 289 H 204 H 178 H Hemoglobin A1c ALT C-Reactive Protein Albumin 05/08/18 05/08/18 05/08/18 15:08 16:16 21:20 WBC RBC Hgb Hct MCV MCH MCHC Plt Count Lymph % (Auto) Forrest % (Auto) Forrest # Seg Neutrophils % Seg Neutrophils # Activated Clotting Time Sodium Chloride Creatinine Glucose POC Glucose 177 H 241 H 298 H Hemoglobin A1c ALT C-Reactive Protein Albumin 0305/09/18 05/09/18 07:34 11:15 16:02 WBC RBC Hgb Hct MCV MCH MCHC Plt Count Lymph % (Auto) Forrest % (Auto) Forrest # Seg Neutrophils % Seg Neutrophils # Activated Clotting Time Sodium Chloride Creatinine Glucose POC Glucose 226 H 201 H 263 H Hemoglobin A1c ALT C-Reactive Protein Albumin 05/09/18 05/10/18 05/10/18 21:36 00:26 11:04 WBC 18.9 H RBC Hgb 9.4 L Hct 28.9 L MCV 78 L MCH 26 L MCHC Plt Count 502 H Lymph % (Auto) 11.3 L Forrest % (Auto) 8.0 H Forrest # 1.5 H Seg Neutrophils % 79.2 H Seg Neutrophils # 15.0 H Activated Clotting Time Sodium Chloride Creatinine Glucose POC Glucose 136 H 119 H Hemoglobin A1c ALT C-Reactive Protein Albumin 05/10/18 05/10/18 05/11/18 17:19 22:21 07:48 WBC RBC Hgb Hct MCV MCH MCHC Plt Count Lymph % (Auto) Forrest % (Auto) Forrest # Seg Neutrophils % Seg Neutrophils # Activated Clotting Time Sodium Chloride Creatinine Glucose POC Glucose 150 H 120 H 122 H Hemoglobin A1c ALT C-Reactive Protein Albumin 05/11/18 05/11/18 05/12/18 16:54 22:01 08:05 WBC RBC Hgb Hct MCV MCH MCHC Plt Count Lymph % (Auto) Forrest % (Auto) Forrest # Seg Neutrophils % Seg Neutrophils # Activated Clotting Time Sodium Chloride Creatinine Glucose POC Glucose 210 H 196 H 271 H Hemoglobin A1c ALT C-Reactive Protein Albumin 05/12/18 05/12/18 05/12/18 12:15 16:56 21:18 WBC RBC Hgb Hct MCV MCH MCHC Plt Count Lymph % (Auto) Forrest % (Auto) Forrest # Seg Neutrophils % Seg Neutrophils # Activated Clotting Time Sodium Chloride Creatinine Glucose POC Glucose 235 H 312 H 167 H Hemoglobin A1c ALT C-Reactive Protein Albumin 05/13/18 05/13/18 05/13/18 07:22 10:10 12:53 WBC RBC Hgb Hct MCV MCH MCHC Plt Count Lymph % (Auto) Forrest % (Auto) Forrest # Seg Neutrophils % Seg Neutrophils # Activated Clotting Time 169 H Sodium Chloride Creatinine Glucose POC Glucose 276 H 233 H Hemoglobin A1c ALT C-Reactive Protein Albumin 05/13/18 05/13/18 05/14/18 16:14 21:40 07:57 WBC RBC Hgb Hct MCV MCH MCHC Plt Count Lymph % (Auto) Forrest % (Auto) Forrest # Seg Neutrophils % Seg Neutrophils # Activated Clotting Time Sodium Chloride Creatinine Glucose POC Glucose 247 H 248 H 288 H Hemoglobin A1c ALT C-Reactive Protein Albumin 05/14/18 05/14/18 05/14/18 10:49 12:32 16:29 WBC RBC Hgb Hct MCV MCH MCHC Plt Count Lymph % (Auto) Forrest % (Auto) Forrest # Seg Neutrophils % Seg Neutrophils # Activated Clotting Time Sodium Chloride Creatinine Glucose POC Glucose 204 H 199 H 249 H Hemoglobin A1c ALT C-Reactive Protein Albumin 05/14/18 05/15/18 05/15/18 21:55 01:02 07:29 WBC 14.4 H RBC 3.27 L Hgb 8.3 L Hct 25.5 L MCV 78 L MCH 25 L MCHC Plt Count Lymph % (Auto) Forrest % (Auto) Forrest # 1.0 H Seg Neutrophils % 77.1 H Seg Neutrophils # 11.1 H Activated Clotting Time Sodium Chloride Creatinine Glucose POC Glucose 198 H 203 H Hemoglobin A1c ALT C-Reactive Protein Albumin
[2018-05-15] MEDS ORDERED: MIRALAX 3350 PO PRN (14:00)
[2018-05-15] MEDS: ZESTRIL PO SCH (14:02)
[2018-05-15] MEDS: PLAVIX PO SCH (14:02)
[2018-05-15] MEDS: NEURONTIN PO SCH ×2 (14:03→21:19)
[2018-05-15] MEDS: GEODON PO SCH ×2 (14:03→21:20)
[2018-05-15] MEDS: HABITROL TD SCH (14:03)
[2018-05-15] MEDS: REGLAN PO PRN (14:03)
[2018-05-15] MEDS: ULTRAM PO PRN (14:04)
[2018-05-15] MEDS: COLACE PO SCH ×2 (15:02→22:06)
[2018-05-15] MEDS: NACL 0.45% 1000 ML 1,000 ML IV SCH (16:36)
[2018-05-15] MEDS: LANTUS SUB-Q SCH (21:20)
[2018-05-15] MEDS: DILAUDID IV PRN (21:29)
[2018-05-16] MEDS: ceFAZolin 2 GM in NACL 0.9% 100 ML IV SCH ×2 (05:10→14:58)
[2018-05-16 05:38] VITALS: BP 140/62
[2018-05-16] MEDS ORDERED: MILK OF MAGNESIA PO PRN (06:00)
--- NOTE | 2018-05-16 09:20 | Progress Note ---
Assessment and Plan Cultures: 04/14/18 right foot wound: MSSA 05/06/18 Blood: Staph aureus, 2 out of 2 bottles 05/06/18 MRSA PCR: negative 05/06/18 right foot wound: Klebsiella and Staph aureus, erazo susceptible 05/08/18 Blood: MSSA 1 out of 2 bottles 05/10/18 Blood: no growth 05/10/18 Gluteal: MDR E.coli and klebsiella A/P: 42-year-old patient a past medical history of uncontrolled DM, know to ID from a previous admisson on 04/13/18 due to worsening right plantar foot wound. MRI at that time showed small abscess at the 1st MT head 1.3x1.2 cm with no evidence of osteomylitis. Debridement at the bedside on 04/14/18 finding necrotic skin and sucutaneous tissue with drainage of minimal purulent fluid. Right food wound culture grew Staph aureus and patient was discharged home on Zyvox 600mg PPo for 14 days. The patient presented on 05/06/18 for her weekly visit at the wound care center and her wound was seen to have deteriorated with increasing cellulitis over the lateral and doral aspect of the foot with purulent drainage. Now admitted with: 1. Sepsis: Improved,leukocytosis trending down. No fevers. Etiology Staph aureus bacteremia. Source, right diabetic foot ulcer, right gluteal wound. no Fever. Patient currently being treated with cefazolin. Staph aureus bacteremia, 2 out of 2 bottles, repeat culture GPC 1 out of 2 bottles, Final cultures on 05/10/18 showed no growth. -ESR >140 -CRP 13.70 -CRP 11.10 2. Staph aureus bacteremia: 2 out of 2 bottles, source right diabetic foot infection. f/u repeat blood cultures show Staph aureus 1 out of 2 bottles, repeat cultures show no growth. TTE shows no valvular vegetation, OLGA negative per cardiology. 3. Diabetic Foot Wound with necrotizing infection and osteomyelitis: First metatarsal right foot. wound measures 5.5x4.0x2.5 , no odor. S/p debrdement with bone visible. at wound care office 05/06/18. Given bone exposure in a diabetic foot wound, will treat as acute osteomyelitis. s/p excisional debridement 05/08/18. Culture grew Klebsiella and staph aureus, erazo susceptible. Further excisional debridement today, abscess cavity tunneling to mid foot, plantar aspect, necrotic subcutaneous tissue. Tendon and bone visible. At the end of procedure wound measured 10 cm x 5 cm x 3 cm. The patient's great toe with dry gangrene and likely will not be viable. The remainder of the foot has good perfusion, amputation of the great toe likely, will attempt wound healing with OPAT, HBOT and revasulazation. Dr. Dong discussed with patient. Arterial Gram: Calcified atherosclerotic plaque is seen throughout the right lower extremity arterial system. There is no flow within the right distal superficial femoral artery concerning for occlusion. No aneurysm was seen MRI of right foot: Abnormal signal changes seen in the distal end of the first metatarsal, proximal phalanx of the great toe and medial sesamoid bone as described with enhancement consistent with osteomyelitis. 4. Type 2 Diabetes Mellitus: Recommend tight gylcemic control. 5. Penicillin Allergy: Remote allergy reported rash. Has taken Amoxicillin in the past without reaction. Tolerating cephalosporin without reaction. 6. Tobacco Abuse: recommended smoking cessation. 7. Right buttock wound - history of bacteremia 2012 and 2014, +/- MRSA. Gluteal culture grew MDR E. coli and Kelbsiella. Abdomen and Pelvis CT: There is no evidence of an abscess in the soft tissues of the right buttock. 8. History of CVA 2017- CT of head shows no acute CVA, intracranial bleed or brain mass. New onset right side weakness. Resolved. MRI Brain- No areas of abnormal intracranial signal and no evidence of intracranial mass. There is no evidence of acute ischemia nor intracranial hemorrhage. MRA Head- No evidence of arterial occlusion or significant arterial stenosis . 9. Peripheral Vascular disease: s/p Angioplasty of right superficial femoral artery 05/13/18. Dr. Juarez following Plan: -Anticipate discharge on Cefazolin 2gms q 8 hours for total 6 weeks ending 06-21-18 -Amputation of right great toe likely in the future, will attempt wound healing with OPAT, HBOT and revasculazation -continue cefazolin 2gm q 8, which covers MSSA septicemia and Ecoli/Kleb from gluteal wound, D6 -f/u ID office 05-30-18 [facility] M: [id number] O:[phone] - Subjective Date of service: 05/16/18 Principal diagnosis: Rt foot wound and cellulitis Interval history: Patient seen and examined. Sitting on the side of the bed eating. No acute distress, no fevers. Being discharged today, discussion regarding OPAT and importance of F/U in ID clinic, verbalized understanding. Objective - Exam Narrative Exam: Constitutional: Awake. Alert . no acute distress Head, Ears, Nose: Normocephalic, atraumatic. External ears, nose normal Eyes: Conjunctivae/corneas clear. No icterus. No ptosis. Neck: Supple, no meningeal signs Oral: dentition fair, no. thrush Cardiovascular: S1, S2 normal. Respiratory: Good air entry, clear to auscultation bilaterally GI: Soft, non-tender; bowel sounds normal. No peritoneal signs Musculoskeletal: No pedal edema, Diabetic foot wound first metarsal to the right foot., Per wound care: wound measurements 5.5x4.0x2.5. Right gluteal wound, + prulent drainage. Skin: no rash, no edema, + right foot dressing, s/p excisional debridement and revasculazation, Right great toe shows evidence of gangrene. Hem/Lymphatic: No palpable cervical or supraclavicular nodes. No lymphangitis Psych: Mood ok. Affect normal Neurological: Awake, alert, - Constitutional Vitals: Vital Signs Temp Pulse Resp BP Pulse Ox 98.2 F 91 H 18 140/62 99 05/16/18 04:16 05/16/18 04:16 05/16/18 04:16 05/16/18 04:16 05/16/18 04:16 Temperature -Last 24 Hours Temperature 98.2 F Temperature 97.7 F Temperature 98.3 F - Labs CBC & Chem 7: 05/15/18 01:02 05/07/18 04:26 Labs: Abnormal lab results 05/15/18 05/15/18 05/15/18 Range/Units 15:26 17:19 21:15 POC Glucose 292 H 114 H (70-105) C-Reactive Protein (0.00-1.30) mg/dL Vitamin B12 917.5 H (211-911) pg/mL 05/15/18 05/16/18 Range/Units Unknown 08:25 POC Glucose 242 H (70-105) C-Reactive Protein 11.10 H (0.00-1.30) mg/dL Vitamin B12 (211-911) pg/mL
[2018-05-16] MEDS: HumaLOG SUB-Q SCH ×4 (09:50→13:22)
[2018-05-16] MEDS: REGLAN PO PRN (09:50)
[2018-05-16] MEDS: SOMA PO SCH (09:51)
[2018-05-16] MEDS ORDERED: HALFPRIN EC PO SCH (10:00)
[2018-05-16] MEDS ORDERED: MILK OF MAGNESIA PO ONE (10:30)
[2018-05-16] MEDS ORDERED: DULCOLAX PR ONE (10:30)
--- NOTE | 2018-05-16 11:49 | Event Note ---
Date: 05/16/18 Attempted to see patient but she was in the bathroom. Her family was at the bedside - sister and mother. I reviewed the patient's clinical status and plan with them at patient's request. I explained to them that the patient was sent to the hospital due to wound infection of right foot. She has had debridement, revascularization, and IV abx. Her blood sugars are being monitored. Despite aggressive wound care, her great toe shows evidence of dry gangrene and will need to be amputated. We will continue aggressive wound care along with outpatie nt HBOT to attempt to heal the remainder of the wound. In addition, she will need better nutrition. Physical Therapy Instructor has seen the patient today. They understand and eventually want the patient to move to [place] with them to continue care. They are agreeable to the plan as outlined above
[2018-05-16] MEDS: HABITROL TD SCH (12:29)
[2018-05-16] MEDS: GEODON PO SCH (12:30)
[2018-05-16] MEDS: COLACE PO SCH (12:30)
[2018-05-16] MEDS: NEURONTIN PO SCH (12:30)
[2018-05-16] MEDS: PLAVIX PO SCH (12:30)
--- NOTE | 2018-05-16 12:37 | Event Note ---
Date: 05/16/18 OLGA yesterday negative. Full report dictated. Tyron GILBERT NP / DR. Rolando SHEIKH
[2018-05-16] MEDS ORDERED: DECADRON IV SCH (13:02)
--- NOTE | 2018-05-16 13:12 | Discharge Summary ---
<MEKA BATES - Last Filed: 05/16/18 13:30> Providers - Providers Date of Admission: 05/06/18 13:55 Attending physician: ARYAN CUNHA 05/06/18 16:50 Consult to Wound/ET Nurse [CONS] Routine Reason For Exam: RIGHT FOOT 05/06/18 19:19 Consult to Physician [CONS] Routine Comment: Consulting Provider: AMOR MONTILLA Physician Instructions: Reason For Exam: osteomyelitis, foot wound 05/07/18 07:17 Consult to Physician [CONS] Routine Comment: Consulting Provider: MEKA BATES Physician Instructions: Reason For Exam: Rt foot wound 05/09/18 16:07 Consult to Physician [CONS] Routine Comment: Consulting Provider: LARRY WIGGINS Physician Instructions: Reason For Exam: RLE wound, PAD 05/09/18 16:36 Consult to Case Management [CONS] Routine Services Needed at Discharge: DME Equipment Notified:: copy given to CM Comment:: knee scooter Consult to PICC Line RN [CONS] Routine Reason For Exam: senior care IV abx Type Line:: PICC Physical Therapy Evaluation and Treat [CONS] Routine Comment: NON weight bear Right foot Reason For Exam: right lower extremity wound Weight bearing status?: Nonwt bearing Assistive devices?: Yes 05/11/18 07:29 Consult to Physician [CONS] Routine Comment: Consulting Provider: AKBAR APODACA Physician Instructions: Reason For Exam: New CVA??? 05/13/18 10:44 Consult to Case Management [CONS] Routine Services Needed at Discharge: Home Health Services Wound Vac Notified:: gabriela Additional Physician Instructions: [facility] ([facility] M [phone] O [phone] F [phone] OUTPATIENT PARENTERAL ANTIBIOTIC THERAPY ORDERS Diagnoses:Duabetic foot osteomylitis, MSSA bacteremia, Right buttock wound Antimicrobial administration: - Anticipate discharge on Cefazolin 2gms IV q 8 hours for total 6 weeks ending 06-21-18 Remove PICC line after last dose unless otherwise instructed. patient has a Remote penicillian allergy , Tolerating cephalosporin without reaction. Lines: PICC Lab monitoring: CBC, BUN, Creatinine, ALT, AST, CRP, ESR once a week preferly on Sunday morning. Please fax results to [phone] and call [phone] for critical lab results. Starr Escamilla NP/Grecia Hoffman MD Date: 05/13/18 Primary care physician: QUIN JEFFERS Hospitalization Condition: Stable Disposition: DC/[place]-06 HOME UNDER HOME [facility] Exam - Constitutional Vitals: Temp Pulse Resp BP Pulse Ox 98.2 F 91 H 18 140/62 99 05/16/18 04:16 05/16/18 04:16 05/16/18 04:16 05/16/18 04:16 05/16/18 04:16 Plan Wound: per wound nurse instructions (Cleanse wound with wound cleanser. Pack with dakins moistened gauze, cover with 4x4 gauze, ABD pad and wrap with kerlix. Perform dressing changed two times per day.) Follow up with: QUIN JEFFERS MD, PHD [Primary Care Provider] - 7 Days MEKA BATES DO [Staff Physician] - 14 Days GRECIA BAL MD [Staff Physician] - 14 Days Prescriptions: diphenhydrAMINE [Benadryl CAP] 25 mg PO Q8HR PRN #15 capsule PRN Reason: Itching predniSONE [Deltasone] 10 mg PO QDAY #5 tab Nicotine [Habitrol] 14 mg TD QDAY #30 patch Clopidogrel [Plavix] 75 mg PO QDAY #30 tablet <ARYAN CUNHA - Last Filed: 06/01/18 19:00> Providers - Providers Date of Admission: 05/06/18 13:55 Date of discharge: 05/16/18 Attending physician: ARYAN CUNHA 05/06/18 16:50 Consult to Wound/ET Nurse [CONS] Routine Reason For Exam: RIGHT FOOT 05/06/18 19:19 Consult to Physician [CONS] Routine Comment: Consulting Provider: AMOR MONTILLA Physician Instructions: Reason For Exam: osteomyelitis, foot wound 05/07/18 07:17 Consult to Physician [CONS] Routine Comment: Consulting Provider: MEKA BATES Physician Instructions: Reason For Exam: Rt foot wound 05/09/18 16:07 Consult to Physician [CONS] Routine Comment: Consulting Provider: LARRY WIGGINS Physician Instructions: Reason For Exam: RLE wound, PAD 05/09/18 16:36 Consult to Case Management [CONS] Routine Services Needed at Discharge: DME Equipment Notified:: copy given to CM Comment:: knee scooter Consult to PICC Line RN [CONS] Routine Reason For Exam: senior care IV abx Type Line:: PICC Physical Therapy Evaluation and Treat [CONS] Routine Comment: NON weight bear Right foot Reason For Exam: right lower extremity wound Weight bearing status?: Nonwt bearing Assistive devices?: Yes 05/11/18 07:29 Consult to Physician [CONS] Routine Comment: Consulting Provider: AKBAR APODACA Physician Instructions: Reason For Exam: New CVA??? 05/13/18 10:44 Consult to Case Management [CONS] Routine Services Needed at Discharge: Home Health Services Wound Vac Notified:: gabriela Additional Physician Instructions: [facility] M [phone] O [phone] F [phone] OUTPATIENT PARENTERAL ANTIBIOTIC THERAPY ORDERS Diagnoses:Duabetic foot osteomylitis, MSSA bacteremia, Right buttock wound Antimicrobial administration: - Anticipate discharge on Cefazolin 2gms IV q 8 hours for total 6 weeks ending 06-21-18 Remove PICC line after last dose unless otherwise instructed. patient has a Remote penicillian allergy , Tolerating cephalosporin without reaction. Lines: PICC Lab monitoring: CBC, BUN, Creatinine, ALT, AST, CRP, ESR once a week preferly on Sunday morning. Please fax results to [phone] and call [phone] for critical lab results. Starr Escamilla NP/Grecia Hoffman MD Date: 05/13/18 Primary care physician: QUIN JEFFERS Hospitalization Reason for admission: diabetic foot ulcer Pertinent studies: CT abdomen and pelvis Head CT Chest x-ray abdomen Lower extremity and moderate Carotid Doppler Echocardiogram Lower extremity venous Doppler Heart a brain MRA head CT head without contrast OLGA Procedures: Vascularization by IR. Surgical debridement by surgery Hospital course: 41-year-old female patient with history of uncontrolled diabetes mellitus right foot wound infection was admitted through emergency room with worsening wound infection admitted to the hospital symptomatically managed evaluated by surgery ID and medications were optimized., Patient underwent revascularization of the right lower extremity with multiple vascular procedures, As well as surgical debridement Patient has OLGA, negative for endocarditis Blood pressures and blood sugars closely monitored Ratio and had TIA-like symptoms, not a candidate for TPA Evaluated by neurologist, workup was negative Today patient is comfortable no new complaints Vital signs stable, Physical examination unremarkable Cleared by surgery ID cardiology for discharge And follow up as outpatient, The patient is stable at discharge Discharge diagnosis; --Diabetic ulcer with osteomyelitis right foot; stage IV ulcers ,wound care Status post debridement again yesterday, antibiotics per ID, OLGA --Constipation: mom as needed --Revascularization of right lower extremity by IR today With multiple vascular procedures Wound Vac dced, started Plavix --Right facial weakness; possible TIA symptoms resolved neuro workup is in progress, neurology following Carotid Doppler; right and left internal carotid artery flow within normal limits CT head no acute abnormalities, Physical therapy, neurology following --Type 2 diabetes mellitus; Accu-Chek sliding scale coverage and ADA diet, Insulin as needed Patient's hemoglobin A1c is 11.5, however her blood sugars are within normal limits DC long-acting insulin Lantus, continue sliding scale coverage with Regular Insulin --Diabetic nephropathy; stable on gabapentin and supportive care --Hypertension; moderate control Continue current antihypertensives and when necessary medications --Dyslipidemia; continue statin, low cholesterol diet --Severe malnutrition/hypoalbuminemia; nutrition consult Nutrition supplements --DVT prophylaxis; Lovenox --Moderate obesity; BMI 38.0, advised weight reduction When medically stable Physical therapy occupational therapy Plan of care is reviewed with the patient and her nurse Time spent for discharge: 32 min Core Measure Documentation - Palliative Care Palliative Care/ Comfort Measures: Not Applicable - Core Measures Any of the following diagnoses?: none Exam - Constitutional Vitals: Temp Pulse Resp BP Pulse Ox 98.2 F 91 H 18 140/62 99 05/16/18 04:16 05/16/18 04:16 05/16/18 04:16 05/16/18 04:16 05/16/18 04:16 General appearance: Present: no acute distress, well-nourished - EENT Eyes: Present: PERRL, EOM intact - Neck Neck: Present: supple, normal ROM - Respiratory Respiratory effort: normal Respiratory: bilateral: diminished, negative: rales, rhonchi, wheezing - Cardiovascular Rhythm: regular Heart Sounds: Present: S1 & S2 - Extremities Extremities: no ischemia, No edema - Abdominal General gastrointestinal: Present: soft, non-tender, non-distended, normal bowel sounds - Integumentary Integumentary: Present: clear, warm - Musculoskeletal Musculoskeletal: strength equal bilaterally, other (rt foot dressing in place) - Psychiatric Psychiatric: appropriate mood/affect, cooperative - Neurologic Neurologic: moves all extremities Plan Activity: advance as tolerated, fall precautions Diet: diabetic Wound: per wound nurse instructions Additional Instructions: out pt wounnd care per schedule. If you continue to have a recurrent rash, contact Dr. Dalton Fowler or go to emergency room. Cefazolin 2gms q 8 hours for total 6 weeks ending 06-21-18 [rec by , ID]
[2018-05-16] MEDS: ZESTRIL PO SCH (13:21)
[2018-05-16] MEDS ORDERED: BENADRYL PO NR (14:00)
[2018-05-16] MEDS: ULTRAM PO PRN (17:01)
--- NOTE | 2018-05-31 12:29 | Operative Report ---
PREOPERATIVE DIAGNOSIS: Infected right diabetic foot wound. POSTOPERATIVE DIAGNOSIS: Infected right diabetic foot wound. FINDINGS: 1. Exposed bone of great toe. 2. Abscess cavity at the dorsal aspect of the foot. 3. Necrotic skin and subcutaneous tissue. Wound measurements at the end of the case, 8 x 6 x 3 cm. PROCEDURE: Excisional debridement of right infected foot wound. ANESTHESIA: MAC. SURGEON: Cathleen Dong DO ESTIMATED BLOOD LOSS: Minimal. PATHOLOGY: None. CONDITION: Stable. DISPOSITION: To PACU. HISTORY OF PRESENT ILLNESS AND INDICATION: The patient is a 43-year-old female who was seen in the [facility] for routine right foot wound care. She was found to have infected foot wound with necrosis and abscess. The foot wound had significantly broken down since the last visit and therefore it was decided to send her to the hospital for direct admission. She was admitted for IV antibiotics and cultures had been obtained in the wound care center. The wound required extensive debridement, and therefore, all risks, benefits and alternatives to surgery were discussed with the patient and consent obtained. PROCEDURE IN DETAIL: The patient was identified in the preoperative area and taken back to the operating room and placed on operating table in supine position. After anesthesia was induced, the right foot was prepped and draped in the usual sterile fashion. Timeout was performed. An excisional debridement was performed of the right foot wound, which included skin, subcutaneous tissue, bone. This was performed using combination of forceps, scalpel, scissors, and a curette. The bone of the great toe was exposed and this was debrided with a curette. The wound was probed with a cotton-tipped applicator. An abscess cavity was discovered at the dorsal aspect of the foot. All loculations were broken up using cotton-tipped applicator and the purulent fluid all expressed. The wound was then copiously irrigated with saline solution and hemostasis achieved using pressure. The wound was packed with a saline moistened gauze, covered with 4 x 4 gauze and wrapped with Kerlix. The wound measurements at the end of the case were 8 x 6 x 3 cm. At the end of the case, all sponge, instrument, sharp counts were correct x 2. The patient was awoken from anesthesia and taken to PACU in stable condition. JOB# [id number] NK/NTS
== END 2018-05-16 18:15 | disposition home health service (06) | DRG 853 ==
LOC: UNDOADMIN 12:39 → 3A 12:39
PROVIDERS: ADMIT Internal Medicine; ATTEND Internal Medicine
PROC: 04CK3ZZ Extirpation of Matter from Right Femoral Artery, Percutaneous Approach (ICD-10-PCS; 2018-05-06)
PROC: 047K3Z1 Dilation of Right Femoral Artery using Drug-Coated Balloon, Percutaneous Approach (ICD-10-PCS; 2018-05-06)
PROC: B41D1ZZ Fluoroscopy of Aorta and Bilateral Lower Extremity Arteries using Low Osmolar Contrast (ICD-10-PCS; 2018-05-06)
PROC: 0YBM0ZZ Excision of Right Foot, Open Approach (ICD-10-PCS; principal; 2018-05-08)
PROC: 0YBM0ZZ Excision of Right Foot, Open Approach (ICD-10-PCS; 2018-05-14)
DX: A41.01 Sepsis due to Methicillin susceptible Staphylococcus aureus (principal); E43 Unspecified severe protein-calorie malnutrition; M86.171 Other acute osteomyelitis, right ankle and foot; I69.351 Hemiplegia and hemiparesis following cerebral infarction affecting right dominant side; L02.31 Cutaneous abscess of buttock; L03.115 Cellulitis of right lower limb; E66.9 Obesity, unspecified; F17.200 Nicotine dependence, unspecified, uncomplicated; H40.9 Unspecified glaucoma; F32.9 Major depressive disorder, single episode, unspecified; G89.29 Other chronic pain; E78.2 Mixed hyperlipidemia; E11.621 Type 2 diabetes mellitus with foot ulcer; E66.01 Morbid (severe) obesity due to excess calories; E11.51 Type 2 diabetes mellitus with diabetic peripheral angiopathy without gangrene; E11.69 Type 2 diabetes mellitus with other specified complication; L97.519 Non-pressure chronic ulcer of other part of right foot with unspecified severity; Z68.38 Body mass index [BMI] 38.0-38.9, adult; Z88.0 Allergy status to penicillin; Z82.49 Family history of ischemic heart disease and other diseases of the circulatory system; Z83.3 Family history of diabetes mellitus; Z80.9 Family history of malignant neoplasm, unspecified; Z79.82 Long term (current) use of aspirin; Z79.899 Other long term (current) drug therapy; Z68.37 Body mass index [BMI] 37.0-37.9, adult; Z71.3 Dietary counseling and surveillance
CPT/HCPCS: 36415; 37225; 70450; 70544; 70551; 71045; 74022; 74177; 75625; 75716; 76937; 80053; 80202; 82607; 82747; 82962; 83036; 85025; 85347; 85652; 86140; 87040; 87075; 87076; 87116; 87186; 93306; 93312; 93320; 93325; 93880; 93922; 99406; G0378; A4217; A6260; A9270-GY; A9577; C1714; C1769; C1887; C1894; C2623; J0360; J0690; J0692; J1100; J1170; J1644; J1650; J1815; J2250; J2405; J2704; J3010; J3370; J7030; J7040; Q9967

== ENCOUNTER 2018-05-18 13:48 | Emergency (ER) | payer MEDICAID | END 2018-05-18 16:30 | disposition left against medical advice (07) | LOC: ED 13:48 | DX: T80.211A Bloodstream infection due to central venous catheter, initial encounter (principal); Z53.21 Procedure and treatment not carried out due to patient leaving prior to being seen by health care provider ==

== ENCOUNTER 2018-05-20 10:18 | Outpatient (CLI) | payer MEDICAID ==
[~2018-05-20 10:18] MED LIST changes: +DIPRIVAN 10 MG/ML IV ONE; +NACL 0.9% 1000 ML 0 ML ONE; -NACL ONE; +PLAVIX ONE; +SUBLIMAZE ONE
[2018-05-20] MEDS ORDERED: SILVER NITRATE TP ONE (11:47)
== END 2018-05-20 10:19 | disposition home or self-care (01) ==
LOC: WOUND 10:18
PROVIDERS: ATTEND Surgery
DX: E11.621 Type 2 diabetes mellitus with foot ulcer (principal); L97.512 Non-pressure chronic ulcer of other part of right foot with fat layer exposed; E11.40 Type 2 diabetes mellitus with diabetic neuropathy, unspecified; E11.39 Type 2 diabetes mellitus with other diabetic ophthalmic complication; H40.9 Unspecified glaucoma; I10 Essential (primary) hypertension; J42 Unspecified chronic bronchitis; F17.200 Nicotine dependence, unspecified, uncomplicated
CPT/HCPCS: J2704; J3010; J7030

== ENCOUNTER 2018-05-27 10:54 | Outpatient (CLI) | payer MEDICAID | END 2018-05-27 10:55 | disposition home or self-care (01) | LOC: WOUND 10:54 | PROVIDERS: ATTEND Surgery | DX: E11.621 Type 2 diabetes mellitus with foot ulcer (principal); L97.512 Non-pressure chronic ulcer of other part of right foot with fat layer exposed; E11.40 Type 2 diabetes mellitus with diabetic neuropathy, unspecified; E11.39 Type 2 diabetes mellitus with other diabetic ophthalmic complication; H42 Glaucoma in diseases classified elsewhere; I10 Essential (primary) hypertension; J42 Unspecified chronic bronchitis; F17.200 Nicotine dependence, unspecified, uncomplicated; Z79.4 Long term (current) use of insulin ==

== ENCOUNTER 2018-06-03 11:10 | Outpatient (CLI) | payer MEDICAID ==
[2018-06-03] MEDS ORDERED: XYLOCAINE TOPICAL 4% TP ONE (11:26)
[2018-06-03] MEDS ORDERED: SILVER NITRATE TP ONE (11:26)
== END 2018-06-03 11:11 | disposition home or self-care (01) ==
LOC: WOUND 11:10
PROVIDERS: ATTEND Surgery
DX: E11.621 Type 2 diabetes mellitus with foot ulcer (principal); L97.812 Non-pressure chronic ulcer of other part of right lower leg with fat layer exposed; E11.40 Type 2 diabetes mellitus with diabetic neuropathy, unspecified; E11.39 Type 2 diabetes mellitus with other diabetic ophthalmic complication; H40.9 Unspecified glaucoma; E11.52 Type 2 diabetes mellitus with diabetic peripheral angiopathy with gangrene; I96 Gangrene, not elsewhere classified; I10 Essential (primary) hypertension; J42 Unspecified chronic bronchitis; F17.200 Nicotine dependence, unspecified, uncomplicated

== ENCOUNTER 2018-06-11 15:52 | Emergency (ER) | payer MEDICAID ==
[2018-06-11 16:39] VITALS: BP 148/90
--- NOTE | 2018-06-11 16:40 | Emergency Department Report ---
Chief Complaint: Tube Replacement Stated Complaint: PICC LINE FELL OUT - HPI History of Present Illness: PICC FELL OUT RA NEEDS ANTIBIOTIC AND NEW PICC - Exam Vital Signs: Vital Signs 06/11/18 16:37 Temperature 97.9 F Pulse Rate 100 H Respiratory 20 Rate Blood Pressure 148/90 O2 Sat by Pulse 99 Oximetry MSE screening note: Focused history and physical exam performed. Due to findings the following was ordered: ED Disposition for MSE Condition: Stable
[2018-06-11] MEDS ORDERED: ceFAZolin 2 GM in NACL 0.9% 100 ML IV ONE (16:42)
== END 2018-06-12 00:13 | disposition left against medical advice (07) ==
LOC: ED 15:52
DX: Z45.82 Encounter for adjustment or removal of myringotomy device (stent) (tube) (principal); Z53.21 Procedure and treatment not carried out due to patient leaving prior to being seen by health care provider
CPT/HCPCS: J0690

== ENCOUNTER 2018-06-17 10:46 | Outpatient (CLI) | payer MEDICAID ==
[2018-06-17] MEDS ORDERED: XYLOCAINE TOPICAL 4% TP ONE (11:30)
[2018-06-17] MEDS ORDERED: SILVER NITRATE TP ONE (11:30)
== END 2018-06-17 10:47 | disposition home or self-care (01) ==
LOC: WOUND 10:46
PROVIDERS: ATTEND Surgery
DX: T87.89 Other complications of amputation stump (principal); E11.621 Type 2 diabetes mellitus with foot ulcer; L97.513 Non-pressure chronic ulcer of other part of right foot with necrosis of muscle; E11.40 Type 2 diabetes mellitus with diabetic neuropathy, unspecified; E11.39 Type 2 diabetes mellitus with other diabetic ophthalmic complication; H40.9 Unspecified glaucoma; I10 Essential (primary) hypertension; J42 Unspecified chronic bronchitis; F17.200 Nicotine dependence, unspecified, uncomplicated; Y83.5 Amputation of limb(s) as the cause of abnormal reaction of the patient, or of later complication, without mention of misadventure at the time of the procedure

== ENCOUNTER 2018-06-20 12:57 | Outpatient (CLI) | payer MEDICAID | END 2018-06-20 12:58 | disposition home or self-care (01) | LOC: WOUND 12:57 | PROVIDERS: ATTEND Surgery | DX: T87.89 Other complications of amputation stump (principal); E11.621 Type 2 diabetes mellitus with foot ulcer; L97.412 Non-pressure chronic ulcer of right heel and midfoot with fat layer exposed; L97.513 Non-pressure chronic ulcer of other part of right foot with necrosis of muscle; E11.40 Type 2 diabetes mellitus with diabetic neuropathy, unspecified; E11.39 Type 2 diabetes mellitus with other diabetic ophthalmic complication; H40.9 Unspecified glaucoma; I10 Essential (primary) hypertension; J42 Unspecified chronic bronchitis; F17.200 Nicotine dependence, unspecified, uncomplicated; Y83.5 Amputation of limb(s) as the cause of abnormal reaction of the patient, or of later complication, without mention of misadventure at the time of the procedure | CPT/HCPCS: 97605 ==

== ENCOUNTER 2018-06-23 11:29 | Emergency (ER) | payer MEDICAID ==
--- NOTE | 2018-06-23 11:49 | Emergency Department Report ---
Blank Doc - Documentation Documentation: Right hallux amputated 2 weeks ago and has wound vac that has malfunctioned. Now has very foul smell and discharged. Home health nurse didnt show as scheduled. Also didnt remove picc line as was supposed to removed Plan Julio to evaluate wound vac
[2018-06-23 15:52] LABS: Basophils % (Auto) 0.5 % (0.0-1.8); Eosinophils # (Auto) 0.1 K/mm3 (0.0-0.4); Eosinophils % (Auto) 1.3 % (0.0-4.3); Hematocrit 37.2 % (30.3-42.9); Hemoglobin 11.8 gm/dl (10.1-14.3); Lymphocytes # (Auto) 2.4 K/mm3 (1.2-5.4); Lymphocytes % (Auto) 27.6 % (13.4-35.0); Mean Corpuscular HGB Conc 32 % (30-34); Mean Corpuscular Volume 77 fl (79-97); Monocytes # (Auto) 0.6 K/mm3 (0.0-0.8); Monocytes % (Auto) 6.9 % (0.0-7.3); Platelet Count 497 K/mm3 (140-440); Red Blood Count 4.83 M/mm3 (3.65-5.03); Red Cell Distribution Width 16.8 % (13.2-15.2)
[2018-06-23 16:15] LABS: Albumin 3.5 g/dL (3.9-5); BUN/Creatinine Ratio 14; Blood Urea Nitrogen 10 mg/dL (7-17); Calcium 9.7 mg/dL (8.4-10.2); Hemolysis Index 0
[2018-06-23 16:18] LABS: Alanine Aminotransferase < 5 units/L (7-56)
--- NOTE | 2018-06-23 17:02 | Emergency Department Report ---
ED General Adult HPI - General Chief complaint: Extremity Problem,Nontraumatic Stated complaint: RT FOOT INJURY/PAIN Time Seen by Provider: 06/23/18 11:46 Source: patient Mode of arrival: Ambulatory Limitations: No Limitations - History of Present Illness Initial comments: 43-year-old female status post right great toe amputation. Patient says she had a wound VAC placed 3 days ago. [facility] care nurse was supposed to visit on yesterday to change the dressing but did not show up. Patient states she called on yesterday and was told that the nurse would be coming on Sunday, June 25. Patient states last night the wound VAC began to malfunction with an air leak, so patient removed the wound vac. States she could not remove the sponge because she was not given enough supplies to do wet-to-dry dressings. Patient has no other complaints. Denies fever. Patient has a PICC line, states today is the last day for her antibiotics. Patient has appointment w/ surgeon Dr Bates tomorrow. -: Last night Location: right, lower extremity Improves with: none Worsens with: none Associated Symptoms: denies other symptoms. denies: fever/chills Treatments Prior to Arrival: none - Related Data Home Medications Medication Instructions Recorded Confirmed Last Taken Levemir (Nf) 50 units SQ BID 04/13/18 06/04/18 04/13/18 Lisinopril [Zestril TAB] 20 mg PO DAILY 04/13/18 06/04/18 06/03/18 17:00 Ziprasidone 40 mg PO BID 04/13/18 06/04/18 05/14/18 Previous Rx's Medication Instructions Recorded Last Taken Type AtorvaSTATin [Lipitor] 40 mg PO QHS #30 tablet 09/29/17 06/03/18 Rx HYDROcodone/APAP 5-325 [[place] 1 each PO Q6HR PRN #10 tablet 09/29/17 05/14/18 Rx 5-325 mg TAB] metFORMIN 1,000 mg PO DAILY #60 09/29/17 06/03/18 22:00 Rx Gabapentin [Neurontin] 300 mg PO BID capsule 04/18/18 Unknown Rx diazePAM TAB [Valium] 5 mg PO BID PRN tablet 04/18/18 05/04/18 Rx Nicotine [Habitrol] 14 mg TD QDAY #30 patch 05/16/18 05/21/18 Rx HYDROcodone/ACETAMINOPHEN [[place] 1 each PO Q6H PRN #20 tablet 06/04/18 Unknown Rx 5-325 Tablet] Allergies Allergy/AdvReac Type Severity Reaction Status Date / Time Penicillins Allergy Rash Verified 06/11/18 15:55 ED Review of Systems ROS: Stated complaint: RT FOOT INJURY/PAIN Other details as noted in HPI Comment: All other systems reviewed and negative Constitutional: denies: fever ED Past Medical Hx - Past Medical History Previous Medical History?: Yes Hx Hypertension: Yes (no antihypertensives today) Hx CVA: Yes (2018) Hx Heart Attack/AMI: No Hx Diabetes: Yes Hx Liver Disease: No Hx Renal Disease: No Hx Arthritis: Yes Hx Psychiatric Treatment: Yes (schizophrenia / bipolar) Hx COPD: No Additional medical history: INSOMNIA, NEUROPATHY,. FIBROIDS - Surgical History Past Surgical History?: Yes Additional Surgical History: MULTIPLE ABSCESS--I&D'S. tonsillectomy. tubal ligation - Social History Smoking Status: Current Every Day Smoker Substance Use Type: None - Medications Home Medications: Home Medications Medication Instructions Recorded Confirmed Last Taken Type AtorvaSTATin [Lipitor] 40 mg PO QHS #30 tablet 09/29/17 06/04/18 06/03/18 Rx HYDROcodone/APAP 5-325 [[place] 1 each PO Q6HR PRN #10 tablet 09/29/17 06/04/18 05/14/18 Rx 5-325 mg TAB] metFORMIN 1,000 mg PO DAILY #60 09/29/17 06/04/18 06/03/18 22:00 Rx Levemir (Nf) 50 units SQ BID 04/13/18 06/04/18 04/13/18 History Lisinopril [Zestril TAB] 20 mg PO DAILY 04/13/18 06/04/18 06/03/18 17:00 History Ziprasidone 40 mg PO BID 04/13/18 06/04/18 05/14/18 History Gabapentin [Neurontin] 300 mg PO BID capsule 04/18/18 06/04/18 Unknown Rx diazePAM TAB [Valium] 5 mg PO BID PRN tablet 04/18/18 06/04/18 05/04/18 Rx Nicotine [Habitrol] 14 mg TD QDAY #30 patch 05/16/18 06/04/18 05/21/18 Rx HYDROcodone/ACETAMINOPHEN [[place] 1 each PO Q6H PRN #20 tablet 06/04/18 Unknown Rx 5-325 Tablet] ED Physical Exam - General Limitations: No Limitations General appearance: alert, in no apparent distress - Head Head exam: Present: atraumatic, normocephalic - Eye Eye exam: Present: normal appearance - ENT ENT exam: Present: mucous membranes moist - Neck Neck exam: Present: normal inspection - Respiratory Respiratory exam: Present: normal lung sounds bilaterally. Absent: respiratory distress - Cardiovascular Cardiovascular Exam: Present: regular rate, normal rhythm - GI/Abdominal GI/Abdominal exam: Absent: distended - Extremities Exam Extremities exam: Present: other (s/p right great toe amputation; tissue appears and pink, edges of wound slightly macerated due to wet dressings remaining in place) - Neurological Exam Neurological exam: Present: alert, oriented X3 - Psychiatric Psychiatric exam: Present: normal affect, normal mood - Skin Skin exam: Present: warm, intact ED Course Vital Signs 06/23/18 06/23/18 11:44 18:02 Temperature 97.5 F L Pulse Rate 94 H 98 H Respiratory 18 18 Rate Blood Pressure 135/81 Blood Pressure 130/74 [Left] O2 Sat by Pulse 100 100 Oximetry - Reevaluation(s) Reevaluation #1: 06/23/18 18:29 ELIOT Correa here in the ED has extensive experience changing wound vac dressings. Dressing to be changed by her so that pt may use her wound vac today. Reevaluation #2: 06/23/18 18:57 ELIOT Correa unable to get adequate seal on dressing. No access to additional supp lies needed. [facility] contacted. Will send nurse to pt's home tomorrow. For now, will place wet-to-dry instead. - Consultations Consultation #1: 06/23/18 18:30 Spoke w/ Dr Cox. Informed him that we have an ER nurse that is experienced in changing wound vac dressings. Also informed that pt has appt tomorrow w/ Dr Bates. He is ok w/ us changing the dressing here in ED and d/c for follow-up tomorrow in office. ED Medical Decision Making - Lab Data Result diagrams: 06/23/18 15:14 06/23/18 15:14 - Medical Decision Making Wound vac s/p right great toe amputation 06/04/18. Dressings changed here in ED. Pt also given additional supplies to do wet-to-dry dressings. Labs sent from triage show elevated lacate of 3, however pt is afebrile, WBCs normal, and is currently on antibiotic therapy via PICC line. I do not believe this lactic aci d needs to be followed any further. Glucose initially in the 500s, repeat accucheck currently in the 300s. No signs of DKA. Spoke w/ Dr Cox, general surgeon. Pt has f/u appt on tomorrow w/ Dr Bates. Will discharge home at this time. Critical care attestation.: If time is entered above; I have spent that time in minutes in the direct care of this critically ill patient, excluding procedure time. ED Disposition Clinical Impression: Encounter for management of wound VAC Disposition: - TO HOME OR SELFCARE Is pt being admited?: No Condition: Stable Instructions: Chronic Wound Care (ED) Referrals: MEKA BATES DO [Staff Physician] - 24 Hours Time of Disposition: 19:00
[2018-06-23 18:07] VITALS: BP 130/74
== END 2018-06-23 19:30 | disposition home or self-care (01) ==
LOC: ED 11:29
DX: M79.604 Pain in right leg (principal); I10 Essential (primary) hypertension; M19.90 Unspecified osteoarthritis, unspecified site; E11.40 Type 2 diabetes mellitus with diabetic neuropathy, unspecified; F17.200 Nicotine dependence, unspecified, uncomplicated; Z98.51 Tubal ligation status; Z86.73 Personal history of transient ischemic attack (TIA), and cerebral infarction without residual deficits; Z88.0 Allergy status to penicillin; Z89.411 Acquired absence of right great toe
CPT/HCPCS: 36415; 80053; 82140; 82962; 85025; 99283

== ENCOUNTER 2018-06-24 10:55 | Outpatient (CLI) | payer MEDICAID ==
[2018-06-24] MEDS ORDERED: SILVER NITRATE TP ONE ×2 (11:28→12:37)
== END 2018-06-24 10:56 | disposition home or self-care (01) ==
LOC: WOUND 10:55
PROVIDERS: ATTEND Surgery
DX: E11.621 Type 2 diabetes mellitus with foot ulcer (principal); L97.412 Non-pressure chronic ulcer of right heel and midfoot with fat layer exposed; E11.40 Type 2 diabetes mellitus with diabetic neuropathy, unspecified; E11.39 Type 2 diabetes mellitus with other diabetic ophthalmic complication; H40.9 Unspecified glaucoma; I10 Essential (primary) hypertension; J42 Unspecified chronic bronchitis; F17.200 Nicotine dependence, unspecified, uncomplicated
CPT/HCPCS: 97605

== ENCOUNTER 2018-07-08 10:53 | Outpatient (CLI) | payer MEDICAID ==
[2018-07-08] MEDS ORDERED: SILVER NITRATE TP ONE (11:50)
[2018-07-08] MEDS ORDERED: AD OINTMENT TP PRN (11:50)
== END 2018-07-08 10:54 | disposition home or self-care (01) ==
LOC: WOUND 10:53
PROVIDERS: ATTEND Surgery
DX: E11.621 Type 2 diabetes mellitus with foot ulcer (principal); L97.514 Non-pressure chronic ulcer of other part of right foot with necrosis of bone; L84 Corns and callosities; E11.40 Type 2 diabetes mellitus with diabetic neuropathy, unspecified; E11.39 Type 2 diabetes mellitus with other diabetic ophthalmic complication; H40.9 Unspecified glaucoma; J42 Unspecified chronic bronchitis; I10 Essential (primary) hypertension; F17.200 Nicotine dependence, unspecified, uncomplicated
CPT/HCPCS: 97605; A6250

== ENCOUNTER 2018-07-11 12:56 | Outpatient (CLI) | payer MEDICAID ==
[2018-07-11] MEDS ORDERED: DAKIN'S FULL STRENGTH TP ONE (14:30)
== END 2018-07-11 12:57 | disposition home or self-care (01) ==
LOC: WOUND 12:56
PROVIDERS: ATTEND Surgery
DX: E11.621 Type 2 diabetes mellitus with foot ulcer (principal); L97.514 Non-pressure chronic ulcer of other part of right foot with necrosis of bone; E11.40 Type 2 diabetes mellitus with diabetic neuropathy, unspecified; E11.39 Type 2 diabetes mellitus with other diabetic ophthalmic complication; H40.9 Unspecified glaucoma; J42 Unspecified chronic bronchitis; I10 Essential (primary) hypertension; F17.200 Nicotine dependence, unspecified, uncomplicated
CPT/HCPCS: 10060

== ENCOUNTER 2018-07-11 22:51 | Inpatient (IN) | payer MEDICAID ==
[2018-07-12 00:17] LABS: Basophils # (Auto) 0.1 K/mm3 (0.0-0.1); Basophils % (Auto) 0.4 % (0.0-1.8); Eosinophils # (Auto) 0.1 K/mm3 (0.0-0.4); Eosinophils % (Auto) 0.6 % (0.0-4.3); Hematocrit 27.5 % (30.3-42.9); Hemoglobin 9.3 gm/dl (10.1-14.3); Lymphocytes # (Auto) 2.2 K/mm3 (1.2-5.4); Lymphocytes % (Auto) 13.9 % (13.4-35.0); Mean Corpuscular HGB Conc 34 % (30-34); Mean Corpuscular Volume 74 fl (79-97); Monocytes # (Auto) 1.3 K/mm3 (0.0-0.8); Monocytes % (Auto) 8.5 % (0.0-7.3); Platelet Count 481 K/mm3 (140-440); Red Blood Count 3.74 M/mm3 (3.65-5.03); Red Cell Distribution Width 17.4 % (13.2-15.2)
[2018-07-12] MEDS ORDERED: VANCOMYCIN/NS 1 GM/250 ML 1 GM/250 ML BAG IV ONE ×2 (00:20→03:00)
[2018-07-12 00:39] LABS: Albumin 2.5 g/dL (3.9-5); BUN/Creatinine Ratio 17; Blood Urea Nitrogen 15 mg/dL (7-17); Calcium 9.3 mg/dL (8.4-10.2); Hemolysis Index 10
[2018-07-12 00:42] LABS: Alanine Aminotransferase < 5 units/L (7-56)
--- NOTE | 2018-07-12 01:15 | Emergency Department Report ---
ED Extremity Problem HPI - General Chief complaint: Extremity Injury, Lower Stated complaint: L FOOT POST SURGURY PAIN Time Seen by Provider: 07/12/18 00:17 Source: patient Mode of arrival: Wheelchair Limitations: No Limitations - History of Present Illness Initial comments: Patient with h/o dry gangrene of right great toe, s/p amputation of right great toe, debridement of wound by Dr. Cox on 06/04/18. She has been followed by wound care since and had a period of iv antibiotics at home via picc. Yesterday at her wound care visit, it was noticed that her wound had increased purulent drainage, surrounding erythema, therefore she was advised to come to E.R for futher evaluation. No fever, chills or night sweats. h/o diabetes, mostly uncontrolled. MD Complaint: extremity pain (3) -: Gradual Location: right, lower extremity History of Same: Yes Radiation: proximal Severity scale (0 -10): 7 Quality: burning Consistency: constant Improves with: nothing Worsens with: weight bearing Associated Symptoms: denies other symptoms - Related Data Home Medications Medication Instructions Recorded Confirmed Last Taken Levemir (Nf) 50 units SQ BID 04/13/18 06/04/18 04/13/18 Lisinopril [Zestril TAB] 20 mg PO DAILY 04/13/18 06/04/18 06/03/18 17:00 Ziprasidone 40 mg PO BID 04/13/18 06/04/18 05/14/18 Previous Rx's Medication Instructions Recorded Last Taken Type AtorvaSTATin [Lipitor] 40 mg PO QHS #30 tablet 09/29/17 06/03/18 Rx HYDROcodone/APAP 5-325 [[place] 1 each PO Q6HR PRN #10 tablet 09/29/17 05/14/18 Rx 5-325 mg TAB] metFORMIN 1,000 mg PO DAILY #60 09/29/17 06/03/18 22:00 Rx Gabapentin [Neurontin] 300 mg PO BID capsule 04/18/18 Unknown Rx diazePAM TAB [Valium] 5 mg PO BID PRN tablet 04/18/18 05/04/18 Rx Nicotine [Habitrol] 14 mg TD QDAY #30 patch 05/16/18 05/21/18 Rx HYDROcodone/ACETAMINOPHEN [[place] 1 each PO Q6H PRN #20 tablet 06/04/18 Unknown Rx 5-325 Tablet] Allergies Allergy/AdvReac Type Severity Reaction Status Date / Time Penicillins Allergy Rash Verified 06/11/18 15:55 ED Review of Systems ROS: Stated complaint: L FOOT POST SURGURY PAIN Other details as noted in HPI Comment: All other systems reviewed and negative Gastrointestinal: denies: abdominal pain, nausea Skin: lesions Psychiatric: denies: anxiety ED Past Medical Hx - Past Medical History Previous Medical History?: Yes Hx Hypertension: Yes (no antihypertensives today) Hx CVA: Yes (2017) Hx Heart Attack/AMI: No Hx Diabetes: Yes Hx Liver Disease: No Hx Renal Disease: No Hx Arthritis: Yes Hx Psychiatric Treatment: Yes (schizophrenia / bipolar) Hx COPD: No Additional medical history: INSOMNIA, NEUROPATHY,. FIBROIDS - Surgical History Past Surgical History?: Yes Additional Surgical History: MULTIPLE ABSCESS--I&D'S. tonsillectomy. tubal ligation. R great toe amputation ?06/20/[address] Sunshine, [facility] - Social History Smoking Status: Current Every Day Smoker Substance Use Type: None - Medications Home Medications: Home Medications Medication Instructions Recorded Confirmed Last Taken Type AtorvaSTATin [Lipitor] 40 mg PO QHS #30 tablet 09/29/17 06/04/18 06/03/18 Rx HYDROcodone/APAP 5-325 [[place] 1 each PO Q6HR PRN #10 tablet 09/29/17 06/04/18 05/14/18 Rx 5-325 mg TAB] metFORMIN 1,000 mg PO DAILY #60 09/29/17 06/04/18 06/03/18 22:00 Rx Levemir (Nf) 50 units SQ BID 04/13/18 06/04/18 04/13/18 History Lisinopril [Zestril TAB] 20 mg PO DAILY 04/13/18 06/04/18 06/03/18 17:00 History Ziprasidone 40 mg PO BID 04/13/18 06/04/18 05/14/18 History Gabapentin [Neurontin] 300 mg PO BID capsule 04/18/18 06/04/18 Unknown Rx diazePAM TAB [Valium] 5 mg PO BID PRN tablet 04/18/18 06/04/18 05/04/18 Rx Nicotine [Habitrol] 14 mg TD QDAY #30 patch 05/16/18 06/04/18 05/21/18 Rx HYDROcodone/ACETAMINOPHEN [[place] 1 each PO Q6H PRN #20 tablet 06/04/18 Unknown Rx 5-325 Tablet] ED Physical Exam - General Limitations: No Limitations General appearance: alert, in no apparent distress - Head Head exam: Present: atraumatic, normocephalic - Eye Eye exam: Present: normal appearance, PERRL, EOMI Pupils: Present: normal accommodation - ENT ENT exam: Present: normal exam, normal orophraynx - Neck Neck exam: Present: normal inspection, full ROM - Respiratory Respiratory exam: Present: normal lung sounds bilaterally - Cardiovascular Cardiovascular Exam: Present: regular rate, normal rhythm - GI/Abdominal GI/Abdominal exam: Present: soft, normal bowel sounds - Rectal Rectal exam: Present: deferred - Skin Skin exam: Present: other (foot ulcers right,with wound drainage,amp site with purulent drainage.) ED Course Vital Signs 07/11/18 23:29 Temperature 98.2 F Pulse Rate 100 H Respiratory 18 Rate Blood Pressure 116/62 O2 Sat by Pulse 99 Oximetry ED Medical Decision Making - Lab Data Result diagrams: 07/11/18 23:42 07/11/18 23:46 - Differential Diagnosis osteomyolitis,ulcers,gangrene,wet and dry. Critical care attestation.: If time is entered above; I have spent that time in minutes in the direct care of this critically ill patient, excluding procedure time. ED Disposition Clinical Impression: Open wound of right foot except toes with complication Qualifiers: Encounter type: subsequent encounter Qualified Code(s): S91.301D - Unspecified open wound, right foot, subsequent encounter Uncontrolled diabetes mellitus Qualifiers: Diabetes mellitus type: type 2 Glycemic state: with hyperglycemia Qualified Code(s): E11.65 - Type 2 diabetes mellitus with hyperglycemia Disposition: 09 OP ADMIT IP TO THIS HOSP Is pt being admited?: Yes Does the pt Need Aspirin: No Condition: Stable Instructions: Diabetes Mellitus Type 2 in Adults (ED) Referrals: LIO GAUTAM MD [Primary Care Provider] - 3-5 Days
[2018-07-12] MEDS ORDERED: MORPHINE IV ONE (01:41)
[2018-07-12] MEDS ORDERED: ZOFRAN IV ONE (01:42)
[2018-07-12] MEDS ORDERED: SODIUM CHLORIDE FLUSH SYRINGE 10 ML IV PRN (01:43)
[2018-07-12] MEDS ORDERED: TYLENOL PO PRN (01:43)
[2018-07-12] MEDS ORDERED: K-DUR PO ONE (01:45)
[2018-07-12] MEDS ORDERED: D50W (25GM) Syringe IV PRN (01:48)
[2018-07-12] MEDS ORDERED: ZOSYN/NS 3.375GM/50ML 3.375 GM/50 ML BAG IV SCH (02:00)
[2018-07-12] MEDS ORDERED: VANCOMYCIN PHARMACY TO DOSE IV SCH (02:00)
--- NOTE | 2018-07-12 02:21 | History and Physical Report ---
History of Present Illness Chief complaint: Foul drainage from right foot wound History of present illness: Patient is a 43 year old -[place] female with history of diabetic right foot ulcer and uncontrolled diabetes who presented to the ED on account of right foot ulcer drainage. Patient stated that she went to the wound care clinic and was told to come to the ED for admission for IV antibiotics due to the drainage. She has associated swelling and pain. She denies fever, chills, chest pain, shortness of breath, palpitation, nausea or vomiting. No abdominal pain, constipation, diarrhea, dysuria or frequency. Past History Past Medical History: diabetes, hypertension, PVD, stroke, other (schizophrenia and bipolar disorder, neuropathy) Past Surgical History: tonsillectomy, Other (multiple wound debridement, angioplasty, tubal ligation, right great toe amputation) Social history: smoking (Pt has 7-8 years history of cigarette smoking. She continues to smoke few sticks per day. She denies alcohol or illicit drug use) Family history: other (significant for hypertension and diabetes mellitus in multiple family members) Medications and Allergies Allergies Allergy/AdvReac Type Severity Reaction Status Date / Time Penicillins Allergy Rash Verified 06/11/18 15:55 Home Medications Medication Instructions Recorded Confirmed Last Taken Type AtorvaSTATin [Lipitor] 40 mg PO QHS #30 tablet 09/29/17 06/04/18 06/03/18 Rx HYDROcodone/APAP 5-325 [[place] 1 each PO Q6HR PRN #10 tablet 09/29/17 06/04/18 05/14/18 Rx 5-325 mg TAB] metFORMIN 1,000 mg PO DAILY #60 09/29/17 06/04/18 06/03/18 22:00 Rx Levemir (Nf) 50 units SQ BID 04/13/18 06/04/18 04/13/18 History Lisinopril [Zestril TAB] 20 mg PO DAILY 04/13/18 06/04/18 06/03/18 17:00 History Ziprasidone 40 mg PO BID 04/13/18 06/04/18 05/14/18 History Gabapentin [Neurontin] 300 mg PO BID capsule 04/18/18 06/04/18 Unknown Rx diazePAM TAB [Valium] 5 mg PO BID PRN tablet 04/18/18 06/04/18 05/04/18 Rx Nicotine [Habitrol] 14 mg TD QDAY #30 patch 05/16/18 06/04/18 05/21/18 Rx HYDROcodone/ACETAMINOPHEN [[place] 1 each PO Q6H PRN #20 tablet 06/04/18 Unknown Rx 5-325 Tablet] Active Meds: Active Medications Acetaminophen (Tylenol) 650 mg PO Q4H PRN PRN Reason: Pain MILD(1-3)/Fever >100.5/RODRIGUEZ Dextrose (D50w (25gm) Syringe) 50 ml IV PRN PRN PRN Reason: Hypoglycemia Enoxaparin Sodium (Lovenox) 40 mg SUB-Q QDAY JUANITA Hydromorphone HCl (Dilaudid) 0.5 mg IV Q3H PRN PRN Reason: Pain , Severe (7-10) Potassium Chloride/Sodium Chloride (Ns/Kcl 20meq) 20 meq in 1,000 mls @ 100 mls/hr IV DIRECT JUANITA Vancomycin HCl (Vancomycin/Ns 1 Gm/250 Ml) 1 gm in 250 mls @ 166.667 mls/hr IV ONCE ONE Stop: 07/12/18 04:29 Cefepime HCl (Maxipime/Ns 2 Gm/100 Ml) 2 gm in 100 mls @ 200 mls/hr IV Q12H [facility] Insulin Glargine (Lantus) 25 units SUB-Q BID@0200,1400 JUANITA Insulin Human Lispro (Humalog) 0 unit SUB-Q ACHS JUANITA; Protocol Ondansetron HCl (Zofran) 4 mg IV Q8H PRN PRN Reason: Nausea And Vomiting Oxycodone/Acetaminophen (Percocet 5/325) 1 tab PO Q6H PRN PRN Reason: Pain, Moderate (4-6) Sodium Chloride (Sodium Chloride Flush Syringe 10 Ml) 10 ml IV BID JUANITA Sodium Chloride (Sodium Chloride Flush Syringe 10 Ml) 10 ml IV PRN PRN PRN Reason: LINE FLUSH Review of Systems All systems: negative (except as documented in the HPI, 14 point system reviewed were negative) Exam - Constitutional Vitals: Temp Pulse Resp BP Pulse Ox 98.2 F 100 H 18 127/69 98 07/11/18 23:29 07/11/18 23:29 07/11/18 23:29 07/12/18 01:30 07/12/18 01:30 General appearance: Present: no acute distress - EENT Eyes: Present: PERRL, EOM intact ENT: hearing intact, clear oral mucosa - Neck Neck: Present: supple, normal ROM - Respiratory Respiratory effort: normal Respiratory: bilateral: CTA - Cardiovascular Rhythm: regular Heart Sounds: Present: S1 & S2 - Extremities Extremity abnormal: other (right foot ulcer with foul-smelling drainage and edema) - Abdominal General gastrointestinal: Present: soft, non-tender, normal bowel sounds Female genitourinary: Present: deferred - Rectal Rectal Exam: deferred - Integumentary Integumentary: Present: erythema (right buttock wound and right foot ulcer) - Musculoskeletal Musculoskeletal: strength equal bilaterally - Psychiatric Psychiatric: appropriate mood/affect, intact judgment & insight - Neurologic Neurologic: CNII-XII intact Results - Labs CBC & Chem 7: 07/11/18 23:42 07/11/18 23:46 Labs: Laboratory Last Values WBC 15.6 K/mm3 (4.5-11.0) H 07/11/18 23:42 RBC 3.74 M/mm3 (3.65-5.03) 07/11/18 23:42 Hgb 9.3 gm/dl (10.1-14.3) L 07/11/18 23:42 Hct 27.5 % (30.3-42.9) L 07/11/18 23:42 MCV 74 fl (79-97) L 07/11/18 23:42 MCH 25 pg (28-32) L 07/11/18 23:42 MCHC 34 % (30-34) 07/11/18 23:42 RDW 17.4 % (13.2-15.2) H 07/11/18 23:42 Plt Count 481 K/mm3 (140-440) H 07/11/18 23:42 Lymph % (Auto) 13.9 % (13.4-35.0) 07/11/18 23:42 [place] % (Auto) 8.5 % (0.0-7.3) H 07/11/18 23:42 Eos % (Auto) 0.6 % (0.0-4.3) 07/11/18 23:42 Baso % (Auto) 0.4 % (0.0-1.8) 07/11/18 23:42 Lymph # 2.2 K/mm3 (1.2-5.4) 07/11/18 23:42 [place] # 1.3 K/mm3 (0.0-0.8) H 07/11/18 23:42 Eos # 0.1 K/mm3 (0.0-0.4) 07/11/18 23:42 Baso # 0.1 K/mm3 (0.0-0.1) 07/11/18 23:42 Seg Neutrophils % 76.6 % (40.0-70.0) H 07/11/18 23:42 Seg Neutrophils # 12.0 K/mm3 (1.8-7.7) H 07/11/18 23:42 Sodium 129 mmol/L (137-145) L 07/11/18 23:46 Potassium 3.1 mmol/L (3.6-5.0) L 07/11/18 23:46 Chloride 87.5 mmol/L (98-107) L 07/11/18 23:46 Carbon Dioxide 26 mmol/L (22-30) 07/11/18 23:46 19 mmol/L 07/11/18 23:46 BUN 15 mg/dL (7-17) 07/11/18 23:46 0.9 mg/dL (0.7-1.2) 07/11/18 23:46 Estimated GFR > 60 ml/min 07/11/18 23:46 17 % 07/11/18 23:46 Glucose 471 mg/dL (65-100) H 07/11/18 23:46 Lactic Acid 1.90 mmol/L (0.7-2.0) 07/12/18 00:36 Calcium 9.3 mg/dL (8.4-10.2) 07/11/18 23:46 0.30 mg/dL (0.1-1.2) 07/11/18 23:46 AST 8 units/L (5-40) 07/11/18 23:46 ALT < 5 units/L (7-56) L 07/11/18 23:46 124 units/L (35-129) 07/11/18 23:46 7.9 g/dL (6.3-8.2) 07/11/18 23:46 2.5 g/dL (3.9-5) L 07/11/18 23:46 0.5 % 07/11/18 23:46 Assessment and Plan Assessment and plan: Sepsis -Likely secondary to diabetic right foot ulcer with chronic necrotizing infection and osteomyelitis -On IV antibiotics with Vanc and cefepime -Blood and wound cultures pending -ID and surgery consulted DM2 with hyperglycemia -On SSI and Lantus Hypokalemia -We'll replete and monitor K level Diabetic neuropathy -Continue Neurontin History of CVA without residual deficits -Continue aspirin and statin Hypertension -Controlled PVD -Status post angioplasty of the right superficial femoral artery -Continue statin Chronic right buttock wound -Continue wound care Tobacco abuse -Patient counseled on cessation -Nicotine patch DVT prophylaxis with Lovenox Disposition: For discharge when medically stable Time spent: 38 minutes
[2018-07-12] MEDS ORDERED: NACL 0.9% 1000 ML IV ONE (02:32)
[2018-07-12] MEDS: MAXIPIME/NS 2 GM/100 ML 2 GM/100 ML BAG IV SCH ×2 (03:06→15:25)
[2018-07-12] MEDS: LANTUS SUB-Q SCH ×2 (03:19→14:26)
[2018-07-12] MEDS: HumaLOG SUB-Q SCH ×4 (08:08→22:40)
--- NOTE | 2018-07-12 08:34 | Progress Note ---
Assessment and Plan Assessment and plan: Patient is a 43 yo woman with a history of IDDM type 2, hypertension, PVD, stroke, other schizophrenia, bipolar disorder, peripheral neuropathy, dyslipidemia, tobacco dependency and dry gangrene of right great toe, s/p amputation of right great toe, debridement of wound by Dr. Cox on 06/04/18. She has been followed by wound care since and had a period of iv antibiotics at home via picc. Yesterday at her wound care visit, it was noticed that her wound had increased purulent drainage, surrounding erythema, therefore she was advised to come to E.R for futher evaluation. * HR 100, 116/52, wbc 15.6 normal temp, hgb 9.3 with mcv 74, na 129, k is 3.1 with normal cr of 0.9, bg 471, albumin 2.5 Sepsis Likely secondary to diabetic right foot ulcer with chronic necrotizing infection and osteomyelitis: treat with On IV antibiotics with Vanc and cefepime, consult and ID Right foot infection: consulted Dr. Cox Severe malnutrition: consult [facility] Hypokalemia: replete and monitor bmp closely Hyponatremia hypovolemia: IVF and monitor bmp closely Uncontrolled DM type 2 with hyperglycemia: treat with SSI, ada diet. Diabetic neuropathy-Continue Neurontin History of CVA without residual deficits-Continue aspirin and statin Hypertension-Controlled PAD -Status post angioplasty of the right superficial femoral artery-Continue statin Chronic right buttock wound-Continue wound care Tobacco abuse-Patient counseled on cessation-Nicotine patch History of schizophrenia/bipolar-continue antipsych meds DVT prophylaxis with sq heparin prolonged inpatient services 32 minutes History Interval history: Patient was seen and examined. Follow-up on current diagnosis of Right foot infection. No overnight events reported to me. Patient denies any chest pain, shortness breath, nausea/vomiting or severe headaches. Imaging, nursing note, chart, labs and old chart reviewed. Discussed with patient. Hospitalist Physical - Physical exam Narrative exam: Gen: WDWN, NAD, Awake, Alert, Orientated HEENT: NCAT, EOMI, PERRL, OP Clear Neck: supple, no adenopathy, no thyromegaly, no JVD CVS/Heart: RRR, normal S1S2, pulses present bilaterally Chest/Lungs: CTA B, Symmetrical chest expansion, good air entry bilaterally GI/Abdomen: soft, NTND, good bowel sounds, no guarding or rebound /Bladder: no suprapubic tenderness, no CVA or paraspinal tenderness Extermity/Skin: right foot ulcer with foul-smelling drainage and edema MSK: FROM x 4 Neuro: CN 2-12 grossly intact, no new focal deficits Psych: calm - Constitutional Vitals: Temp Pulse Resp BP Pulse Ox 98.2 F 100 H 18 103/56 100 07/11/18 23:29 07/11/18 23:29 07/11/18 23:29 07/12/18 04:01 07/12/18 02:30 General appearance: Present: no acute distress Results - Labs CBC & Chem 7: 07/11/18 23:42 07/11/18 23:46 Labs: Laboratory Last Values WBC 15.6 K/mm3 (4.5-11.0) H 07/11/18 23:42 RBC 3.74 M/mm3 (3.65-5.03) 07/11/18 23:42 Hgb 9.3 gm/dl (10.1-14.3) L 07/11/18 23:42 Hct 27.5 % (30.3-42.9) L 07/11/18 23:42 MCV 74 fl (79-97) L 07/11/18 23:42 MCH 25 pg (28-32) L 07/11/18 23:42 MCHC 34 % (30-34) 07/11/18 23:42 RDW 17.4 % (13.2-15.2) H 07/11/18 23:42 Plt Count 481 K/mm3 (140-440) H 07/11/18 23:42 Lymph % (Auto) 13.9 % (13.4-35.0) 07/11/18 23:42 [place] % (Auto) 8.5 % (0.0-7.3) H 07/11/18 23:42 Eos % (Auto) 0.6 % (0.0-4.3) 07/11/18 23:42 Baso % (Auto) 0.4 % (0.0-1.8) 07/11/18 23:42 Lymph # 2.2 K/mm3 (1.2-5.4) 07/11/18 23:42 [place] # 1.3 K/mm3 (0.0-0.8) H 07/11/18 23:42 Eos # 0.1 K/mm3 (0.0-0.4) 07/11/18 23:42 Baso # 0.1 K/mm3 (0.0-0.1) 07/11/18 23:42 Seg Neutrophils % 76.6 % (40.0-70.0) H 07/11/18 23:42 Seg Neutrophils # 12.0 K/mm3 (1.8-7.7) H 07/11/18 23:42 Sodium 129 mmol/L (137-145) L 07/11/18 23:46 Potassium 3.1 mmol/L (3.6-5.0) L 07/11/18 23:46 Chloride 87.5 mmol/L (98-107) L 07/11/18 23:46 Carbon Dioxide 26 mmol/L (22-30) 07/11/18 23:46 19 mmol/L 07/11/18 23:46 BUN 15 mg/dL (7-17) 07/11/18 23:46 0.9 mg/dL (0.7-1.2) 07/11/18 23:46 Estimated GFR > 60 ml/min 07/11/18 23:46 17 % 07/11/18 23:46 Glucose 471 mg/dL (65-100) H 07/11/18 23:46 POC Glucose 282 (70-105) H 07/12/18 07:52 Lactic Acid 1.90 mmol/L (0.7-2.0) 07/12/18 00:36 Calcium 9.3 mg/dL (8.4-10.2) 07/11/18 23:46 Magnesium 1.80 mg/dL (1.7-2.3) 07/12/18 01:52 0.30 mg/dL (0.1-1.2) 07/11/18 23:46 AST 8 units/L (5-40) 07/11/18 23:46 ALT < 5 units/L (7-56) L 07/11/18 23:46 124 units/L (35-129) 07/11/18 23:46 7.9 g/dL (6.3-8.2) 07/11/18 23:46 2.5 g/dL (3.9-5) L 07/11/18 23:46 0.5 % 07/11/18 23:46 Active Medications - Current Medications Current Medications: Generic Name Dose Route Start Last Admin Trade Name Freq PRN Reason Stop Dose Admin Acetaminophen 650 mg 07/12/18 01:43 Tylenol PO Q4H PRN Pain MILD(1-3)/Fever >100.5/RODRIGUEZ Aspirin 81 mg 07/12/18 10:00 Baby Aspirin PO QDAY [facility] Atorvastatin Calcium 40 mg 07/12/18 22:00 Lipitor PO QHS [facility] Dextrose 50 ml 07/12/18 01:48 D50w (25gm) Syringe IV PRN PRN Hypoglycemia Heparin Sodium (Porcine) 5,000 unit 07/13/18 08:31 Heparin SUB-Q Q12HR [facility] Hydromorphone HCl 0.5 mg 07/12/18 01:43 Dilaudid IV Q3H PRN Pain , Severe (7-10) Potassium Chloride/Sodium Chloride 20 meq in 1,000 mls @ 100 mls/hr 07/12/18 02:00 Ns/Kcl 20meq IV DIRECT [facility] Cefepime HCl 2 gm in 100 mls @ 200 mls/hr 07/12/18 03:00 07/12/18 03:06 Maxipime/Ns 2 Gm/100 Ml IV 200 mls/hr Q12H JUANITA Administration Vancomycin HCl 1,500 mg/ 530 mls @ 333.333 mls/hr 07/12/18 17:00 Sodium Chloride IV Q12H [facility] Insulin Glargine 25 units 07/12/18 02:00 07/12/18 03:19 Lantus SUB-Q 25 units BID@0200,1400 JUANITA Administration Insulin Human Lispro 0 unit 07/12/18 07:30 Humalog SUB-Q ACHS [facility] Protocol Nicotine 14 mg 07/12/18 10:00 Habitrol TD QDAY [facility] Ondansetron HCl 4 mg 07/12/18 01:43 Zofran IV Q8H PRN Nausea And Vomiting Oxycodone/Acetaminophen 1 tab 07/12/18 01:43 Percocet 5/325 PO Q6H PRN Pain, Moderate (4-6) Sodium Chloride 10 ml 07/12/18 10:00 Sodium Chloride Flush Syringe 10 Ml IV BID [facility] Sodium Chloride 10 ml 07/12/18 01:43 Sodium Chloride Flush Syringe 10 Ml IV PRN PRN LINE FLUSH
[2018-07-12] MEDS: NEURONTIN PO SCH ×2 (09:30→22:38)
[2018-07-12] MEDS: PERCOCET 5/325 PO PRN (09:30)
[2018-07-12] MEDS: HABITROL TD SCH (09:31)
[2018-07-12] MEDS: ZESTRIL PO SCH (09:31)
[2018-07-12] MEDS: GEODON PO SCH ×2 (09:32→22:38)
[2018-07-12] MEDS: BABY ASPIRIN PO SCH (09:32)
[2018-07-12] MEDS ORDERED: ZIPRASIDONE 40 MG PO SCH (10:00)
[2018-07-12] MEDS ORDERED: LOVENOX SUB-Q SCH (10:00)
[2018-07-12] MEDS: DAKIN'S FULL STRENGTH TP SCH ×2 (12:11→22:49)
--- NOTE | 2018-07-12 12:16 | Vascular Lab Report ---
PROCEDURE: VL ARTERIAL DUPLEX LE BILAT TECHNIQUE: Duplex Doppler ultrasound of either bilateral lower extremity arteries or arterial bypass grafts was performed with image documentation. HISTORY: lower extremity gangrene COMPARISONS: Duplex ultrasound of the right lower extremity performed on 05/09/2018 . FINDINGS: RIGHT LOWER EXTREMITY: Arterial waveforms: Monophasic . Thrombus: None . Stenosis: None . Color signal: Normal . Significant segmental velocity differential: None . Stenosis: None . Peak systolic velocity in centimeters per second: Right common femoral artery: 131.4 Right superficial femoral artery, proximal: 135.5 Right superficial femoral artery, mid: 224.9 Right distal superficial femoral artery: 107.4 Right profunda branch: 94.2 Right popliteal artery: 96.2 Right posterior tibial artery: 70.5 Right anterior tibial artery: 94.3 Right dorsalis pedis artery: 41.6 LEFT LOWER EXTREMITY: Arterial waveforms: Triphasic waveforms of the left iliac artery, common femoral artery, superficial femoral artery, profunda branch, and popliteal artery. Biphasic waveforms of the arteries of the evy f . Thrombus: None . Stenosis: None . Color signal: Normal . Significant segmental velocity differential: None . Stenosis: None . Peak systolic velocity in centimeters per second: Left common femoral artery: 104.8 Left superficial femoral artery, proximal: 82.1 Left superficial femoral artery, mid: 113.8 Left distal superficial femoral artery: 54.6 Left profunda branch: 74.6 Left popliteal artery: 62 Left posterior tibial artery: 23.4 Left anterior tibial artery: 29.4 Left dorsalis pedis artery: 31.5 IMPRESSION: Monophasic waveforms of the arteries of the right lower extremity suggestive of moderate to severe pe ripheral arterial disease. Previously seen occlusion of the distal right superficial femoral artery i s no longer visualized. Triphasic and biphasic waveforms of the arteries of the left lower extremity suggestive of mild perip heral arterial disease. This document is electronically signed by Giovana Chester MD., Jul 12 2018 12:14:31 PM ET
[2018-07-12] MEDS: DILAUDID IV PRN ×2 (12:29→20:59)
--- NOTE | 2018-07-12 12:37 | Vascular Lab Report ---
PROCEDURE: VL ALISSON EVALUATION TECHNIQUE: Alvarez scale, color and pulsed Doppler ultrasound with color flow and spectral analysis eval uation of arteries were performed. Pulse volume recordings and brachial indices obtained. HISTORY: lower extremity gangrene COMPARISONS: None currently available. FINDINGS: RIGHT EXTREMITY: Brachial, ankle PT, and ankle DP pressures: 109, 89, and 102. ALISSON: 0.82. Dampened waveform in the 5th digit. LEFT EXTREMITY: Brachial, ankle PT, ankle DP, and great toe pressures: 124, 115, 116, and 64 ALISSON and Toe/ankle index: 0.94 and 0.52 Dampened waveform in the 1st digit. IMPRESSION: * Mild to moderate disease in both lower extremities. * Suspect mild to moderate right inflow disease. * Suspect moderate to severe disease between the ankle and foot in both lower extremities. This document is electronically signed by Grey Jose MD., Jul 12 2018 12:35:49 PM ET
--- NOTE | 2018-07-12 12:49 | Consultation ---
History of Present Illness - Reason for Consult Consult date: 07/12/18 Right foot wound - History of Present Illness Patient with a history of worsening right foot wound and blood sugars are gre ater than 500 who presented to wound care with nonprogression in the healing of her wound. She was sent to the emergency department. An ultrasound was performed which demonstrates mild stenosis within the right mid SFA. The patient's SFA was treated on her last visit and is gone from total occlusion to only mild narrowing today. Tibial vessels are intact. Past History Past Medical History: diabetes, hypertension, PVD, stroke, other (schizophrenia and bipolar disorder, neuropathy) Past Surgical History: tonsillectomy, Other (multiple wound debridement, angioplasty, tubal ligation, right great toe amputation) Social history: smoking (Pt has 7-8 years history of cigarette smoking. She continues to smoke few sticks per day. She denies alcohol or illicit drug use) Family history: other (significant for hypertension and diabetes mellitus in multiple family members) Medications and Allergies Allergies Allergy/AdvReac Type Severity Reaction Status Date / Time Penicillins Allergy Rash Verified 06/11/18 15:55 Home Medications Medication Instructions Recorded Confirmed Last Taken Type AtorvaSTATin [Lipitor] 40 mg PO QHS #30 tablet 09/29/17 06/04/18 06/03/18 Rx HYDROcodone/APAP 5-325 [[place] 1 each PO Q6HR PRN #10 tablet 09/29/17 06/04/18 05/14/18 Rx 5-325 mg TAB] metFORMIN 1,000 mg PO DAILY #60 09/29/17 06/04/18 06/03/18 22:00 Rx Levemir (Nf) 50 units SQ BID 04/13/18 06/04/18 04/13/18 History Lisinopril [Zestril TAB] 20 mg PO DAILY 04/13/18 06/04/18 06/03/18 17:00 History Ziprasidone 40 mg PO BID 04/13/18 06/04/18 05/14/18 History Gabapentin [Neurontin] 300 mg PO BID capsule 04/18/18 06/04/18 Unknown Rx diazePAM TAB [Valium] 5 mg PO BID PRN tablet 04/18/18 06/04/18 05/04/18 Rx Nicotine [Habitrol] 14 mg TD QDAY #30 patch 05/16/18 06/04/18 05/21/18 Rx HYDROcodone/ACETAMINOPHEN [[place] 1 each PO Q6H PRN #20 tablet 06/04/18 Unknown Rx 5-325 Tablet] Active Meds: Active Medications Acetaminophen (Tylenol) 650 mg PO Q4H PRN PRN Reason: Pain MILD(1-3)/Fever >100.5/RODRIGUEZ Acetaminophen/Hydrocodone Bitart ([place] 5/325) 1 each PO Q6H PRN PRN Reason: BREAKTHRU Pain , Severe (7-10) Aspirin (Baby Aspirin) 81 mg PO QDAY [facility] Last Admin: 07/12/18 09:32 Dose: 81 mg Documented by: Atorvastatin Calcium (Lipitor) 40 mg PO QHS [facility] Dextrose (D50w (25gm) Syringe) 50 ml IV PRN PRN PRN Reason: Hypoglycemia Diazepam (Valium) 5 mg PO BID PRN PRN Reason: Anxiety Gabapentin (Neurontin) 300 mg PO BID [facility] Last Admin: 07/12/18 09:30 Dose: 300 mg Documented by: Heparin Sodium (Porcine) (Heparin) 5,000 unit SUB-Q Q12HR [facility] Hydromorphone HCl (Dilaudid) 0.5 mg IV Q3H PRN PRN Reason: Pain , Severe (7-10) Potassium Chloride/Sodium Chloride (Ns/Kcl 20meq) 20 meq in 1,000 mls @ 100 mls/hr IV DIRECT [facility] Cefepime HCl (Maxipime/Ns 2 Gm/100 Ml) 2 gm in 100 mls @ 200 mls/hr IV Q12H [facility] Last Admin: 07/12/18 03:06 Dose: 200 mls/hr Documented by: Vancomycin HCl 1,500 mg/ (Sodium Chloride) 530 mls @ 333.333 mls/hr IV Q12H [facility] Insulin Glargine (Lantus) 25 units SUB-Q BID@0200,1400 [facility] Last Admin: 07/12/18 03:19 Dose: 25 units Documented by: Insulin Human Lispro (Humalog) 0 unit SUB-Q ACHS [facility]; Protocol Lisinopril (Zestril) 20 mg PO DAILY [facility] Last Admin: 07/12/18 09:31 Dose: 20 mg Documented by: Nicotine (Habitrol) 14 mg TD QDAY [facility] Last Admin: 07/12/18 09:31 Dose: 14 mg Documented by: Ondansetron HCl (Zofran) 4 mg IV Q8H PRN PRN Reason: Nausea And Vomiting Oxycodone/Acetaminophen (Percocet 5/325) 1 tab PO Q6H PRN PRN Reason: Pain, Moderate (4-6) Last Admin: 07/12/18 09:30 Dose: 1 tab Documented by: Sodium Chloride (Sodium Chloride Flush Syringe 10 Ml) 10 ml IV BID JUANITA Sodium Chloride (Sodium Chloride Flush Syringe 10 Ml) 10 ml IV PRN PRN PRN Reason: LINE FLUSH Sodium Hypochlorite (Dakin's Full Strength) 1 applic TP Q12HR JUANITA Ziprasidone (Geodon) 40 mg PO BID JUANITA Last Admin: 07/12/18 09:32 Dose: Not Given Documented by: Review of Systems All systems: negative Exam - Constitutional Vitals: Temp Pulse Resp BP Pulse Ox 98.2 F 100 H 18 103/56 100 07/11/18 23:29 07/11/18 23:29 07/11/18 23:29 07/12/18 04:01 07/12/18 02:30 General appearance: Present: no acute distress - EENT Eyes: Present: EOM intact ENT: hearing intact - Neck Neck: Present: supple, normal ROM - Respiratory Respiratory effort: normal - Extremities Extremities: abnormal (right foot wound) Extremity abnormal: edema - Abdominal General gastrointestinal: Present: deferred - Rectal Rectal Exam: deferred - Psychiatric Psychiatric: cooperative Results - Labs CBC & Chem 7: 07/11/18 23:42 07/11/18 23:46 Labs: Abnormal lab results 07/11/18 07/11/18 07/12/18 Range/Units 23:42 23:46 07:52 WBC 15.6 H (4.5-11.0) K/mm3 Hgb 9.3 L (10.1-14.3) gm/dl Hct 27.5 L (30.3-42.9) % MCV 74 L (79-97) fl MCH 25 L (28-32) pg RDW 17.4 H (13.2-15.2) % Plt Count 481 H (140-440) K/mm3 Smith % (Auto) 8.5 H (0.0-7.3) % Smith # 1.3 H (0.0-0.8) K/mm3 Seg Neutrophils % 76.6 H (40.0-70.0) % Seg Neutrophils # 12.0 H (1.8-7.7) K/mm3 Sodium 129 L (137-145) mmol/L Potassium 3.1 L (3.6-5.0) mmol/L Chloride 87.5 L (98-107) mmol/L Glucose 471 H (65-100) mg/dL POC Glucose 282 H (70-105) ALT < 5 L (7-56) units/L Albumin 2.5 L (3.9-5) g/dL - Imaging and Cardiology Venous US: image reviewed Assessment and Plan The patient will need aggressive wound care and potentially further debridement of her foot wound. She has adequate inflow to heal her wound.
--- NOTE | 2018-07-12 13:30 | Consultation ---
History of Present Illness - Reason for Consult Consult date: 07/12/18 sepsis, right foot infection Requesting physician: SOUTH YADAV - History of Present Illness 43 y/o female with history of tobacco abuse, diabetic right foot ulcer and uncontrolled diabetes s/p recent right great toe amputation on 06/06/2018, Peripheral Vascular disease s/p Angioplasty of right superficial femoral artery 05/13/18; admitted on 07/11/2018 due to worsening right foot ulcer drainage and toes discoloration. Patient is well known to ID service during previous admission on 04/13/18 due to worsening right plantar foot wound/abscess due to MSSA s/p debriement on 04/14/2018, treated with linezolid po x 14 days; readmitted on 05/06/18 due to wound deterioration found septic with MSSA bacteremia due to right foot necrotizing fascitis and osteomyelitis. Wound grew MSSA and Klebsiella. Noted tendon and bone visible. Patient underwent right great toe amputation. Path showed acute osteomyelitis at the margin. Plan was to continue Cefazolin 2gms q 8 hours for total 6 weeks ending 06-21-18. Patient readmitted on 07/11/2018 [facility] due to worsening right foot wound and drainage. She reports she has been feeling sick, debilatated and her glucose has been in the 400s. In the ED, temp 98.2, HR 100, R 18, BP 116/62, O2 99. WBC 15.6. Hg 9.3. Plat 481. Creat 0.9. Na 129. K 3.2. Blood culture 07/12/2018 pending. Wound culture 07/12/2018 pending. Review of Systems: General: +subjective fever, +weakness Cutaneous: +right foot wound Head: no headaches or injury Eyes: no changes in vision, eye pain, double vision Ears: no ear pain, ear discharge, ringing or hearing loss Nose: no nose bleeding, stuffiness Mouth & throat: no bleeding gums, no horseness, no dental problems, or swollen glands Neck: no pain, node enlargement/lumps, tyroid enlargement or tenderness Respiratory: no cough, wheezing, sputum, hemoptysis, pleuritic chest pain Cardiovascular: no chest pain, leg edema, cyanosis, CARRILLO, orthopnea Musculoskeletal: no edema Gastrointestinal: +nausea, +vomiting, no hematemesis, diarrhea, constipation, melena, bright red blood in stools, fecal incontinence, jaundice Genitourinary/Reproductive: no frequent urination, dysuria, hematuria, incontinence Neurogical: no seizures, no headaches, no weakness, no paresthesias, no loss of speech or vision; no memory loss, no vertigo, no tremors, no numbness Psychiatric: stable mood; no excessive anxiety, sadness or moodiness Past History Past Medical History: diabetes, hypertension, PVD, stroke, other (schizophrenia and bipolar disorder, neuropathy) Past Surgical History: tonsillectomy, Other (multiple wound debridement, angioplasty, tubal ligation, right great toe amputation) Social history: smoking (Pt has 7-8 years history of cigarette smoking. She continues to smoke few sticks per day. She denies alcohol or illicit drug use) Family history: other (significant for hypertension and diabetes mellitus in multiple family members) Medications and Allergies Allergies Allergy/AdvReac Type Severity Reaction Status Date / Time Penicillins Allergy Rash Verified 06/11/18 15:55 Home Medications Medication Instructions Recorded Confirmed Last Taken Type AtorvaSTATin [Lipitor] 40 mg PO QHS #30 tablet 09/29/17 06/04/18 06/03/18 Rx HYDROcodone/APAP 5-325 [[place] 1 each PO Q6HR PRN #10 tablet 09/29/17 06/04/18 05/14/18 Rx 5-325 mg TAB] metFORMIN 1,000 mg PO DAILY #60 09/29/17 06/04/18 06/03/18 22:00 Rx Levemir (Nf) 50 units SQ BID 04/13/18 06/04/18 04/13/18 History Lisinopril [Zestril TAB] 20 mg PO DAILY 04/13/18 06/04/18 06/03/18 17:00 History Ziprasidone 40 mg PO BID 04/13/18 06/04/18 05/14/18 History Gabapentin [Neurontin] 300 mg PO BID capsule 04/18/18 06/04/18 Unknown Rx diazePAM TAB [Valium] 5 mg PO BID PRN tablet 04/18/18 06/04/18 05/04/18 Rx Nicotine [Habitrol] 14 mg TD QDAY #30 patch 05/16/18 06/04/18 05/21/18 Rx HYDROcodone/ACETAMINOPHEN [[place] 1 each PO Q6H PRN #20 tablet 06/04/18 Unknown Rx 5-325 Tablet] Active Meds: Active Medications Acetaminophen (Tylenol) 650 mg PO Q4H PRN PRN Reason: Pain MILD(1-3)/Fever >100.5/RODRIGUEZ Acetaminophen/Hydrocodone Bitart ([place] 5/325) 1 each PO Q6H PRN PRN Reason: BREAKTHRU Pain , Severe (7-10) Aspirin (Baby Aspirin) 81 mg PO QDAY [facility] Last Admin: 07/12/18 09:32 Dose: 81 mg Documented by: Atorvastatin Calcium (Lipitor) 40 mg PO QHS [facility] Dextrose (D50w (25gm) Syringe) 50 ml IV PRN PRN PRN Reason: Hypoglycemia Diazepam (Valium) 5 mg PO BID PRN PRN Reason: Anxiety Gabapentin (Neurontin) 300 mg PO BID [facility] Last Admin: 07/12/18 09:30 Dose: 300 mg Documented by: Heparin Sodium (Porcine) (Heparin) 5,000 unit SUB-Q Q12HR [facility] Hydromorphone HCl (Dilaudid) 0.5 mg IV Q3H PRN PRN Reason: Pain , Severe (7-10) Potassium Chloride/Sodium Chloride (Ns/Kcl 20meq) 20 meq in 1,000 mls @ 100 mls/hr IV DIRECT [facility] Cefepime HCl (Maxipime/Ns 2 Gm/100 Ml) 2 gm in 100 mls @ 200 mls/hr IV Q12H [facility] Last Admin: 07/12/18 03:06 Dose: 200 mls/hr Documented by: Vancomycin HCl 1,500 mg/ (Sodium Chloride) 530 mls @ 333.333 mls/hr IV Q12H [facility] Insulin Glargine (Lantus) 25 units SUB-Q BID@0200,1400 [facility] Last Admin: 07/12/18 03:19 Dose: 25 units Documented by: Insulin Human Lispro (Humalog) 0 unit SUB-Q ACHS [facility]; Protocol Lisinopril (Zestril) 20 mg PO DAILY [facility] Last Admin: 07/12/18 09:31 Dose: 20 mg Documented by: Nicotine (Habitrol) 14 mg TD QDAY [facility] Last Admin: 07/12/18 09:31 Dose: 14 mg Documented by: Ondansetron HCl (Zofran) 4 mg IV Q8H PRN PRN Reason: Nausea And Vomiting Oxycodone/Acetaminophen (Percocet 5/325) 1 tab PO Q6H PRN PRN Reason: Pain, Moderate (4-6) Last Admin: 07/12/18 09:30 Dose: 1 tab Documented by: Sodium Chloride (Sodium Chloride Flush Syringe 10 Ml) 10 ml IV BID [facility] Sodium Chloride (Sodium Chloride Flush Syringe 10 Ml) 10 ml IV PRN PRN PRN Reason: LINE FLUSH Sodium Hypochlorite (Dakin's Full Strength) 1 applic TP Q12HR [facility] Ziprasidone (Geodon) 40 mg PO BID [facility] Last Admin: 07/12/18 09:32 Dose: Not Given Documented by: Physical Examination - Physical Exam Narrative exam: General appearance: Alert in NAD Eyes: anicteric sclerae, moist conjunctivae; no lid-lag; PERRLA HENT: Atraumatic; oropharynx clear with moist mucous membranes and no mucosal ulcerations/no oral thrush; normal hard and soft palate. Normal external ears. Neck: Trachea midline; supple, no thyromegaly or lymphadenopathy Lungs: CTA, with normal respiratory effort and no intercostal retractions CV: RRR no murmur Abdomen: Soft, non-tender; no masses or hepatosplenomegaly Extremities: +right foot 2nd, 3rd, 4th toes with ski sloughing and blackish discoloration Skin: Normal temperature, turgor and texture; no rash, ulcers or subcutaneous nodules Psych: Appropriate affect, alert and oriented to person, place and time. Neuro: alert and oriented x 3. Moving all extermities - Constitutional Vitals: Vital Signs Temp Pulse Resp BP Pulse Ox 98.2 F 100 H 18 103/56 100 07/11/18 23:29 07/11/18 23:29 07/11/18 23:29 07/12/18 04:01 07/12/18 02:30 Temperature -Last 24 Hours Temperature 98.2 F Results - Labs CBC & Chem 7: 07/11/18 23:42 07/11/18 23:46 Labs: Abnormal lab results 07/11/18 07/11/18 07/12/18 Range/Units 23:42 23:46 07:52 WBC 15.6 H (4.5-11.0) K/mm3 Hgb 9.3 L (10.1-14.3) gm/dl Hct 27.5 L (30.3-42.9) % MCV 74 L (79-97) fl MCH 25 L (28-32) pg RDW 17.4 H (13.2-15.2) % Plt Count 481 H (140-440) K/mm3 [place] % (Auto) 8.5 H (0.0-7.3) % [place] # 1.3 H (0.0-0.8) K/mm3 Seg Neutrophils % 76.6 H (40.0-70.0) % Seg Neutrophils # 12.0 H (1.8-7.7) K/mm3 Sodium 129 L (137-145) mmol/L Potassium 3.1 L (3.6-5.0) mmol/L Chloride 87.5 L (98-107) mmol/L Glucose 471 H (65-100) mg/dL POC Glucose 282 H (70-105) ALT < 5 L (7-56) units/L Albumin 2.5 L (3.9-5) g/dL 07/12/18 Range/Units 12:51 WBC (4.5-11.0) K/mm3 Hgb (10.1-14.3) gm/dl Hct (30.3-42.9) % MCV (79-97) fl MCH (28-32) pg RDW (13.2-15.2) % Plt Count (140-440) K/mm3 [place] % (Auto) (0.0-7.3) % [place] # (0.0-0.8) K/mm3 Seg Neutrophils % (40.0-70.0) % Seg Neutrophils # (1.8-7.7) K/mm3 Sodium (137-145) mmol/L Potassium (3.6-5.0) mmol/L Chloride (98-107) mmol/L Glucose (65-100) mg/dL POC Glucose 257 H (70-105) ALT (7-56) units/L Albumin (3.9-5) g/dL Assessment and Plan Cultures: Blood culture 07/12/2018 pending. Wound culture 07/12/2018 pending. Assessment: 43 y/o female with history of tobacco abuse, diabetic right foot ulcer and uncontrolled diabetes s/p recent right great toe amputation on 06/06/2018, Peripheral Vascular disease s/p Angioplasty of right superficial femoral artery 05/13/18; admitted on 07/11/2018 due to worsening right foot ulcer drainage and toes discoloration. 1) Sepsis: Present on admission, manifested by tachycardia, leukocytosis. Etiology most likely right foot infection. 2) Right foot diabetic ulcer persistent infection with gangrene: patient with known PVD with initial right plantar foot wound/abscess due to MSSA s/p debriement on 04/14/2018, treated with linezolid po x 14 days; readmitted on 05/06/18 due to wound deterioration found septic with MSSA bacteremia due to right foot necrotizing fascitis and osteomyelitis. Wound grew MSSA and Klebsiella. Noted tendon and bone visible. Patient underwent right great toe amputation. Path showed acute osteomyelitis at the margin. Treated with Cefazolin 2gms q 8 hours for total 6 weeks ending 06-21-18. Patient readmitted on 07/11/2018 sent [facility] due to worsening right foot wound and drainage. Blood culture 07/12/2018 pending. Wound culture 07/12/2018 pending. 3) DM: poorly controlled 4) PVD Recommendations: - follow-up blood cultures, wound culture - agree with amputation patient has failed aggressive management with IV abx for 6 weeks and wound care - continue cefepime and vancomcyin with PK consult - CRP Dr Peterson will cover this weekend Will follow. Grecia Gotti MD Infectious Diseases Filter Changing Technician [facility] M [phone] O [phone]
--- NOTE | 2018-07-12 13:44 | Consultation ---
History of Present Illness Consult date: 07/12/18 Chief complaint: right foot wound - History of present illness History of present illness: 43 yo F with poorly controlled diabetes, known to me due to right foot wound. The patient has been coming to the wound care center for the last several months. She had a right foot wound which was debrided multiple times and eventually developed gangrene of right great toe. She was found to have RLE PAD and underwent revascularization of her SMA. She then underwent right great toe amputation. She had been healing well up until yesterday when she presented to the wound care center for a nurse visit. She was found to have gangrene of the 2nd, 3rd, and 4th toes on the right and purulent drainage from wound. She was sent to the ER for further evaluation. Past History Past Medical History: diabetes, hypertension, PVD, stroke, other (schizophrenia and bipolar disorder, neuropathy) Past Surgical History: tonsillectomy, Other (multiple wound debridement, angioplasty, tubal ligation, right great toe amputation) Social history: smoking (Pt has 7-8 years history of cigarette smoking. She continues to smoke few sticks per day. She denies alcohol or illicit drug use) Family history: other (significant for hypertension and diabetes mellitus in multiple family members) Medications and Allergies Allergies Allergy/AdvReac Type Severity Reaction Status Date / Time Penicillins Allergy Rash Verified 06/11/18 15:55 Home Medications Medication Instructions Recorded Confirmed Last Taken Type AtorvaSTATin [Lipitor] 40 mg PO QHS #30 tablet 09/29/17 06/04/18 06/03/18 Rx HYDROcodone/APAP 5-325 [[place] 1 each PO Q6HR PRN #10 tablet 09/29/17 06/04/18 05/14/18 Rx 5-325 mg TAB] metFORMIN 1,000 mg PO DAILY #60 09/29/17 06/04/18 06/03/18 22:00 Rx Levemir (Nf) 50 units SQ BID 04/13/18 06/04/18 04/13/18 History Lisinopril [Zestril TAB] 20 mg PO DAILY 04/13/18 06/04/18 06/03/18 17:00 History Ziprasidone 40 mg PO BID 04/13/18 06/04/18 05/14/18 History Gabapentin [Neurontin] 300 mg PO BID capsule 04/18/18 06/04/18 Unknown Rx diazePAM TAB [Valium] 5 mg PO BID PRN tablet 04/18/18 06/04/18 05/04/18 Rx Nicotine [Habitrol] 14 mg TD QDAY #30 patch 05/16/18 06/04/18 05/21/18 Rx HYDROcodone/ACETAMINOPHEN [[place] 1 each PO Q6H PRN #20 tablet 06/04/18 Unknown Rx 5-325 Tablet] Active Meds: Active Medications Acetaminophen (Tylenol) 650 mg PO Q4H PRN PRN Reason: Pain MILD(1-3)/Fever >100.5/RODRIGUEZ Acetaminophen/Hydrocodone Bitart ([place] 5/325) 1 each PO Q6H PRN PRN Reason: BREAKTHRU Pain , Severe (7-10) Aspirin (Baby Aspirin) 81 mg PO QDAY [facility] Last Admin: 07/12/18 09:32 Dose: 81 mg Documented by: Atorvastatin Calcium (Lipitor) 40 mg PO QHS [facility] Dextrose (D50w (25gm) Syringe) 50 ml IV PRN PRN PRN Reason: Hypoglycemia Diazepam (Valium) 5 mg PO BID PRN PRN Reason: Anxiety Gabapentin (Neurontin) 300 mg PO BID [facility] Last Admin: 07/12/18 09:30 Dose: 300 mg Documented by: Heparin Sodium (Porcine) (Heparin) 5,000 unit SUB-Q Q12HR [facility] Hydromorphone HCl (Dilaudid) 0.5 mg IV Q3H PRN PRN Reason: Pain , Severe (7-10) Potassium Chloride/Sodium Chloride (Ns/Kcl 20meq) 20 meq in 1,000 mls @ 100 mls/hr IV DIRECT [facility] Cefepime HCl (Maxipime/Ns 2 Gm/100 Ml) 2 gm in 100 mls @ 200 mls/hr IV Q12H [facility] Last Admin: 07/12/18 03:06 Dose: 200 mls/hr Documented by: Vancomycin HCl 1,500 mg/ (Sodium Chloride) 530 mls @ 333.333 mls/hr IV Q12H [facility] Insulin Glargine (Lantus) 25 units SUB-Q BID@0200,1400 [facility] Last Admin: 07/12/18 03:19 Dose: 25 units Documented by: Insulin Human Lispro (Humalog) 0 unit SUB-Q ACHS [facility]; Protocol Lisinopril (Zestril) 20 mg PO DAILY [facility] Last Admin: 07/12/18 09:31 Dose: 20 mg Documented by: Nicotine (Habitrol) 14 mg TD QDAY [facility] Last Admin: 07/12/18 09:31 Dose: 14 mg Documented by: Ondansetron HCl (Zofran) 4 mg IV Q8H PRN PRN Reason: Nausea And Vomiting Oxycodone/Acetaminophen (Percocet 5/325) 1 tab PO Q6H PRN PRN Reason: Pain, Moderate (4-6) Last Admin: 07/12/18 09:30 Dose: 1 tab Documented by: Sodium Chloride (Sodium Chloride Flush Syringe 10 Ml) 10 ml IV BID [facility] Sodium Chloride (Sodium Chloride Flush Syringe 10 Ml) 10 ml IV PRN PRN PRN Reason: LINE FLUSH Sodium Hypochlorite (Dakin's Full Strength) 1 applic TP Q12HR [facility] Ziprasidone (Geodon) 40 mg PO BID [facility] Last Admin: 07/12/18 09:32 Dose: Not Given Documented by: Review of Systems All systems: negative (10 pt ROS performed and negative except for that listed in HPI) Exam Vital Signs Temp Pulse Resp BP Pulse Ox 98.2 F 100 H 18 116/62 99 07/11/18 23:29 07/11/18 23:29 07/11/18 23:29 07/11/18 23:29 07/11/18 23:29 Narrative exam: Gen: AAOx3. NAD CV: s1, S2+ resp: even and unlabored Ext: R foot dressing c/d/i. Photos of wounds taken by hydrostatic tubing tester reviewed Results - Labs 07/11/18 23:42 07/11/18 23:46 Abnormal lab results 07/11/18 07/11/18 07/12/18 Range/Units 23:42 23:46 07:52 WBC 15.6 H (4.5-11.0) K/mm3 Hgb 9.3 L (10.1-14.3) gm/dl Hct 27.5 L (30.3-42.9) % MCV 74 L (79-97) fl MCH 25 L (28-32) pg RDW 17.4 H (13.2-15.2) % Plt Count 481 H (140-440) K/mm3 [place] % (Auto) 8.5 H (0.0-7.3) % [place] # 1.3 H (0.0-0.8) K/mm3 Seg Neutrophils % 76.6 H (40.0-70.0) % Seg Neutrophils # 12.0 H (1.8-7.7) K/mm3 Sodium 129 L (137-145) mmol/L Potassium 3.1 L (3.6-5.0) mmol/L Chloride 87.5 L (98-107) mmol/L Glucose 471 H (65-100) mg/dL POC Glucose 282 H (70-105) ALT < 5 L (7-56) units/L Albumin 2.5 L (3.9-5) g/dL 07/12/18 Range/Units 12:51 WBC (4.5-11.0) K/mm3 Hgb (10.1-14.3) gm/dl Hct (30.3-42.9) % MCV (79-97) fl MCH (28-32) pg RDW (13.2-15.2) % Plt Count (140-440) K/mm3 [place] % (Auto) (0.0-7.3) % [place] # (0.0-0.8) K/mm3 Seg Neutrophils % (40.0-70.0) % Seg Neutrophils # (1.8-7.7) K/mm3 Sodium (137-145) mmol/L Potassium (3.6-5.0) mmol/L Chloride (98-107) mmol/L Glucose (65-100) mg/dL POC Glucose 257 H (70-105) ALT (7-56) units/L Albumin (3.9-5) g/dL Diabetes panel 07/11/18 Range/Units 23:46 Sodium 129 L (137-145) mmol/L Potassium 3.1 L (3.6-5.0) mmol/L Chloride 87.5 L (98-107) mmol/L Carbon Dioxide 26 (22-30) mmol/L BUN 15 (7-17) mg/dL Creatinine 0.9 (0.7-1.2) mg/dL Glucose 471 H (65-100) mg/dL Calcium 9.3 (8.4-10.2) mg/dL AST 8 (5-40) units/L ALT < 5 L (7-56) units/L Alkaline Phosphatase 124 (35-129) units/L Total Protein 7.9 (6.3-8.2) g/dL Albumin 2.5 L (3.9-5) g/dL Calcium panel 07/11/18 Range/Units 23:46 Calcium 9.3 (8.4-10.2) mg/dL Albumin 2.5 L (3.9-5) g/dL Pituitary panel 07/11/18 Range/Units 23:46 Sodium 129 L (137-145) mmol/L Potassium 3.1 L (3.6-5.0) mmol/L Chloride 87.5 L (98-107) mmol/L Carbon Dioxide 26 (22-30) mmol/L BUN 15 (7-17) mg/dL Creatinine 0.9 (0.7-1.2) mg/dL Glucose 471 H (65-100) mg/dL Calcium 9.3 (8.4-10.2) mg/dL Adrenal panel 07/11/18 Range/Units 23:46 Sodium 129 L (137-145) mmol/L Potassium 3.1 L (3.6-5.0) mmol/L Chloride 87.5 L (98-107) mmol/L Carbon Dioxide 26 (22-30) mmol/L BUN 15 (7-17) mg/dL Creatinine 0.9 (0.7-1.2) mg/dL Glucose 471 H (65-100) mg/dL Calcium 9.3 (8.4-10.2) mg/dL Total Bilirubin 0.30 (0.1-1.2) mg/dL AST 8 (5-40) units/L ALT < 5 L (7-56) units/L Alkaline Phosphatase 124 (35-129) units/L Total Protein 7.9 (6.3-8.2) g/dL Albumin 2.5 L (3.9-5) g/dL Assessment and Plan 43 yo F with 1. open diabetic R foot wound 2. gangrene of R 2nd,3rd,4th toes 3. PAD 4. diabetes Plan: 1. diabetic diet 2. IVF 3. IV abx 4. consult to vascular surgery 5. wound care 6. will need transmetatarsal amputation. Discussed with Dr. Chavarria yesterday who will perform amputation. Will obtain vascular evaluation and plan for surgery on Sunday 07/16. Patient is stable. Discussed plan with patient who is in agreement. Thank you, please call with questions
[2018-07-12] MEDS: VANCOMYCIN 1,500 MG in NACL 0.9% 500 ML 500 ML IV SCH (21:45)
[2018-07-12] MEDS: SODIUM CHLORIDE FLUSH SYRINGE 10 ML IV SCH (22:40)
[2018-07-13] MEDS: LANTUS SUB-Q SCH (02:06)
[2018-07-13] MEDS: MAXIPIME/NS 2 GM/100 ML 2 GM/100 ML BAG IV SCH ×2 (02:08→15:05)
[2018-07-13] MEDS: PERCOCET 5/325 PO PRN ×2 (02:08→07:56)
[2018-07-13 05:29] LABS: Basophils % (Auto) 0.4 % (0.0-1.8); Eosinophils # (Auto) 0.2 K/mm3 (0.0-0.4); Eosinophils % (Auto) 1.6 % (0.0-4.3); Hematocrit 24.5 % (30.3-42.9); Hemoglobin 8.1 gm/dl (10.1-14.3); Lymphocytes % (Auto) 17.9 % (13.4-35.0); Mean Corpuscular HGB Conc 33 % (30-34); Mean Corpuscular Volume 74 fl (79-97); Monocytes # (Auto) 0.9 K/mm3 (0.0-0.8); Monocytes % (Auto) 8.2 % (0.0-7.3); Platelet Count 404 K/mm3 (140-440); Red Blood Count 3.33 M/mm3 (3.65-5.03); Red Cell Distribution Width 17.3 % (13.2-15.2)
[2018-07-13 05:48] LABS: BUN/Creatinine Ratio 18; Blood Urea Nitrogen 20 mg/dL (7-17); Calcium 8.4 mg/dL (8.4-10.2); Hemolysis Index 0
[2018-07-13] MEDS: HABITROL TD SCH (09:06)
[2018-07-13] MEDS: NEURONTIN PO SCH ×2 (09:06→21:30)
[2018-07-13] MEDS: HumaLOG SUB-Q SCH ×4 (09:07→21:51)
[2018-07-13] MEDS: BABY ASPIRIN PO SCH (09:09)
[2018-07-13] MEDS: HEPARIN SUB-Q SCH ×2 (09:12→21:30)
[2018-07-13] MEDS: GEODON PO SCH ×3 (09:27→22:47)
[2018-07-13] MEDS: DILAUDID IV PRN ×2 (09:27→21:30)
[2018-07-13] MEDS: DAKIN'S FULL STRENGTH TP SCH ×2 (11:58→21:32)
[2018-07-13] MEDS: VALIUM PO PRN (12:28)
[2018-07-13] MEDS: NS/KCL 20MEQ 20 MEQ/1,000 ML BAG IV SCH (12:28)
[2018-07-13] MEDS: VANCOMYCIN 1,500 MG in NACL 0.9% 500 ML 500 ML IV SCH ×3 (12:45→21:29)
[2018-07-13] MEDS: ZESTRIL PO SCH (12:56)
[2018-07-13] MEDS ORDERED: K-DUR PO ONE (13:42)
--- NOTE | 2018-07-13 13:44 | Progress Note ---
Assessment and Plan Assessment and plan: Patient is a 43 yo woman with a history of IDDM type 2, hypertension, PVD, stroke, other schizophrenia, bipolar disorder, peripheral neuropathy, dyslipidemia, tobacco dependency and dry gangrene of right great toe, s/p amputation of right great toe, debridement of wound by Dr. Cox on 06/04/18. She has been followed by wound care since and had a period of iv antibiotics at home via picc. Yesterday at her wound care visit, it was noticed that her wound had increased purulent drainage, surrounding erythema, therefore she was advised to come to E.R for futher evaluation. * HR 100, 116/52, wbc 15.6 normal temp, hgb 9.3 with mcv 74, na 129, k is 3.1 with normal cr of 0.9, bg 471, albumin 2.5 Sepsis Likely secondary to diabetic right foot ulcer with chronic necrotizing infection and osteomyelitis: treat with On IV antibiotics with Vanc and cefepime, consult and ID Right foot infection: consulted Dr. Cox==>Vascular consulted and Dr. Chavarria consulted for amputation Severe malnutrition: consult [employer] Hypokalemia: replete and monitor bmp closely Hyponatremia hypovolemia: IVF and monitor bmp closely Uncontrolled DM type 2 with hyperglycemia: treat with SSI, ada diet. Diabetic neuropathy-Continue Neurontin History of CVA without residual deficits-Continue aspirin and statin Hypertension-Controlled PAD -Status post angioplasty of the right superficial femoral artery-Continue statin Chronic right buttock wound-Continue wound care Tobacco abuse-Patient counseled on cessation-Nicotine patch History of schizophrenia/bipolar-continue antipsych meds DVT prophylaxis with sq heparin BP borderline low, will stop Lisinopril 20 mg/day and monitor closely, start NSS at 100ml/hr, replace potassium and recheck in ams. Vascular consulted and Dr. Chavarria consulted for amputation on Sunday History Interval history: Patient was seen and examined. Follow-up on current diagnosis of Right foot infection. No overnight events reported to me. Patient denies any chest pain, shortness breath, nausea/vomiting or severe headaches. Imaging, nursing note, chart, labs and old chart reviewed. Discussed with patient. Hospitalist Physical - Physical exam Narrative exam: Gen: WDWN, NAD, Awake, Alert, Orientated HEENT: NCAT, EOMI, PERRL, OP Clear Neck: supple, no adenopathy, no thyromegaly, no JVD CVS/Heart: RRR, normal S1S2, pulses present bilaterally Chest/Lungs: CTA B, Symmetrical chest expansion, good air entry bilaterally GI/Abdomen: soft, NTND, good bowel sounds, no guarding or rebound /Bladder: no suprapubic tenderness, no CVA or paraspinal tenderness Extermity/Skin: right foot ulcer with foul-smelling drainage and edema MSK: FROM x 4 Neuro: CN 2-12 grossly intact, no new focal deficits Psych: calm - Constitutional Vitals: Temp Pulse Resp BP Pulse Ox 98.3 F 75 20 97/62 99 07/13/18 11:40 07/13/18 11:39 07/13/18 11:40 07/13/18 11:40 07/13/18 11:39 General appearance: Present: no acute distress Results - Labs CBC & Chem 7: 07/13/18 05:07 07/13/18 05:07 Labs: Laboratory Last Values WBC 10.9 K/mm3 (4.5-11.0) 07/13/18 05:07 RBC 3.33 M/mm3 (3.65-5.03) L 07/13/18 05:07 Hgb 8.1 gm/dl (10.1-14.3) L 07/13/18 05:07 Hct 24.5 % (30.3-42.9) L 07/13/18 05:07 MCV 74 fl (79-97) L 07/13/18 05:07 MCH 24 pg (28-32) L 07/13/18 05:07 MCHC 33 % (30-34) 07/13/18 05:07 RDW 17.3 % (13.2-15.2) H 07/13/18 05:07 Plt Count 404 K/mm3 (140-440) 07/13/18 05:07 Lymph % (Auto) 17.9 % (13.4-35.0) 07/13/18 05:07 [place] % (Auto) 8.2 % (0.0-7.3) H 07/13/18 05:07 Eos % (Auto) 1.6 % (0.0-4.3) 07/13/18 05:07 Baso % (Auto) 0.4 % (0.0-1.8) 07/13/18 05:07 Lymph # 2.0 K/mm3 (1.2-5.4) 07/13/18 05:07 [place] # 0.9 K/mm3 (0.0-0.8) H 07/13/18 05:07 Eos # 0.2 K/mm3 (0.0-0.4) 07/13/18 05:07 Baso # 0.0 K/mm3 (0.0-0.1) 07/13/18 05:07 Seg Neutrophils % 71.9 % (40.0-70.0) H 07/13/18 05:07 Seg Neutrophils # 7.8 K/mm3 (1.8-7.7) H 07/13/18 05:07 Sodium 135 mmol/L (137-145) L 07/13/18 05:07 Potassium 3.2 mmol/L (3.6-5.0) L 07/13/18 05:07 Chloride 97.9 mmol/L (98-107) L 07/13/18 05:07 Carbon Dioxide 25 mmol/L (22-30) 07/13/18 05:07 15 mmol/L 07/13/18 05:07 BUN 20 mg/dL (7-17) H 07/13/18 05:07 1.1 mg/dL (0.7-1.2) 07/13/18 05:07 Estimated GFR > 60 ml/min 07/13/18 05:07 18 % 07/13/18 05:07 Glucose 230 mg/dL (65-100) H 07/13/18 05:07 POC Glucose 245 (70-105) H 07/13/18 11:45 Lactic Acid 1.90 mmol/L (0.7-2.0) 07/12/18 00:36 Calcium 8.4 mg/dL (8.4-10.2) 07/13/18 05:07 Magnesium 1.80 mg/dL (1.7-2.3) 07/12/18 01:52 0.30 mg/dL (0.1-1.2) 07/11/18 23:46 AST 8 units/L (5-40) 07/11/18 23:46 ALT < 5 units/L (7-56) L 07/11/18 23:46 124 units/L (35-129) 07/11/18 23:46 18.70 mg/dL (0.00-1.30) H 07/12/18 15:37 7.9 g/dL (6.3-8.2) 07/11/18 23:46 2.5 g/dL (3.9-5) L 07/11/18 23:46 0.5 % 07/11/18 23:46 Active Medications - Current Medications Current Medications: Generic Name Dose Route Start Last Admin Trade Name Freq PRN Reason Stop Dose Admin Acetaminophen 650 mg 07/12/18 01:43 Tylenol PO Q4H PRN Pain MILD(1-3)/Fever >100.5/RODRIGUEZ Acetaminophen/Hydrocodone Bitart 1 each 07/12/18 08:42 [place] 5/325 PO Q6H PRN BREAKTHRU Pain , Severe (7-10) Aspirin 81 mg 07/12/18 10:00 07/13/18 09:09 Baby Aspirin PO 81 mg QDAY JUANITA Administration Atorvastatin Calcium 40 mg 07/12/18 22:00 07/12/18 22:38 Lipitor PO 40 mg QHS JUANITA Administration Dextrose 50 ml 07/12/18 01:48 D50w (25gm) Syringe IV PRN PRN Hypoglycemia Diazepam 5 mg 07/12/18 08:42 07/13/18 12:28 Valium PO 5 mg BID PRN Administration Anxiety Gabapentin 300 mg 07/12/18 10:00 07/13/18 09:06 Neurontin PO 300 mg BID JUANITA Administration Heparin Sodium (Porcine) 5,000 unit 07/13/18 10:00 07/13/18 09:12 Heparin SUB-Q 5,000 unit Q12HR JUANITA Administration Hydromorphone HCl 0.5 mg 07/12/18 01:43 07/13/18 09:27 Dilaudid IV 0.5 mg Q3H PRN Administration Pain , Severe (7-10) Potassium Chloride/Sodium Chloride 20 meq in 1,000 mls @ 100 mls/hr 07/12/18 02:00 07/13/18 12:28 Ns/Kcl 20meq IV 100 mls/hr DIRECT JUANITA Administration Cefepime HCl 2 gm in 100 mls @ 200 mls/hr 07/13/18 03:00 07/13/18 02:08 Maxipime/Ns 2 Gm/100 Ml IV 200 mls/hr Q12H JUANITA Administration Vancomycin HCl 1,500 mg/ 530 mls @ 333.333 mls/hr 07/13/18 10:00 07/13/18 12:52 Sodium Chloride IV 333.333 mls/hr Q12H JUANITA Administration Insulin Glargine 25 units 07/12/18 02:00 07/13/18 02:06 Lantus SUB-Q 25 units BID@0200,1400 JUANITA Administration Insulin Human Lispro 0 unit 07/12/18 07:30 07/13/18 12:28 Humalog SUB-Q 3 unit ACHS JUANITA Administration Protocol Nicotine 14 mg 07/12/18 10:00 07/13/18 09:06 Habitrol TD 14 mg QDAY JUANITA Administration Ondansetron HCl 4 mg 07/12/18 01:43 Zofran IV Q8H PRN Nausea And Vomiting Oxycodone/Acetaminophen 1 tab 07/12/18 01:43 07/13/18 07:56 Percocet 5/325 PO 1 tab Q6H PRN Administration Pain, Moderate (4-6) Sodium Chloride 10 ml 07/12/18 10:00 07/12/18 22:40 Sodium Chloride Flush Syringe 10 Ml IV 10 ml BID JUANITA Administration Sodium Chloride 10 ml 07/12/18 01:43 Sodium Chloride Flush Syringe 10 Ml IV PRN PRN LINE FLUSH Sodium Hypochlorite 1 applic 07/12/18 12:00 07/13/18 11:58 Dakin's Full Strength TP 1 1000units Q12HR JUANITA Administration Ziprasidone 40 mg 07/12/18 10:00 07/13/18 09:27 Geodon PO 40 mg BID JUANITA Administration Nutrition/Malnutrition Assess - Dietary Evaluation Nutrition/Malnutrition Findings: Nutrition Notes Start: 07/12/18 17:30 Freq: Status: Active Protocol: Document 07/12/18 17:30 COLTON (Rec: 07/12/18 17:40 COLTON SRW- [email or web address]) Nutrition Notes 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 Weight Status Obese Subjective/Other Information Pt screened for malnutrition risk (wt loss and poor appetite). Pt says appetite is improving (although she ate <25% of lunch today). Diagnosed with DM 18 yrs ago, checks her BS three times daily and takes DM medications . She was amenable to a " refresher" on food sources of CHO and willing to drink ONS supplements. Discussed impact of smoking on wound healing; pt verbalized understanding. Burn Absent Trauma Absent #1 Nutrition Diagnosis Increased nutrient needs ( specify in comment below) Comments: protein Etiology increased demands of wound healing As Evidenced by Signs and Symptoms pt with non-healing diabetic wounds Is patient on ventilator? No Is Patient Ambulatory and/or Out of Bed Yes REE-([place]OOB) [ 2346.825 NUTR.MSJOOB] Kcal/Kg value to use for calculation 17 Approximate Energy Requirements Using 1828 kcal/Kg Calculation Used for Recommendations Kcal/kg Additional Notes Pro needs 1.25-1.5g/kg adjBW: 110-132g/day Fluid needs 1ml/kcal Nutrition Intervention Change Diet Order: Continue current diet order Add Supplement/Snack (indicate name/kcal Glucerna BID (chocolate) /protein ) Gianni BID Provides kCal: 630 Provides Protein (gm) 25 Teaching Recipient Patient Learning Readiness Good Teaching Methods Discussion,Handout Response to Teaching Verbalize understanding Education Handouts Provided Carbohydrate Counting for People with Diabetes Barriers to Learning No Barriers RD phone number provided Yes Patient aware of follow up options Yes Goal #1 PO intake of meals plus ONS to meet at least 75% nutrient needs Goal #2 Improved BG control Goal #3 Wound healing Goal #4 Smoking cessation Anticipated Discharge Needs: CHO-controlled diet; ONS daily if PO intake remains suboptimal Follow-Up By: 07/17/18 Additional Comments F/U: intakes (meals/ONS), wound healing
[2018-07-13] MEDS ORDERED: NACL 0.9% 1000 ML 1,000 ML IV SCH (14:00)
[2018-07-13] MEDS: SODIUM CHLORIDE FLUSH SYRINGE 10 ML IV SCH ×2 (14:45→21:34)
[2018-07-13] MEDS ORDERED: MIRALAX 3350 PO PRN (22:37)
[2018-07-13] MEDS: COLACE PO SCH (22:47)
[2018-07-14] MEDS: MAXIPIME/NS 2 GM/100 ML 2 GM/100 ML BAG IV SCH ×2 (02:53→14:46)
[2018-07-14] MEDS: NS/KCL 20MEQ 20 MEQ/1,000 ML BAG IV SCH ×2 (02:53→17:44)
[2018-07-14] MEDS: ZOFRAN IV PRN (03:51)
[2018-07-14] MEDS: DILAUDID IV PRN ×4 (03:51→21:37)
[2018-07-14 05:29] LABS: Hematocrit 26.3 % (30.3-42.9); Hemoglobin 8.4 gm/dl (10.1-14.3); Mean Corpuscular HGB Conc 32 % (30-34); Mean Corpuscular Volume 75 fl (79-97); Platelet Count 461 K/mm3 (140-440); Red Blood Count 3.51 M/mm3 (3.65-5.03); Red Cell Distribution Width 17.3 % (13.2-15.2)
[2018-07-14 05:33] LABS: BUN/Creatinine Ratio 24; Blood Urea Nitrogen 22 mg/dL (7-17); Calcium 8.3 mg/dL (8.4-10.2); Hemolysis Index 1
--- NOTE | 2018-07-14 07:13 | Progress Note ---
Assessment and Plan Assessment and plan: Patient is a 43 yo woman with a history of IDDM type 2, hypertension, PVD, stroke, other schizophrenia, bipolar disorder, peripheral neuropathy, dyslipidemia, tobacco dependency and dry gangrene of right great toe, s/p amputation of right great toe by Dr. Dong on 06/04/18. She has been followed by wound care since and had a period of iv antibiotics at home via picc. At her wound care visit, it was noticed that her wound had increased purulent drainage, surrounding erythema and became black; therefore, she came to E.R for further evaluation. * HR 100, 116/52, wbc 15.6 normal temp, hgb 9.3 with mcv 74, na 129, k is 3.1 with normal cr of 0.9, bg 471, albumin 2.5 Sepsis Likely secondary to diabetic right foot ulcer with chronic necrotizing infection and osteomyelitis: treat with On IV antibiotics with Vanc and cefepime, consult and ID Right foot infection: consulted Dr. Cox==>Vascular consulted and Dr. Chavarria consulted for amputation Severe malnutrition: consult [place] Hypokalemia: replete and monitor bmp closely Hyponatremia hypovolemia: IVF and monitor bmp closely Uncontrolled DM type 2 with hyperglycemia: treat with SSI, ada diet. Diabetic neuropathy-Continue Neurontin History of CVA without residual deficits-Continue aspirin and statin Hypertension with hypotensive episodes-stopped Lisinopril 20 mg/day on 07/13/18 and started NSS at 100ml/hr, which resolved the hypotension PAD -Status post angioplasty of the right superficial femoral artery-Continue statin Chronic right buttock wound-Continue wound care Tobacco abuse-Patient counseled on cessation-Nicotine patch History of schizophrenia/bipolar-continue antipsych meds DVT prophylaxis with sq heparin Vascular consulted, input noted, adequate blood supply Dr. Chavarria back on Sunday for amputation and/or debridement of the right foot on Sunday or Sunday History Interval history: Patient was seen and examined. Follow-up on current diagnosis of Right foot infection. No overnight events reported to me. Patient denies any chest pain, shortness breath, nausea/vomiting or severe headaches. Imaging, nursing note, chart, labs and old chart reviewed. Discussed with patient. Hospitalist Physical - Physical exam Narrative exam: Gen: WDWN, NAD, Awake, Alert, Orientated HEENT: NCAT, EOMI, PERRL, OP Clear Neck: supple, no adenopathy, no thyromegaly, no JVD CVS/Heart: RRR, normal S1S2, pulses present bilaterally Chest/Lungs: CTA B, Symmetrical chest expansion, good air entry bilaterally GI/Abdomen: soft, NTND, good bowel sounds, no guarding or rebound /Bladder: no suprapubic tenderness, no CVA or paraspinal tenderness Extermity/Skin: right foot ulcer with foul-smelling drainage and edema MSK: FROM x 4 Neuro: CN 2-12 grossly intact, no new focal deficits Psych: calm - Constitutional Vitals: Temp Pulse Resp BP Pulse Ox 98.2 F 87 18 132/73 100 07/14/18 05:09 07/14/18 05:09 07/14/18 05:09 07/14/18 05:09 07/14/18 05:09 General appearance: Present: no acute distress Results - Labs CBC & Chem 7: 07/14/18 04:44 07/14/18 04:44 Labs: Laboratory Last Values WBC 10.4 K/mm3 (4.5-11.0) 07/14/18 04:44 RBC 3.51 M/mm3 (3.65-5.03) L 07/14/18 04:44 Hgb 8.4 gm/dl (10.1-14.3) L 07/14/18 04:44 Hct 26.3 % (30.3-42.9) L 07/14/18 04:44 MCV 75 fl (79-97) L 07/14/18 04:44 MCH 24 pg (28-32) L 07/14/18 04:44 MCHC 32 % (30-34) 07/14/18 04:44 RDW 17.3 % (13.2-15.2) H 07/14/18 04:44 Plt Count 461 K/mm3 (140-440) H 07/14/18 04:44 Lymph % (Auto) 17.9 % (13.4-35.0) 07/13/18 05:07 [place] % (Auto) 8.2 % (0.0-7.3) H 07/13/18 05:07 Eos % (Auto) 1.6 % (0.0-4.3) 07/13/18 05:07 Baso % (Auto) 0.4 % (0.0-1.8) 07/13/18 05:07 Lymph # 2.0 K/mm3 (1.2-5.4) 07/13/18 05:07 [place] # 0.9 K/mm3 (0.0-0.8) H 07/13/18 05:07 Eos # 0.2 K/mm3 (0.0-0.4) 07/13/18 05:07 Baso # 0.0 K/mm3 (0.0-0.1) 07/13/18 05:07 Seg Neutrophils % 71.9 % (40.0-70.0) H 07/13/18 05:07 Seg Neutrophils # 7.8 K/mm3 (1.8-7.7) H 07/13/18 05:07 Sodium 134 mmol/L (137-145) L 07/14/18 04:44 Potassium 4.1 mmol/L (3.6-5.0) D 07/14/18 04:44 Chloride 101.2 mmol/L (98-107) 07/14/18 04:44 Carbon Dioxide 23 mmol/L (22-30) 07/14/18 04:44 14 mmol/L 07/14/18 04:44 BUN 22 mg/dL (7-17) H 07/14/18 04:44 0.9 mg/dL (0.7-1.2) 07/14/18 04:44 Estimated GFR > 60 ml/min 07/14/18 04:44 24 % 07/14/18 04:44 Glucose 305 mg/dL (65-100) H 07/14/18 04:44 POC Glucose 247 (70-105) H 07/13/18 21:11 Lactic Acid 1.90 mmol/L (0.7-2.0) 07/12/18 00:36 Calcium 8.3 mg/dL (8.4-10.2) L 07/14/18 04:44 Magnesium 1.70 mg/dL (1.7-2.3) 07/14/18 04:44 0.30 mg/dL (0.1-1.2) 07/11/18 23:46 AST 8 units/L (5-40) 07/11/18 23:46 ALT < 5 units/L (7-56) L 07/11/18 23:46 124 units/L (35-129) 07/11/18 23:46 18.70 mg/dL (0.00-1.30) H 07/12/18 15:37 7.9 g/dL (6.3-8.2) 07/11/18 23:46 2.5 g/dL (3.9-5) L 07/11/18 23:46 0.5 % 07/11/18 23:46 Active Medications - Current Medications Current Medications: Generic Name Dose Route Start Last Admin Trade Name Freq PRN Reason Stop Dose Admin Acetaminophen 650 mg 07/12/18 01:43 Tylenol PO Q4H PRN Pain MILD(1-3)/Fever >100.5/RODRIGUEZ Acetaminophen/Hydrocodone Bitart 1 each 07/12/18 08:42 [place] 5/325 PO Q6H PRN BREAKTHRU Pain , Severe (7-10) Aspirin 81 mg 07/12/18 10:00 07/13/18 09:09 Baby Aspirin PO 81 mg QDAY JUANITA Administration Atorvastatin Calcium 40 mg 07/12/18 22:00 07/13/18 21:30 Lipitor PO 40 mg QHS JUANITA Administration Dextrose 50 ml 07/12/18 01:48 D50w (25gm) Syringe IV PRN PRN Hypoglycemia Diazepam 5 mg 07/12/18 08:42 07/13/18 12:28 Valium PO 5 mg BID PRN Administration Anxiety Docusate Sodium 100 mg 07/13/18 23:00 07/13/18 22:47 Colace PO 100 mg BID JUANITA Administration Gabapentin 300 mg 07/12/18 10:00 07/13/18 21:30 Neurontin PO 300 mg BID JUANITA Administration Heparin Sodium (Porcine) 5,000 unit 07/13/18 10:00 07/13/18 21:30 Heparin SUB-Q 5,000 unit Q12HR JUANITA Administration Hydromorphone HCl 0.5 mg 07/12/18 01:43 07/14/18 03:51 Dilaudid IV 0.5 mg Q3H PRN Administration Pain , Severe (7-10) Potassium Chloride/Sodium Chloride 20 meq in 1,000 mls @ 125 mls/hr 07/12/18 02:00 07/14/18 02:53 Ns/Kcl 20meq IV 100 mls/hr DIRECT JUANITA Administration Cefepime HCl 2 gm in 100 mls @ 200 mls/hr 07/13/18 03:00 07/14/18 02:53 Maxipime/Ns 2 Gm/100 Ml IV 200 mls/hr Q12H JUANITA Administration Vancomycin HCl 1,500 mg/ 530 mls @ 333.333 mls/hr 07/13/18 10:00 07/13/18 21:29 Sodium Chloride IV 333.333 mls/hr Q12H JUANITA Administration Insulin Glargine 30 units 07/14/18 08:00 Lantus SUB-Q QAMDIAB JUANITA Insulin Human Lispro 0 unit 07/12/18 07:30 07/13/18 21:51 Humalog SUB-Q 3 unit ACHS JUANITA Administration Protocol Nicotine 14 mg 07/12/18 10:00 07/13/18 09:06 Habitrol TD 14 mg QDAY JUANITA Administration Ondansetron HCl 4 mg 07/12/18 01:43 07/14/18 03:51 Zofran IV 4 mg Q8H PRN Administration Nausea And Vomiting Oxycodone/Acetaminophen 1 tab 07/12/18 01:43 07/13/18 07:56 Percocet 5/325 PO 1 tab Q6H PRN Administration Pain, Moderate (4-6) Polyethylene Glycol 17 gm 07/13/18 22:37 Miralax 3350 PO QDAY PRN Constipation Sodium Chloride 10 ml 07/12/18 10:00 07/13/18 21:34 Sodium Chloride Flush Syringe 10 Ml IV 10 ml BID JUANITA Administration Sodium Chloride 10 ml 07/12/18 01:43 Sodium Chloride Flush Syringe 10 Ml IV PRN PRN LINE FLUSH Sodium Hypochlorite 1 applic 07/12/18 12:00 07/13/18 21:32 Dakin's Full Strength TP Not Given Q12HR JUANITA Ziprasidone 40 mg 07/12/18 10:00 07/13/18 21:30 Geodon PO Not Given BID JUANITA Nutrition/Malnutrition Assess - Dietary Evaluation Nutrition/Malnutrition Findings: Nutrition Notes Start: 07/12/18 17:30 Freq: Status: Active Protocol: Document 07/12/18 17:30 COLTON (Rec: 07/12/18 17:40 COLTON SRW- [email or web address]) Nutrition Notes Need for Assessment generated from: folder seamer Initial or Follow up Assessment Current Diagnosis Diabetes,Sepsis,Hypertension, Stroke Other Pertinent Diagnosis Infected (R) diabetic foot ulcer, Schizophrenia, Bipolar D/O Current Diet Consistent CHO Labs/Tests POC Glu 282 Pertinent Medications NS with 20mEq KCl at 100ml/hr Height 5 ft 10 in Weight 107.5 kg Usual Body Weight 114.09 kg [place] Body Weight (kg) 68.18 BMI 34.0 Weight change and time frame Pt reports intentional 5.8% wt loss since April 2018. Weight Status Obese Subjective/Other Information Pt screened for malnutrition risk (wt loss and poor appetite). Pt says appetite is improving (although she ate <25% of lunch today). Diagnosed with DM 18 yrs ago, checks her BS three times daily and takes DM medications . She was amenable to a " refresher" on food sources of CHO and willing to drink ONS supplements. Discussed impact of smoking on wound healing; pt verbalized understanding. Burn Absent Trauma Absent #1 Nutrition Diagnosis Increased nutrient needs ( specify in comment below) Comments: protein Etiology increased demands of wound healing As Evidenced by Signs and Symptoms pt with non-healing diabetic wounds Is patient on ventilator? No Is Patient Ambulatory and/or Out of Bed Yes REE-([place]-ambulatory/OOB) [ 2346.825 NUTR.MSJOOB] Kcal/Kg value to use for calculation 17 Approximate Energy Requirements Using 1828 kcal/Kg Calculation Used for Recommendations Kcal/kg Additional Notes Pro needs 1.25-1.5g/kg adjBW: 110-132g/day Fluid needs 1ml/kcal Nutrition Intervention Change Diet Order: Continue current diet order Add Supplement/Snack (indicate name/kcal Glucerna BID (chocolate) /protein ) Gianni BID Provides kCal: 630 Provides Protein (gm) 25 Teaching Recipient Patient Learning Readiness Good Teaching Methods Discussion,Handout Response to Teaching Verbalize understanding Education Handouts Provided Carbohydrate Counting for People with Diabetes Barriers to Learning No Barriers RD phone number provided Yes Patient aware of follow up options Yes Goal #1 PO intake of meals plus ONS to meet at least 75% nutrient needs Goal #2 Improved BG control Goal #3 Wound healing Goal #4 Smoking cessation Anticipated Discharge Needs: CHO-controlled diet; ONS daily if PO intake remains suboptimal Follow-Up By: 07/17/18 Additional Comments F/U: intakes (meals/ONS), wound healing
[2018-07-14] MEDS: HumaLOG SUB-Q SCH ×4 (08:42→22:34)
[2018-07-14] MEDS: LANTUS SUB-Q SCH (08:43)
[2018-07-14] MEDS: NEURONTIN PO SCH ×2 (10:53→21:31)
[2018-07-14] MEDS: HABITROL TD SCH (10:53)
[2018-07-14] MEDS: BABY ASPIRIN PO SCH (10:53)
[2018-07-14] MEDS: COLACE PO SCH ×2 (10:54→21:31)
[2018-07-14] MEDS: GEODON PO SCH ×2 (10:54→21:33)
[2018-07-14] MEDS: DAKIN'S FULL STRENGTH TP SCH ×2 (10:54→22:32)
[2018-07-14] MEDS: HEPARIN SUB-Q SCH ×2 (10:54→21:32)
[2018-07-14] MEDS: VANCOMYCIN 1,250 MG in NACL 0.9% 250ML 250 ML IV SCH ×2 (10:55→21:28)
[2018-07-14] MEDS: SODIUM CHLORIDE FLUSH SYRINGE 10 ML IV SCH ×2 (10:55→21:33)
--- NOTE | 2018-07-14 13:46 | Progress Note ---
Assessment and Plan 43 yo F with 1. open diabetic R foot wound 2. gangrene of R 2nd,3rd,4th toes 3. PAD 4. diabetes Patient is stable Plan: 1. diabetic diet. NPO p MN tomorrow - for surgery Sunday 07/16 2. IVF 3. IV abx 4. vascular consult noted - patient with adequate blood flow to heal amputation 5. wound care 6. will need transmetatarsal amputation. Discussed with Dr. Chavarria who will perform amputation. Will add to OR schedule for Sunday 07/16. Discussed plan with patient who is in agreement. Thank you, please call with questions Subjective Date of service: 07/14/18 Narrative: Pt seen and examined. No acute complaints. Objective Vital Signs - 12hr 07/14/18 07/14/18 07/14/18 03:51 04:21 05:09 Temperature 98.2 F Pulse Rate 87 Respiratory 17 17 18 Rate Blood Pressure 132/73 O2 Sat by Pulse 100 Oximetry 07/14/18 12:06 Temperature 98.0 F Pulse Rate 89 Respiratory 18 Rate Blood Pressure 137/62 O2 Sat by Pulse 100 Oximetry - Labs 07/14/18 04:44 07/14/18 04:44 Diabetes panel 07/14/18 Range/Units 04:44 Sodium 134 L (137-145) mmol/L Potassium 4.1 D (3.6-5.0) mmol/L Chloride 101.2 (98-107) mmol/L Carbon Dioxide 23 (22-30) mmol/L BUN 22 H (7-17) mg/dL Creatinine 0.9 (0.7-1.2) mg/dL Glucose 305 H (65-100) mg/dL Calcium 8.3 L (8.4-10.2) mg/dL Calcium panel 07/14/18 Range/Units 04:44 Calcium 8.3 L (8.4-10.2) mg/dL Pituitary panel 07/14/18 Range/Units 04:44 Sodium 134 L (137-145) mmol/L Potassium 4.1 D (3.6-5.0) mmol/L Chloride 101.2 (98-107) mmol/L Carbon Dioxide 23 (22-30) mmol/L BUN 22 H (7-17) mg/dL Creatinine 0.9 (0.7-1.2) mg/dL Glucose 305 H (65-100) mg/dL Calcium 8.3 L (8.4-10.2) mg/dL Adrenal panel 07/14/18 Range/Units 04:44 Sodium 134 L (137-145) mmol/L Potassium 4.1 D (3.6-5.0) mmol/L Chloride 101.2 (98-107) mmol/L Carbon Dioxide 23 (22-30) mmol/L BUN 22 H (7-17) mg/dL Creatinine 0.9 (0.7-1.2) mg/dL Glucose 305 H (65-100) mg/dL Calcium 8.3 L (8.4-10.2) mg/dL
[2018-07-14] MEDS: PROTONIX PO SCH (14:46)
[2018-07-15] MEDS: MAXIPIME/NS 2 GM/100 ML 2 GM/100 ML BAG IV SCH ×2 (02:39→15:35)
[2018-07-15] MEDS: DILAUDID IV PRN ×2 (05:14→22:08)
[2018-07-15] MEDS: NS/KCL 20MEQ 20 MEQ/1,000 ML BAG IV SCH (06:17)
[2018-07-15] MEDS: HumaLOG SUB-Q SCH ×4 (08:14→22:08)
[2018-07-15] MEDS: LANTUS SUB-Q SCH (09:04)
[2018-07-15] MEDS: HABITROL TD SCH (09:14)
[2018-07-15] MEDS: PROTONIX PO SCH (09:15)
[2018-07-15] MEDS: BABY ASPIRIN PO SCH (09:15)
[2018-07-15] MEDS: COLACE PO SCH ×2 (09:15→21:39)
[2018-07-15] MEDS: NEURONTIN PO SCH ×2 (09:15→21:48)
[2018-07-15] MEDS: HEPARIN SUB-Q SCH ×2 (09:15→21:39)
[2018-07-15] MEDS: SODIUM CHLORIDE FLUSH SYRINGE 10 ML IV SCH ×2 (09:16→22:17)
[2018-07-15] MEDS: DAKIN'S FULL STRENGTH TP SCH ×2 (09:16→21:40)
[2018-07-15 09:18] LABS: Hematocrit 26.4 % (30.3-42.9); Hemoglobin 8.5 gm/dl (10.1-14.3); Mean Corpuscular HGB Conc 32 % (30-34); Mean Corpuscular Volume 74 fl (79-97); Platelet Count 484 K/mm3 (140-440); Red Blood Count 3.55 M/mm3 (3.65-5.03); Red Cell Distribution Width 17.5 % (13.2-15.2)
[2018-07-15] MEDS: GEODON PO SCH ×2 (09:25→21:39)
[2018-07-15 09:37] LABS: BUN/Creatinine Ratio 20; Blood Urea Nitrogen 12 mg/dL (7-17); Calcium 8.5 mg/dL (8.4-10.2); Hemolysis Index 2
[2018-07-15] MEDS: NORCO 5/325 PO PRN ×2 (13:43→19:17)
[2018-07-15] MEDS: VANCOMYCIN 1,250 MG in NACL 0.9% 250ML 250 ML IV SCH ×2 (13:43→22:17)
--- NOTE | 2018-07-15 14:20 | Progress Note ---
Assessment and Plan Assessment and plan: Patient is a 43 yo woman with a history of IDDM type 2, hypertension, PVD, stroke, other schizophrenia, bipolar disorder, peripheral neuropathy, dyslipidemia, tobacco dependency and dry gangrene of right great toe, s/p amputation of right great toe by Dr. Dong on 06/04/18. She has been followed by wound care since and had a period of iv antibiotics at home via picc. At her wound care visit, it was noticed that her wound had increased purulent drainage, surrounding erythema and became black; therefore, she came to E.R for further evaluation. * HR 100, 116/52, wbc 15.6 normal temp, hgb 9.3 with mcv 74, na 129, k is 3.1 with normal cr of 0.9, bg 471, albumin 2.5 Sepsis Likely secondary to diabetic right foot ulcer with chronic necrotizing infection and osteomyelitis: treat with On IV antibiotics with Vanc and cefepime, consult and ID Right foot infection: consulted Dr. Cox==>Vascular consulted and Dr. Chavarria consulted for amputation Severe malnutrition: consult Records Management Director Hypokalemia: replete and monitor bmp closely Hyponatremia hypovolemia: IVF and monitor bmp closely Uncontrolled DM type 2 with hyperglycemia: treat with SSI, ada diet. Diabetic neuropathy-Continue Neurontin History of CVA without residual deficits-Continue aspirin and statin Hypertension with hypotensive episodes-stopped Lisinopril 20 mg/day on 07/13/18 and started NSS at 100ml/hr, which resolved the hypotension PAD -Status post angioplasty of the right superficial femoral artery-Continue statin Chronic right buttock wound-Continue wound care Tobacco abuse-Patient counseled on cessation-Nicotine patch History of schizophrenia/bipolar-continue antipsych meds, she is refusing the Geodone because it makes her sleep, but she is also refusing the evening/night time dose. Counseling done. DVT prophylaxis with sq heparin Vascular consulted, input noted, adequate blood supply Dr. Chavarria for amputation and/or debridement of the right foot on Sunday History Interval history: Patient was seen and examined. Follow-up on current diagnosis of Right foot infection. No overnight events reported to me. Patient denies any chest pain, shortness breath, nausea/vomiting or severe headaches. Imaging, nursing note, chart, labs and old chart reviewed. Discussed with patient. Hospitalist Physical - Physical exam Narrative exam: Gen: WDWN, NAD, Awake, Alert, Orientated HEENT: NCAT, EOMI, PERRL, OP Clear Neck: supple, no adenopathy, no thyromegaly, no JVD CVS/Heart: RRR, normal S1S2, pulses present bilaterally Chest/Lungs: CTA B, Symmetrical chest expansion, good air entry bilaterally GI/Abdomen: soft, NTND, good bowel sounds, no guarding or rebound /Bladder: no suprapubic tenderness, no CVA or paraspinal tenderness Extermity/Skin: right foot ulcer with foul-smelling drainage and edema MSK: FROM x 4 Neuro: CN 2-12 grossly intact, no new focal deficits Psych: calm - Constitutional Vitals: Temp Pulse Resp BP Pulse Ox 98.3 F 92 H 20 157/105 100 07/15/18 12:25 07/15/18 12:23 07/15/18 13:43 07/15/18 12:25 07/15/18 12:23 General appearance: Present: no acute distress Results - Labs CBC & Chem 7: 07/15/18 08:33 07/15/18 08:33 Labs: Laboratory Last Values WBC 10.8 K/mm3 (4.5-11.0) 07/15/18 08:33 RBC 3.55 M/mm3 (3.65-5.03) L 07/15/18 08:33 Hgb 8.5 gm/dl (10.1-14.3) L 07/15/18 08:33 Hct 26.4 % (30.3-42.9) L 07/15/18 08:33 MCV 74 fl (79-97) L 07/15/18 08:33 MCH 24 pg (28-32) L 07/15/18 08:33 MCHC 32 % (30-34) 07/15/18 08:33 RDW 17.5 % (13.2-15.2) H 07/15/18 08:33 Plt Count 484 K/mm3 (140-440) H 07/15/18 08:33 Lymph % (Auto) 17.9 % (13.4-35.0) 07/13/18 05:07 [place] % (Auto) 8.2 % (0.0-7.3) H 07/13/18 05:07 Eos % (Auto) 1.6 % (0.0-4.3) 07/13/18 05:07 Baso % (Auto) 0.4 % (0.0-1.8) 07/13/18 05:07 Lymph # 2.0 K/mm3 (1.2-5.4) 07/13/18 05:07 [place] # 0.9 K/mm3 (0.0-0.8) H 07/13/18 05:07 Eos # 0.2 K/mm3 (0.0-0.4) 07/13/18 05:07 Baso # 0.0 K/mm3 (0.0-0.1) 07/13/18 05:07 Seg Neutrophils % 71.9 % (40.0-70.0) H 07/13/18 05:07 Seg Neutrophils # 7.8 K/mm3 (1.8-7.7) H 07/13/18 05:07 Sodium 133 mmol/L (137-145) L 07/15/18 08:33 Potassium 4.2 mmol/L (3.6-5.0) 07/15/18 08:33 Chloride 102.6 mmol/L (98-107) 07/15/18 08:33 Carbon Dioxide 20 mmol/L (22-30) L 07/15/18 08:33 15 mmol/L 07/15/18 08:33 BUN 12 mg/dL (7-17) 07/15/18 08:33 0.6 mg/dL (0.7-1.2) L 07/15/18 08:33 Estimated GFR > 60 ml/min 07/15/18 08:33 20 % 07/15/18 08:33 Glucose 232 mg/dL (65-100) H 07/15/18 08:33 POC Glucose 208 (70-105) H 07/15/18 12:29 Lactic Acid 1.90 mmol/L (0.7-2.0) 07/12/18 00:36 Calcium 8.5 mg/dL (8.4-10.2) 07/15/18 08:33 Magnesium 1.70 mg/dL (1.7-2.3) 07/14/18 04:44 0.30 mg/dL (0.1-1.2) 07/11/18 23:46 AST 8 units/L (5-40) 07/11/18 23:46 ALT < 5 units/L (7-56) L 07/11/18 23:46 124 units/L (35-129) 07/11/18 23:46 18.70 mg/dL (0.00-1.30) H 07/12/18 15:37 7.9 g/dL (6.3-8.2) 07/11/18 23:46 2.5 g/dL (3.9-5) L 07/11/18 23:46 0.5 % 07/11/18 23:46 Vancomycin Trough 21.8 ug/mL (5.0-20.0) H 07/14/18 07:37 Active Medications - Current Medications Current Medications: Generic Name Dose Route Start Last Admin Trade Name Freq PRN Reason Stop Dose Admin Acetaminophen 650 mg 07/12/18 01:43 Tylenol PO Q4H PRN Pain MILD(1-3)/Fever >100.5/RODRIGUEZ Acetaminophen/Hydrocodone Bitart 1 each 07/12/18 08:42 07/15/18 13:43 Mccoll 5/325 PO 1 each Q6H PRN Administration BREAKTHRU Pain , Severe (7-10) Aspirin 81 mg 07/12/18 10:00 07/15/18 09:15 Baby Aspirin PO 81 mg QDAY JUANITA Administration Atorvastatin Calcium 40 mg 07/12/18 22:00 07/14/18 21:31 Lipitor PO 40 mg QHS JUANITA Administration Dextrose 50 ml 07/12/18 01:48 D50w (25gm) Syringe IV PRN PRN Hypoglycemia Diazepam 5 mg 07/12/18 08:42 07/13/18 12:28 Valium PO 5 mg BID PRN Administration Anxiety Docusate Sodium 100 mg 07/13/18 23:00 07/15/18 09:15 Colace PO 100 mg BID JUANITA Administration Gabapentin 300 mg 07/12/18 10:00 07/15/18 09:15 Neurontin PO 300 mg BID JUANITA Administration Heparin Sodium (Porcine) 5,000 unit 07/13/18 10:00 07/15/18 09:15 Heparin SUB-Q 5,000 unit Q12HR JUANITA Administration Hydromorphone HCl 0.5 mg 07/12/18 01:43 07/15/18 05:14 Dilaudid IV 0.5 mg Q3H PRN Administration Pain , Severe (7-10) Potassium Chloride/Sodium Chloride 20 meq in 1,000 mls @ 125 mls/hr 07/12/18 02:00 07/15/18 06:17 Ns/Kcl 20meq IV 100 mls/hr DIRECT JUANITA Administration Cefepime HCl 2 gm in 100 mls @ 200 mls/hr 07/13/18 03:00 07/15/18 02:39 Maxipime/Ns 2 Gm/100 Ml IV 200 mls/hr Q12H JUANITA Administration Vancomycin HCl 1,250 mg/ 275 mls @ 166.667 mls/hr 07/14/18 10:00 07/15/18 13:43 Sodium Chloride IV 166.667 mls/hr Q12H JUANITA Administration Insulin Glargine 30 units 07/14/18 08:00 07/15/18 09:04 Lantus SUB-Q 30 units QAMDIAB JUANITA Administration Insulin Human Lispro 0 unit 07/12/18 07:30 07/15/18 13:27 Humalog SUB-Q 3 unit ACHS JUANITA Administration Protocol Nicotine 14 mg 07/12/18 10:00 07/15/18 09:14 Habitrol TD 14 mg QDAY JUANITA Administration Ondansetron HCl 4 mg 07/12/18 01:43 07/14/18 03:51 Zofran IV 4 mg Q8H PRN Administration Nausea And Vomiting Oxycodone/Acetaminophen 1 tab 07/12/18 01:43 07/13/18 07:56 Percocet 5/325 PO 1 tab Q6H PRN Administration Pain, Moderate (4-6) Pantoprazole Sodium 40 mg 07/14/18 15:00 07/15/18 09:15 Protonix PO 40 mg QDAY JUANITA Administration Polyethylene Glycol 17 gm 07/13/18 22:37 07/14/18 12:28 Miralax 3350 PO 17 gm QDAY PRN Administration Constipation Sodium Chloride 10 ml 07/12/18 10:00 07/15/18 09:16 Sodium Chloride Flush Syringe 10 Ml IV 10 ml BID JUANITA Administration Sodium Chloride 10 ml 07/12/18 01:43 Sodium Chloride Flush Syringe 10 Ml IV PRN PRN LINE FLUSH Sodium Hypochlorite 1 applic 07/12/18 12:00 07/15/18 09:16 Dakin's Full Strength TP 1 1000units Q12HR JUANITA Administration Ziprasidone 40 mg 07/12/18 10:00 07/15/18 09:25 Florinda PO Not Given BID JUANITA Nutrition/Malnutrition Assess - Dietary Evaluation Nutrition/Malnutrition Findings: Nutrition Notes Start: 07/12/18 17:30 Freq: Status: Active Protocol: Document 07/12/18 17:30 COLTON (Rec: 07/12/18 17:40 COLTON [id number] [email or web address]) Nutrition Notes Need for Assessment generated from: gatekeeper Initial or Follow up Assessment Current Diagnosis Diabetes,Sepsis,Hypertension, Stroke Other Pertinent Diagnosis Infected (R) diabetic foot ulcer, Schizophrenia, Bipolar D/O Current Diet Consistent CHO Labs/Tests POC Glu 282 Pertinent Medications NS with 20mEq KCl at 100ml/hr Height 5 ft 10 in Weight 107.5 kg Usual Body Weight 114.09 kg [place] Body Weight (kg) 68.18 BMI 34.0 Weight change and time frame Pt reports intentional 5.8% wt loss since April 2018. Weight Status Obese Subjective/Other Information Pt screened for malnutrition risk (wt loss and poor appetite). Pt says appetite is improving (although she ate <25% of lunch today). Diagnosed with DM 18 yrs ago, checks her BS three times daily and takes DM medications . She was amenable to a " refresher" on food sources of CHO and willing to drink ONS supplements. Discussed impact of smoking on wound healing; pt verbalized understanding. Burn Absent Trauma Absent #1 Nutrition Diagnosis Increased nutrient needs ( specify in comment below) Comments: protein Etiology increased demands of wound healing As Evidenced by Signs and Symptoms pt with non-healing diabetic wounds Is patient on ventilator? No Is Patient Ambulatory and/or Out of Bed Yes REE-(Haskell-St. Jeor-ambulatory/OOB) [ 2346.825 NUTR.MSJOOB] Kcal/Kg value to use for calculation 17 Approximate Energy Requirements Using 1828 kcal/Kg Calculation Used for Recommendations Kcal/kg Additional Notes Pro needs 1.25-1.5g/kg adjBW: 110-132g/day Fluid needs 1ml/kcal Nutrition Intervention Change Diet Order: Continue current diet order Add Supplement/Snack (indicate name/kcal Glucerna BID (chocolate) /protein ) Gianni BID Provides kCal: 630 Provides Protein (gm) 25 Teaching Recipient Patient Learning Readiness Good Teaching Methods Discussion,Handout Response to Teaching Verbalize understanding Education Handouts Provided Carbohydrate Counting for People with Diabetes Barriers to Learning No Barriers RD phone number provided Yes Patient aware of follow up options Yes Goal #1 PO intake of meals plus ONS to meet at least 75% nutrient needs Goal #2 Improved BG control Goal #3 Wound healing Goal #4 Smoking cessation Anticipated Discharge Needs: CHO-controlled diet; ONS daily if PO intake remains suboptimal Follow-Up By: 07/17/18 Additional Comments F/U: intakes (meals/ONS), wound healing
[2018-07-15] MEDS: VALIUM PO PRN (18:35)
--- NOTE | 2018-07-15 19:04 | Progress Note ---
Assessment and Plan Cultures: Blood culture 07/12/2018 no growth today. Wound culture 07/12/2018 Proteus MDR, E faecalis and Beta hem Strep MRSA screening negative Assessment: 43 y/o female with history of tobacco abuse, diabetic right foot ulcer and uncontrolled diabetes s/p recent right great toe amputation on 06/06/2018, Peripheral Vascular disease s/p Angioplasty of right superficial femoral artery 05/13/18; admitted on 07/11/2018 due to worsening right foot ulcer drainage and toes discoloration. 1) Sepsis:better. Etiology most likely right foot infection. 2) Right foot diabetic ulcer persistent infection with gangrene: patient with known PVD with initial right plantar foot wound/abscess due to MSSA s/p debriement on 04/14/2018, treated with linezolid po x 14 days; readmitted on 05/06/18 due to wound deterioration found septic with MSSA bacteremia due to right foot necrotizing fascitis and osteomyelitis. Wound grew MSSA and Klebsiella. Noted tendon and bone visible. Patient underwent right great toe amputation. Path showed acute osteomyelitis at the margin. Treated with Cefazolin 2gms q 8 hours for total 6 weeks ending 06-21-18. Patient readmitted on 07/11/2018 [facility] due to worsening right foot wound and drainage. Blood culture 07/12/2018 no growth. Wound culture 07/12/2018 Proteus MDR, E faecalis and Beta hem Strep. CRP=18. 3) DM: poorly controlled 4) PVD Recommendations: - contact isolation due to MDR Proteus - agree with amputation - pending - continue cefepime and vancomcyin with PK consult Will follow. Grecia Gotti MD Infectious Diseases [employer] [facility] M [phone] Subjective Date of service: 07/15/18 Principal diagnosis: diabetic foot infection Interval history: Feels ok, no complaint. No fever Objective - Exam Narrative Exam: General appearance: Alert in NAD Eyes: anicteric sclerae, moist conjunctivae; no lid-lag; PERRLA HENT: Atraumatic; oropharynx clear with moist mucous membranes and no mucosal ulcerations/no oral thrush; normal hard and soft palate. Normal external ears. Neck: Trachea midline; supple, no thyromegaly or lymphadenopathy Lungs: CTA, with normal respiratory effort and no intercostal retractions CV: RRR no murmur Abdomen: Soft, non-tender; no masses or hepatosplenomegaly Extremities: +right foot 2nd, 3rd, 4th toes with ski sloughing and blackish discoloration Skin: Normal temperature, turgor and texture; no rash, ulcers or subcutaneous nodules Psych: Appropriate affect, alert and oriented to person, place and time. Neuro: alert and oriented x 3. Moving all extermities - Constitutional Vitals: Vital Signs Temp Pulse Resp BP Pulse Ox 98.6 F 92 H 20 179/92 100 07/15/18 17:22 07/15/18 17:22 07/15/18 17:22 07/15/18 17:22 07/15/18 17:22 Temperature -Last 24 Hours Temperature 98.6 F Temperature 98.3 F Temperature 97.9 F Temperature 97.6 F - Labs CBC & Chem 7: 07/15/18 08:33 07/15/18 08:33 Labs: Abnormal lab results 07/14/18 07/15/18 07/15/18 Range/Units 21:53 07:42 08:33 RBC 3.55 L (3.65-5.03) M/mm3 Hgb 8.5 L (10.1-14.3) gm/dl Hct 26.4 L (30.3-42.9) % MCV 74 L (79-97) fl MCH 24 L (28-32) pg RDW 17.5 H (13.2-15.2) % Plt Count 484 H (140-440) K/mm3 Sodium (137-145) mmol/L Carbon Dioxide (22-30) mmol/L Creatinine (0.7-1.2) mg/dL Glucose (65-100) mg/dL POC Glucose 268 H 212 H (70-105) 07/15/18 07/15/18 07/15/18 Range/Units 08:33 12:29 17:27 RBC (3.65-5.03) M/mm3 Hgb (10.1-14.3) gm/dl Hct (30.3-42.9) % MCV (79-97) fl MCH (28-32) pg RDW (13.2-15.2) % Plt Count (140-440) K/mm3 Sodium 133 L (137-145) mmol/L Carbon Dioxide 20 L (22-30) mmol/L Creatinine 0.6 L (0.7-1.2) mg/dL Glucose 232 H (65-100) mg/dL POC Glucose 208 H 107 H (70-105)
[2018-07-16] MEDS: MAXIPIME/NS 2 GM/100 ML 2 GM/100 ML BAG IV SCH ×2 (03:26→15:47)
[2018-07-16] MEDS: NS/KCL 20MEQ 20 MEQ/1,000 ML BAG IV SCH ×3 (07:52→17:49)
[2018-07-16 08:21] LABS: Hemoglobin 7.6 gm/dl (10.1-14.3)
--- NOTE | 2018-07-16 08:31 | Anesthesia Consultation ---
Anesthesia Consult and Med Hx Date of service: 07/16/18 - Airway Anesthetic Teeth Evaluation: Poor ROM Head & Neck: Adequate Mental/Hyoid Distance: Adequate Mallampati Class: Class II Intubation Access Assessment: Probably Good - Pulmonary Exam CTA: Yes - Cardiac Exam Cardiac Exam: RRR - Pre-Operative Health Status ASA Pre-Surgery Classification: ASA3 Proposed Anesthetic Plan: General - Pulmonary Hx Smoking: Yes Hx Asthma: No Hx Respiratory Symptoms: No COPD: No Hx Pneumonia: No - Cardiovascular System Hx Hypertension: Yes Hx Heart Attack/AMI: No Hx Percutaneous Transluminal Coronary Angioplasty (PTCA): No Hx Cardia Arrhythmia: No - Central Nervous System Hx Neuromuscular Disorder: Yes (neuropathy BLE) CVA: Yes (10/05) Hx Psychiatric Problems: Yes - Gastrointestinal Hx Gastroesophageal Reflux Disease: No - Endocrine Hx Renal Disease: No Hx End Stage Renal Disease: No Hx Liver Disease: No Hx Insulin Dependent Diabetes: Yes Hx Thyroid Disease: No - Hematic Hx Anemia: Yes - Other Systems Hx Cancer: No Hx Obesity: Yes - Additional Comments Anesthesia Medical History Comments: No GAC, No FHAC
--- NOTE | 2018-07-16 08:31 | Anesthesia Day of Surgery ---
Anesthesia Day of Surgery - Day of Surgery Patient Examined: Yes Patient H&P Reviewed: Yes Patient is NPO: Yes (2099) Beta Blockers: No Cardiac Clearance: No Pulmonary Clearance: No
[2018-07-16 08:40] LABS: BUN/Creatinine Ratio 14; Blood Urea Nitrogen 10 mg/dL (7-17); Calcium 8.5 mg/dL (8.4-10.2); Hemolysis Index 1
[2018-07-16] MEDS: LANTUS SUB-Q SCH (09:45)
[2018-07-16] MEDS: HumaLOG SUB-Q SCH ×4 (09:57→23:01)
[2018-07-16] MEDS: HABITROL TD SCH (10:20)
[2018-07-16] MEDS: VANCOMYCIN 1,250 MG in NACL 0.9% 250ML 250 ML IV SCH ×2 (10:20→23:00)
[2018-07-16] MEDS: BABY ASPIRIN PO SCH (10:23)
[2018-07-16] MEDS: NEURONTIN PO SCH ×2 (10:23→23:01)
[2018-07-16] MEDS: HEPARIN SUB-Q SCH ×2 (10:23→23:01)
[2018-07-16] MEDS: PROTONIX PO SCH ×2 (10:23→17:50)
[2018-07-16] MEDS: GEODON PO SCH ×3 (10:23→23:00)
[2018-07-16] MEDS: COLACE PO SCH ×2 (10:24→23:01)
[2018-07-16] MEDS: DAKIN'S FULL STRENGTH TP SCH ×2 (10:26→23:02)
[2018-07-16 10:28] LABS: Hematocrit 24.7 % (30.3-42.9); Mean Corpuscular HGB Conc 32 % (30-34); Mean Corpuscular Volume 74 fl (79-97); Platelet Count 462 K/mm3 (140-440); Red Blood Count 3.32 M/mm3 (3.65-5.03); Red Cell Distribution Width 17.4 % (13.2-15.2)
--- NOTE | 2018-07-16 10:52 | Progress Note ---
Assessment and Plan Assessment and plan: Sepsis Likely secondary to diabetic right foot ulcer with chronic necrotizing i nfection and osteomyelitis: Cont. IV antibiotics with Vanc and cefepime, ID and vascular following Right foot ulcer/infection: Dr. Cox, Vascular and Dr. Chavarria consulted. Amputation today. Wound culture 07/12/2018 Proteus MDR, E faecalis and Beta hem Strep Severe malnutrition: consult National [employer] Hypokalemia: replete and monitor bmp closely Hyponatremia hypovolemia: IVF and monitor bmp closely Uncontrolled DM type 2 with hyperglycemia: treat with SSI, ada diet. Diabetic neuropathy-Continue Neurontin History of CVA without residual deficits-Continue aspirin and statin Hypertension with hypotensive episodes-stopped Lisinopril 20 mg/day on 07/13/18 and started NSS at 100ml/hr, which resolved the hypotension PAD -Status post angioplasty of the right superficial femoral artery-Continue statin Chronic right buttock wound-Continue wound care Tobacco abuse-Patient counseled on cessation-Nicotine patch History of schizophrenia/bipolar-continue antipsych meds, she is refusing the Geodon because it makes her sleep, but she is also refusing the evening/night time dose. Counseling done. DVT prophylaxis with sq heparin History Interval history: Patient is a 43 yo woman with a history of IDDM type 2, hypertension, PVD, stroke, other schizophrenia, bipolar disorder, peripheral neuropathy, dyslipidemia, tobacco dependency and dry gangrene of right great toe, Peripheral Vascular disease s/p Angioplasty of right superficial femoral artery 05/13/18, s/p amputation of right great toe by Dr. Dong on 06/04/18. She has been followed by wound care since and had a period of iv antibiotics at home via picc. At her wound care visit, it was noticed that her wound had increased purulent drainage, surrounding erythema and became black; therefore, she came to E.R for further evaluation. Hospitalist Physical - Constitutional Vitals: Temp Pulse Resp BP Pulse Ox 98.1 F 94 H 20 139/81 100 07/16/18 05:33 07/16/18 05:33 07/16/18 05:33 07/16/18 05:33 07/16/18 05:33 General appearance: Present: no acute distress - EENT Eyes: Present: PERRL, EOM intact ENT: hearing intact, clear oral mucosa, dentition normal - Neck Neck: Present: supple, normal ROM - Respiratory Respiratory effort: normal Respiratory: bilateral: CTA - Cardiovascular Rhythm: regular Heart Sounds: Present: S1 & S2. Absent: gallop, rub - Extremities Extremities: no ischemia, No edema, Full ROM - Abdominal General gastrointestinal: soft, non-tender, non-distended, normal bowel sounds - Integumentary Integumentary: Present: clear, warm, dry - Neurologic Neurologic: CNII-XII intact, moves all extremities Results - Labs CBC & Chem 7: 07/16/18 07:43 07/16/18 07:43 Labs: Laboratory Last Values WBC 10.2 K/mm3 (4.5-11.0) 07/16/18 07:43 RBC 3.32 M/mm3 (3.65-5.03) L 07/16/18 07:43 Hgb 7.6 gm/dl (10.1-14.3) L 07/16/18 07:43 Hct 24.7 % (30.3-42.9) L 07/16/18 07:43 MCV 74 fl (79-97) L 07/16/18 07:43 MCH 24 pg (28-32) L 07/16/18 07:43 MCHC 32 % (30-34) 07/16/18 07:43 RDW 17.4 % (13.2-15.2) H 07/16/18 07:43 Plt Count 462 K/mm3 (140-440) H 07/16/18 07:43 Lymph % (Auto) 17.9 % (13.4-35.0) 07/13/18 05:07 [place] % (Auto) 8.2 % (0.0-7.3) H 07/13/18 05:07 Eos % (Auto) 1.6 % (0.0-4.3) 07/13/18 05:07 Baso % (Auto) 0.4 % (0.0-1.8) 07/13/18 05:07 Lymph # 2.0 K/mm3 (1.2-5.4) 07/13/18 05:07 [place] # 0.9 K/mm3 (0.0-0.8) H 07/13/18 05:07 Eos # 0.2 K/mm3 (0.0-0.4) 07/13/18 05:07 Baso # 0.0 K/mm3 (0.0-0.1) 07/13/18 05:07 Seg Neutrophils % 71.9 % (40.0-70.0) H 07/13/18 05:07 Seg Neutrophils # 7.8 K/mm3 (1.8-7.7) H 07/13/18 05:07 Sodium 135 mmol/L (137-145) L 07/16/18 07:43 Potassium 4.4 mmol/L (3.6-5.0) 07/16/18 07:43 Chloride 105.7 mmol/L (98-107) 07/16/18 07:43 Carbon Dioxide 19 mmol/L (22-30) L 07/16/18 07:43 15 mmol/L 07/16/18 07:43 BUN 10 mg/dL (7-17) 07/16/18 07:43 0.7 mg/dL (0.7-1.2) 07/16/18 07:43 Estimated GFR > 60 ml/min 07/16/18 07:43 14 % 07/16/18 07:43 Glucose 300 mg/dL (65-100) H 07/16/18 07:43 POC Glucose 321 (70-105) H 07/16/18 07:40 Lactic Acid 1.90 mmol/L (0.7-2.0) 07/12/18 00:36 Calcium 8.5 mg/dL (8.4-10.2) 07/16/18 07:43 Magnesium 1.70 mg/dL (1.7-2.3) 07/14/18 04:44 0.30 mg/dL (0.1-1.2) 07/11/18 23:46 AST 8 units/L (5-40) 07/11/18 23:46 ALT < 5 units/L (7-56) L 07/11/18 23:46 124 units/L (35-129) 07/11/18 23:46 18.70 mg/dL (0.00-1.30) H 07/12/18 15:37 7.9 g/dL (6.3-8.2) 07/11/18 23:46 2.5 g/dL (3.9-5) L 07/11/18 23:46 0.5 % 07/11/18 23:46 Vancomycin Trough 21.8 ug/mL (5.0-20.0) H 07/14/18 07:37 Blood Type B POSITIVE 07/16/18 08:42 Antibody Screen TNR 07/16/18 08:42 MELITA Antibody Screen Negative 07/16/18 08:42 Active Medications - Current Medications Current Medications: Generic Name Dose Route Start Last Admin Trade Name Freq PRN Reason Stop Dose Admin Acetaminophen 650 mg 07/12/18 01:43 Tylenol PO Q4H PRN Pain MILD(1-3)/Fever >100.5/RODRIGUEZ Acetaminophen/Hydrocodone Bitart 1 each 07/12/18 08:42 07/15/18 19:17 [place] 5/325 PO 1 each Q6H PRN Administration BREAKTHRU Pain , Severe (7-10) Aspirin 81 mg 07/12/18 10:00 07/16/18 10:23 Baby Aspirin PO Not Given QDAY JUANITA Atorvastatin Calcium 40 mg 07/12/18 22:00 07/15/18 21:39 Lipitor PO 40 mg QHS JUANITA Administration Dextrose 50 ml 07/12/18 01:48 D50w (25gm) Syringe IV PRN PRN Hypoglycemia Diazepam 5 mg 07/12/18 08:42 07/15/18 18:35 Valium PO 5 mg BID PRN Administration Anxiety Docusate Sodium 100 mg 07/13/18 23:00 07/16/18 10:24 Colace PO Not Given BID [facility] Gabapentin 300 mg 07/12/18 10:00 07/16/18 10:23 Neurontin PO Not Given BID [facility] Heparin Sodium (Porcine) 5,000 unit 07/13/18 10:00 07/16/18 10:23 Heparin SUB-Q Not Given Q12HR [facility] Hydromorphone HCl 0.5 mg 07/12/18 01:43 07/15/18 22:08 Dilaudid IV 0.5 mg Q3H PRN Administration Pain , Severe (7-10) Potassium Chloride/Sodium Chloride 20 meq in 1,000 mls @ 125 mls/hr 07/12/18 02:00 07/16/18 07:55 Ns/Kcl 20meq IV 100 mls/hr DIRECT JUANITA Administration Cefepime HCl 2 gm in 100 mls @ 200 mls/hr 07/13/18 03:00 07/16/18 03:26 Maxipime/Ns 2 Gm/100 Ml IV 200 mls/hr Q12H JUANITA Administration Vancomycin HCl 1,250 mg/ 275 mls @ 166.667 mls/hr 07/14/18 10:00 07/16/18 10:20 Sodium Chloride IV 166.667 mls/hr Q12H JUANITA Administration Insulin Glargine 30 units 07/14/18 08:00 07/16/18 09:45 Lantus SUB-Q Not Given QAMDIAB JUANITA Insulin Human Lispro 0 unit 07/12/18 07:30 07/16/18 09:57 Humalog SUB-Q 6 unit ACHS JUANITA Administration Protocol Nicotine 14 mg 07/12/18 10:00 07/16/18 10:20 Habitrol TD 14 mg QDAY JUANITA Administration Ondansetron HCl 4 mg 07/12/18 01:43 07/14/18 03:51 Zofran IV 4 mg Q8H PRN Administration Nausea And Vomiting Oxycodone/Acetaminophen 1 tab 07/12/18 01:43 07/13/18 07:56 Percocet 5/325 PO 1 tab Q6H PRN Administration Pain, Moderate (4-6) Pantoprazole Sodium 40 mg 07/14/18 15:00 07/16/18 10:23 Protonix PO Not Given QDAY JUANITA Polyethylene Glycol 17 gm 07/13/18 22:37 07/14/18 12:28 Miralax 3350 PO 17 gm QDAY PRN Administration Constipation Sodium Chloride 10 ml 07/12/18 10:00 07/15/18 22:17 Sodium Chloride Flush Syringe 10 Ml IV 10 ml BID JUANITA Administration Sodium Chloride 10 ml 07/12/18 01:43 Sodium Chloride Flush Syringe 10 Ml IV PRN PRN LINE FLUSH Sodium Hypochlorite 1 applic 07/12/18 12:00 07/16/18 10:26 Dakin's Full Strength TP Not Given Q12HR JUANITA Ziprasidone 40 mg 07/12/18 10:00 07/16/18 10:23 Geodon PO Not Given BID JUANITA Nutrition/Malnutrition Assess - Dietary Evaluation Nutrition/Malnutrition Findings: Nutrition Notes Start: 07/12/18 17:30 Freq: Status: Active Protocol: Document 07/12/18 17:30 NHALL (Rec: 07/12/18 17:40 NHALL [facility]- [email or web address]) Nutrition Notes Need for Assessment 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 Weight Status Obese Subjective/Other Information Pt screened for malnutrition risk (wt loss and poor appetite). Pt says appetite is improving (although she ate <25% of lunch today). Diagnosed with DM 18 yrs ago, checks her BS three times daily and takes DM medications . She was amenable to a " refresher" on food sources of CHO and willing to drink ONS supplements. Discussed impact of smoking on wound healing; pt verbalized understanding. Burn Absent Trauma Absent #1 Nutrition Diagnosis Increased nutrient needs ( specify in comment below) Comments: protein Etiology increased demands of wound healing As Evidenced by Signs and Symptoms pt with non-healing diabetic wounds Is patient on ventilator? No Is Patient Ambulatory and/or Out of Bed Yes REE-(Haines-St. Jeor-ambulatory/OOB) [ 2346.825 NUTR.MSJOOB] Kcal/Kg value to use for calculation 17 Approximate Energy Requirements Using 1828 kcal/Kg Calculation Used for Recommendations Kcal/kg Additional Notes Pro needs 1.25-1.5g/kg adjBW: 110-132g/day Fluid needs 1ml/kcal Nutrition Intervention Change Diet Order: Continue current diet order Add Supplement/Snack (indicate name/kcal Glucerna BID (chocolate) /protein ) Gianni BID Provides kCal: 630 Provides Protein (gm) 25 Teaching Recipient Patient Learning Readiness Good Teaching Methods Discussion,Handout Response to Teaching Verbalize understanding Education Handouts Provided Carbohydrate Counting for People with Diabetes Barriers to Learning No Barriers RD phone number provided Yes Patient aware of follow up options Yes Goal #1 PO intake of meals plus ONS to meet at least 75% nutrient needs Goal #2 Improved BG control Goal #3 Wound healing Goal #4 Smoking cessation Anticipated Discharge Needs: CHO-controlled diet; ONS daily if PO intake remains suboptimal Follow-Up By: 07/17/18 Additional Comments F/U: intakes (meals/ONS), wound healing
--- NOTE | 2018-07-16 11:24 | Progress Note ---
Assessment and Plan Cultures: Blood culture 07/12/2018 no growth today. Wound culture 07/12/2018 Proteus MDR, E faecalis and Beta hem Strep MRSA screening negative Assessment: 43 y/o female with history of tobacco abuse, diabetic right foot ulcer and uncontrolled diabetes s/p recent right great toe amputation on 06/06/2018, Peripheral Vascular disease s/p Angioplasty of right superficial femoral artery 05/13/18; admitted on 07/11/2018 due to worsening right foot ulcer drainage and toes discoloration. 1) Sepsis:better. Etiology most likely right foot infection. 2) Right foot diabetic ulcer persistent infection with gangrene: patient with known PVD with initial right plantar foot wound/abscess due to MSSA s/p debriement on 04/14/2018, treated with linezolid po x 14 days; readmitted on 05/06/18 due to wound deterioration found septic with MSSA bacteremia due to right foot necrotizing fascitis and osteomyelitis. Wound grew MSSA and Klebsiella. Noted tendon and bone visible. Patient underwent right great toe amputation. Path showed acute osteomyelitis at the margin. Treated with Cefazolin 2gms q 8 hours for total 6 weeks ending 06-21-18. Patient readmitted on 07/11/2018 [facility] due to worsening right foot wound and drainage. Blood culture 07/12/2018 no growth. Wound culture 07/12/2018 Proteus MDR, E faecalis and Beta hem Strep. CRP=18. 3) DM: poorly controlled 4) PVD Recommendations: - contact isolation due to MDR Proteus - agree with amputation - to be done today - continue cefepime and vancomcyin with PK consult D4 - continue IV antibiotics for 48h after amputation Will follow. Grecia Gotti MD Infectious Diseases [employer] [facility] M [phone] O [phone] Subjective Date of service: 07/16/18 Principal diagnosis: diabetic foot infection Interval history: Feels ok, no complaint. No fever Objective - Exam Narrative Exam: General appearance: Alert in NAD Eyes: anicteric sclerae, moist conjunctivae; no lid-lag; PERRLA HENT: Atraumatic; oropharynx clear with moist mucous membranes and no mucosal ulcerations/no oral thrush; normal hard and soft palate. Normal external ears. Neck: Trachea midline; supple, no thyromegaly or lymphadenopathy Lungs: CTA, with normal respiratory effort and no intercostal retractions CV: RRR no murmur Abdomen: Soft, non-tender; no masses or hepatosplenomegaly Extremities: +right foot 2nd, 3rd, 4th toes with ski sloughing and blackish discoloration Skin: Normal temperature, turgor and texture; no rash, ulcers or subcutaneous nodules Psych: Appropriate affect, alert and oriented to person, place and time. Neuro: alert and oriented x 3. Moving all extermities - Constitutional Vitals: Vital Signs Temp Pulse Resp BP Pulse Ox 98.1 F 94 H 20 139/81 100 07/16/18 05:33 07/16/18 05:33 07/16/18 05:33 07/16/18 05:33 07/16/18 05:33 Temperature -Last 24 Hours Temperature 98.1 F Temperature 97.4 F Temperature 98.6 F Temperature 98.3 F - Labs CBC & Chem 7: 07/16/18 07:43 07/16/18 07:43 Labs: Abnormal lab results 07/15/18 07/15/18 07/15/18 Range/Units 12:29 17:27 21:44 RBC (3.65-5.03) M/mm3 Hgb (10.1-14.3) gm/dl Hct (30.3-42.9) % MCV (79-97) fl MCH (28-32) pg RDW (13.2-15.2) % Plt Count (140-440) K/mm3 Sodium (137-145) mmol/L Carbon Dioxide (22-30) mmol/L Glucose (65-100) mg/dL POC Glucose 208 H 107 H 300 H (70-105) 07/16/18 07/16/18 07/16/18 Range/Units 07:40 07:43 07:43 RBC 3.32 L (3.65-5.03) M/mm3 Hgb 7.6 L (10.1-14.3) gm/dl Hct 24.7 L (30.3-42.9) % MCV 74 L (79-97) fl MCH 24 L (28-32) pg RDW 17.4 H (13.2-15.2) % Plt Count 462 H (140-440) K/mm3 Sodium 135 L (137-145) mmol/L Carbon Dioxide 19 L (22-30) mmol/L Glucose 300 H (65-100) mg/dL POC Glucose 321 H (70-105)
[2018-07-16] MEDS ORDERED: XYLOCAINE MPF 2% ONE (11:59)
[2018-07-16] MEDS ORDERED: ROBINUL ONE (11:59)
[2018-07-16] MEDS ORDERED: SUBLIMAZE ONE (11:59)
[2018-07-16] MEDS ORDERED: XYLOCAINE 1% 20 mL ONE (11:59)
[2018-07-16] MEDS ORDERED: DIPRIVAN 10 MG/ML IV ONE (11:59)
[2018-07-16] MEDS: APRESOLINE IV PRN (12:15)
[2018-07-16] MEDS: SODIUM CHLORIDE FLUSH SYRINGE 10 ML IV SCH ×2 (12:17→23:03)
[2018-07-16] MEDS ORDERED: NACL 0.9% IR ONE (12:55)
--- NOTE | 2018-07-16 13:50 | Post Operative Note ---
Pre-op diagnosis: Wet gangrene of right 2nd-4th toes Post-op diagnosis: same Anesthesia: other (LMA) Surgeon: NAVDEEP DICKSON Estimated blood loss: minimal Pathology: list (1) Right 2nd-5th toes 2) Right 2nd, 3rd, 4th and 5th metatarsal heads) Specimen disposition: to lab Condition: stable Disposition: PACU
[2018-07-16] MEDS ORDERED: DILAUDID ONE (14:10)
[2018-07-16] MEDS ORDERED: DILAUDID IV PRN (14:10)
[2018-07-16] MEDS ORDERED: ZOFRAN IV PRN (14:10)
[2018-07-16] MEDS: ZESTRIL PO SCH (17:52)
[2018-07-16] MEDS: DILAUDID IV PRN (20:27)
[2018-07-17] MEDS: DILAUDID IV PRN ×3 (00:44→23:45)
[2018-07-17] MEDS: MAXIPIME/NS 2 GM/100 ML 2 GM/100 ML BAG IV SCH ×2 (03:17→14:56)
[2018-07-17 05:54] LABS: Eosinophils # (Auto) 0.2 K/mm3 (0.0-0.4); Eosinophils % (Auto) 1.3 % (0.0-4.3); Monocytes % (Auto) 8.3 % (0.0-7.3)
[2018-07-17 05:56] LABS: BUN/Creatinine Ratio 17; Basophils % (Auto) 0.3 % (0.0-1.8); Blood Urea Nitrogen 10 mg/dL (7-17); Calcium 8.9 mg/dL (8.4-10.2); Hematocrit 25.5 % (30.3-42.9); Hemoglobin 8.1 gm/dl (10.1-14.3); Hemolysis Index 40; Lymphocytes # (Auto) 1.9 K/mm3 (1.2-5.4); Lymphocytes % (Auto) 15.3 % (13.4-35.0); Mean Corpuscular HGB Conc 32 % (30-34); Mean Corpuscular Volume 74 fl (79-97); Platelet Count 524 K/mm3 (140-440); Red Blood Count 3.45 M/mm3 (3.65-5.03); Red Cell Distribution Width 17.6 % (13.2-15.2)
[2018-07-17] MEDS: HumaLOG SUB-Q SCH ×4 (07:30→23:48)
[2018-07-17] MEDS: LANTUS SUB-Q SCH (09:03)
[2018-07-17] MEDS: NORCO 5/325 PO PRN ×2 (09:03→20:35)
[2018-07-17] MEDS: HEPARIN SUB-Q SCH ×2 (09:23→23:46)
[2018-07-17] MEDS: ZESTRIL PO SCH (09:24)
[2018-07-17] MEDS: PROTONIX PO SCH (09:24)
[2018-07-17] MEDS: COLACE PO SCH ×2 (09:24→23:44)
[2018-07-17] MEDS: ZOFRAN IV PRN (09:24)
[2018-07-17] MEDS: SODIUM CHLORIDE FLUSH SYRINGE 10 ML IV SCH ×2 (09:25→23:48)
[2018-07-17] MEDS: GEODON PO SCH ×2 (09:25→23:44)
[2018-07-17] MEDS: BABY ASPIRIN PO SCH (09:25)
[2018-07-17] MEDS: HABITROL TD SCH (09:25)
[2018-07-17] MEDS: NEURONTIN PO SCH ×2 (09:26→23:48)
[2018-07-17] MEDS: DAKIN'S FULL STRENGTH TP SCH (09:26)
[2018-07-17] MEDS: VANCOMYCIN 1,250 MG in NACL 0.9% 250ML 250 ML IV SCH ×2 (09:32→23:44)
--- NOTE | 2018-07-17 12:32 | Progress Note ---
Assessment and Plan Assessment and plan: Sepsis Likely secondary to diabetic right foot ulcer with chronic necrotizing i nfection and osteomyelitis: Cont. IV antibiotics with Vanc and cefepime, ID and vascular following Right foot ulcer/infection: Dr. Cox, Vascular and Dr. Chavarria consulted. Amputation today. Wound culture 07/12/2018 Proteus MDR, E faecalis and Beta hem Strep Severe malnutrition: consult [facility] Hypokalemia: replete and monitor bmp closely Hyponatremia hypovolemia: IVF and monitor bmp closely Uncontrolled DM type 2 with hyperglycemia: treat with SSI, ada diet. Diabetic neuropathy-Continue Neurontin History of CVA without residual deficits-Continue aspirin and statin Hypertension with hypotensive episodes-stopped Lisinopril 20 mg/day on 07/13/18 and started NSS at 100ml/hr, which resolved the hypotension PAD -Status post angioplasty of the right superficial femoral artery-Continue statin Chronic right buttock wound-Continue wound care Tobacco abuse-Patient counseled on cessation-Nicotine patch History of schizophrenia/bipolar-continue antipsych meds, she is refusing the Geodon because it makes her sleep, but she is also refusing the evening/night time dose. Counseling done. DVT prophylaxis with sq heparin Disposition. Likely discharge in a.m. after 48 hours of antibiotics post amputation per ID recommendations.. History Interval history: Patient is a 43 yo woman with a history of IDDM type 2, hypertension, PVD, stroke, other schizophrenia, bipolar disorder, peripheral neuropathy, dyslipidemia, tobacco dependency and dry gangrene of right great toe, Peripheral Vascular disease s/p Angioplasty of right superficial femoral artery 05/13/18, s/p amputation of right great toe by Dr. Dong on 06/04/18. She has been followed by wound care since and had a period of iv antibiotics at home via picc. At her wound care visit, it was noticed that her wound had increased purulent drainage, surrounding erythema and became black; therefore, she came to E.R for further evaluation. The patient was noted to have wet gangrene of the right secondfourth toes. The patient was seen by infectious disease consultation and had blood cultures that showed no growth. However, wound culture 07/12/18 revealed Proteus MVR, E faecalis and beta hemolytic strep. CRP was elevated at 18. ID recommended amputation and continued antibiotics. Dr. Chavarria performed amputation and patient tolerated procedure well. Hospitalist Physical - Constitutional Vitals: Temp Pulse Resp BP Pulse Ox 99.5 F 97 H 20 124/64 97 07/17/18 11:12 07/17/18 11:12 07/17/18 11:12 07/17/18 11:12 07/17/18 11:12 General appearance: Present: no acute distress - EENT Eyes: Present: PERRL, EOM intact ENT: hearing intact, clear oral mucosa, dentition normal - Neck Neck: Present: supple, normal ROM - Respiratory Respiratory effort: normal Respiratory: bilateral: CTA - Cardiovascular Rhythm: regular Heart Sounds: Present: S1 & S2. Absent: gallop, rub - Extremities Extremities: no ischemia, No edema, Full ROM - Abdominal General gastrointestinal: soft, non-tender, non-distended, normal bowel sounds - Integumentary Integumentary: Present: clear, warm, dry - Neurologic Neurologic: CNII-XII intact, moves all extremities Results - Labs CBC & Chem 7: 07/17/18 05:14 07/17/18 05:14 Labs: Laboratory Last Values WBC 12.1 K/mm3 (4.5-11.0) H 07/17/18 05:14 RBC 3.45 M/mm3 (3.65-5.03) L 07/17/18 05:14 Hgb 8.1 gm/dl (10.1-14.3) L 07/17/18 05:14 Hct 25.5 % (30.3-42.9) L 07/17/18 05:14 MCV 74 fl (79-97) L 07/17/18 05:14 MCH 24 pg (28-32) L 07/17/18 05:14 MCHC 32 % (30-34) 07/17/18 05:14 RDW 17.6 % (13.2-15.2) H 07/17/18 05:14 Plt Count 524 K/mm3 (140-440) H 07/17/18 05:14 Lymph % (Auto) 15.3 % (13.4-35.0) 07/17/18 05:14 Rankin % (Auto) 8.3 % (0.0-7.3) H 07/17/18 05:14 Eos % (Auto) 1.3 % (0.0-4.3) 07/17/18 05:14 Baso % (Auto) 0.3 % (0.0-1.8) 07/17/18 05:14 Lymph # 1.9 K/mm3 (1.2-5.4) 07/17/18 05:14 Rankin # 1.0 K/mm3 (0.0-0.8) H 07/17/18 05:14 Eos # 0.2 K/mm3 (0.0-0.4) 07/17/18 05:14 Baso # 0.0 K/mm3 (0.0-0.1) 07/17/18 05:14 Add Manual Diff Complete 07/17/18 05:14 Seg Neutrophils % 74.8 % (40.0-70.0) H 07/17/18 05:14 Seg Neutrophils # 9.0 K/mm3 (1.8-7.7) H 07/17/18 05:14 Sodium 139 mmol/L (137-145) 07/17/18 05:14 Potassium 4.2 mmol/L (3.6-5.0) 07/17/18 05:14 Chloride 108.0 mmol/L (98-107) H 07/17/18 05:14 Carbon Dioxide 21 mmol/L (22-30) L 07/17/18 05:14 14 mmol/L 07/17/18 05:14 BUN 10 mg/dL (7-17) 07/17/18 05:14 0.6 mg/dL (0.7-1.2) L 07/17/18 05:14 Estimated GFR > 60 ml/min 07/17/18 05:14 17 % 07/17/18 05:14 Glucose 164 mg/dL (65-100) H 07/17/18 05:14 POC Glucose 287 (70-105) H 07/17/18 11:16 Lactic Acid 1.90 mmol/L (0.7-2.0) 07/12/18 00:36 Calcium 8.9 mg/dL (8.4-10.2) 07/17/18 05:14 Magnesium 1.70 mg/dL (1.7-2.3) 07/14/18 04:44 0.30 mg/dL (0.1-1.2) 07/11/18 23:46 AST 8 units/L (5-40) 07/11/18 23:46 ALT < 5 units/L (7-56) L 07/11/18 23:46 124 units/L (35-129) 07/11/18 23:46 18.70 mg/dL (0.00-1.30) H 07/12/18 15:37 7.9 g/dL (6.3-8.2) 07/11/18 23:46 2.5 g/dL (3.9-5) L 07/11/18 23:46 0.5 % 07/11/18 23:46 Vancomycin Trough 21.8 ug/mL (5.0-20.0) H 07/14/18 07:37 Blood Type B POSITIVE 07/16/18 08:42 Antibody Screen TNR 07/16/18 08:42 MELITA Antibody Screen Negative 07/16/18 08:42 Active Medications - Current Medications Current Medications: Generic Name Dose Route Start Last Admin Trade Name Freq PRN Reason Stop Dose Admin Acetaminophen 650 mg 07/12/18 01:43 Tylenol PO Q4H PRN Pain MILD(1-3)/Fever >100.5/RODRIGUEZ Acetaminophen/Hydrocodone Bitart 1 each 07/12/18 08:42 07/17/18 09:03 Ambrose 5/325 PO 1 each Q6H PRN Administration BREAKTHRU Pain , Severe (7-10) Aspirin 81 mg 07/12/18 10:00 07/17/18 09:25 Baby Aspirin PO 81 mg QDAY JUANITA Administration Atorvastatin Calcium 40 mg 07/12/18 22:00 07/16/18 23:01 Lipitor PO 40 mg QHS JUANITA Administration Dextrose 50 ml 07/12/18 01:48 D50w (25gm) Syringe IV PRN PRN Hypoglycemia Diazepam 5 mg 07/12/18 08:42 07/15/18 18:35 Valium PO 5 mg BID PRN Administration Anxiety Docusate Sodium 100 mg 07/13/18 23:00 07/17/18 09:24 Colace PO 100 mg BID JUANITA Administration Gabapentin 300 mg 07/12/18 10:00 07/17/18 09:26 Neurontin PO 300 mg BID JUANITA Administration Heparin Sodium (Porcine) 5,000 unit 07/13/18 10:00 07/17/18 09:23 Heparin SUB-Q 5,000 unit Q12HR JUANITA Administration Hydralazine HCl 20 mg 07/16/18 11:53 07/16/18 12:15 Apresoline IV 20 mg Q4HR PRN Administration Blood Pressure Hydromorphone HCl 0.5 mg 07/12/18 01:43 07/17/18 00:44 Dilaudid IV 0.5 mg Q3H PRN Administration Pain , Severe (7-10) Potassium Chloride/Sodium Chloride 20 meq in 1,000 mls @ 125 mls/hr 07/12/18 02:00 07/16/18 17:49 Ns/Kcl 20meq IV 100 mls/hr DIRECT JUANITA Administration Cefepime HCl 2 gm in 100 mls @ 200 mls/hr 07/13/18 03:00 07/17/18 03:17 Maxipime/Ns 2 Gm/100 Ml IV 200 mls/hr Q12H JUANITA Administration Vancomycin HCl 1,250 mg/ 275 mls @ 166.667 mls/hr 07/14/18 10:00 07/17/18 09:32 Sodium Chloride IV 166.667 mls/hr Q12H JUANITA Administration Insulin Glargine 30 units 07/14/18 08:00 07/17/18 09:03 Lantus SUB-Q 30 units QAMDIAB JUANITA Administration Insulin Human Lispro 0 unit 07/12/18 07:30 07/17/18 07:30 Humalog SUB-Q 2 unit ACHS JUANITA Administration Protocol Lisinopril 20 mg 07/16/18 12:15 07/17/18 09:24 Zestril PO 20 mg QDAY JUANITA Administration Nicotine 14 mg 07/12/18 10:00 07/17/18 09:25 Habitrol TD 14 mg QDAY JUANITA Administration Ondansetron HCl 4 mg 07/12/18 01:43 07/17/18 09:24 Zofran IV 4 mg Q8H PRN Administration Nausea And Vomiting Oxycodone/Acetaminophen 1 tab 07/12/18 01:43 07/13/18 07:56 Percocet 5/325 PO 1 tab Q6H PRN Administration Pain, Moderate (4-6) Pantoprazole Sodium 40 mg 07/14/18 15:00 07/17/18 09:24 Protonix PO 40 mg QDAY JUANITA Administration Polyethylene Glycol 17 gm 07/13/18 22:37 07/14/18 12:28 Miralax 3350 PO 17 gm QDAY PRN Administration Constipation Sodium Chloride 10 ml 07/12/18 10:00 07/17/18 09:25 Sodium Chloride Flush Syringe 10 Ml IV 10 ml BID JUANITA Administration Sodium Chloride 10 ml 07/12/18 01:43 Sodium Chloride Flush Syringe 10 Ml IV PRN PRN LINE FLUSH Sodium Hypochlorite 1 applic 07/12/18 12:00 07/17/18 09:26 Dakin's Full Strength TP Not Given Q12HR JUANITA Ziprasidone 40 mg 07/12/18 10:00 07/17/18 09:25 Geodon PO Not Given BID JUANITA Nutrition/Malnutrition Assess - Dietary Evaluation Nutrition/Malnutrition Findings: Nutrition Notes Start: 07/12/18 17:30 Freq: Status: Active Protocol: Document 07/12/18 17:30 COLTON (Rec: 07/12/18 17:40 REPLACED BY [facility]- [email or web address]) 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 Weight Status Obese Subjective/Other Information Pt screened for malnutrition risk (wt loss and poor appetite). Pt says appetite is improving (although she ate <25% of lunch today). Diagnosed with DM 18 yrs ago, checks her BS three times daily and takes DM medications . She was amenable to a " refresher" on food sources of CHO and willing to drink ONS supplements. Discussed impact of smoking on wound healing; pt verbalized understanding. Burn Absent Trauma Absent #1 Nutrition Diagnosis Increased nutrient needs ( specify in comment below) Comments: protein Etiology increased demands of wound healing As Evidenced by Signs and Symptoms pt with non-healing diabetic wounds Is patient on ventilator? No Is Patient Ambulatory and/or Out of Bed Yes REE-(Cherry-St. Jeor-ambulatory/OOB) [ 4246.825 NUTR.MSJOOB] Kcal/Kg value to use for calculation 17 Approximate Energy Requirements Using 1828 kcal/Kg Calculation Used for Recommendations Kcal/kg Additional Notes Pro needs 1.25-1.5g/kg adjBW: 110-132g/day Fluid needs 1ml/kcal Nutrition Intervention Change Diet Order: Continue current diet order Add Supplement/Snack (indicate name/kcal Glucerna BID (chocolate) /protein ) Gianni BID Provides kCal: 630 Provides Protein (gm) 25 Teaching Recipient Patient Learning Readiness Good Teaching Methods Discussion,Handout Response to Teaching Verbalize understanding Education Handouts Provided Carbohydrate Counting for People with Diabetes Barriers to Learning No Barriers RD phone number provided Yes Patient aware of follow up options Yes Goal #1 PO intake of meals plus ONS to meet at least 75% nutrient needs Goal #2 Improved BG control Goal #3 Wound healing Goal #4 Smoking cessation Anticipated Discharge Needs: CHO-controlled diet; ONS daily if PO intake remains suboptimal Follow-Up By: 07/17/18 Additional Comments F/U: intakes (meals/ONS), wound healing
--- NOTE | 2018-07-17 18:13 | Procedure Note ---
Date of procedure: 07/16/18 Pre-op diagnosis: Wet gangrene of right 2nd, 3rd and 4th toes Post-op diagnosis: same Procedure: Transmetatarsal amputation of right 2nd, 3rd, 4th and 5th toes Description of procedure: Pt was placed supine on the OR table. General anesthesia by LMA was administered. Pt's right foot and leg were prepped and draped. Skin was incised dorsally at the base of the toes with the cutting current of the Bovie and the incision continued onto the plantar aspect of the foot. The toes were from the foot through the MTP joints. Periosteum was elevated off of the distal metarsal heads with a periosteal elevator. The distal shaft of the metatarsals was amputated with a bone saw. Additional necrotic and infected soft tissue was excised with curved Major scissors. Minimal bleeding was controlled with the Bovie. Wound was irrigated and was pac ked open with a dilute Betadine moistened Kerlix packing followed by a Kerlix and Coban wrap. Pt tolerated the procedure well. She was taken to PACU in stable condition. Anesthesia: other (LMA) Surgeon: NAVDEEP DICKSON Estimated blood loss: minimal Pathology: list (1) Right 2nd-5th toes 2) Right 2nd-5th metatarsal heads (sent individually)) Specimen disposition: to lab Condition: stable Disposition: PACU
--- NOTE | 2018-07-17 21:14 | Progress Note ---
Assessment and Plan Cultures: Blood culture 07/12/2018 no growth today. Wound culture 07/12/2018 Proteus MDR, E faecalis and Beta hem Strep MRSA screening negative Assessment: 43 y/o female with history of tobacco abuse, diabetic right foot ulcer and uncontrolled diabetes s/p recent right great toe amputation on 06/06/2018, Peripheral Vascular disease s/p Angioplasty of right superficial femoral artery 05/13/18; admitted on 07/11/2018 due to worsening right foot ulcer drainage and toes discoloration. 1) Sepsis:better. Etiology most likely right foot infection. 2) Right foot diabetic ulcer persistent infection with gangrene: patient with known PVD with initial right plantar foot wound/abscess due to MSSA s/p debriement on 04/14/2018, treated with linezolid po x 14 days; readmitted on 05/06/18 due to wound deterioration found septic with MSSA bacteremia due to right foot necrotizing fascitis and osteomyelitis. Wound grew MSSA and Klebsiella. Noted tendon and bone visible. Patient underwent right great toe amputation. Path showed acute osteomyelitis at the margin. Treated with Cefazolin 2gms q 8 hours for total 6 weeks ending 06-21-18. Patient readmitted on 07/11/2018 [facility] due to worsening right foot wound and drainage. Blood culture 07/12/2018 no growth. Wound culture 07/12/2018 Proteus MDR, E faecalis and Beta hem Strep. CRP=18. S/p TMA. 3) DM: poorly controlled 4) PVD Recommendations: - contact isolation due to MDR Proteus - continue cefepime and vancomcyin with PK consult D5 - continue IV antibiotics for 48h after amputation Will follow. Grecia Gotti MD Infectious Diseases Ammonium Hydroxide Operator [facility] M [phone] O [phone] Subjective Date of service: 07/17/18 Principal diagnosis: diabetic foot infection Interval history: Feels ok, no complaint. No fever Objective - Exam Narrative Exam: General appearance: Alert in NAD Eyes: anicteric sclerae, moist conjunctivae; no lid-lag; PERRLA HENT: Atraumatic; oropharynx clear with moist mucous membranes and no mucosal ulcerations/no oral thrush; normal hard and soft palate. Normal external ears. Neck: Trachea midline; supple, no thyromegaly or lymphadenopathy Lungs: CTA, with normal respiratory effort and no intercostal retractions CV: RRR no murmur Abdomen: Soft, non-tender; no masses or hepatosplenomegaly Extremities: +right foot with surgical wound Skin: Normal temperature, turgor and texture; no rash, ulcers or subcutaneous nodules Psych: Appropriate affect, alert and oriented to person, place and time. Neuro: alert and oriented x 3. Moving all extermities - Constitutional Vitals: Vital Signs Temp Pulse Resp BP Pulse Ox 99.2 F 98 H 20 129/71 98 07/17/18 16:19 07/17/18 16:19 07/17/18 16:19 07/17/18 16:19 07/17/18 16:19 Temperature -Last 24 Hours Temperature 99.2 F Temperature 99.5 F Temperature 97.9 F Temperature 97.5 F - Labs CBC & Chem 7: 07/17/18 05:14 07/17/18 05:14 Labs: Abnormal lab results 07/16/18 07/17/18 07/17/18 Range/Units 21:41 05:14 05:14 WBC 12.1 H (4.5-11.0) K/mm3 RBC 3.45 L (3.65-5.03) M/mm3 Hgb 8.1 L (10.1-14.3) gm/dl Hct 25.5 L (30.3-42.9) % MCV 74 L (79-97) fl MCH 24 L (28-32) pg RDW 17.6 H (13.2-15.2) % Plt Count 524 H (140-440) K/mm3 Baker % (Auto) 8.3 H (0.0-7.3) % Baker # 1.0 H (0.0-0.8) K/mm3 Seg Neutrophils % 74.8 H (40.0-70.0) % Seg Neutrophils # 9.0 H (1.8-7.7) K/mm3 Chloride 108.0 H (98-107) mmol/L Carbon Dioxide 21 L (22-30) mmol/L Creatinine 0.6 L (0.7-1.2) mg/dL Glucose 164 H (65-100) mg/dL POC Glucose 284 H (70-105) 07/17/18 07/17/18 07/17/18 Range/Units 07:18 11:16 16:23 WBC (4.5-11.0) K/mm3 RBC (3.65-5.03) M/mm3 Hgb (10.1-14.3) gm/dl Hct (30.3-42.9) % MCV (79-97) fl MCH (28-32) pg RDW (13.2-15.2) % Plt Count (140-440) K/mm3 Baker % (Auto) (0.0-7.3) % Baker # (0.0-0.8) K/mm3 Seg Neutrophils % (40.0-70.0) % Seg Neutrophils # (1.8-7.7) K/mm3 Chloride (98-107) mmol/L Carbon Dioxide (22-30) mmol/L Creatinine (0.7-1.2) mg/dL Glucose (65-100) mg/dL POC Glucose 180 H 287 H 187 H (70-105)
[2018-07-18] MEDS: DAKIN'S FULL STRENGTH TP SCH ×3 (00:03→22:13)
[2018-07-18] MEDS: NS/KCL 20MEQ 20 MEQ/1,000 ML BAG IV SCH ×2 (02:13→17:19)
[2018-07-18] MEDS: MAXIPIME/NS 2 GM/100 ML 2 GM/100 ML BAG IV SCH ×2 (02:16→14:47)
[2018-07-18] MEDS: DILAUDID IV PRN ×3 (06:27→17:12)
[2018-07-18] MEDS: HumaLOG SUB-Q SCH ×4 (07:30→22:25)
[2018-07-18] MEDS: LANTUS SUB-Q SCH (08:00)
[2018-07-18] MEDS: VANCOMYCIN 1,250 MG in NACL 0.9% 250ML 250 ML IV SCH ×2 (10:00→22:12)
[2018-07-18] MEDS: SODIUM CHLORIDE FLUSH SYRINGE 10 ML IV SCH ×2 (10:00→22:14)
[2018-07-18] MEDS: PROTONIX PO SCH (10:26)
[2018-07-18] MEDS: NEURONTIN PO SCH ×2 (10:26→22:12)
[2018-07-18] MEDS: BABY ASPIRIN PO SCH (10:27)
[2018-07-18] MEDS: COLACE PO SCH ×2 (10:27→22:13)
[2018-07-18] MEDS: ZESTRIL PO SCH (10:27)
[2018-07-18] MEDS: GEODON PO SCH ×2 (10:27→22:25)
[2018-07-18] MEDS: HABITROL TD SCH (10:28)
[2018-07-18] MEDS: HEPARIN SUB-Q SCH ×2 (10:29→22:13)
--- NOTE | 2018-07-18 11:59 | Progress Note ---
Assessment and Plan Assessment and plan: Sepsis Likely secondary to diabetic right foot ulcer with chronic necrotizing i nfection and osteomyelitis: Cont. IV antibiotics with Vanc and cefepime, ID and vascular following Right foot ulcer/infection: Dr. Cox, Vascular and Dr. Chavarria consulted. Amputation today. Wound culture 07/12/2018 Proteus MDR, E faecalis and Beta hem Strep Severe malnutrition: consult Brand Attendant Hypokalemia: replete and monitor bmp closely Hyponatremia hypovolemia: IVF and monitor bmp closely Uncontrolled DM type 2 with hyperglycemia: treat with SSI, ada diet. Diabetic neuropathy-Continue Neurontin History of CVA without residual deficits-Continue aspirin and statin Hypertension with hypotensive episodes-stopped Lisinopril 20 mg/day on 07/13/18 and started NSS at 100ml/hr, which resolved the hypotension PAD -Status post angioplasty of the right superficial femoral artery-Continue statin Chronic right buttock wound-Continue wound care Tobacco abuse-Patient counseled on cessation-Nicotine patch History of schizophrenia/bipolar-continue antipsych meds, she is refusing the Geodon because it makes her sleep, but she is also refusing the evening/night time dose. Counseling done. DVT prophylaxis with sq heparin Disposition. Likely discharge in a.m. after 48 hours of antibiotics post amputation per ID recommendations.. History Interval history: Patient is a 43 yo woman with a history of IDDM type 2, hypertension, PVD, stroke, other schizophrenia, bipolar disorder, peripheral neuropathy, dyslipidemia, tobacco dependency and dry gangrene of right great toe, Peripheral Vascular disease s/p Angioplasty of right superficial femoral artery 05/13/18, s/p amputation of right great toe by Dr. Dong on 06/04/18. She has been followed by wound care since and had a period of iv antibiotics at home via picc. At her wound care visit, it was noticed that her wound had increased purulent drainage, surrounding erythema and became black; therefore, she came to E.R for further evaluation. The patient was noted to have wet gangrene of the right secondfourth toes. The patient was seen by infectious disease consultation and had blood cultures from 07/12/18 that showed no growth. However, wound culture 07/12/18 revealed Proteus MVR, E faecalis and beta hemolytic strep. CRP was elevated at 18. ID recommended amputation and continued antibiotics. Dr. Chavarria performed Transmetatarsal amputation of right 2nd, 3rd, 4th and 5th toesand patient tolerated procedure well. The patient was treated with antibiotics of cefepime and vancomycin IV. Hospitalist Physical - Constitutional Vitals: Temp Pulse Resp BP Pulse Ox 98.3 F 73 20 139/75 99 07/18/18 06:00 07/18/18 06:00 07/18/18 06:00 07/18/18 06:00 07/18/18 00:22 General appearance: Present: no acute distress - EENT Eyes: Present: PERRL, EOM intact ENT: hearing intact, clear oral mucosa, dentition normal - Neck Neck: Present: supple, normal ROM - Respiratory Respiratory effort: normal Respiratory: bilateral: CTA - Cardiovascular Rhythm: regular Heart Sounds: Present: S1 & S2. Absent: gallop, rub - Extremities Extremities: no ischemia, No edema, Full ROM - Abdominal General gastrointestinal: soft, non-tender, non-distended, normal bowel sounds - Integumentary Integumentary: Present: clear, warm, dry - Neurologic Neurologic: CNII-XII intact, moves all extremities Results - Labs CBC & Chem 7: 07/17/18 05:14 07/17/18 05:14 Labs: Laboratory Last Values WBC 12.1 K/mm3 (4.5-11.0) H 07/17/18 05:14 RBC 3.45 M/mm3 (3.65-5.03) L 07/17/18 05:14 Hgb 8.1 gm/dl (10.1-14.3) L 07/17/18 05:14 Hct 25.5 % (30.3-42.9) L 07/17/18 05:14 MCV 74 fl (79-97) L 07/17/18 05:14 MCH 24 pg (28-32) L 07/17/18 05:14 MCHC 32 % (30-34) 07/17/18 05:14 RDW 17.6 % (13.2-15.2) H 07/17/18 05:14 Plt Count 524 K/mm3 (140-440) H 07/17/18 05:14 Lymph % (Auto) 15.3 % (13.4-35.0) 07/17/18 05:14 [place] % (Auto) 8.3 % (0.0-7.3) H 07/17/18 05:14 Eos % (Auto) 1.3 % (0.0-4.3) 07/17/18 05:14 Baso % (Auto) 0.3 % (0.0-1.8) 07/17/18 05:14 Lymph # 1.9 K/mm3 (1.2-5.4) 07/17/18 05:14 [place] # 1.0 K/mm3 (0.0-0.8) H 07/17/18 05:14 Eos # 0.2 K/mm3 (0.0-0.4) 07/17/18 05:14 Baso # 0.0 K/mm3 (0.0-0.1) 07/17/18 05:14 Add Manual Diff Complete 07/17/18 05:14 Seg Neutrophils % 74.8 % (40.0-70.0) H 07/17/18 05:14 Seg Neutrophils # 9.0 K/mm3 (1.8-7.7) H 07/17/18 05:14 Sodium 139 mmol/L (137-145) 07/17/18 05:14 Potassium 4.2 mmol/L (3.6-5.0) 07/17/18 05:14 Chloride 108.0 mmol/L (98-107) H 07/17/18 05:14 Carbon Dioxide 21 mmol/L (22-30) L 07/17/18 05:14 14 mmol/L 07/17/18 05:14 BUN 10 mg/dL (7-17) 07/17/18 05:14 0.6 mg/dL (0.7-1.2) L 07/17/18 05:14 Estimated GFR > 60 ml/min 07/17/18 05:14 17 % 07/17/18 05:14 Glucose 164 mg/dL (65-100) H 07/17/18 05:14 POC Glucose 206 (70-105) H 07/18/18 11:11 Lactic Acid 1.90 mmol/L (0.7-2.0) 07/12/18 00:36 Calcium 8.9 mg/dL (8.4-10.2) 07/17/18 05:14 Magnesium 1.70 mg/dL (1.7-2.3) 07/14/18 04:44 0.30 mg/dL (0.1-1.2) 07/11/18 23:46 AST 8 units/L (5-40) 07/11/18 23:46 ALT < 5 units/L (7-56) L 07/11/18 23:46 124 units/L (35-129) 07/11/18 23:46 18.70 mg/dL (0.00-1.30) H 07/12/18 15:37 7.9 g/dL (6.3-8.2) 07/11/18 23:46 2.5 g/dL (3.9-5) L 07/11/18 23:46 0.5 % 07/11/18 23:46 Vancomycin Trough 21.8 ug/mL (5.0-20.0) H 07/14/18 07:37 Blood Type B POSITIVE 07/16/18 08:42 Antibody Screen TNR 07/16/18 08:42 MELITA Antibody Screen Negative 07/16/18 08:42 Active Medications - Current Medications Current Medications: Generic Name Dose Route Start Last Admin Trade Name Freq PRN Reason Stop Dose Admin Acetaminophen 650 mg 07/12/18 01:43 Tylenol PO Q4H PRN Pain MILD(1-3)/Fever >100.5/RODRIGUEZ Acetaminophen/Hydrocodone Bitart 1 each 07/12/18 08:42 07/17/18 20:35 [place] 5/325 PO 1 each Q6H PRN Administration BREAKTHRU Pain , Severe (7-10) Aspirin 81 mg 07/12/18 10:00 07/18/18 10:27 Baby Aspirin PO 81 mg QDAY JUANITA Administration Atorvastatin Calcium 40 mg 07/12/18 22:00 07/17/18 23:48 Lipitor PO 40 mg QHS JUANITA Administration Dextrose 50 ml 07/12/18 01:48 D50w (25gm) Syringe IV PRN PRN Hypoglycemia Diazepam 5 mg 07/12/18 08:42 07/15/18 18:35 Valium PO 5 mg BID PRN Administration Anxiety Docusate Sodium 100 mg 07/13/18 23:00 07/18/18 10:27 Colace PO 100 mg BID JUANITA Administration Gabapentin 300 mg 07/12/18 10:00 07/18/18 10:26 Neurontin PO 300 mg BID JUANITA Administration Heparin Sodium (Porcine) 5,000 unit 07/13/18 10:00 07/18/18 10:29 Heparin SUB-Q 5,000 unit Q12HR JUANITA Administration Hydralazine HCl 20 mg 07/16/18 11:53 07/16/18 12:15 Apresoline IV 20 mg Q4HR PRN Administration Blood Pressure Hydromorphone HCl 0.5 mg 07/12/18 01:43 07/18/18 06:27 Dilaudid IV 0.5 mg Q3H PRN Administration Pain , Severe (7-10) Potassium Chloride/Sodium Chloride 20 meq in 1,000 mls @ 125 mls/hr 07/12/18 02:00 07/18/18 02:13 Ns/Kcl 20meq IV 100 mls/hr DIRECT JUANITA Administration Cefepime HCl 2 gm in 100 mls @ 200 mls/hr 07/13/18 03:00 07/18/18 02:16 Maxipime/Ns 2 Gm/100 Ml IV 07/18/18 23:59 200 mls/hr Q12H JUANITA Administration Vancomycin HCl 1,250 mg/ 275 mls @ 166.667 mls/hr 07/14/18 10:00 07/18/18 10:00 Sodium Chloride IV 07/18/18 23:59 166.667 mls/hr Q12H JUANITA Administration Insulin Glargine 30 units 07/14/18 08:00 07/18/18 08:00 Lantus SUB-Q 30 units QAMDIAB JUANITA Administration Insulin Human Lispro 0 unit 07/12/18 07:30 07/18/18 07:30 Humalog SUB-Q Not Given [facility] Protocol Lisinopril 20 mg 07/16/18 12:15 07/18/18 10:27 Zestril PO 20 mg QDAY JUANITA Administration Nicotine 14 mg 07/12/18 10:00 07/18/18 10:28 Habitrol TD 14 mg QDAY JUANITA Administration Ondansetron HCl 4 mg 07/12/18 01:43 07/17/18 09:24 Zofran IV 4 mg Q8H PRN Administration Nausea And Vomiting Oxycodone/Acetaminophen 1 tab 07/12/18 01:43 07/13/18 07:56 Percocet 5/325 PO 1 tab Q6H PRN Administration Pain, Moderate (4-6) Pantoprazole Sodium 40 mg 07/14/18 15:00 07/18/18 10:26 Protonix PO 40 mg QDAY JUANITA Administration Polyethylene Glycol 17 gm 07/13/18 22:37 07/14/18 12:28 Miralax 3350 PO 17 gm QDAY PRN Administration Constipation Sodium Chloride 10 ml 07/12/18 10:00 07/18/18 10:00 Sodium Chloride Flush Syringe 10 Ml IV 10 ml BID JUANITA Administration Sodium Chloride 10 ml 07/12/18 01:43 Sodium Chloride Flush Syringe 10 Ml IV PRN PRN LINE FLUSH Sodium Hypochlorite 1 applic 07/12/18 12:00 07/18/18 10:28 Dakin's Full Strength TP 10 1000units Q12HR JUANITA Administration Ziprasidone 40 mg 07/12/18 10:00 07/18/18 10:27 Geodon PO 40 mg BID JUANITA Administration Nutrition/Malnutrition Assess - Dietary Evaluation Nutrition/Malnutrition Findings: Nutrition Notes Start: 07/12/18 17:30 Freq: Status: Active Protocol: Document 07/17/18 15:05 [facility] (Rec: 07/17/18 15:10 [facility] [id number]) Nutrition Notes Initial or Follow up Reassessment Current Diagnosis Diabetes,Sepsis,Hypertension Other Pertinent Diagnosis s/p (R) transmetatarsal amputation (foot) Current Diet Consistent CHO Labs/Tests BG 164 Pertinent Medications Reviewed Height 5 ft 10 in Weight 107.5 kg [place] Body Weight (kg) 68.18 BMI 34.0 Subjective/Other Information Pt has consumed 47% of meals since last assessment. She drinks the ONS (only when cold ). Percent of energy/protein needs met: 54% energy 38% pro (ONS not included) Burn Absent Trauma Absent #1 Nutrition Diagnosis Increased nutrient needs ( specify in comment below) Diagnosis Progress(for reassessment Continues documentation) Is patient on ventilator? No Is Patient Ambulatory and/or Out of Bed Yes REE-([place]-ambulatory/OOB) [ 2346.825 NUTR.MSJOOB] Kcal/Kg value to use for calculation 17 Approximate Energy Requirements Using 1828 kcal/Kg Additional Notes Pro needs 1.25-1.5g/kg adjBW: 110-132g/day Fluid needs 1ml/kcal Nutrition Intervention Change Diet Order: Continue current diet order Add Supplement/Snack (indicate name/kcal Glucerna BID (chocolate) /protein ) Gianni BID Provides kCal: 630 Provides Protein (gm) 25 Goal #1 PO intake of meals plus ONS to meet at least 75% nutrient needs Goal #2 Improved BG control Goal #3 Wound healing Goal #4 Smoking cessation Follow-Up By: 07/23/18 Additional Comments F/U: intakes (meals/ONS), wound healing
--- NOTE | 2018-07-18 16:38 | Progress Note ---
Assessment and Plan 50-year-old female with critical limb ischemia of the right lower extremity, uncontrolled diabetes with previous hemoglobin A1c of 11.9, and wound infection. I had long discussion with the patient and told her what she needed to do an order to salvage her foot. 1. Obtain better blood sugar control. Discussed she will need to follow up with an wet process miller head assistant or her primary care doctor in order to obtain this. Any assistance in obtaining blood sugar control will increase her chance of healing her wound as this is the most significant reason she has had recent decline of her wound. If this does not happen, and wound will likely continue to decompensate and she will require amputation. 2. Peripheral vascular disease with reconstructed superficial femoral artery. She now has adequate perfusion to heal at this point. I'll have her follow up with me for close interval follow-up and re-intervention on the superficial femoral artery if needed. Continue aspirin and plavix. 3. Offloading the wound. Discussed with patient she cannot wear normal shoes as these will wear against the wound. Optimally a [place]co shoe with forefoot offloading would be perferred, or complete offloading. Since this is not available, postop shoe ordered for patient. 4. Aggressive wound care per wound care at [facility]. A ppreciate assistance. 5. Hyperbaric oxygen will assist with wound healing and provide benefit. 6. Treatment of any underlying infection. Appreciate assistance. Subjective Date of service: 07/18/18 Principal diagnosis: diabetic foot infection Interval history: Warm and well perfused right foot. bleeding at the open TMA. Objective - Constitutional Vitals: Vital Signs - 12hr 07/18/18 06:00 Temperature 98.3 F Pulse Rate 73 Respiratory 20 Rate Blood Pressure 139/75 [Left] General appearance: Present: no acute distress - EENT Eyes: EOM intact ENT: hearing intact - Respiratory Respiratory effort: normal Extremities: normal temperature, normal color Extremity abnormal: other (open TMA) - Psychiatric Psychiatric: appropriate mood/affect - Labs CBC & Chem 7: 07/17/18 05:14 07/17/18 05:14 Labs: Abnormal lab results 07/17/18 07/18/18 07/18/18 Range/Units 21:51 07:20 11:11 POC Glucose 221 H 130 H 206 H (70-105) Medications & Allergies - Medications Allergies/Adverse Reactions: Allergies Penicillins Allergy (Verified 06/11/18 15:55) Rash Home Medications: Home Medications Medication Instructions Recorded Confirmed Last Taken Type AtorvaSTATin [Lipitor] 40 mg PO QHS #30 tablet 09/29/17 07/15/18 06/03/18 Rx HYDROcodone/APAP 5-325 [[place] 1 each PO Q6HR PRN #10 tablet 09/29/17 07/15/18 05/14/18 Rx 5-325 mg TAB] metFORMIN 1,000 mg PO DAILY #60 09/29/17 07/15/18 06/03/18 22:00 Rx Levemir (Nf) 50 units SQ BID 04/13/18 07/15/18 04/13/18 History Lisinopril [Zestril TAB] 20 mg PO DAILY 04/13/18 07/15/18 06/03/18 17:00 History Ziprasidone 40 mg PO BID 04/13/18 07/15/18 05/14/18 History Gabapentin [Neurontin] 300 mg PO BID capsule 04/18/18 07/15/18 Unknown Rx diazePAM TAB [Valium] 5 mg PO BID PRN tablet 04/18/18 07/15/18 05/04/18 Rx Nicotine [Habitrol] 14 mg TD QDAY #30 patch 05/16/18 07/15/18 05/21/18 Rx HYDROcodone/ACETAMINOPHEN [[place] 1 each PO Q6H PRN #20 tablet 06/04/18 07/15/18 Unknown Rx 5-325 Tablet] Active Medications: Generic Name Dose Route Start Last Admin Trade Name Freq PRN Reason Stop Dose Admin Acetaminophen 650 mg 07/12/18 01:43 Tylenol PO Q4H PRN Pain MILD(1-3)/Fever >100.5/RODRIGUEZ Acetaminophen/Hydrocodone Bitart 1 each 07/12/18 08:42 07/17/18 20:35 [place] 5/325 PO 1 each Q6H PRN Administration BREAKTHRU Pain , Severe (7-10) Aspirin 81 mg 07/12/18 10:00 07/18/18 10:27 Baby Aspirin PO 81 mg QDAY JUANITA Administration Atorvastatin Calcium 40 mg 07/12/18 22:00 07/17/18 23:48 Lipitor PO 40 mg QHS JUANITA Administration Dextrose 50 ml 07/12/18 01:48 D50w (25gm) Syringe IV PRN PRN Hypoglycemia Diazepam 5 mg 07/12/18 08:42 07/15/18 18:35 Valium PO 5 mg BID PRN Administration Anxiety Docusate Sodium 100 mg 07/13/18 23:00 07/18/18 10:27 Colace PO 100 mg BID JUANITA Administration Gabapentin 300 mg 07/12/18 10:00 07/18/18 10:26 Neurontin PO 300 mg BID JUANITA Administration Heparin Sodium (Porcine) 5,000 unit 07/13/18 10:00 07/18/18 10:29 Heparin SUB-Q 5,000 unit Q12HR JUANITA Administration Hydralazine HCl 20 mg 07/16/18 11:53 07/16/18 12:15 Apresoline IV 20 mg Q4HR PRN Administration Blood Pressure Hydromorphone HCl 0.5 mg 07/12/18 01:43 07/18/18 11:59 Dilaudid IV 0.5 mg Q3H PRN Administration Pain , Severe (7-10) Potassium Chloride/Sodium Chloride 20 meq in 1,000 mls @ 125 mls/hr 07/12/18 02:00 07/18/18 02:13 Ns/Kcl 20meq IV 100 mls/hr DIRECT JUANITA Administration Cefepime HCl 2 gm in 100 mls @ 200 mls/hr 07/13/18 03:00 07/18/18 14:47 Maxipime/Ns 2 Gm/100 Ml IV 200 mls/hr Q12H JUANITA Administration Vancomycin HCl 1,250 mg/ 275 mls @ 166.667 mls/hr 07/14/18 10:00 07/18/18 10:00 Sodium Chloride IV 166.667 mls/hr Q12H JUANITA Administration Insulin Glargine 30 units 07/14/18 08:00 07/18/18 08:00 Lantus SUB-Q 30 units QAMDIAB JUANITA Administration Insulin Human Lispro 0 unit 07/12/18 07:30 07/18/18 12:00 Humalog SUB-Q 3 unit ACHS JUANITA Administration Protocol Lisinopril 20 mg 07/16/18 12:15 07/18/18 10:27 Zestril PO 20 mg QDAY JUANITA Administration Nicotine 14 mg 07/12/18 10:00 07/18/18 10:28 Habitrol TD 14 mg QDAY JUANITA Administration Ondansetron HCl 4 mg 07/12/18 01:43 07/17/18 09:24 Zofran IV 4 mg Q8H PRN Administration Nausea And Vomiting Oxycodone/Acetaminophen 1 tab 07/12/18 01:43 07/13/18 07:56 Percocet 5/325 PO 1 tab Q6H PRN Administration Pain, Moderate (4-6) Pantoprazole Sodium 40 mg 07/14/18 15:00 07/18/18 10:26 Protonix PO 40 mg QDAY JUANITA Administration Polyethylene Glycol 17 gm 07/13/18 22:37 07/14/18 12:28 Miralax 3350 PO 17 gm QDAY PRN Administration Constipation Sodium Chloride 10 ml 07/12/18 10:00 07/18/18 10:00 Sodium Chloride Flush Syringe 10 Ml IV 10 ml BID JUANITA Administration Sodium Chloride 10 ml 07/12/18 01:43 Sodium Chloride Flush Syringe 10 Ml IV PRN PRN LINE FLUSH Sodium Hypochlorite 1 applic 07/12/18 12:00 07/18/18 10:28 Dakin's Full Strength TP 10 1000units Q12HR JUANITA Administration Ziprasidone 40 mg 07/12/18 10:00 07/18/18 10:27 Geodon PO 40 mg BID JUANITA Administration
--- NOTE | 2018-07-18 20:06 | Progress Note ---
Assessment and Plan Cultures: Blood culture 07/12/2018 no growth today. Wound culture 07/12/2018 Proteus MDR, E faecalis and Beta hem Strep MRSA screening negative Assessment: 43 y/o female with history of tobacco abuse, diabetic right foot ulcer and uncontrolled diabetes s/p recent right great toe amputation on 06/06/2018, Peripheral Vascular disease s/p Angioplasty of right superficial femoral artery 05/13/18; admitted on 07/11/2018 due to worsening right foot ulcer drainage and toes discoloration. 1) Sepsis:better. Etiology most likely right foot infection. 2) Right foot diabetic ulcer persistent infection with gangrene: patient with known PVD with initial right plantar foot wound/abscess due to MSSA s/p debriement on 04/14/2018, treated with linezolid po x 14 days; readmitted on 05/06/18 due to wound deterioration found septic with MSSA bacteremia due to right foot necrotizing fascitis and osteomyelitis. Wound grew MSSA and Klebsiella. Noted tendon and bone visible. Patient underwent right great toe amputation. Path showed acute osteomyelitis at the margin. Treated with Cefazolin 2gms q 8 hours for total 6 weeks ending 06-21-18. Patient readmitted on 07/11/2018 [facility] from [facility] due to worsening right foot wound and drainage. Blood culture 07/12/2018 no growth. Wound culture 07/12/2018 Proteus MDR, E faecalis and Beta hem Strep. CRP=18. S/p TMA. 3) DM: poorly controlled 4) PVD Recommendations: - contact isolation due to MDR Proteus - continue cefepime and vancomcyin with PK consult D6, may need to continue IV antibiotics as wound with extensive necrotic changes Dr Peterson will be rounding tomorrow Grecia Gotti MD Infectious Diseases [employer] [facility] M [phone] O [phone] Subjective Date of service: 07/18/18 Principal diagnosis: diabetic foot infection Interval history: Feels ok, no complaint. No fever. Objective - Exam Narrative Exam: General appearance: Alert in NAD Eyes: anicteric sclerae, moist conjunctivae; no lid-lag; PERRLA HENT: Atraumatic; oropharynx clear with moist mucous membranes and no mucosal ulcerations/no oral thrush; normal hard and soft palate. Normal external ears. Neck: Trachea midline; supple, no thyromegaly or lymphadenopathy Lungs: CTA, with normal respiratory effort and no intercostal retractions CV: RRR no murmur Abdomen: Soft, non-tender; no masses or hepatosplenomegaly Extremities: +right foot with extensive surgical wound and necrotic changes Skin: Normal temperature, turgor and texture; no rash, ulcers or subcutaneous nodules Psych: Appropriate affect, alert and oriented to person, place and time. Neuro: alert and oriented x 3. Moving all extermities - Constitutional Vitals: Vital Signs Temp Pulse Resp BP Pulse Ox 98.2 F 98 H 18 147/76 99 07/18/18 16:21 07/18/18 16:21 07/18/18 16:21 07/18/18 16:21 07/18/18 16:21 Temperature -Last 24 Hours Temperature 98.2 F Temperature 97.5 F Temperature 98.3 F Temperature 98.8 F - Labs CBC & Chem 7: 07/17/18 05:14 07/17/18 05:14 Labs: Abnormal lab results 07/17/18 07/18/18 07/18/18 Range/Units 21:51 07:20 11:11 POC Glucose 221 H 130 H 206 H (70-105) 07/18/18 Range/Units 16:24 POC Glucose 184 H (70-105)
[2018-07-18] MEDS: NORCO 5/325 PO PRN (23:05)
[2018-07-19] MEDS: MAXIPIME/NS 2 GM/100 ML 2 GM/100 ML BAG IV SCH ×2 (03:12→15:00)
[2018-07-19] MEDS: NS/KCL 20MEQ 20 MEQ/1,000 ML BAG IV SCH ×2 (03:14→09:32)
[2018-07-19] MEDS: DILAUDID IV PRN ×4 (03:28→19:56)
[2018-07-19] MEDS: HumaLOG SUB-Q SCH ×4 (07:30→22:43)
[2018-07-19] MEDS: LANTUS SUB-Q SCH (08:00)
--- NOTE | 2018-07-19 08:26 | Discharge Summary ---
Providers - Providers Date of Admission: 07/12/18 03:26 Attending physician: KERVIN SINHA 07/12/18 03:16 Consult to Wound/ET Nurse [CONS] Routine Reason For Exam: wound eval 07/12/18 08:30 Consult to Physician [CONS] Routine Comment: Consulting Provider: REZA DE JESUS Physician Instructions: Reason For Exam: foot ulcer, patient known to you 07/12/18 08:38 Consult to Physician [CONS] Routine Comment: Consulting Provider: DARY BAL Physician Instructions: I notified Reason For Exam: sepsis, right foot infection 07/12/18 12:18 Consult to Physician [CONS] Routine Comment: Consulting Provider: LARRY WIGGINS Physician Instructions: Reason For Exam: PAD, nonhealing right foot wound 07/18/18 09:39 Physical Therapy Evaluation and Treat [CONS] Routine Comment: S/P amp, heel weight-bearing as little as possible Reason For Exam: difficulty in ambulation Primary care physician: QUIN JEFFERS Hospitalization Condition: Stable Disposition: DC-30 STILL A PATIENT Exam - Constitutional Vitals: Temp Pulse Resp BP Pulse Ox 98.2 F 97 H 20 116/55 99 07/19/18 05:39 07/19/18 05:39 07/19/18 05:39 07/19/18 05:39 07/19/18 05:39 Plan Follow up with: LIO GAUTAM MD [Staff Physician] - 3-5 Days
--- NOTE | 2018-07-19 09:21 | Progress Note ---
Assessment and Plan Assessment and plan: Sepsis Likely secondary to diabetic right foot ulcer with chronic necrotizing i nfection and osteomyelitis: Cont. IV antibiotics with Vanc and cefepime, ID reported continuing antibiotics as wound with extensive necrotic changes Right foot ulcer/infection: Dr. Cox, Vascular and Dr. Chavarria following. Wound culture 07/12/2018 Proteus MDR, E faecalis and Beta hem Strep. Vascular surgery with a long discussion regarding recommendations for salvaging foot. Severe malnutrition: consult [facility] Hypokalemia: replete and monitor bmp closely Hyponatremia hypovolemia: IVF and monitor bmp closely Uncontrolled DM type 2 with hyperglycemia: treat with SSI, ada diet. Diabetic neuropathy-Continue Neurontin History of CVA without residual deficits-Continue aspirin and statin Hypertension with hypotensive episodes-stopped Lisinopril 20 mg/day on 07/13/18 and started NSS at 100ml/hr, which resolved the hypotension PAD -Status post angioplasty of the right superficial femoral artery-Continue statin Chronic right buttock wound-Continue wound care Tobacco abuse-Patient counseled on cessation-Nicotine patch History of schizophrenia/bipolar-continue antipsych meds, she is refusing the Geodon because it makes her sleep, but she is also refusing the evening/night time dose. Counseling done. DVT prophylaxis with sq heparin Disposition. Likely discharge based on IV antibiotics per ID recommendations.. History Interval history: Patient is a 43 yo woman with a history of IDDM type 2, hypertension, PVD, stroke, other schizophrenia, bipolar disorder, peripheral neuropathy, dyslipidemia, tobacco dependency and dry gangrene of right great toe, Peripheral Vascular disease s/p Angioplasty of right superficial femoral artery 05/13/18, s/p amputation of right great toe by Dr. Dong on 06/04/18. She has been followed by wound care since and had a period of iv antibiotics at home via picc. At her wound care visit, it was noticed that her wound had increased purulent drainage, surrounding erythema and became black; therefore, she came to E.R for further evaluation. The patient was noted to have wet gangrene of the right secondfourth toes. The patient was seen by infectious disease consultation and had blood cultures from 07/12/18 that showed no growth. However, wound culture 07/12/18 revealed Proteus MVR, E faecalis and beta hemolytic strep. CRP was elevated at 18. ID recommended amputation and continued antibiotics. Dr. Chavarria performed Transmetatarsal amputation of right 2nd, 3rd, 4th and 5th toes and patient tolerated procedure well. The patient was treated with antibiotics of cefepime and vancomycin IV. Vascular surgery had a long discussion with the patient regarding recommendations for salvaging her foot that includes: 1. Obtain better blood sugar control. Discussed she will need to follow up with an physician specialist or her primary care doctor in order to obtain this. Any assistance in obtaining blood sugar control will increase her chance of healing her wound as this is the most significant reason she has had recent decline of her wound. If this does not happen, and wound will likely continue to decompensate and she will require amputation. 2. Peripheral vascular disease with reconstructed superficial femoral artery. She now has adequate perfusion to heal at this point. Vascular surgery will have her follow up with Dr. Juarez for close interval follow-up and re-interven tion on the superficial femoral artery if needed. Continue aspirin and plavix. 3. Offloading the wound. Discussed with patient she cannot wear normal shoes as these will wear against the wound. Optimally a Darco shoe with forefoot offloading would be perferred, or complete offloading. Since this is not available, postop shoe ordered for patient. 4. Aggressive wound care per wound care at [facility]. Appreciate assistance. 5. Hyperbaric oxygen will assist with wound healing and provide benefit. 6. Treatment of any underlying infection. Appreciate assistance. Hospitalist Physical - Constitutional Vitals: Temp Pulse Resp BP Pulse Ox 98.2 F 97 H 20 116/55 99 07/19/18 05:39 07/19/18 05:39 07/19/18 05:39 07/19/18 05:39 07/19/18 05:39 General appearance: Present: no acute distress - EENT Eyes: Present: PERRL, EOM intact ENT: hearing intact, clear oral mucosa, dentition normal - Neck Neck: Present: supple, normal ROM - Respiratory Respiratory effort: normal Respiratory: bilateral: CTA - Cardiovascular Rhythm: regular Heart Sounds: Present: S1 & S2. Absent: gallop, rub - Extremities Extremities: no ischemia, No edema, Full ROM - Abdominal General gastrointestinal: soft, non-tender, non-distended, normal bowel sounds - Integumentary Integumentary: Present: clear, warm, dry - Neurologic Neurologic: CNII-XII intact, moves all extremities Results - Labs CBC & Chem 7: 07/17/18 05:14 07/17/18 05:14 Labs: Laboratory Last Values WBC 12.1 K/mm3 (4.5-11.0) H 07/17/18 05:14 RBC 3.45 M/mm3 (3.65-5.03) L 07/17/18 05:14 Hgb 8.1 gm/dl (10.1-14.3) L 07/17/18 05:14 Hct 25.5 % (30.3-42.9) L 07/17/18 05:14 MCV 74 fl (79-97) L 07/17/18 05:14 MCH 24 pg (28-32) L 07/17/18 05:14 MCHC 32 % (30-34) 07/17/18 05:14 RDW 17.6 % (13.2-15.2) H 07/17/18 05:14 Plt Count 524 K/mm3 (140-440) H 07/17/18 05:14 Lymph % (Auto) 15.3 % (13.4-35.0) 07/17/18 05:14 [place] % (Auto) 8.3 % (0.0-7.3) H 07/17/18 05:14 Eos % (Auto) 1.3 % (0.0-4.3) 07/17/18 05:14 Baso % (Auto) 0.3 % (0.0-1.8) 07/17/18 05:14 Lymph # 1.9 K/mm3 (1.2-5.4) 07/17/18 05:14 [place] # 1.0 K/mm3 (0.0-0.8) H 07/17/18 05:14 Eos # 0.2 K/mm3 (0.0-0.4) 07/17/18 05:14 Baso # 0.0 K/mm3 (0.0-0.1) 07/17/18 05:14 Add Manual Diff Complete 07/17/18 05:14 Seg Neutrophils % 74.8 % (40.0-70.0) H 07/17/18 05:14 Seg Neutrophils # 9.0 K/mm3 (1.8-7.7) H 07/17/18 05:14 Sodium 139 mmol/L (137-145) 07/17/18 05:14 Potassium 4.2 mmol/L (3.6-5.0) 07/17/18 05:14 Chloride 108.0 mmol/L (98-107) H 07/17/18 05:14 Carbon Dioxide 21 mmol/L (22-30) L 07/17/18 05:14 14 mmol/L 07/17/18 05:14 BUN 10 mg/dL (7-17) 07/17/18 05:14 0.6 mg/dL (0.7-1.2) L 07/17/18 05:14 Estimated GFR > 60 ml/min 07/17/18 05:14 17 % 07/17/18 05:14 Glucose 164 mg/dL (65-100) H 07/17/18 05:14 POC Glucose 115 (70-105) H 07/19/18 07:42 Lactic Acid 1.90 mmol/L (0.7-2.0) 07/12/18 00:36 Calcium 8.9 mg/dL (8.4-10.2) 07/17/18 05:14 Magnesium 1.70 mg/dL (1.7-2.3) 07/14/18 04:44 0.30 mg/dL (0.1-1.2) 07/11/18 23:46 AST 8 units/L (5-40) 07/11/18 23:46 ALT < 5 units/L (7-56) L 07/11/18 23:46 124 units/L (35-129) 07/11/18 23:46 18.70 mg/dL (0.00-1.30) H 07/12/18 15:37 7.9 g/dL (6.3-8.2) 07/11/18 23:46 2.5 g/dL (3.9-5) L 07/11/18 23:46 0.5 % 07/11/18 23:46 Vancomycin Trough 21.8 ug/mL (5.0-20.0) H 07/14/18 07:37 Blood Type B POSITIVE 07/16/18 08:42 Antibody Screen TNR 07/16/18 08:42 MELITA Antibody Screen Negative 07/16/18 08:42 Active Medications - Current Medications Current Medications: Generic Name Dose Route Start Last Admin Trade Name Freq PRN Reason Stop Dose Admin Acetaminophen 650 mg 07/12/18 01:43 Tylenol PO Q4H PRN Pain MILD(1-3)/Fever >100.5/RODRIGUEZ Acetaminophen/Hydrocodone Bitart 1 each 07/12/18 08:42 07/18/18 23:05 [place] 5/325 PO 1 each Q6H PRN Administration BREAKTHRU Pain , Severe (7-10) Aspirin 81 mg 07/12/18 10:00 07/18/18 10:27 Baby Aspirin PO 81 mg QDAY JUANITA Administration Atorvastatin Calcium 40 mg 07/12/18 22:00 07/18/18 22:12 Lipitor PO 40 mg QHS JUANITA Administration Dextrose 50 ml 07/12/18 01:48 D50w (25gm) Syringe IV PRN PRN Hypoglycemia Diazepam 5 mg 07/12/18 08:42 07/15/18 18:35 Valium PO 5 mg BID PRN Administration Anxiety Docusate Sodium 100 mg 07/13/18 23:00 07/18/18 22:13 Colace PO 100 mg BID JUANITA Administration Gabapentin 300 mg 07/12/18 10:00 07/18/18 22:12 Neurontin PO 300 mg BID JUANITA Administration Heparin Sodium (Porcine) 5,000 unit 07/13/18 10:00 07/18/18 22:13 Heparin SUB-Q 5,000 unit Q12HR JUANITA Administration Hydralazine HCl 20 mg 07/16/18 11:53 07/16/18 12:15 Apresoline IV 20 mg Q4HR PRN Administration Blood Pressure Hydromorphone HCl 0.5 mg 07/12/18 01:43 07/19/18 03:28 Dilaudid IV 0.5 mg Q3H PRN Administration Pain , Severe (7-10) Potassium Chloride/Sodium Chloride 20 meq in 1,000 mls @ 125 mls/hr 07/12/18 02:00 07/19/18 03:14 Ns/Kcl 20meq IV 100 mls/hr DIRECT JUANITA Administration Cefepime HCl 2 gm in 100 mls @ 200 mls/hr 07/13/18 03:00 07/19/18 03:12 Maxipime/Ns 2 Gm/100 Ml IV 200 mls/hr Q12H JUANITA Administration Vancomycin HCl 1,250 mg/ 275 mls @ 166.667 mls/hr 07/14/18 10:00 07/18/18 22:12 Sodium Chloride IV 166.667 mls/hr Q12H JUANITA Administration Insulin Glargine 30 units 07/14/18 08:00 07/18/18 08:00 Lantus SUB-Q 30 units QAMDIAB JUANITA Administration Insulin Human Lispro 0 unit 07/12/18 07:30 07/19/18 07:30 Humalog SUB-Q Not Given ACHS [facility] Protocol Lisinopril 20 mg 07/16/18 12:15 07/18/18 10:27 Zestril PO 20 mg QDAY JUANITA Administration Nicotine 14 mg 07/12/18 10:00 07/18/18 10:28 Habitrol TD 14 mg QDAY JUANITA Administration Ondansetron HCl 4 mg 07/12/18 01:43 07/17/18 09:24 Zofran IV 4 mg Q8H PRN Administration Nausea And Vomiting Oxycodone/Acetaminophen 1 tab 07/12/18 01:43 07/13/18 07:56 Percocet 5/325 PO 1 tab Q6H PRN Administration Pain, Moderate (4-6) Pantoprazole Sodium 40 mg 07/14/18 15:00 07/18/18 10:26 Protonix PO 40 mg QDAY JUANITA Administration Polyethylene Glycol 17 gm 07/13/18 22:37 07/14/18 12:28 Miralax 3350 PO 17 gm QDAY PRN Administration Constipation Sodium Chloride 10 ml 07/12/18 10:00 07/18/18 22:14 Sodium Chloride Flush Syringe 10 Ml IV 10 ml BID JUANITA Administration Sodium Chloride 10 ml 07/12/18 01:43 Sodium Chloride Flush Syringe 10 Ml IV PRN PRN LINE FLUSH Sodium Hypochlorite 1 applic 07/12/18 12:00 07/18/18 22:13 Dakin's Full Strength TP 1 1000units Q12HR JUANITA Administration Ziprasidone 40 mg 07/12/18 10:00 07/18/18 22:25 Geodon PO Not Given BID JUANITA Nutrition/Malnutrition Assess - Dietary Evaluation Nutrition/Malnutrition Findings: Nutrition Notes Start: 07/12/18 17:30 Freq: Status: Active Protocol: Document 07/17/18 15:05 COLTON (Rec: 07/17/18 15:10 COLTON [id number] [email or web address]) Nutrition Notes Initial or Follow up Reassessment Current Diagnosis Diabetes,Sepsis,Hypertension Other Pertinent Diagnosis s/p (R) transmetatarsal amputation (foot) Current Diet Consistent CHO Labs/Tests BG 164 Pertinent Medications Reviewed Height 5 ft 10 in Weight 107.5 kg [place] Body Weight (kg) 68.18 BMI 34.0 Subjective/Other Information Pt has consumed 47% of meals since last assessment. She drinks the ONS (only when cold ). Percent of energy/protein needs met: 54% energy 38% pro (ONS not included) Burn Absent Trauma Absent #1 Nutrition Diagnosis Increased nutrient needs ( specify in comment below) Diagnosis Progress(for reassessment Continues documentation) Is patient on ventilator? No Is Patient Ambulatory and/or Out of Bed Yes [facility] [ 2346.825 NUTR.[id number]] Kcal/Kg value to use for calculation 17 Approximate Energy Requirements Using 1828 kcal/Kg Additional Notes Pro needs 1.25-1.5g/kg adjBW: 110-132g/day Fluid needs 1ml/kcal Nutrition Intervention Change Diet Order: Continue current diet order Add Supplement/Snack (indicate name/kcal Glucerna BID (chocolate) /protein ) Gianni BID Provides kCal: 630 Provides Protein (gm) 25 Goal #1 PO intake of meals plus ONS to meet at least 75% nutrient needs Goal #2 Improved BG control Goal #3 Wound healing Goal #4 Smoking cessation Follow-Up By: 07/23/18 Additional Comments F/U: intakes (meals/ONS), wound healing
[2018-07-19] MEDS: NEURONTIN PO SCH ×2 (09:33→22:42)
[2018-07-19] MEDS: PROTONIX PO SCH (09:33)
[2018-07-19] MEDS: HABITROL TD SCH (09:33)
[2018-07-19] MEDS: HEPARIN SUB-Q SCH ×2 (09:33→22:41)
[2018-07-19] MEDS: BABY ASPIRIN PO SCH (09:33)
[2018-07-19] MEDS: COLACE PO SCH ×2 (09:33→22:42)
[2018-07-19] MEDS: SODIUM CHLORIDE FLUSH SYRINGE 10 ML IV SCH ×2 (09:34→22:42)
[2018-07-19] MEDS: VANCOMYCIN 1,250 MG in NACL 0.9% 250ML 250 ML IV SCH ×2 (09:34→22:45)
[2018-07-19] MEDS: DAKIN'S FULL STRENGTH TP SCH ×2 (09:35→22:42)
[2018-07-19] MEDS: ZESTRIL PO SCH (09:36)
[2018-07-19] MEDS: GEODON PO SCH ×2 (09:50→22:42)
--- NOTE | 2018-07-19 11:52 | Progress Note ---
Assessment and Plan Cultures: Blood culture 07/12/2018 no growth today. Wound culture 07/12/2018 Proteus, E faecalis and Beta hem Strep MRSA screening negative Assessment: 43 y/o female with history of tobacco abuse, diabetic right foot ulcer and uncontrolled diabetes s/p recent right great toe amputation on 06/06/2018, Peripheral Vascular disease s/p Angioplasty of right superficial femoral artery 05/13/18; admitted on 07/11/2018 due to worsening right foot ulcer drainage and toes discoloration. 1) Sepsis: better. Etiology most likely right foot infection. 2) Right foot diabetic ulcer persistent infection with gangrene: patient with known PVD with initial right plantar foot wound/abscess due to MSSA s/p debriement on 04/14/2018, treated with linezolid po x 14 days; readmitted on 05/06/18 due to wound deterioration found septic with MSSA bacteremia due to right foot necrotizing fascitis and osteomyelitis. Wound grew MSSA and Klebsiella. Noted tendon and bone visible. Patient underwent right great toe amputation. Path showed acute osteomyelitis at the margin. Treated with Cefazolin 2gms q 8 hours for total 6 weeks ending 06-21-18. Patient readmitted on 07/11/2018 sent from [facility] due to worsening right foot wound and drainage. Blood culture 07/12/2018 no growth. Wound culture 07/12/2018 Proteus MDR, E faecalis and Beta hem Strep. CRP=18. S/p TMA. Due to high risk of treatment failure and need for future amputations, plan is for additional IV abx upon discharge. 3) DM: poorly controlled. recommend tight glycemic control. 4) PVD: recommend smoking cessation. Recommendations: - continue IV Cefepime 2 gm q12 hrs + IV Vancomycin 1.25 gm q12 hrs (with PK monitoring) ending 08/13/2018 - PICC line ordered - weekly labs on IV abx - tobacco cessation strongly advised - tight glycemic control - ID clinic follow up with Dr. Hoffman within 2 weeks (barker peeler notified) - OK to discharge once IV abx arranged for D/W Case management (orders placed). MD Tammi [facility] C: [phone] O: [phone] F: [phone] Subjective Date of service: 07/19/18 Principal diagnosis: diabetic foot infection Interval history: No new complaints. No fever. Otherwise feeling well. No rash, no diarrhea. Objective - Exam Narrative Exam: General appearance: Alert in NAD Eyes: anicteric sclerae, moist conjunctivae; no lid-lag; PERRLA HENT: Atraumatic; oropharynx clear with moist mucous membranes and no mucosal ulcerations/no oral thrush; normal hard and soft palate. Normal external ears. Neck: Trachea midline; supple, no thyromegaly or lymphadenopathy Lungs: CTA, with normal respiratory effort and no intercostal retractions CV: RRR no murmur heard Abdomen: Soft, non-tender; no masses or hepatosplenomegaly Extremities: +right foot with dressing. Skin: Normal temperature, turgor and texture; no rash, ulcers or subcutaneous nodules Psych: Appropriate affect, alert and oriented to person, place and time. Neuro: alert and oriented x 3. Moving all extermities - Constitutional Vitals: Vital Signs Temp Pulse Resp BP Pulse Ox 98.2 F 97 H 20 116/55 99 07/19/18 05:39 07/19/18 05:39 07/19/18 05:39 07/19/18 05:39 07/19/18 05:39 Temperature -Last 24 Hours Temperature 98.2 F Temperature 98.4 F Temperature 98.2 F - Labs CBC & Chem 7: 07/17/18 05:14 07/17/18 05:14 Labs: Abnormal lab results 07/18/18 07/18/18 07/19/18 Range/Units 16:24 22:06 07:42 POC Glucose 184 H 151 H 115 H (70-105)
[2018-07-19] MEDS: NORCO 5/325 PO PRN (12:19)
--- NOTE | 2018-07-19 16:19 | XRay Report ---
PROCEDURE: XR CHEST 1V AP TECHNIQUE: Chest radiograph single view. HISTORY: picc placement right arm COMPARISONS: Comparison is September 27, 2017 . FINDINGS: Heart: Normal. Mediastinum/Vessels: Normal. Lungs/Pleural space: Normal. Bony thorax: No acute osseous abnormality. Life support devices: Right PICC line has been placed catheter tip at the SVC. No evidence for pneumo thorax post line placement. IMPRESSION: Right PICC line in satisfactory position No acute change in the chest This document is electronically signed by Chan Andrew MD., Jul 19 2018 05:17:35 PM ET
[2018-07-19] MEDS: ZOFRAN IV PRN (20:23)
[2018-07-20] MEDS: MAXIPIME/NS 2 GM/100 ML 2 GM/100 ML BAG IV SCH ×2 (03:21→15:45)
[2018-07-20] MEDS: DILAUDID IV PRN ×3 (04:02→22:03)
[2018-07-20] MEDS: NS/KCL 20MEQ 20 MEQ/1,000 ML BAG IV SCH ×2 (04:02→15:45)
[2018-07-20] MEDS: LANTUS SUB-Q SCH (09:12)
[2018-07-20] MEDS: HumaLOG SUB-Q SCH ×4 (09:12→22:03)
--- NOTE | 2018-07-20 10:20 | Progress Note ---
Assessment and Plan Assessment and plan: Sepsis Likely secondary to diabetic right foot ulcer with chronic necrotizing i nfection and osteomyelitis: Cont. IV antibiotics with Vanc and cefepime, ID reported continuing antibiotics as wound with extensive necrotic changes and Due to high risk of treatment failure and need for future amputations, plan is for additional IV abx upon discharge. PICC line was placed. Continue IV Cefepime 2 gm q12 hrs + IV Vancomycin 1.25 gm q12 hrs (with PK monitoring) ending . ID clinic follow up with Dr. Hoffman within 2 weeks (information clerk notified) Right foot ulcer/infection: Dr. Cox, Vascular and Dr. Chvaarria following. Wound culture 07/12/2018 Proteus MDR, E faecalis and Beta hem Strep. Vascular surgery with a long discussion regarding recommendations for salvaging foot. Severe malnutrition: consult Campus Director Hypokalemia: replete and monitor bmp closely Hyponatremia hypovolemia: IVF and monitor bmp closely Uncontrolled DM type 2 with hyperglycemia: treat with SSI, ada diet. Diabetic neuropathy-Continue Neurontin History of CVA without residual deficits-Continue aspirin and statin Hypertension with hypotensive episodes-stopped Lisinopril 20 mg/day on 07/13/18 and started NSS at 100ml/hr, which resolved the hypotension PAD -Status post angioplasty of the right superficial femoral artery-Continue statin Chronic right buttock wound-Continue wound care Tobacco abuse-Patient counseled on cessation-Nicotine patch History of schizophrenia/bipolar-continue antipsych meds, she is refusing the Geodon because it makes her sleep, but she is also refusing the evening/night time dose. Counseling done. DVT prophylaxis with sq heparin Disposition. Await case management arrangement for home IV antibiotics. History Interval history: Patient is a 43 yo woman with a history of IDDM type 2, hypertension, PVD, stroke, other schizophrenia, bipolar disorder, peripheral neuropathy, dyslipidemia, tobacco dependency and dry gangrene of right great toe, Peripheral Vascular disease s/p Angioplasty of right superficial femoral artery 05/13/18, s/p amputation of right great toe by Dr. Dong on 06/04/18. She has been followed by wound care since and had a period of iv antibiotics at home via picc. At her wound care visit, it was noticed that her wound had increased purulent drainage, surrounding erythema and became black; therefore, she came to E.R for further evaluation. The patient was noted to have wet gangrene of the right secondfourth toes. The patient was seen by infectious disease consultation and had blood cultures from 07/12/18 that showed no growth. However, wound culture 07/12/18 revealed Proteus MVR, E faecalis and beta hemolytic strep. CRP was elevated at 18. ID recommended amputation and continued antibiotics. Dr. Chavarria performed Transmetatarsal amputation of right 2nd, 3rd, 4th and 5th toes and patient tolerated procedure well. The patient was treated with antibiotics of cefepime and vancomycin IV. Vascular surgery had a long discussion with the patient regarding recomm endations for salvaging her foot that includes: 1. Obtain better blood sugar control. Discussed she will need to follow up with an gold assayer or her primary care doctor in order to obtain this. Any assistance in obtaining blood sugar control will increase her chance of healing her wound as this is the most significant reason she has had recent decline of her wound. If this does not happen, and wound will likely continue to decompensate and she will require amputation. 2. Peripheral vascular disease with reconstructed superficial femoral artery. She now has adequate perfusion to heal at this point. Vascular surgery will have her follow up with Dr. Juarez for close interval follow-up and re- intervention on the superficial femoral artery if needed. Continue aspirin and plavix. 3. Offloading the wound. Discussed with patient she cannot wear normal shoes as these will wear against the wound. Optimally a Darco shoe with forefoot offloading would be perferred, or complete offloading. Since this is not available, postop shoe ordered for patient. 4. Aggressive wound care per wound care at [facility]. Appreciate assistance. 5. Hyperbaric oxygen will assist with wound healing and provide benefit. 6. Treatment of any underlying infection. Appreciate assistance. Hospitalist Physical - Constitutional Vitals: Temp Pulse Resp BP Pulse Ox 97.6 F 91 H 18 136/74 100 07/20/18 05:41 07/20/18 05:39 07/20/18 05:39 07/20/18 05:39 07/20/18 05:39 General appearance: Present: no acute distress - EENT Eyes: Present: PERRL, EOM intact ENT: hearing intact, clear oral mucosa, dentition normal - Neck Neck: Present: supple, normal ROM - Respiratory Respiratory effort: normal Respiratory: bilateral: CTA - Cardiovascular Rhythm: regular Heart Sounds: Present: S1 & S2. Absent: gallop, rub - Extremities Extremities: no ischemia, No edema, Full ROM - Abdominal General gastrointestinal: soft, non-tender, non-distended, normal bowel sounds - Integumentary Integumentary: Present: clear, warm, dry - Neurologic Neurologic: CNII-XII intact, moves all extremities Results - Labs CBC & Chem 7: 07/17/18 05:14 07/17/18 05:14 Labs: Laboratory Last Values WBC 12.1 K/mm3 (4.5-11.0) H 07/17/18 05:14 RBC 3.45 M/mm3 (3.65-5.03) L 07/17/18 05:14 Hgb 8.1 gm/dl (10.1-14.3) L 07/17/18 05:14 Hct 25.5 % (30.3-42.9) L 07/17/18 05:14 MCV 74 fl (79-97) L 07/17/18 05:14 MCH 24 pg (28-32) L 07/17/18 05:14 MCHC 32 % (30-34) 07/17/18 05:14 RDW 17.6 % (13.2-15.2) H 07/17/18 05:14 Plt Count 524 K/mm3 (140-440) H 07/17/18 05:14 Lymph % (Auto) 15.3 % (13.4-35.0) 07/17/18 05:14 [place] % (Auto) 8.3 % (0.0-7.3) H 07/17/18 05:14 Eos % (Auto) 1.3 % (0.0-4.3) 07/17/18 05:14 Baso % (Auto) 0.3 % (0.0-1.8) 07/17/18 05:14 Lymph # 1.9 K/mm3 (1.2-5.4) 07/17/18 05:14 [place] # 1.0 K/mm3 (0.0-0.8) H 07/17/18 05:14 Eos # 0.2 K/mm3 (0.0-0.4) 07/17/18 05:14 Baso # 0.0 K/mm3 (0.0-0.1) 07/17/18 05:14 Add Manual Diff Complete 07/17/18 05:14 Seg Neutrophils % 74.8 % (40.0-70.0) H 07/17/18 05:14 Seg Neutrophils # 9.0 K/mm3 (1.8-7.7) H 07/17/18 05:14 Sodium 139 mmol/L (137-145) 07/17/18 05:14 Potassium 4.2 mmol/L (3.6-5.0) 07/17/18 05:14 Chloride 108.0 mmol/L (98-107) H 07/17/18 05:14 Carbon Dioxide 21 mmol/L (22-30) L 07/17/18 05:14 14 mmol/L 07/17/18 05:14 BUN 10 mg/dL (7-17) 07/17/18 05:14 0.6 mg/dL (0.7-1.2) L 07/17/18 05:14 Estimated GFR > 60 ml/min 07/17/18 05:14 17 % 07/17/18 05:14 Glucose 164 mg/dL (65-100) H 07/17/18 05:14 POC Glucose 268 (70-105) H 07/20/18 08:04 Lactic Acid 1.90 mmol/L (0.7-2.0) 07/12/18 00:36 Calcium 8.9 mg/dL (8.4-10.2) 07/17/18 05:14 Magnesium 1.70 mg/dL (1.7-2.3) 07/14/18 04:44 0.30 mg/dL (0.1-1.2) 07/11/18 23:46 AST 8 units/L (5-40) 07/11/18 23:46 ALT < 5 units/L (7-56) L 07/11/18 23:46 124 units/L (35-129) 07/11/18 23:46 18.70 mg/dL (0.00-1.30) H 07/12/18 15:37 7.9 g/dL (6.3-8.2) 07/11/18 23:46 2.5 g/dL (3.9-5) L 07/11/18 23:46 0.5 % 07/11/18 23:46 Vancomycin Trough 21.8 ug/mL (5.0-20.0) H 07/14/18 07:37 Blood Type B POSITIVE 07/16/18 08:42 Antibody Screen TNR 07/16/18 08:42 MELITA Antibody Screen Negative 07/16/18 08:42 Active Medications - Current Medications Current Medications: Generic Name Dose Route Start Last Admin Trade Name Freq PRN Reason Stop Dose Admin Acetaminophen 650 mg 07/12/18 01:43 Tylenol PO Q4H PRN Pain MILD(1-3)/Fever >100.5/RODRIGUEZ Acetaminophen/Hydrocodone Bitart 1 each 07/12/18 08:42 07/19/18 12:19 [place] 5/325 PO 1 each Q6H PRN Administration BREAKTHRU Pain , Severe (7-10) Aspirin 81 mg 07/12/18 10:00 07/19/18 09:33 Baby Aspirin PO 81 mg QDAY JUANITA Administration Atorvastatin Calcium 40 mg 07/12/18 22:00 07/19/18 22:42 Lipitor PO 40 mg QHS JUANITA Administration Dextrose 50 ml 07/12/18 01:48 D50w (25gm) Syringe IV PRN PRN Hypoglycemia Diazepam 5 mg 07/12/18 08:42 07/15/18 18:35 Valium PO 5 mg BID PRN Administration Anxiety Docusate Sodium 100 mg 07/13/18 23:00 07/19/18 22:42 Colace PO 100 mg BID JUANITA Administration Gabapentin 300 mg 07/12/18 10:00 07/19/18 22:42 Neurontin PO 300 mg BID JUANITA Administration Heparin Sodium (Porcine) 5,000 unit 07/13/18 10:00 07/19/18 22:41 Heparin SUB-Q 5,000 unit Q12HR JUANITA Administration Hydralazine HCl 20 mg 07/16/18 11:53 07/16/18 12:15 Apresoline IV 20 mg Q4HR PRN Administration Blood Pressure Hydromorphone HCl 0.5 mg 07/12/18 01:43 07/20/18 08:50 Dilaudid IV 0.5 mg Q3H PRN Administration Pain , Severe (7-10) Potassium Chloride/Sodium Chloride 20 meq in 1,000 mls @ 125 mls/hr 07/12/18 02:00 07/20/18 04:02 Ns/Kcl 20meq IV 100 mls/hr DIRECT JUANITA Administration Cefepime HCl 2 gm in 100 mls @ 200 mls/hr 07/13/18 03:00 07/20/18 03:21 Maxipime/Ns 2 Gm/100 Ml IV 200 mls/hr Q12H JUANITA Administration Vancomycin HCl 1,250 mg/ 275 mls @ 166.667 mls/hr 07/14/18 10:00 07/19/18 22:45 Sodium Chloride IV 166.667 mls/hr Q12H JUANITA Administration Insulin Glargine 30 units 07/14/18 08:00 07/20/18 09:12 Lantus SUB-Q 30 units QAMDIAB JUANITA Administration Insulin Human Lispro 0 unit 07/12/18 07:30 07/20/18 09:12 Humalog SUB-Q 4 unit ACHS JUANITA Administration Protocol Lisinopril 20 mg 07/16/18 12:15 07/19/18 09:36 Zestril PO 20 mg QDAY JUANITA Administration Nicotine 14 mg 07/12/18 10:00 07/19/18 09:33 Habitrol TD 14 mg QDAY JUANITA Administration Ondansetron HCl 4 mg 07/12/18 01:43 07/19/18 20:23 Zofran IV 4 mg Q8H PRN Administration Nausea And Vomiting Oxycodone/Acetaminophen 1 tab 07/12/18 01:43 07/13/18 07:56 Percocet 5/325 PO 1 tab Q6H PRN Administration Pain, Moderate (4-6) Pantoprazole Sodium 40 mg 07/14/18 15:00 07/19/18 09:33 Protonix PO 40 mg QDAY JUANITA Administration Polyethylene Glycol 17 gm 07/13/18 22:37 07/14/18 12:28 Miralax 3350 PO 17 gm QDAY PRN Administration Constipation Sodium Chloride 10 ml 07/12/18 10:00 07/19/18 22:42 Sodium Chloride Flush Syringe 10 Ml IV 10 ml BID JUANITA Administration Sodium Chloride 10 ml 07/12/18 01:43 Sodium Chloride Flush Syringe 10 Ml IV PRN PRN LINE FLUSH Sodium Hypochlorite 1 applic 07/12/18 12:00 07/19/18 22:42 Dakin's Full Strength TP Not Given Q12HR JUANITA Ziprasidone 40 mg 07/12/18 10:00 07/19/18 22:42 Geodon PO 40 mg BID JUANITA Administration Nutrition/Malnutrition Assess - Dietary Evaluation Nutrition/Malnutrition Findings: Nutrition Notes Start: 07/12/18 17:30 Freq: Status: Active Protocol: Document 07/17/18 15:05 COLTON (Rec: 07/17/18 15:10 COLTON [email or web address]) Nutrition Notes Initial or Follow up Reassessment Current Diagnosis Diabetes,Sepsis,Hypertension Other Pertinent Diagnosis s/p (R) transmetatarsal amputation (foot) Current Diet Consistent CHO Labs/Tests BG 164 Pertinent Medications Reviewed Height 5 ft 10 in Weight 107.5 kg [place] Body Weight (kg) 68.18 BMI 34.0 Subjective/Other Information Pt has consumed 47% of meals since last assessment. She drinks the ONS (only when cold ). Percent of energy/protein needs met: 54% energy 38% pro (ONS not included) Burn Absent Trauma Absent #1 Nutrition Diagnosis Increased nutrient needs ( specify in comment below) Diagnosis Progress(for reassessment Continues documentation) Is patient on ventilator? No Is Patient Ambulatory and/or Out of Bed Yes REE-([place]-ambulatory/OOB) [ 2346.825 NUTR.MSJOOB] Kcal/Kg value to use for calculation 17 Approximate Energy Requirements Using 1828 kcal/Kg Additional Notes Pro needs 1.25-1.5g/kg adjBW: 110-132g/day Fluid needs 1ml/kcal Nutrition Intervention Change Diet Order: Continue current diet order Add Supplement/Snack (indicate name/kcal Glucerna BID (chocolate) /protein ) Gianni BID Provides kCal: 630 Provides Protein (gm) 25 Goal #1 PO intake of meals plus ONS to meet at least 75% nutrient needs Goal #2 Improved BG control Goal #3 Wound healing Goal #4 Smoking cessation Follow-Up By: 07/23/18 Additional Comments F/U: intakes (meals/ONS), wound healing
[2018-07-20] MEDS: ZESTRIL PO SCH (10:37)
[2018-07-20] MEDS: GEODON PO SCH ×2 (10:37→21:52)
[2018-07-20] MEDS: HABITROL TD SCH (10:37)
[2018-07-20] MEDS: HEPARIN SUB-Q SCH ×2 (10:37→21:52)
[2018-07-20] MEDS: NEURONTIN PO SCH ×2 (10:37→21:52)
[2018-07-20] MEDS: BABY ASPIRIN PO SCH (10:38)
[2018-07-20] MEDS: PROTONIX PO SCH (10:38)
[2018-07-20] MEDS: COLACE PO SCH ×2 (10:38→21:52)
[2018-07-20] MEDS: DAKIN'S FULL STRENGTH TP SCH ×3 (10:38→21:54)
[2018-07-20] MEDS: SODIUM CHLORIDE FLUSH SYRINGE 10 ML IV SCH ×2 (10:39→22:35)
[2018-07-20] MEDS: VANCOMYCIN 1,250 MG in NACL 0.9% 250ML 250 ML IV SCH ×2 (10:46→21:51)
[2018-07-21] MEDS: MAXIPIME/NS 2 GM/100 ML 2 GM/100 ML BAG IV SCH ×2 (04:48→15:07)
[2018-07-21] MEDS: NS/KCL 20MEQ 20 MEQ/1,000 ML BAG IV SCH ×2 (04:48→20:50)
[2018-07-21] MEDS: NORCO 5/325 PO PRN (05:47)
[2018-07-21] MEDS: LANTUS SUB-Q SCH (09:00)
[2018-07-21] MEDS: HumaLOG SUB-Q SCH ×4 (09:01→23:20)
--- NOTE | 2018-07-21 10:14 | Progress Note ---
Assessment and Plan Assessment and plan: Sepsis Likely secondary to diabetic right foot ulcer with chronic necrotizing i nfection and osteomyelitis: Cont. IV antibiotics with Vanc and cefepime, ID reported continuing antibiotics as wound with extensive necrotic changes and Due to high risk of treatment failure and need for future amputations, plan is for additional IV abx upon discharge. PICC line was placed. Continue IV Cefepime 2 gm q12 hrs + IV Vancomycin 1.25 gm q12 hrs (with PK monitoring) ending . ID clinic follow up with Dr. Hoffman within 2 weeks (space scheduler notified) Right gluteal abscess. Surgery consultation. Right foot ulcer/infection: Dr. Cox, Vascular and Dr. Chavarria following. Wound culture 07/12/2018 Proteus MDR, E faecalis and Beta hem Strep. Vascular surgery with a long discussion regarding recommendations for salvaging foot. Severe malnutrition: consult Art Installer Hypokalemia: replete and monitor bmp closely Hyponatremia hypovolemia: IVF and monitor bmp closely Uncontrolled DM type 2 with hyperglycemia: treat with SSI, ada diet. Diabetic neuropathy-Continue Neurontin History of CVA without residual deficits-Continue aspirin and statin Hypertension with hypotensive episodes-stopped Lisinopril 20 mg/day on 07/13/18 and started NSS at 100ml/hr, which resolved the hypotension PAD -Status post angioplasty of the right superficial femoral artery-Continue statin Chronic right buttock wound-Continue wound care Tobacco abuse-Patient counseled on cessation-Nicotine patch History of schizophrenia/bipolar-continue antipsych meds, she is refusing the Geodon because it makes her sleep, but she is also refusing the evening/night time dose. Counseling done. DVT prophylaxis with sq heparin Disposition. Await case management arrangement for home IV antibiotics. History Interval history: Patient is a 43 yo woman with a history of IDDM type 2, hypertension, PVD, stroke, other schizophrenia, bipolar disorder, peripheral neuropathy, dyslipidemia, tobacco dependency and dry gangrene of right great toe, Peripheral Vascular disease s/p Angioplasty of right superficial femoral artery 05/13/18, s/p amputation of right great toe by Dr. Dong on 06/04/18. She has been followed by wound care since and had a period of iv antibiotics at home via picc. At her wound care visit, it was noticed that her wound had increased purulent drainage, surrounding erythema and became black; therefore, she came to E.R for further evaluation. The patient was noted to have wet gangrene of the right secondfourth toes. The patient was seen by infectious disease consultation and had blood cultures from 07/12/18 that showed no growth. However, wound culture 07/12/18 revealed Proteus MVR, E faecalis and beta hemolytic strep. CRP was elevated at 18. ID recommended amputation and continued antibiotics. Dr. Chavarria performed Transmetatarsal amputation of right 2nd, 3rd, 4th and 5th toes and patient tolerated procedure well. The patient was treated with antibiotics of cefepime and vancomycin IV. Vascular surgery had a long discussion with the patient regarding recommendations for salvaging her foot that includes: 1. Obtain better blood sugar control. Discussed she will need to follow up with an investigative reporter or her primary care doctor in order to obtain this. Any assistance in obtaining blood sugar control will increase her chance of healing her wound as this is the most significant reason she has had recent decline of her wound. If this does not happen, and wound will likely continue to decompensate and she will require amputation. 2. Peripheral vascular disease with reconstructed superficial femoral artery. She now has adequate perfusion to heal at this point. Vascular surgery will have her follow up with Dr. Juarez for close interval follow-up and re- intervention on the superficial femoral artery if needed. Continue aspirin and plavix. 3. Offloading the wound. Discussed with patient she cannot wear normal shoes as these will wear against the wound. Optimally a Darco shoe with forefoot offloading would be perferred, or complete offloading. Since this is not available, postop shoe ordered for patient. 4. Aggressive wound care per wound care at [facility]. Appreciate assistance. 5. Hyperbaric oxygen will assist with wound healing and provide benefit. 6. Treatment of any underlying infection. Appreciate assistance. Hospitalist Physical - Constitutional Vitals: Temp Pulse Resp BP Pulse Ox 98.1 F 91 H 20 152/76 99 07/21/18 06:10 07/21/18 06:10 07/21/18 06:10 07/21/18 06:10 07/21/18 06:10 General appearance: Present: no acute distress - EENT Eyes: Present: PERRL, EOM intact ENT: hearing intact, clear oral mucosa, dentition normal - Neck Neck: Present: supple, normal ROM - Respiratory Respiratory effort: normal Respiratory: bilateral: CTA - Cardiovascular Rhythm: regular Heart Sounds: Present: S1 & S2. Absent: gallop, rub - Extremities Extremities: no ischemia, No edema, Full ROM - Abdominal General gastrointestinal: soft, non-tender, non-distended, normal bowel sounds - Integumentary Integumentary: Present: clear, warm, dry - Neurologic Neurologic: CNII-XII intact, moves all extremities - Additional findings Additional findings: Right buttocks abscess Results - Labs CBC & Chem 7: 07/17/18 05:14 07/17/18 05:14 Labs: Laboratory Last Values WBC 12.1 K/mm3 (4.5-11.0) H 07/17/18 05:14 RBC 3.45 M/mm3 (3.65-5.03) L 07/17/18 05:14 Hgb 8.1 gm/dl (10.1-14.3) L 07/17/18 05:14 Hct 25.5 % (30.3-42.9) L 07/17/18 05:14 MCV 74 fl (79-97) L 07/17/18 05:14 MCH 24 pg (28-32) L 07/17/18 05:14 MCHC 32 % (30-34) 07/17/18 05:14 RDW 17.6 % (13.2-15.2) H 07/17/18 05:14 Plt Count 524 K/mm3 (140-440) H 07/17/18 05:14 Lymph % (Auto) 15.3 % (13.4-35.0) 07/17/18 05:14 [place] % (Auto) 8.3 % (0.0-7.3) H 07/17/18 05:14 Eos % (Auto) 1.3 % (0.0-4.3) 07/17/18 05:14 Baso % (Auto) 0.3 % (0.0-1.8) 07/17/18 05:14 Lymph # 1.9 K/mm3 (1.2-5.4) 07/17/18 05:14 [place] # 1.0 K/mm3 (0.0-0.8) H 07/17/18 05:14 Eos # 0.2 K/mm3 (0.0-0.4) 07/17/18 05:14 Baso # 0.0 K/mm3 (0.0-0.1) 07/17/18 05:14 Add Manual Diff Complete 07/17/18 05:14 Seg Neutrophils % 74.8 % (40.0-70.0) H 07/17/18 05:14 Seg Neutrophils # 9.0 K/mm3 (1.8-7.7) H 07/17/18 05:14 Sodium 139 mmol/L (137-145) 07/17/18 05:14 Potassium 4.2 mmol/L (3.6-5.0) 07/17/18 05:14 Chloride 108.0 mmol/L (98-107) H 07/17/18 05:14 Carbon Dioxide 21 mmol/L (22-30) L 07/17/18 05:14 14 mmol/L 07/17/18 05:14 BUN 10 mg/dL (7-17) 07/17/18 05:14 0.6 mg/dL (0.7-1.2) L 07/17/18 05:14 Estimated GFR > 60 ml/min 07/17/18 05:14 17 % 07/17/18 05:14 Glucose 164 mg/dL (65-100) H 07/17/18 05:14 POC Glucose 248 (70-105) H 07/21/18 08:00 Lactic Acid 1.90 mmol/L (0.7-2.0) 07/12/18 00:36 Calcium 8.9 mg/dL (8.4-10.2) 07/17/18 05:14 Magnesium 1.70 mg/dL (1.7-2.3) 07/14/18 04:44 0.30 mg/dL (0.1-1.2) 07/11/18 23:46 AST 8 units/L (5-40) 07/11/18 23:46 ALT < 5 units/L (7-56) L 07/11/18 23:46 124 units/L (35-129) 07/11/18 23:46 18.70 mg/dL (0.00-1.30) H 07/12/18 15:37 7.9 g/dL (6.3-8.2) 07/11/18 23:46 2.5 g/dL (3.9-5) L 07/11/18 23:46 0.5 % 07/11/18 23:46 Vancomycin Trough 19.3 ug/mL (5.0-20.0) 07/20/18 20:36 Blood Type B POSITIVE 07/16/18 08:42 Antibody Screen TNR 07/16/18 08:42 MELITA Antibody Screen Negative 07/16/18 08:42 Active Medications - Current Medications Current Medications: Generic Name Dose Route Start Last Admin Trade Name Freq PRN Reason Stop Dose Admin Acetaminophen 650 mg 07/12/18 01:43 Tylenol PO Q4H PRN Pain MILD(1-3)/Fever >100.5/RODRIGUEZ Acetaminophen/Hydrocodone Bitart 1 each 07/12/18 08:42 07/21/18 05:47 [place] 5/325 PO 1 each Q6H PRN Administration BREAKTHRU Pain , Severe (7-10) Aspirin 81 mg 07/12/18 10:00 07/20/18 10:38 Baby Aspirin PO 81 mg QDAY JUANITA Administration Atorvastatin Calcium 40 mg 07/12/18 22:00 07/20/18 21:52 Lipitor PO 40 mg QHS JUANITA Administration Dextrose 50 ml 07/12/18 01:48 D50w (25gm) Syringe IV PRN PRN Hypoglycemia Diazepam 5 mg 07/12/18 08:42 07/15/18 18:35 Valium PO 5 mg BID PRN Administration Anxiety Docusate Sodium 100 mg 07/13/18 23:00 07/20/18 21:52 Colace PO 100 mg BID JUANITA Administration Gabapentin 300 mg 07/12/18 10:00 07/20/18 21:52 Neurontin PO 300 mg BID JUANITA Administration Heparin Sodium (Porcine) 5,000 unit 07/13/18 10:00 07/20/18 21:52 Heparin SUB-Q 5,000 unit Q12HR JUANITA Administration Hydralazine HCl 20 mg 07/16/18 11:53 07/16/18 12:15 Apresoline IV 20 mg Q4HR PRN Administration Blood Pressure Hydromorphone HCl 0.5 mg 07/12/18 01:43 07/20/18 22:03 Dilaudid IV 0.5 mg Q3H PRN Administration Pain , Severe (7-10) Potassium Chloride/Sodium Chloride 20 meq in 1,000 mls @ 125 mls/hr 07/12/18 02:00 07/21/18 04:48 Ns/Kcl 20meq IV 100 mls/hr DIRECT JUANITA Administration Cefepime HCl 2 gm in 100 mls @ 200 mls/hr 07/13/18 03:00 07/21/18 04:48 Maxipime/Ns 2 Gm/100 Ml IV 08/13/18 15:29 200 mls/hr Q12H JUANITA Administration Vancomycin HCl 1,250 mg/ 275 mls @ 166.667 mls/hr 07/14/18 10:00 07/20/18 21:51 Sodium Chloride IV 08/13/18 23:38 166.667 mls/hr Q12H JUANITA Administration Insulin Glargine 30 units 07/14/18 08:00 07/21/18 09:00 Lantus SUB-Q 30 units QAMDIAB JUANITA Administration Insulin Human Lispro 0 unit 07/12/18 07:30 07/21/18 09:01 Humalog SUB-Q 3 unit ACHS JUANITA Administration Protocol Lisinopril 20 mg 07/16/18 12:15 07/20/18 10:37 Zestril PO 20 mg QDAY JUANITA Administration Nicotine 14 mg 07/12/18 10:00 07/20/18 10:37 Habitrol TD 14 mg QDAY JUANITA Administration Ondansetron HCl 4 mg 07/12/18 01:43 07/19/18 20:23 Zofran IV 4 mg Q8H PRN Administration Nausea And Vomiting Oxycodone/Acetaminophen 1 tab 07/12/18 01:43 07/13/18 07:56 Percocet 5/325 PO 1 tab Q6H PRN Administration Pain, Moderate (4-6) Pantoprazole Sodium 40 mg 07/14/18 15:00 07/20/18 10:38 Protonix PO 40 mg QDAY JUANITA Administration Polyethylene Glycol 17 gm 07/13/18 22:37 07/14/18 12:28 Miralax 3350 PO 17 gm QDAY PRN Administration Constipation Sodium Chloride 10 ml 07/12/18 10:00 07/20/18 22:35 Sodium Chloride Flush Syringe 10 Ml IV 10 ml BID JUANITA Administration Sodium Chloride 10 ml 07/12/18 01:43 Sodium Chloride Flush Syringe 10 Ml IV PRN PRN LINE FLUSH Sodium Hypochlorite 1 applic 07/12/18 12:00 07/20/18 21:54 Dakin's Full Strength TP Not Given Q12HR JUANITA Ziprasidone 40 mg 07/12/18 10:00 07/20/18 21:52 Geodon PO 40 mg BID JUANITA Administration Nutrition/Malnutrition Assess - Dietary Evaluation Nutrition/Malnutrition Findings: Nutrition Notes Start: 07/12/18 17:30 Freq: Status: Active Protocol: Document 07/17/18 15:05 COLTON (Rec: 07/17/18 15:10 COLTON [email or web address]) Nutrition Notes Initial or Follow up Reassessment Current Diagnosis Diabetes,Sepsis,Hypertension Other Pertinent Diagnosis s/p (R) transmetatarsal amputation (foot) Current Diet Consistent CHO Labs/Tests BG 164 Pertinent Medications Reviewed Height 5 ft 10 in Weight 107.5 kg [place] Body Weight (kg) 68.18 BMI 34.0 Subjective/Other Information Pt has consumed 47% of meals since last assessment. She drinks the ONS (only when cold ). Percent of energy/protein needs met: 54% energy 38% pro (ONS not included) Burn Absent Trauma Absent #1 Nutrition Diagnosis Increased nutrient needs ( specify in comment below) Diagnosis Progress(for reassessment Continues documentation) Is patient on ventilator? No Is Patient Ambulatory and/or Out of Bed Yes REE-([facility]-ambulatory/OOB) [ 2346.825 NUTR.MSJOOB] Kcal/Kg value to use for calculation 17 Approximate Energy Requirements Using 1828 kcal/Kg Additional Notes Pro needs 1.25-1.5g/kg adjBW: 110-132g/day Fluid needs 1ml/kcal Nutrition Intervention Change Diet Order: Continue current diet order Add Supplement/Snack (indicate name/kcal Glucerna BID (chocolate) /protein ) Gianni BID Provides kCal: 630 Provides Protein (gm) 25 Goal #1 PO intake of meals plus ONS to meet at least 75% nutrient needs Goal #2 Improved BG control Goal #3 Wound healing Goal #4 Smoking cessation Follow-Up By: 07/23/18 Additional Comments F/U: intakes (meals/ONS), wound healing
[2018-07-21] MEDS: DILAUDID IV PRN ×2 (10:53→17:33)
[2018-07-21] MEDS: HEPARIN SUB-Q SCH ×2 (10:54→23:32)
[2018-07-21] MEDS: ZESTRIL PO SCH (10:55)
[2018-07-21] MEDS: COLACE PO SCH ×2 (10:56→23:18)
[2018-07-21] MEDS: PROTONIX PO SCH (10:57)
[2018-07-21] MEDS: GEODON PO SCH ×2 (10:57→23:18)
[2018-07-21] MEDS: HABITROL TD SCH (10:57)
[2018-07-21] MEDS: DAKIN'S FULL STRENGTH TP SCH ×2 (10:58→23:49)
[2018-07-21] MEDS: BABY ASPIRIN PO SCH (10:58)
[2018-07-21] MEDS: NEURONTIN PO SCH ×2 (10:59→23:18)
[2018-07-21] MEDS: SODIUM CHLORIDE FLUSH SYRINGE 10 ML IV SCH ×2 (10:59→23:21)
[2018-07-21] MEDS: VANCOMYCIN 1,250 MG in NACL 0.9% 250ML 250 ML IV SCH ×2 (10:59→23:18)
[2018-07-21] MEDS: APRESOLINE IV PRN (23:30)
[2018-07-21] MEDS: PERCOCET 5/325 PO PRN (23:32)
[2018-07-22] MEDS: MAXIPIME/NS 2 GM/100 ML 2 GM/100 ML BAG IV SCH ×2 (03:27→16:05)
[2018-07-22] MEDS: DILAUDID IV PRN ×4 (03:34→22:52)
[2018-07-22] MEDS: HumaLOG SUB-Q SCH ×4 (08:39→22:33)
[2018-07-22] MEDS: LANTUS SUB-Q SCH (08:40)
--- NOTE | 2018-07-22 08:52 | Progress Note ---
Assessment and Plan Assessment and plan: Sepsis Likely secondary to diabetic right foot ulcer with chronic necrotizing i nfection and osteomyelitis: Cont. IV antibiotics with Vanc and cefepime, ID reported continuing antibiotics as wound with extensive necrotic changes and Due to high risk of treatment failure and need for future amputations, plan is for additional IV abx upon discharge. PICC line was placed. Continue IV Cefepime 2 gm q12 hrs + IV Vancomycin 1.25 gm q12 hrs (with PK monitoring) ending . ID clinic follow up with Dr. Hoffman within 2 weeks (device repair technician notified) Right gluteal abscess. Surgery consultation pending. Patient will likely need I&D Right foot ulcer/infection: Dr. Cox, Vascular and Dr. Chavarria following. Wound culture 07/12/2018 Proteus MDR, E faecalis and Beta hem Strep. Vascular surgery with a long discussion regarding recommendations for salvaging foot. Severe malnutrition: consult Truss Puller Helper Hypokalemia: replete and monitor bmp closely Hyponatremia hypovolemia: IVF and monitor bmp closely Uncontrolled DM type 2 with hyperglycemia: treat with SSI, ada diet. Diabetic neuropathy-Continue Neurontin History of CVA without residual deficits-Continue aspirin and statin Hypertension with hypotensive episodes-stopped Lisinopril 20 mg/day on 07/13/18 and started NSS at 100ml/hr, which resolved the hypotension PAD -Status post angioplasty of the right superficial femoral artery-Continue statin Chronic right buttock wound-Continue wound care Tobacco abuse-Patient counseled on cessation-Nicotine patch History of schizophrenia/bipolar-continue antipsych meds, she is refusing the Geodon because it makes her sleep, but she is also refusing the evening/night time dose. Counseling done. DVT prophylaxis with sq heparin Disposition. Await case management arrangement for home IV antibiotics. History Interval history: Patient is a 43 yo woman with a history of IDDM type 2, hypertension, PVD, stroke, other schizophrenia, bipolar disorder, peripheral neuropathy, dyslipidemia, tobacco dependency and dry gangrene of right great toe, Peripheral Vascular disease s/p Angioplasty of right superficial femoral artery 05/13/18, s/p amputation of right great toe by Dr. Dong on 06/04/18. She has been followed by wound care since and had a period of iv antibiotics at home via picc. At her wound care visit, it was noticed that her wound had increased purulent drainage, surrounding erythema and became black; therefore, she came to E.R for further evaluation. The patient was noted to have wet gangrene of the right secondfourth toes. The patient was seen by infectious disease consul tatradames and had blood cultures from 07/12/18 that showed no growth. However, wound culture 07/12/18 revealed Proteus MVR, E faecalis and beta hemolytic strep. CRP was elevated at 18. ID recommended amputation and continued antibiotics. Dr. Chavarria performed Transmetatarsal amputation of right 2nd, 3rd, 4th and 5th toes and patient tolerated procedure well. The patient was treated with antibiotics of cefepime and vancomycin IV. ID feels that Due to high risk of treatment failure and need for future amputations, plan is for additional IV abx upon discharge. PICC line placement and continue IV Cefepime 2 gm q12 hrs + IV Vancomycin 1.25 gm q12 hrs (with PK monitoring) ending 08/13/2018. Vascular surgery had a long discussion with the patient regarding recommendation s for salvaging her foot that includes: 1. Obtain better blood sugar control. Discussed she will need to follow up with an passenger relations representative or her primary care doctor in order to obtain this. Any assistance in obtaining blood sugar control will increase her chance of healing her wound as this is the most significant reason she has had recent decline of her wound. If this does not happen, and wound will likely continue to decompensate and she will require amputation. 2. Peripheral vascular disease with reconstructed superficial femoral artery. She now has adequate perfusion to heal at this point. Vascular surgery will have her follow up with Dr. Juarez for close interval follow-up and re- intervention on the superficial femoral artery if needed. Continue aspirin and plavix. 3. Offloading the wound. Discussed with patient she cannot wear normal shoes as these will wear against the wound. Optimally a Darco shoe with forefoot offloading would be perferred, or complete offloading. Since this is not available, postop shoe ordered for patient. 4. Aggressive wound care per wound care at [facility]. Appreciate assistance. 5. Hyperbaric oxygen will assist with wound healing and provide benefit. Patient with new complaints of right gluteal abscess. Dr. Chavarria consult for I&D. Hospitalist Physical - Constitutional Vitals: Temp Pulse Resp BP Pulse Ox 98.5 F 94 H 20 128/63 96 06/03/19 05:40 07/22/18 05:40 07/22/18 08:38 07/22/18 05:40 07/22/18 05:40 General appearance: Present: no acute distress - EENT Eyes: Present: PERRL, EOM intact ENT: hearing intact, clear oral mucosa, dentition normal - Neck Neck: Present: supple, normal ROM - Respiratory Respiratory effort: normal Respiratory: bilateral: CTA - Cardiovascular Rhythm: regular Heart Sounds: Present: S1 & S2. Absent: gallop, rub - Extremities Extremities: no ischemia, No edema, Full ROM - Abdominal General gastrointestinal: soft, non-tender, non-distended, normal bowel sounds - Integumentary Integumentary: Present: clear, warm, dry - Neurologic Neurologic: CNII-XII intact, moves all extremities Results - Labs CBC & Chem 7: 07/17/18 05:14 07/17/18 05:14 Labs: Laboratory Last Values WBC 12.1 K/mm3 (4.5-11.0) H 07/17/18 05:14 RBC 3.45 M/mm3 (3.65-5.03) L 07/17/18 05:14 Hgb 8.1 gm/dl (10.1-14.3) L 07/17/18 05:14 Hct 25.5 % (30.3-42.9) L 07/17/18 05:14 MCV 74 fl (79-97) L 07/17/18 05:14 MCH 24 pg (28-32) L 07/17/18 05:14 MCHC 32 % (30-34) 07/17/18 05:14 RDW 17.6 % (13.2-15.2) H 07/17/18 05:14 Plt Count 524 K/mm3 (140-440) H 07/17/18 05:14 Lymph % (Auto) 15.3 % (13.4-35.0) 07/17/18 05:14 Sibley % (Auto) 8.3 % (0.0-7.3) H 07/17/18 05:14 Eos % (Auto) 1.3 % (0.0-4.3) 07/17/18 05:14 Baso % (Auto) 0.3 % (0.0-1.8) 07/17/18 05:14 Lymph # 1.9 K/mm3 (1.2-5.4) 07/17/18 05:14 Sibley # 1.0 K/mm3 (0.0-0.8) H 07/17/18 05:14 Eos # 0.2 K/mm3 (0.0-0.4) 07/17/18 05:14 Baso # 0.0 K/mm3 (0.0-0.1) 07/17/18 05:14 Add Manual Diff Complete 07/17/18 05:14 Seg Neutrophils % 74.8 % (40.0-70.0) H 07/17/18 05:14 Seg Neutrophils # 9.0 K/mm3 (1.8-7.7) H 07/17/18 05:14 Sodium 139 mmol/L (137-145) 07/17/18 05:14 Potassium 4.2 mmol/L (3.6-5.0) 07/17/18 05:14 Chloride 108.0 mmol/L (98-107) H 07/17/18 05:14 Carbon Dioxide 21 mmol/L (22-30) L 07/17/18 05:14 14 mmol/L 07/17/18 05:14 BUN 10 mg/dL (7-17) 07/17/18 05:14 0.6 mg/dL (0.7-1.2) L 07/17/18 05:14 Estimated GFR > 60 ml/min 07/17/18 05:14 17 % 07/17/18 05:14 Glucose 164 mg/dL (65-100) H 07/17/18 05:14 POC Glucose 216 (70-105) H 07/22/18 07:56 Lactic Acid 1.90 mmol/L (0.7-2.0) 07/12/18 00:36 Calcium 8.9 mg/dL (8.4-10.2) 07/17/18 05:14 Magnesium 1.70 mg/dL (1.7-2.3) 07/14/18 04:44 0.30 mg/dL (0.1-1.2) 07/11/18 23:46 AST 8 units/L (5-40) 07/11/18 23:46 ALT < 5 units/L (7-56) L 07/11/18 23:46 124 units/L (35-129) 07/11/18 23:46 18.70 mg/dL (0.00-1.30) H 07/12/18 15:37 7.9 g/dL (6.3-8.2) 07/11/18 23:46 2.5 g/dL (3.9-5) L 07/11/18 23:46 0.5 % 07/11/18 23:46 Vancomycin Trough 19.3 ug/mL (5.0-20.0) 07/20/18 20:36 Blood Type B POSITIVE 07/16/18 08:42 Antibody Screen TNR 07/16/18 08:42 MELITA Antibody Screen Negative 07/16/18 08:42 Active Medications - Current Medications Current Medications: Generic Name Dose Route Start Last Admin Trade Name Freq PRN Reason Stop Dose Admin Acetaminophen 650 mg 07/12/18 01:43 Tylenol PO Q4H PRN Pain MILD(1-3)/Fever >100.5/RODRIGUEZ Acetaminophen/Hydrocodone Bitart 1 each 07/12/18 08:42 07/21/18 05:47 Champion 5/325 PO 1 each Q6H PRN Administration BREAKTHRU Pain , Severe (7-10) Aspirin 81 mg 07/12/18 10:00 07/21/18 10:58 Baby Aspirin PO 81 mg QDAY JUANITA Administration Atorvastatin Calcium 40 mg 07/12/18 22:00 07/21/18 23:18 Lipitor PO 40 mg QHS JUANITA Administration Dextrose 50 ml 07/12/18 01:48 D50w (25gm) Syringe IV PRN PRN Hypoglycemia Diazepam 5 mg 07/12/18 08:42 07/15/18 18:35 Valium PO 5 mg BID PRN Administration Anxiety Docusate Sodium 100 mg 07/13/18 23:00 07/21/18 23:18 Colace PO 100 mg BID JUANITA Administration Gabapentin 300 mg 07/12/18 10:00 07/21/18 23:18 Neurontin PO 300 mg BID JUANITA Administration Heparin Sodium (Porcine) 5,000 unit 07/13/18 10:00 07/21/18 23:32 Heparin SUB-Q 5,000 unit Q12HR JUANITA Administration Hydralazine HCl 20 mg 07/16/18 11:53 07/21/18 23:30 Apresoline IV 20 mg Q4HR PRN Administration Blood Pressure Hydromorphone HCl 0.5 mg 07/12/18 01:43 07/22/18 08:38 Dilaudid IV 0.5 mg Q3H PRN Administration Pain , Severe (7-10) Potassium Chloride/Sodium Chloride 20 meq in 1,000 mls @ 125 mls/hr 07/12/18 02:00 07/21/18 20:50 Ns/Kcl 20meq IV 100 mls/hr DIRECT JUANITA Administration Cefepime HCl 2 gm in 100 mls @ 200 mls/hr 07/13/18 03:00 07/22/18 03:27 Maxipime/Ns 2 Gm/100 Ml IV 08/13/18 15:29 200 mls/hr Q12H JUANITA Administration Vancomycin HCl 1,250 mg/ 275 mls @ 166.667 mls/hr 07/14/18 10:00 07/21/18 23:18 Sodium Chloride IV 08/13/18 23:38 166.667 mls/hr Q12H JUANITA Administration Insulin Glargine 30 units 07/14/18 08:00 07/22/18 08:40 Lantus SUB-Q 30 units QAMDIAB JUANITA Administration Insulin Human Lispro 0 unit 07/12/18 07:30 07/22/18 08:39 Humalog SUB-Q 3 unit ACHS JUANITA Administration Protocol Lisinopril 20 mg 07/16/18 12:15 07/21/18 10:55 Zestril PO 20 mg QDAY JUANITA Administration Nicotine 14 mg 07/12/18 10:00 07/21/18 10:57 Habitrol TD 14 mg QDAY JUANITA Administration Ondansetron HCl 4 mg 07/12/18 01:43 07/19/18 20:23 Zofran IV 4 mg Q8H PRN Administration Nausea And Vomiting Oxycodone/Acetaminophen 1 tab 07/12/18 01:43 07/21/18 23:32 Percocet 5/325 PO 1 tab Q6H PRN Administration Pain, Moderate (4-6) Pantoprazole Sodium 40 mg 07/14/18 15:00 07/21/18 10:57 Protonix PO 40 mg QDAY JUANITA Administration Polyethylene Glycol 17 gm 07/13/18 22:37 07/14/18 12:28 Miralax 3350 PO 17 gm QDAY PRN Administration Constipation Sodium Chloride 10 ml 07/12/18 10:00 07/21/18 23:21 Sodium Chloride Flush Syringe 10 Ml IV 10 ml BID JUANITA Administration Sodium Chloride 10 ml 07/12/18 01:43 Sodium Chloride Flush Syringe 10 Ml IV PRN PRN LINE FLUSH Sodium Hypochlorite 1 applic 07/12/18 12:00 07/21/18 23:49 Dakin's Full Strength TP Not Given Q12HR JUANITA Ziprasidone 40 mg 07/12/18 10:00 07/21/18 23:18 Geodon PO 40 mg BID JUANITA Administration Nutrition/Malnutrition Assess - Dietary Evaluation Nutrition/Malnutrition Findings: Nutrition Notes Start: 07/12/18 17:3 0 Freq: Status: Active Protocol: Document 07/17/18 15:05 COLTON (Rec: 07/17/18 15:10 COLTON [email or web address]) Nutrition Notes Initial or Follow up Reassessment Current Diagnosis Diabetes,Sepsis,Hypertension Other Pertinent Diagnosis s/p (R) transmetatarsal amputation (foot) Current Diet Consistent CHO Labs/Tests BG 164 Pertinent Medications Reviewed Height 5 ft 10 in Weight 107.5 kg [place] Body Weight (kg) 68.18 BMI 34.0 Subjective/Other Information Pt has consumed 47% of meals since last assessment. She drinks the ONS (only when cold ). Percent of energy/protein needs met: 54% energy 38% pro (ONS not included) Burn Absent Trauma Absent #1 Nutrition Diagnosis Increased nutrient needs ( specify in comment below) Diagnosis Progress(for reassessment Continues documentation) Is patient on ventilator? No Is Patient Ambulatory and/or Out of Bed Yes REE-([facility]-ambulatory/OOB) [ 2346.825 NUTR.MSJOOB] Kcal/Kg value to use for calculation 17 Approximate Energy Requirements Using 1828 kcal/Kg Additional Notes Pro needs 1.25-1.5g/kg adjBW: 110-132g/day Fluid needs 1ml/kcal Nutrition Intervention Change Diet Order: Continue current diet order Add Supplement/Snack (indicate name/kcal Glucerna BID (chocolate) /protein ) Gianni BID Provides kCal: 630 Provides Protein (gm) 25 Goal #1 PO intake of meals plus ONS to meet at least 75% nutrient needs Goal #2 Improved BG control Goal #3 Wound healing Goal #4 Smoking cessation Follow-Up By: 07/23/18 Additional Comments F/U: intakes (meals/ONS), wound healing
--- NOTE | 2018-07-22 09:16 | Progress Note ---
Assessment and Plan Cultures: Blood culture 07/12/2018 no growth today. Wound culture 07/12/2018 Proteus, E faecalis and Beta hem Strep MRSA screening negative Assessment: 43 y/o female with history of tobacco abuse, diabetic right foot ulcer and uncontrolled diabetes s/p recent right great toe amputation on 06/06/2018, Peripheral Vascular disease s/p Angioplasty of right superficial femoral artery 05/13/18; admitted on 07/11/2018 due to worsening right foot ulcer drainage and toes discoloration. 1) Sepsis: better. Etiology most likely right foot infection. 2) Right foot diabetic ulcer persistent infection with gangrene: patient with known PVD with initial right plantar foot wound/abscess due to MSSA s/p john riement on 04/14/2018, treated with linezolid po x 14 days; readmitted on 05/06/18 due to wound deterioration found septic with MSSA bacteremia due to right foot necrotizing fascitis and osteomyelitis. Wound grew MSSA and Klebsiella. Noted tendon and bone visible. Patient underwent right great toe amputation. Path showed acute osteomyelitis at the margin. Treated with Cefazolin 2gms q 8 hours for total 6 weeks ending 06-21-18. Patient readmitted on 07/11/2018 sent from [facility] due to worsening right foot wound and drainage. Blood culture 07/12/2018 no growth. Wound culture 07/12/2018 Proteus MDR, E faecalis and Beta hem Strep. CRP=18. S/p TMA. Due to high risk of treatment failure and need for future amputations, plan is for additional IV abx upon discharge. 3) DM: poorly controlled. recommend tight glycemic control. 4) PVD: recommend smoking cessation. 5) Right gluteal abscess: sanguineous drainage. Dr. Chavarria consulted for possible I &D. Recommendations: - continue IV Cefepime 2 gm q12 hrs + IV Vancomycin 1.25 gm q12 hrs (with PK monitoring) ending 08/13/2018 - PICC line ordered - tobacco cessation strongly advised - tight glycemic control - ID clinic follow up with Dr. Hoffman within 2 weeks (core setter notified) - OK to discharge once IV abx arranged for [facility] M: [phone] O:[phone] Subjective Date of service: 07/22/18 Principal diagnosis: diabetic foot infection Interval history: Patient seen and examined. Reports right gluteal abscess with sanguineous drainage. +pain and tenderness. No fevers Objective - Exam Narrative Exam: General appearance: Alert in NAD Eyes: anicteric sclerae, moist conjunctivae; no lid-lag; PERRLA HENT: Atraumatic; oropharynx clear with moist mucous membranes and no mucosal ulcerations/no oral thrush; normal hard and soft palate. Normal external ears. Neck: Trachea midline; supple, no thyromegaly or lymphadenopathy Lungs: CTA, with normal respiratory effort and no intercostal retractions CV: RRR no murmur heard Abdomen: Soft, non-tender; no masses or hepatosplenomegaly Extremities: +right foot with dressing. Skin: Right gluteal abscess. + sanguineous drainage. Psych: Appropriate affect, alert and oriented to person, place and time. Neuro: alert and oriented x 3. Moving all extermities - Constitutional Vitals: Vital Signs Temp Pulse Resp BP Pulse Ox 98.5 F 94 H 20 128/63 96 07/22/18 05:40 07/22/18 05:40 07/22/18 08:38 07/22/18 05:40 07/22/18 05:40 Temperature -Last 24 Hours Temperature 98.5 F Temperature 97.9 F Temperature 98.7 F Temperature 98.3 F - Labs CBC & Chem 7: 07/17/18 05:14 07/17/18 05:14 Labs: Abnormal lab results 07/21/18 07/21/18 07/21/18 Range/Units 12:08 17:01 21:29 POC Glucose 246 H 198 H 241 H (70-105) 07/22/18 Range/Units 07:56 POC Glucose 216 H (70-105)
[2018-07-22] MEDS: HEPARIN SUB-Q SCH ×2 (11:41→22:33)
[2018-07-22] MEDS: VANCOMYCIN 1,250 MG in NACL 0.9% 250ML 250 ML IV SCH ×2 (11:41→22:31)
[2018-07-22] MEDS: NORCO 5/325 PO PRN ×2 (11:43→20:13)
[2018-07-22] MEDS: ZESTRIL PO SCH (11:44)
[2018-07-22] MEDS: SODIUM CHLORIDE FLUSH SYRINGE 10 ML IV SCH ×2 (11:44→22:34)
[2018-07-22] MEDS: COLACE PO SCH ×2 (11:44→22:32)
[2018-07-22] MEDS: NEURONTIN PO SCH ×2 (11:44→22:32)
[2018-07-22] MEDS: BABY ASPIRIN PO SCH (11:44)
[2018-07-22] MEDS: PROTONIX PO SCH (11:44)
[2018-07-22] MEDS: HABITROL TD SCH (11:45)
[2018-07-22] MEDS: DAKIN'S FULL STRENGTH TP SCH ×2 (11:47→22:33)
[2018-07-22] MEDS: GEODON PO SCH ×2 (11:48→22:32)
[2018-07-22] MEDS: NS/KCL 20MEQ 20 MEQ/1,000 ML BAG IV SCH (12:50)
--- NOTE | 2018-07-22 15:15 | Progress Note ---
Assessment and Plan - Patient Problems (1) Abscess of right buttock Current Visit: Yes Status: Acute Plan to address problem: 1) Drainage is not indicated as the abscess is now spontaneously draining. 2) Check CBC Subjective Date of service: 07/22/18 Patient Reports: Positive: other (Consulted re right buttock abscess. Pt states this began draining yesterday.) Objective Vital Signs - 12hr 07/22/18 07/22/18 07/22/18 05:40 08:38 11:43 Temperature 98.5 F Pulse Rate 94 H Respiratory 18 20 20 Rate Blood Pressure 128/63 O2 Sat by Pulse 96 Oximetry 07/22/18 11:48 Temperature 97.7 F Pulse Rate 92 H Respiratory 22 Rate Blood Pressure 134/79 O2 Sat by Pulse 100 Oximetry - Integumentary other (+ draining right buttock abscess without fluctuance or cellulitis.) - Labs 07/17/18 05:14 07/17/18 05:14
[2018-07-22 16:28] LABS: Basophils % (Auto) 0.2 % (0.0-1.8); Eosinophils # (Auto) 0.2 K/mm3 (0.0-0.4); Eosinophils % (Auto) 1.9 % (0.0-4.3); Hematocrit 20.1 % (30.3-42.9); Hemoglobin 6.5 gm/dl (10.1-14.3); Lymphocytes # (Auto) 2.3 K/mm3 (1.2-5.4); Lymphocytes % (Auto) 22.5 % (13.4-35.0); Mean Corpuscular HGB Conc 32 % (30-34); Mean Corpuscular Volume 74 fl (79-97); Monocytes # (Auto) 0.6 K/mm3 (0.0-0.8); Monocytes % (Auto) 5.7 % (0.0-7.3); Platelet Count 449 K/mm3 (140-440); Red Blood Count 2.71 M/mm3 (3.65-5.03); Red Cell Distribution Width 17.5 % (13.2-15.2)
[2018-07-23] MEDS: NS/KCL 20MEQ 20 MEQ/1,000 ML BAG IV SCH ×2 (03:00→16:04)
[2018-07-23] MEDS: MAXIPIME/NS 2 GM/100 ML 2 GM/100 ML BAG IV SCH ×2 (03:00→16:03)
[2018-07-23] MEDS: HEPARIN SUB-Q SCH ×2 (09:00→22:18)
[2018-07-23] MEDS: HABITROL TD SCH (09:00)
[2018-07-23] MEDS: NEURONTIN PO SCH ×2 (09:00→22:08)
[2018-07-23] MEDS: GEODON PO SCH ×2 (09:00→22:08)
[2018-07-23] MEDS: BABY ASPIRIN PO SCH (09:00)
[2018-07-23] MEDS: PROTONIX PO SCH (09:00)
[2018-07-23] MEDS: COLACE PO SCH ×2 (09:00→22:08)
[2018-07-23] MEDS: ZESTRIL PO SCH (09:00)
[2018-07-23] MEDS: HumaLOG SUB-Q SCH ×4 (09:01→22:08)
[2018-07-23] MEDS: LANTUS SUB-Q SCH (09:01)
[2018-07-23] MEDS: VANCOMYCIN 1,250 MG in NACL 0.9% 250ML 250 ML IV SCH ×2 (09:02→23:17)
[2018-07-23] MEDS: SODIUM CHLORIDE FLUSH SYRINGE 10 ML IV SCH ×2 (09:03→23:19)
[2018-07-23] MEDS: DILAUDID IV PRN ×4 (09:03→23:34)
[2018-07-23] MEDS: DAKIN'S FULL STRENGTH TP SCH (09:03)
[2018-07-23 10:17] LABS: BUN/Creatinine Ratio 17; Blood Urea Nitrogen 10 mg/dL (7-17); Calcium 8.6 mg/dL (8.4-10.2); Hemolysis Index 0
--- NOTE | 2018-07-23 14:22 | Progress Note ---
Assessment and Plan Assessment and plan: Patient is a 43 yo woman with a history of IDDM type 2, hypertension, PVD, stroke, other schizophrenia, bipolar disorder, peripheral neuropathy, dyslipidemia, tobacco dependency and dry gangrene of right great toe, s/p amputation of right great toe by Dr. Dong on 06/04/18. She has been followed by wound care since and had a period of iv antibiotics at home via picc. At her wound care visit, it was noticed that her wound had increased purulent drainage, surrounding erythema and became black; therefore, she came to E.R for further evaluation. She underwent right transMetatarsal amputation on 07/16/18. She is waiting on home health/iv abx setup. * Initial vitals and labs: HR 100, 116/52, wbc 15.6 normal temp, hgb 9.3 with mcv 74, na 129, k is 3.1 with normal cr of 0.9, bg 471, albumin 2.5 Date of procedure: 07/16/18 Pre-op diagnosis: Wet gangrene of right 2nd, 3rd and 4th toes Post-op diagnosis: same Procedure: Transmetatarsal amputation of right 2nd, 3rd, 4th and 5th toes Surgeon: NAVDEEP CHAVARRIA Sepsis Likely secondary to diabetic right foot ulcer with chronic necrotizing infection and osteomyelitis s/p amputation Right foot infection: consulted Dr. Cox==>Vascular consulted, input noted and Dr. Chavarria did amputation Severe malnutrition: consult Humanities Professor Hypokalemia: replete and monitor bmp closely Hyponatremia hypovolemia: IVF and monitor bmp closely Uncontrolled DM type 2 with hyperglycemia: treat with SSI, ada diet. Diabetic neuropathy-Continue Neurontin History of CVA without residual deficits-Continue aspirin and statin Hypertension with hypotensive episodes-stopped Lisinopril 20 mg/day on 07/13/18 and started NSS at 100ml/hr, which resolved the hypotension PAD -Status post angioplasty of the right superficial femoral artery-Continue statin Chronic right buttock wound-Continue wound care Tobacco abuse-Patient counseled on cessation-Nicotine patch History of schizophrenia/bipolar-continue antipsych meds, she is refusing the Geodone because it makes her sleep, but she is also refusing the evening/night time dose. Counseling done. DVT prophylaxis with sq heparin Disposition: continue inpatient care, hemoglobin 6.5 yesterday, will recheck, may need blood transfusion. Home health/IV abx has been setup, so when H/H stablize then d/c home. History Interval history: Patient was seen and examined. Follow-up on current diagnosis of Right foot infection. No overnight events reported to me. Patient denies any chest pain, shortness breath, nausea/vomiting or severe headaches. Imaging, nursing note, chart, labs and old chart reviewed. Discussed with patient. Hospitalist Physical - Physical exam Narrative exam: Gen: WDWN, NAD, Awake, Alert, Orientated HEENT: NCAT, EOMI, PERRL, OP Clear Neck: supple, no adenopathy, no thyromegaly, no JVD CVS/Heart: RRR, normal S1S2, pulses present bilaterally Chest/Lungs: CTA B, Symmetrical chest expansion, good air entry bilaterally GI/Abdomen: soft, NTND, good bowel sounds, no guarding or rebound /Bladder: no suprapubic tenderness, no CVA or paraspinal tenderness Extermity/Skin: transMetatarsal amputation with dressing intact with drainage and wound vac on. MSK: FROM x 4 Neuro: CN 2-12 grossly intact, no new focal deficits Psych: calm - Constitutional Vitals: Temp Pulse Resp BP Pulse Ox 98.4 F 90 20 145/78 100 07/23/18 12:27 07/23/18 12:27 07/23/18 12:27 07/23/18 12:27 07/23/18 12:27 General appearance: Present: no acute distress Results - Labs CBC & Chem 7: 07/22/18 15:56 07/23/18 09:45 Labs: Laboratory Last Values WBC 10.1 K/mm3 (4.5-11.0) 07/22/18 15:56 RBC 2.71 M/mm3 (3.65-5.03) L 07/22/18 15:56 Hgb 6.5 gm/dl (10.1-14.3) L 07/22/18 15:56 Hct 20.1 % (30.3-42.9) L 07/22/18 15:56 MCV 74 fl (79-97) L 07/22/18 15:56 MCH 24 pg (28-32) L 07/22/18 15:56 MCHC 32 % (30-34) 07/22/18 15:56 RDW 17.5 % (13.2-15.2) H 07/22/18 15:56 Plt Count 449 K/mm3 (140-440) H 07/22/18 15:56 Lymph % (Auto) 22.5 % (13.4-35.0) 07/22/18 15:56 [place] % (Auto) 5.7 % (0.0-7.3) 07/22/18 15:56 Eos % (Auto) 1.9 % (0.0-4.3) 07/22/18 15:56 Baso % (Auto) 0.2 % (0.0-1.8) 07/22/18 15:56 Lymph # 2.3 K/mm3 (1.2-5.4) 07/22/18 15:56 [place] # 0.6 K/mm3 (0.0-0.8) 07/22/18 15:56 Eos # 0.2 K/mm3 (0.0-0.4) 07/22/18 15:56 Baso # 0.0 K/mm3 (0.0-0.1) 07/22/18 15:56 Add Manual Diff Complete 07/17/18 05:14 Seg Neutrophils % 69.7 % (40.0-70.0) 07/22/18 15:56 Seg Neutrophils # 7.0 K/mm3 (1.8-7.7) 07/22/18 15:56 Sodium 138 mmol/L (137-145) 07/23/18 09:45 Potassium 3.9 mmol/L (3.6-5.0) 07/23/18 09:45 Chloride 104.1 mmol/L (98-107) 07/23/18 09:45 Carbon Dioxide 25 mmol/L (22-30) 07/23/18 09:45 13 mmol/L 07/23/18 09:45 BUN 10 mg/dL (7-17) 07/23/18 09:45 0.6 mg/dL (0.7-1.2) L 07/23/18 09:45 Estimated GFR > 60 ml/min 07/23/18 09:45 17 % 07/23/18 09:45 Glucose 175 mg/dL (65-100) H 07/23/18 09:45 POC Glucose 219 (70-105) H 07/23/18 12:35 Lactic Acid 1.90 mmol/L (0.7-2.0) 07/12/18 00:36 Calcium 8.6 mg/dL (8.4-10.2) 07/23/18 09:45 Magnesium 1.70 mg/dL (1.7-2.3) 07/14/18 04:44 0.30 mg/dL (0.1-1.2) 07/11/18 23:46 AST 8 units/L (5-40) 07/11/18 23:46 ALT < 5 units/L (7-56) L 07/11/18 23:46 124 units/L (35-129) 07/11/18 23:46 18.70 mg/dL (0.00-1.30) H 07/12/18 15:37 7.9 g/dL (6.3-8.2) 07/11/18 23:46 2.5 g/dL (3.9-5) L 07/11/18 23:46 0.5 % 07/11/18 23:46 Vancomycin Trough 19.3 ug/mL (5.0-20.0) 07/20/18 20:36 Blood Type B POSITIVE 07/16/18 08:42 Antibody Screen TNR 07/16/18 08:42 MELITA Antibody Screen Negative 07/16/18 08:42 Active Medications - Current Medications Current Medications: Generic Name Dose Route Start Last Admin Trade Name Freq PRN Reason Stop Dose Admin Acetaminophen 650 mg 07/12/18 01:43 Tylenol PO Q4H PRN Pain MILD(1-3)/Fever >100.5/RODRIGUEZ Acetaminophen/Hydrocodone Bitart 1 each 07/12/18 08:42 07/22/18 20:13 [place] 5/325 PO 1 each Q6H PRN Administration BREAKTHRU Pain , Severe (7-10) Aspirin 81 mg 07/12/18 10:00 07/23/18 09:00 Baby Aspirin PO 81 mg QDAY JUANITA Administration Atorvastatin Calcium 40 mg 07/12/18 22:00 07/22/18 22:32 Lipitor PO 40 mg QHS JUANITA Administration Dextrose 50 ml 07/12/18 01:48 D50w (25gm) Syringe IV PRN PRN Hypoglycemia Diazepam 5 mg 07/12/18 08:42 07/15/18 18:35 Valium PO 5 mg BID PRN Administration Anxiety Docusate Sodium 100 mg 07/13/18 23:00 07/23/18 09:00 Colace PO 100 mg BID JUANITA Administration Gabapentin 300 mg 07/12/18 10:00 07/23/18 09:00 Neurontin PO 300 mg BID JUANITA Administration Heparin Sodium (Porcine) 5,000 unit 07/13/18 10:00 07/23/18 09:00 Heparin SUB-Q 5,000 unit Q12HR JUANITA Administration Hydralazine HCl 20 mg 07/16/18 11:53 07/21/18 23:30 Apresoline IV 20 mg Q4HR PRN Administration Blood Pressure Hydromorphone HCl 0.5 mg 07/12/18 01:43 07/23/18 09:03 Dilaudid IV 0.5 mg Q3H PRN Administration Pain , Severe (7-10) Potassium Chloride/Sodium Chloride 20 meq in 1,000 mls @ 125 mls/hr 07/12/18 02:00 07/23/18 03:00 Ns/Kcl 20meq IV 100 mls/hr DIRECT JUANITA Administration Cefepime HCl 2 gm in 100 mls @ 200 mls/hr 07/13/18 03:00 07/23/18 03:00 Maxipime/Ns 2 Gm/100 Ml IV 08/13/18 15:29 200 mls/hr Q12H JUANITA Administration Vancomycin HCl 1,250 mg/ 275 mls @ 166.667 mls/hr 07/14/18 10:00 07/23/18 09:02 Sodium Chloride IV 08/13/18 23:38 166.667 mls/hr Q12H JUANITA Administration Insulin Glargine 30 units 07/14/18 08:00 07/23/18 09:01 Lantus SUB-Q 30 units QAMDIAB UJANITA Administration Insulin Human Lispro 0 unit 07/12/18 07:30 07/23/18 13:12 Humalog SUB-Q 3 unit ACHS JUANITA Administration Protocol Lisinopril 20 mg 07/16/18 12:15 07/23/18 09:00 Zestril PO 20 mg QDAY JUANITA Administration Nicotine 14 mg 07/12/18 10:00 07/23/18 09:00 Habitrol TD 14 mg QDAY JUANITA Administration Ondansetron HCl 4 mg 07/12/18 01:43 07/19/18 20:23 Zofran IV 4 mg Q8H PRN Administration Nausea And Vomiting Oxycodone/Acetaminophen 1 tab 07/12/18 01:43 07/21/18 23:32 Percocet 5/325 PO 1 tab Q6H PRN Administration Pain, Moderate (4-6) Pantoprazole Sodium 40 mg 07/14/18 15:00 07/23/18 09:00 Protonix PO 40 mg QDAY JUANITA Administration Polyethylene Glycol 17 gm 07/13/18 22:37 07/14/18 12:28 Miralax 3350 PO 17 gm QDAY PRN Administration Constipation Sodium Chloride 10 ml 07/12/18 10:00 07/23/18 09:03 Sodium Chloride Flush Syringe 10 Ml IV 10 ml BID JUANITA Administration Sodium Chloride 10 ml 07/12/18 01:43 Sodium Chloride Flush Syringe 10 Ml IV PRN PRN LINE FLUSH Sodium Hypochlorite 1 applic 07/12/18 12:00 07/23/18 09:03 Dakin's Full Strength TP Not Given Q12HR JUANITA Ziprasidone 40 mg 07/12/18 10:00 07/23/18 09:00 Geodon PO 40 mg BID JUANITA Administration Nutrition/Malnutrition Assess - Dietary Evaluation Nutrition/Malnutrition Findings: Nutrition Notes Start: 07/12/18 17:30 Freq: Status: Active Protocol: Document 07/17/18 15:05 COLTON (Rec: 07/17/18 15:10 [facility] [id number]) Nutrition Notes Initial or Follow up Reassessment Current Diagnosis Diabetes,Sepsis,Hypertension Other Pertinent Diagnosis s/p (R) transmetatarsal amputation (foot) Current Diet Consistent CHO Labs/Tests BG 164 Pertinent Medications Reviewed Height 5 ft 10 in Weight 107.5 kg [place] Body Weight (kg) 68.18 BMI 34.0 Subjective/Other Information Pt has consumed 47% of meals since last assessment. She drinks the ONS (only when cold ). Percent of energy/protein needs met: 54% energy 38% pro (ONS not included) Burn Absent Trauma Absent #1 Nutrition Diagnosis Increased nutrient needs ( specify in comment below) Diagnosis Progress(for reassessment Continues documentation) Is patient on ventilator? No Is Patient Ambulatory and/or Out of Bed Yes REE-([place]-[facility]. or-ambulatory/OOB) [ 2346.825 NUTR.MSJOOB] Kcal/Kg value to use for calculation 17 Approximate Energy Requirements Using 1828 kcal/Kg Additional Notes Pro needs 1.25-1.5g/kg adjBW: 110-132g/day Fluid needs 1ml/kcal Nutrition Intervention Change Diet Order: Continue current diet order Add Supplement/Snack (indicate name/kcal Glucerna BID (chocolate) /protein ) Gianni BID Provides kCal: 630 Provides Protein (gm) 25 Goal #1 PO intake of meals plus ONS to meet at least 75% nutrient needs Goal #2 Improved BG control Goal #3 Wound healing Goal #4 Smoking cessation Follow-Up By: 07/23/18 Additional Comments F/U: intakes (meals/ONS), wound healing
[2018-07-23 15:01] LABS: Hematocrit 20.8 % (30.3-42.9); Hemoglobin 6.7 gm/dl (10.1-14.3); Mean Corpuscular HGB Conc 32 % (30-34); Mean Corpuscular Volume 73 fl (79-97); Platelet Count 474 K/mm3 (140-440); Red Blood Count 2.83 M/mm3 (3.65-5.03); Red Cell Distribution Width 17.4 % (13.2-15.2)
[2018-07-23] MEDS ORDERED: NACL 0.9% 500 ML 500 ML IV NR (15:13)
--- NOTE | 2018-07-23 15:55 | Progress Note ---
Assessment and Plan Cultures: Blood culture 07/12/2018 no growth today. Wound culture 07/12/2018 Proteus, E faecalis and Beta hem Strep MRSA screening negative Assessment: 43 y/o female with history of tobacco abuse, diabetic right foot ulcer and uncontrolled diabetes s/p recent right great toe amputation on 06/06/2018, Peripheral Vascular disease s/p Angioplasty of right superficial femoral artery 05/13/18; admitted on 07/11/2018 due to worsening right foot ulcer drainage and toes discoloration. 1) Sepsis: better. Etiology most likely right foot infection. 2) Right foot diabetic ulcer persistent infection with gangrene: patient with known PVD with initial right plantar foot wound/abscess due to MSSA s/p debriement on 04/14/2018, treated with linezolid po x 14 days; readmitted on 05/06/18 due to wound deterioration found septic with MSSA bacteremia due to right foot necrotizing fascitis and osteomyelitis. Wound grew MSSA and Klebsiella. Noted tendon and bone visible. Patient underwent right great toe amputation. Path showed acute osteomyelitis at the margin. Treated with Cefazolin 2gms q 8 hours for total 6 weeks ending 06-21-18. Patient readmitted on 07/11/2018 sent from [facility]ound Care [facility] due to worsening right foot wound and drainage. Blood culture 07/12/2018 no growth. Wound culture 07/12/2018 Proteus MDR, E faecalis and Beta hem Strep. CRP=18. S/p TMA. Due to high risk of treatment failure and need for future amputations, plan is for additional IV abx upon discharge. 3) DM: poorly controlled. recommend tight glycemic control. 4) PVD: recommend smoking cessation. 5) Right gluteal abscess: spontaneously draining. No role for I&D per Dr. Chavarria. Will continue wound care clinic follow up. Recommendations: - continue IV Cefepime 2 gm q12 hrs + IV Vancomycin 1.25 gm q12 hrs (with PK monitoring) ending 08/13/2018 via PICC line - weekly labs on IV abx - tobacco cessation strongly advised - tight glycemic control - wound care - ID clinic follow up with Dr. Hoffman within 2 weeks (compound coating machine offbearer notified) - OK to discharge from ID standpoint d/w Case management. Luis Angel Peterson MD [facility], [place] C: [phone] O: [phone] F: [phone] Subjective Date of service: 07/23/18 Principal diagnosis: diabetic foot infection Interval history: No fevers. Reports R gluteal drainage has slowed. No plans for surgery per Dr. Chavarria given spontaneous drainage. Objective - Exam Narrative Exam: General appearance: Alert in NAD.morbidly obese Eyes: anicteric sclerae, moist conjunctivae; no lid-lag; PERRLA HENT: Atraumatic; oropharynx clear with moist mucous membranes and no mucosal ulcerations/no oral thrush; normal hard and soft palate. Normal external ears. Neck: Trachea midline; supple, no thyromegaly or lymphadenopathy Lungs: CTA, with normal respiratory effort and no intercostal retractions CV: RRR no murmur heard Abdomen: Soft, non-tender; no masses or hepatosplenomegaly. Bowel sounds + : right gluteal inner fold with small induration, drainage + Extremities: +right foot with dressing. Skin: Normal temperature, turgor and texture; no rash, ulcers or subcutaneous nodules Psych: Appropriate affect, alert and oriented to person, place and time. Neuro: alert and oriented x 3. Moving all extermities - Constitutional Vitals: Vital Signs Temp Pulse Resp BP Pulse Ox 98.4 F 90 20 145/78 100 07/23/18 12:27 07/23/18 12:27 07/23/18 12:27 07/23/18 12:27 07/23/18 12:27 Temperature -Last 24 Hours Temperature 98.4 F Temperature 98.2 F Temperature 98.2 F Temperature 97.7 F - Labs CBC & Chem 7: 07/23/18 14:20 07/23/18 09:45 Labs: Abnormal lab results 07/22/18 07/22/18 07/22/18 Range/Units 15:56 17:38 21:42 RBC 2.71 L (3.65-5.03) M/mm3 Hgb 6.5 L (10.1-14.3) gm/dl Hct 20.1 L (30.3-42.9) % MCV 74 L (79-97) fl MCH 24 L (28-32) pg RDW 17.5 H (13.2-15.2) % Plt Count 449 H (140-440) K/mm3 Creatinine (0.7-1.2) mg/dL Glucose (65-100) mg/dL POC Glucose 115 H 250 H (70-105) 07/23/18 07/23/18 07/23/18 Range/Units 08:14 09:45 12:35 RBC (3.65-5.03) M/mm3 Hgb (10.1-14.3) gm/dl Hct (30.3-42.9) % MCV (79-97) fl MCH (28-32) pg RDW (13.2-15.2) % Plt Count (140-440) K/mm3 Creatinine 0.6 L (0.7-1.2) mg/dL Glucose 175 H (65-100) mg/dL POC Glucose 177 H 219 H (70-105) 07/23/18 Range/Units 14:20 RBC 2.83 L (3.65-5.03) M/mm3 Hgb 6.7 L (10.1-14.3) gm/dl Hct 20.8 L (30.3-42.9) % MCV 73 L (79-97) fl MCH 24 L (28-32) pg RDW 17.4 H (13.2-15.2) % Plt Count 474 H (140-440) K/mm3 Creatinine (0.7-1.2) mg/dL Glucose (65-100) mg/dL POC Glucose (70-105)
[2018-07-24] MEDS: DAKIN'S FULL STRENGTH TP SCH ×2 (00:04→09:20)
[2018-07-24] MEDS: MAXIPIME/NS 2 GM/100 ML 2 GM/100 ML BAG IV SCH (02:42)
[2018-07-24] MEDS: NS/KCL 20MEQ 20 MEQ/1,000 ML BAG IV SCH (06:24)
[2018-07-24] MEDS: NORCO 5/325 PO PRN (07:46)
[2018-07-24] MEDS: HumaLOG SUB-Q SCH ×2 (07:50→13:35)
[2018-07-24 08:16] LABS: Hematocrit 23.1 % (30.3-42.9); Hemoglobin 7.5 gm/dl (10.1-14.3); Mean Corpuscular HGB Conc 33 % (30-34); Mean Corpuscular Volume 75 fl (79-97); Platelet Count 434 K/mm3 (140-440); Red Blood Count 3.08 M/mm3 (3.65-5.03); Red Cell Distribution Width 18.1 % (13.2-15.2)
[2018-07-24 08:39] LABS: BUN/Creatinine Ratio 13; Blood Urea Nitrogen 9 mg/dL (7-17); Calcium 8.7 mg/dL (8.4-10.2); Hemolysis Index 0
[2018-07-24] MEDS: LANTUS SUB-Q SCH (08:46)
--- NOTE | 2018-07-24 09:12 | Progress Note ---
Assessment and Plan Cultures: Blood culture 07/12/2018 no growth today. Wound culture 07/12/2018 Proteus, E faecalis and Beta hem Strep MRSA screening negative Assessment: 43 y/o female with history of tobacco abuse, diabetic right foot ulcer and uncontrolled diabetes s/p recent right great toe amputation on 06/06/2018, Peripheral Vascular disease s/p Angioplasty of right superficial femoral artery 05/13/18; admitted on 07/11/2018 due to worsening right foot ulcer drainage and toes discoloration. 1) Sepsis: better. Etiology most likely right foot infection. 2) Right foot diabetic ulcer persistent infection with gangrene: patient with known PVD with initial right plantar foot wound/abscess due to MSSA s/p john riement on 04/14/2018, treated with linezolid po x 14 days; readmitted on 05/06/18 due to wound deterioration found septic with MSSA bacteremia due to right foot necrotizing fascitis and osteomyelitis. Wound grew MSSA and Klebsiella. Noted tendon and bone visible. Patient underwent right great toe amputation. Path showed acute osteomyelitis at the margin. Treated with Cefazolin 2gms q 8 hours for total 6 weeks ending 06-21-18. Patient readmitted on 07/11/2018 sent from Wound Care Clinic due to worsening right foot wound and drainage. Blood culture 07/12/2018 no growth. Wound culture 07/12/2018 Proteus MDR, E faecalis and Beta hem Strep. CRP=18. S/p TMA. Due to high risk of treatment failure and need for future amputations, plan is for additional IV abx upon discharge. 3) DM: poorly controlled. recommend tight glycemic control. 4) PVD: recommend smoking cessation. 5) Right gluteal abscess: spontaneously draining. No role for I&D per Dr. Chavarria. Will continue wound care clinic follow up. Recommendations: - continue IV Cefepime 2 gm q12 hrs + IV Vancomycin 1.25 gm q12 hrs (with PK monitoring) ending 08/13/2018 via PICC line - weekly labs on IV abx - tobacco cessation strongly advised - tight glycemic control - wound care - ID clinic follow up with Dr. Hoffman within 2 weeks (test conductor notified) - OK to discharge from ID standpoint [facility] M: [id number] O:[phone] Subjective Date of service: 07/24/18 Principal diagnosis: diabetic foot infection Interval history: Patient seen and examined. Sitting up in bed, reports no generalized pain or weakness. No fevers. Objective - Exam Narrative Exam: General appearance: Alert in NAD Eyes: anicteric sclerae, moist conjunctivae; no lid-lag; PERRLA HENT: Atraumatic; oropharynx clear with moist mucous membranes and no mucosal ulcerations/no oral thrush; normal hard and soft palate. Normal external ears. Neck: Trachea midline; supple, no thyromegaly or lymphadenopathy Lungs: CTA, with normal respiratory effort and no intercostal retractions CV: RRR no murmur heard Abdomen: Soft, non-tender; no masses or hepatosplenomegaly Extremities: +right foot with dressing and wound vac Skin: Right gluteal abscess. + sanguineous drainage continuing Psych: Appropriate affect, alert and oriented to person, place and time. Neuro: alert and oriented x 3. Moving all extermities - Constitutional Vitals: Vital Signs Temp Pulse Resp BP Pulse Ox 98.0 F 86 16 148/83 96 07/24/18 05:47 07/24/18 05:47 07/24/18 05:47 07/24/18 05:47 07/24/18 05:47 Temperature -Last 24 Hours Temperature 98.0 F Temperature 98.6 F Temperature 98.3 F Temperature 98.3 F Temperature 98.5 F Temperature 98.5 F Temperature 98.6 F Temperature 98.6 F Temperature 98.2 F Temperature 98.4 F - Labs CBC & Chem 7: 07/24/18 08:00 07/24/18 08:00 Labs: Abnormal lab results 07/23/18 07/23/18 07/23/18 Range/Units 09:45 12:35 14:20 RBC 2.83 L (3.65-5.03) M/mm3 Hgb 6.7 L (10.1-14.3) gm/dl Hct 20.8 L (30.3-42.9) % MCV 73 L (79-97) fl MCH 24 L (28-32) pg RDW 17.4 H (13.2-15.2) % Plt Count 474 H (140-440) K/mm3 Creatinine 0.6 L (0.7-1.2) mg/dL Glucose 175 H (65-100) mg/dL POC Glucose 219 H (70-105) Crossmatch 07/23/18 07/23/18 07/23/18 Range/Units 15:50 16:52 21:21 RBC (3.65-5.03) M/mm3 Hgb (10.1-14.3) gm/dl Hct (30.3-42.9) % MCV (79-97) fl MCH (28-32) pg RDW (13.2-15.2) % Plt Count (140-440) K/mm3 Creatinine (0.7-1.2) mg/dL Glucose (65-100) mg/dL POC Glucose 125 H 240 H (70-105) Crossmatch See Detail 07/24/18 07/24/18 07/24/18 Range/Units 07:49 08:00 08:00 RBC 3.08 L (3.65-5.03) M/mm3 Hgb 7.5 L (10.1-14.3) gm/dl Hct 23.1 L (30.3-42.9) % MCV 75 L (79-97) fl MCH 24 L (28-32) pg RDW 18.1 H (13.2-15.2) % Plt Count (140-440) K/mm3 Creatinine (0.7-1.2) mg/dL Glucose 125 H (65-100) mg/dL POC Glucose 140 H (70-105) Crossmatch
[2018-07-24] MEDS: COLACE PO SCH (09:19)
[2018-07-24] MEDS: GEODON PO SCH (09:19)
[2018-07-24] MEDS: HEPARIN SUB-Q SCH (09:19)
[2018-07-24] MEDS: ZESTRIL PO SCH (09:19)
[2018-07-24] MEDS: PROTONIX PO SCH (09:20)
[2018-07-24] MEDS: HABITROL TD SCH (09:20)
[2018-07-24] MEDS: NEURONTIN PO SCH (09:20)
[2018-07-24] MEDS: SODIUM CHLORIDE FLUSH SYRINGE 10 ML IV SCH (09:20)
[2018-07-24] MEDS: BABY ASPIRIN PO SCH (09:21)
[2018-07-24] MEDS: VANCOMYCIN 1,250 MG in NACL 0.9% 250ML 250 ML IV SCH (09:32)
[2018-07-24] MEDS: DILAUDID IV PRN (12:40)
--- NOTE | 2018-07-24 13:27 | Discharge Summary ---
Providers - Providers Date of Admission: 07/12/18 03:26 Date of discharge: 07/24/18 Attending physician: SOUTH YADAV 07/12/18 03:16 Consult to Wound/ET Nurse [CONS] Routine Reason For Exam: wound eval 07/12/18 08:30 Consult to Physician [CONS] Routine Comment: Consulting Provider: REZA COX Physician Instructions: Reason For Exam: foot ulcer, patient known to you 07/12/18 08:38 Consult to Physician [CONS] Routine Comment: Consulting Provider: DARY BAL Physician Instructions: I notified Reason For Exam: sepsis, right foot infection 07/12/18 12:18 Consult to Physician [CONS] Routine Comment: Consulting Provider: LARRY WIGGINS Physician Instructions: Reason For Exam: PAD, nonhealing right foot wound 07/18/18 09:39 Physical Therapy Evaluation and Treat [CONS] Routine Comment: S/P amp, heel weight-bearing as little as possible Reason For Exam: difficulty in ambulation 07/19/18 11:42 Consult to PICC Line RN [CONS] Routine Reason For Exam: IV Abx needing PICC line Type Line:: PICC 07/19/18 11:43 Consult to Case Management [CONS] Urgent Services Needed at Discharge: Other Notified:: Yes Additional Physician Instructions: [facility] ([facility]) O: [phone] F: [phone] OUTPATIENT PARENTERAL ANTIBIOTIC THERAPY (OPAT) ORDERS Diagnoses: Osteomyelitis, Gangrene Antimicrobial administration: IV Cefepime 2 gm q12 hrs + IV Vancomycin 1.25 gm q12 hrs ending 08/13/2018. - Target vancomycin trough: 10-20 mcg/ml. - Please confirm antibiotic stop date with ID clinic prior to removing PICC line. Lines: Maintain IV access with weekly dressing changes and locks per protocol. Lab monitoring: - CBC with differential, Creatinine, ALT, AST, Vancomycin trough, ESR, CRP once a week every Sunday while on IV antibiotics. Please fax results to [phone] and call [phone] for critical lab results. MD [facility] 07/21/18 10:14 Consult to Physician [CONS] Routine Comment: Consulting Provider: REZA COX Physician Instructions: Reason For Exam: right gluteal abscess 07/21/18 11:44 Consult to Physician [CONS] Routine Comment: Consulting Provider: NAVDEEP CHAVARRIA Physician Instructions: Reason For Exam: Right Gluteal abscess Primary care physician: QUIN JEFFERS Hospitalization Condition: Stable Hospital course: Patient is a 43 yo woman with a history of IDDM type 2, hypertension, PVD, stroke, other schizophrenia, bipolar disorder, peripheral neuropathy, dyslipidemia, tobacco dependency and dry gangrene of right great toe, s/p amputation of right great toe by Dr. Dong on 06/04/18. Right foot diabetic ulcer persistent infection with gangrene: patient with known PVD with initial right plantar foot wound/abscess due to MSSA s/p debriement on 04/14/2018, treated with linezolid po x 14 days; readmitted on 05/06/18 due to wound deterioration found septic with MSSA bacteremia due to right foot necrotizing fascitis and osteomyelitis. Wound grew MSSA and Klebsiella. Noted tendon and bone visible. Patient underwent right great toe amputation. Path showed acute osteomyelitis at the margin. Treated with Cefazolin 2gms q 8 hours for total 6 weeks ending 06-21-18. Patient readmitted on 07/11/2018 sent from [facility] due to worsening right foot wound and drainage. Blood culture 07/12/2018 no growth. Wound culture 07/12/2018 Proteus MDR, E faecalis and Beta hem Strep. CRP=18. S/p TMA. Due to high risk of treatment failure and need for future amputations, plan is for additional IV abx upon discharge.She has been followed by wound care since and had a period of iv antibiotics at home via picc. At her wound care visit, it was noticed that her wound had increased purulent drainage, surrounding erythema and became black; therefore, she came to E.R for further evaluation. She underwent right transMetatarsal amputation on 07/16/18. She is waiting on home health/iv abx setup. * Initial vitals and labs: HR 100, 116/52, wbc 15.6 normal temp, hgb 9.3 with mcv 74, na 129, k is 3.1 with normal cr of 0.9, bg 471, albumin 2.5 * Blood culture 07/12/2018 no growth today. * Wound culture 07/12/2018 Proteus, E faecalis and Beta hem Strep * MRSA screening negative Date of procedure: 07/16/18 Pre-op diagnosis: Wet gangrene of right 2nd, 3rd and 4th toes Post-op diagnosis: same Procedure: Transmetatarsal amputation of right 2nd, 3rd, 4th and 5th toes Surgeon: NAVDEEP CHAVARRIA Sepsis Likely secondary to diabetic right foot ulcer with chronic necrotizing infection and osteomyelitis s/p amputation Right foot Necrotizing, wet gangrene, osteomyelitis: consulted Dr. Cox==>Vascular consulted, input noted and Dr. Chavarria did amputation on 07/16/18 Severe malnutrition: consulted [employer] Supervisor Hypokalemia: repleteed and monitor bmp closely Hyponatremia hypovolemia: IVF and monitor bmp closely Uncontrolled DM type 2 with hyperglycemia: treated with SSI, ada diet. Diabetic neuropathy-Continue Neurontin History of CVA without residual deficits-Continue aspirin and statin Hypertension with hypotensive episodes-stopped Lisinopril 20 mg/day on 07/13/18 and started NSS at 100ml/hr, which resolved the hypotension PAD -Status post angioplasty of the right superficial femoral artery: Continue statin Chronic right buttock wound-Continue wound care Tobacco abuse-Patient counseled on cessation-Nicotine patch History of schizophrenia/bipolar-continue antipsych meds, she is refusing the Geodone because it makes her sleep, but she is also refusing the evening/night time dose. Counseling done. Acute blood loss anemia s/p 1 unit of PRBC transfused on 06/22/18 Right gluteal abscess: spontaneously draining. No role for I&D per Dr. Chavarria. Will continue wound care clinic follow up. ID final Recommendations: - continue IV Cefepime 2 gm q12 hrs + IV Vancomycin 1.25 gm q12 hrs (with PK monitoring) ending 08/13/2018 via PICC line - weekly labs on IV abx - tobacco cessation strongly advised - tight glycemic control - wound care - ID clinic follow up with Dr. Hoffman within 2 weeks (patient scheduler notified) - OK to discharge from ID standpoint Disposition: DC-01 TO HOME OR SELFCARE Time spent for discharge: 36 minutes Core Measure Documentation - Palliative Care Palliative Care/ Comfort Measures: Not Applicable - Core Measures Any of the following diagnoses?: none - VTE Discharge Requirements Deep Vein Thrombosis/Pulmonary Embolism Present on Admission: No Has pt received <5 days of overlap therapy or INR<2.0: No Anticoagulant overlap therapy prescribed at discharge: No Contraindication No Overlap Therapy order at DC: Not Indicated Exam - Physical Exam Narrative exam: Gen: WDWN, NAD, Awake, Alert, Orientated HEENT: NCAT, EOMI, PERRL, OP Clear Neck: supple, no adenopathy, no thyromegaly, no JVD CVS/Heart: RRR, normal S1S2, pulses present bilaterally Chest/Lungs: CTA B, Symmetrical chest expansion, good air entry bilaterally GI/Abdomen: soft, NTND, good bowel sounds, no guarding or rebound /Bladder: no suprapubic tenderness, no CVA or paraspinal tenderness Extermity/Skin: transMetatarsal amputation with dressing intact with drainage and wound vac on. MSK: FROM x 4 Neuro: CN 2-12 grossly intact, no new focal deficits Psych: calm - Constitutional Vitals: Temp Pulse Resp BP Pulse Ox 98.0 F 86 16 147/75 96 07/24/18 05:47 07/24/18 09:19 07/24/18 10:00 07/24/18 09:19 07/24/18 05:47 Plan Activity: other (no strenous activity until cleared by Dr. Chavarria) Weight Bearing Status: Non-Weight Bearing (until cleared by Dr. Chavarria) Diet: low salt, diabetic Wound: per your surgeon's advice, per wound nurse instructions Special Instructions: record daily BP diary, record blood sugar diary, smoking cessation Follow up with: LIO GAUTAM MD [Staff Physician] - 3-5 Days DARY BAL MD [Staff Physician] - 7 Days NAVDEEP CHAVARRIA MD [Staff Physician] - 7 Days Prescriptions: Docusate Sodium [Colace CAP] 100 mg PO BID #60 capsule Lispro Insulin [HumaLOG] 1 dose SUB-Q ACHS PRN #1 vial PRN Reason: Hyperglycemia Levemir (Nf) 15 units SQ BID #30 Gabapentin [Neurontin] 300 mg PO BID #60 capsule oxyCODONE /ACETAMINOPHEN [Percocet 5/325 mg] 1 tab PO Q6H PRN #20 tablet PRN Reason: Pain , Severe (7-10)
[2018-07-24 15:24] VITALS: BP 144/70
== END 2018-07-24 15:45 | disposition home or self-care (01) | DRG 853 ==
LOC: ED 22:51 → 3A 07-12 03:26
PROVIDERS: ADMIT Internal Medicine; ATTEND Internal Medicine
PROC: 0Y6R0Z0 Detachment at Right 2nd Toe, Complete, Open Approach (ICD-10-PCS; principal; 2018-07-16)
PROC: 0Y6X0Z0 Detachment at Right 5th Toe, Complete, Open Approach (ICD-10-PCS; 2018-07-16)
PROC: 0Y6V0Z0 Detachment at Right 4th Toe, Complete, Open Approach (ICD-10-PCS; 2018-07-16)
PROC: 0Y6T0Z0 Detachment at Right 3rd Toe, Complete, Open Approach (ICD-10-PCS; 2018-07-16)
PROC: 02HV33Z Insertion of Infusion Device into Superior Vena Cava, Percutaneous Approach (ICD-10-PCS; 2018-07-19)
PROC: 30233N1 Transfusion of Nonautologous Red Blood Cells into Peripheral Vein, Percutaneous Approach (ICD-10-PCS; 2018-07-23)
DX: A41.9 Sepsis, unspecified organism (principal); E43 Unspecified severe protein-calorie malnutrition; E11.621 Type 2 diabetes mellitus with foot ulcer; E11.65 Type 2 diabetes mellitus with hyperglycemia; E87.6 Hypokalemia; E87.1 Hypo-osmolality and hyponatremia; E11.40 Type 2 diabetes mellitus with diabetic neuropathy, unspecified; L97.519 Non-pressure chronic ulcer of other part of right foot with unspecified severity; E11.52 Type 2 diabetes mellitus with diabetic peripheral angiopathy with gangrene; I96 Gangrene, not elsewhere classified; F17.210 Nicotine dependence, cigarettes, uncomplicated; M86.8X7 Other osteomyelitis, ankle and foot; D62 Acute posthemorrhagic anemia; E86.1 Hypovolemia; L02.31 Cutaneous abscess of buttock; B96.4 Proteus (mirabilis) (morganii) as the cause of diseases classified elsewhere; E66.9 Obesity, unspecified; L97.529 Non-pressure chronic ulcer of other part of left foot with unspecified severity; F20.9 Schizophrenia, unspecified; F31.9 Bipolar disorder, unspecified; Z86.73 Personal history of transient ischemic attack (TIA), and cerebral infarction without residual deficits; Z90.89 Acquired absence of other organs; Z89.411 Acquired absence of right great toe; Z98.51 Tubal ligation status; Z83.3 Family history of diabetes mellitus; Z82.49 Family history of ischemic heart disease and other diseases of the circulatory system; Z88.0 Allergy status to penicillin; Z79.899 Other long term (current) drug therapy; Z71.6 Tobacco abuse counseling; Z79.84 Long term (current) use of oral hypoglycemic drugs; Z68.41 Body mass index [BMI] 40.0-44.9, adult
CPT/HCPCS: 10060; 36415; 71045; 80048; 80053; 80202; 82140; 82962; 83735; 85025; 85027; 86140; 86850; 86900; 86901; 86920; 87040; 87076; 87116; 87186; 88304; 88305; 88311; 93922; 93925; 99406; G0378; A9270-GY; J0360; J0692; J1170; J1644; J1815; J2270; J2405; J2704; J3010; J3370; J7030; J7040; J7050; P9016

== ENCOUNTER 2018-07-25 10:34 | Outpatient (CLI) | payer MEDICAID ==
[~2018-07-25 10:34] MED LIST changes: +DILAUDID ONE; -NACL 0.9% 1000 ML 0 ML ONE; -PLAVIX ONE; +ROBINUL ONE; +XYLOCAINE 1% 20 mL ONE; +XYLOCAINE MPF 2% ONE
[2018-07-25] MEDS ORDERED: SILVER NITRATE TP ONE (11:30)
[2018-07-25] MEDS ORDERED: XYLOCAINE TOPICAL 4% TP ONE (11:30)
== END 2018-07-25 10:35 | disposition home or self-care (01) ==
LOC: WOUND 10:34
PROVIDERS: ATTEND Surgery
DX: T81.89XA Other complications of procedures, not elsewhere classified, initial encounter (principal); E11.621 Type 2 diabetes mellitus with foot ulcer; L97.514 Non-pressure chronic ulcer of other part of right foot with necrosis of bone; E11.69 Type 2 diabetes mellitus with other specified complication; M86.671 Other chronic osteomyelitis, right ankle and foot; E11.40 Type 2 diabetes mellitus with diabetic neuropathy, unspecified; E11.39 Type 2 diabetes mellitus with other diabetic ophthalmic complication; H40.9 Unspecified glaucoma; I10 Essential (primary) hypertension; J42 Unspecified chronic bronchitis; F17.200 Nicotine dependence, unspecified, uncomplicated; Y92.89 Other specified places as the place of occurrence of the external cause; Y83.8 Other surgical procedures as the cause of abnormal reaction of the patient, or of later complication, without mention of misadventure at the time of the procedure
CPT/HCPCS: J1170; J2704; J3010

== ENCOUNTER 2018-07-29 07:39 | Outpatient (CLI) | payer MEDICAID | END 2018-07-29 07:40 | disposition home or self-care (01) | LOC: WOUND 07:39 | PROVIDERS: ATTEND Surgery | DX: T81.89XD Other complications of procedures, not elsewhere classified, subsequent encounter (principal); E11.621 Type 2 diabetes mellitus with foot ulcer; L97.514 Non-pressure chronic ulcer of other part of right foot with necrosis of bone; E11.69 Type 2 diabetes mellitus with other specified complication; M86.671 Other chronic osteomyelitis, right ankle and foot; E11.40 Type 2 diabetes mellitus with diabetic neuropathy, unspecified; E11.39 Type 2 diabetes mellitus with other diabetic ophthalmic complication; H40.9 Unspecified glaucoma; J42 Unspecified chronic bronchitis; I10 Essential (primary) hypertension; F17.200 Nicotine dependence, unspecified, uncomplicated; Y83.8 Other surgical procedures as the cause of abnormal reaction of the patient, or of later complication, without mention of misadventure at the time of the procedure | CPT/HCPCS: 97606 ==

== ENCOUNTER 2018-08-01 10:44 | Outpatient (CLI) | payer MEDICAID ==
[2018-08-01] MEDS ORDERED: XYLOCAINE TOPICAL 4% TP ONE (11:36)
[2018-08-01] MEDS ORDERED: SILVER NITRATE TP ONE (12:14)
== END 2018-08-01 10:45 | disposition home or self-care (01) ==
LOC: WOUND 10:44
PROVIDERS: ATTEND Surgery
DX: T81.89XD Other complications of procedures, not elsewhere classified, subsequent encounter (principal); E11.621 Type 2 diabetes mellitus with foot ulcer; L97.514 Non-pressure chronic ulcer of other part of right foot with necrosis of bone; E11.69 Type 2 diabetes mellitus with other specified complication; M86.671 Other chronic osteomyelitis, right ankle and foot; E11.40 Type 2 diabetes mellitus with diabetic neuropathy, unspecified; E11.39 Type 2 diabetes mellitus with other diabetic ophthalmic complication; H40.9 Unspecified glaucoma; J42 Unspecified chronic bronchitis; I10 Essential (primary) hypertension; F17.200 Nicotine dependence, unspecified, uncomplicated; Y83.8 Other surgical procedures as the cause of abnormal reaction of the patient, or of later complication, without mention of misadventure at the time of the procedure
CPT/HCPCS: 97606

== ENCOUNTER 2018-08-08 13:22 | Outpatient (CLI) | payer SELFPAY ==
[2018-08-08] MEDS ORDERED: XYLOCAINE TOPICAL 4% TP ONE (13:29)
== END 2018-08-08 13:23 | disposition home or self-care (01) ==
LOC: WOUND 13:22
PROVIDERS: ATTEND Surgery
DX: T81.89XD Other complications of procedures, not elsewhere classified, subsequent encounter (principal); E11.621 Type 2 diabetes mellitus with foot ulcer; L97.514 Non-pressure chronic ulcer of other part of right foot with necrosis of bone; E11.69 Type 2 diabetes mellitus with other specified complication; M86.671 Other chronic osteomyelitis, right ankle and foot; E11.40 Type 2 diabetes mellitus with diabetic neuropathy, unspecified; E11.39 Type 2 diabetes mellitus with other diabetic ophthalmic complication; H40.9 Unspecified glaucoma; J42 Unspecified chronic bronchitis; I10 Essential (primary) hypertension; F17.200 Nicotine dependence, unspecified, uncomplicated; Y83.8 Other surgical procedures as the cause of abnormal reaction of the patient, or of later complication, without mention of misadventure at the time of the procedure
CPT/HCPCS: 97605

== ENCOUNTER 2018-08-12 10:45 | Outpatient (CLI) | payer MEDICAID | END 2018-08-12 10:46 | disposition home or self-care (01) | LOC: WOUND 10:45 | PROVIDERS: ATTEND Surgery | DX: T81.89XD Other complications of procedures, not elsewhere classified, subsequent encounter (principal); E11.621 Type 2 diabetes mellitus with foot ulcer; L97.514 Non-pressure chronic ulcer of other part of right foot with necrosis of bone; E11.69 Type 2 diabetes mellitus with other specified complication; M86.671 Other chronic osteomyelitis, right ankle and foot; E11.40 Type 2 diabetes mellitus with diabetic neuropathy, unspecified; E11.39 Type 2 diabetes mellitus with other diabetic ophthalmic complication; H40.9 Unspecified glaucoma; J42 Unspecified chronic bronchitis; I10 Essential (primary) hypertension; F17.200 Nicotine dependence, unspecified, uncomplicated; Y83.8 Other surgical procedures as the cause of abnormal reaction of the patient, or of later complication, without mention of misadventure at the time of the procedure | CPT/HCPCS: 97605 ==

== ENCOUNTER 2018-08-21 10:52 | Outpatient (CLI) | payer MEDICAID ==
[2018-08-21] MEDS ORDERED: SILVER NITRATE TP ONE (11:22)
== END 2018-08-21 10:53 | disposition home or self-care (01) ==
LOC: WOUND 10:52
PROVIDERS: ATTEND Surgery
DX: T81.89XD Other complications of procedures, not elsewhere classified, subsequent encounter (principal); E11.621 Type 2 diabetes mellitus with foot ulcer; L97.514 Non-pressure chronic ulcer of other part of right foot with necrosis of bone; E11.69 Type 2 diabetes mellitus with other specified complication; M86.671 Other chronic osteomyelitis, right ankle and foot; E11.40 Type 2 diabetes mellitus with diabetic neuropathy, unspecified; E11.39 Type 2 diabetes mellitus with other diabetic ophthalmic complication; H40.9 Unspecified glaucoma; J42 Unspecified chronic bronchitis; I10 Essential (primary) hypertension; F17.200 Nicotine dependence, unspecified, uncomplicated; Y83.8 Other surgical procedures as the cause of abnormal reaction of the patient, or of later complication, without mention of misadventure at the time of the procedure
CPT/HCPCS: 97605

== ENCOUNTER 2018-08-26 10:25 | Outpatient (CLI) | payer MEDICAID ==
[~2018-08-26 10:25] MED LIST changes: +BENADRYL ONE; -DILAUDID ONE; -DIPRIVAN 10 MG/ML IV ONE; -ROBINUL ONE; -SUBLIMAZE ONE; -XYLOCAINE 1% 20 mL ONE; -XYLOCAINE MPF 2% ONE
== END 2018-08-26 10:26 | disposition home or self-care (01) ==
LOC: WOUND 10:25
PROVIDERS: ATTEND Surgery
DX: T81.89XD Other complications of procedures, not elsewhere classified, subsequent encounter (principal); E11.621 Type 2 diabetes mellitus with foot ulcer; L97.514 Non-pressure chronic ulcer of other part of right foot with necrosis of bone; E11.69 Type 2 diabetes mellitus with other specified complication; M86.671 Other chronic osteomyelitis, right ankle and foot; E11.40 Type 2 diabetes mellitus with diabetic neuropathy, unspecified; E11.39 Type 2 diabetes mellitus with other diabetic ophthalmic complication; H40.9 Unspecified glaucoma; I10 Essential (primary) hypertension; J42 Unspecified chronic bronchitis; F17.200 Nicotine dependence, unspecified, uncomplicated; Y83.8 Other surgical procedures as the cause of abnormal reaction of the patient, or of later complication, without mention of misadventure at the time of the procedure
CPT/HCPCS: 97605; J1200

== ENCOUNTER 2018-08-29 10:51 | Outpatient (CLI) | payer MEDICAID | END 2018-08-29 10:52 | disposition home or self-care (01) | LOC: WOUND 10:51 | PROVIDERS: ATTEND Surgery | DX: T81.89XD Other complications of procedures, not elsewhere classified, subsequent encounter (principal); E11.621 Type 2 diabetes mellitus with foot ulcer; L97.514 Non-pressure chronic ulcer of other part of right foot with necrosis of bone; M86.671 Other chronic osteomyelitis, right ankle and foot; E11.40 Type 2 diabetes mellitus with diabetic neuropathy, unspecified; E11.39 Type 2 diabetes mellitus with other diabetic ophthalmic complication; H42 Glaucoma in diseases classified elsewhere; I10 Essential (primary) hypertension; F17.200 Nicotine dependence, unspecified, uncomplicated; Y83.8 Other surgical procedures as the cause of abnormal reaction of the patient, or of later complication, without mention of misadventure at the time of the procedure | CPT/HCPCS: 97606 ==

== ENCOUNTER 2018-09-02 10:34 | Outpatient (CLI) | payer MEDICAID | END 2018-09-02 10:35 | disposition home or self-care (01) | LOC: WOUND 10:34 | PROVIDERS: ATTEND Surgery | DX: T81.89XD Other complications of procedures, not elsewhere classified, subsequent encounter (principal); E11.621 Type 2 diabetes mellitus with foot ulcer; L97.514 Non-pressure chronic ulcer of other part of right foot with necrosis of bone; M86.671 Other chronic osteomyelitis, right ankle and foot; E11.40 Type 2 diabetes mellitus with diabetic neuropathy, unspecified; E11.39 Type 2 diabetes mellitus with other diabetic ophthalmic complication; H42 Glaucoma in diseases classified elsewhere; I10 Essential (primary) hypertension; F17.200 Nicotine dependence, unspecified, uncomplicated; Y83.8 Other surgical procedures as the cause of abnormal reaction of the patient, or of later complication, without mention of misadventure at the time of the procedure | CPT/HCPCS: 97606 ==

== ENCOUNTER 2018-09-05 10:57 | Outpatient (CLI) | payer MEDICAID ==
[2018-09-05] MEDS ORDERED: XYLOCAINE TOPICAL 4% TP ONE (11:18)
[2018-09-05] MEDS ORDERED: SILVER NITRATE TP ONE (11:18)
== END 2018-09-05 10:58 | disposition home or self-care (01) ==
LOC: WOUND 10:57
PROVIDERS: ATTEND Surgery
DX: T81.89XD Other complications of procedures, not elsewhere classified, subsequent encounter (principal); E11.621 Type 2 diabetes mellitus with foot ulcer; L97.514 Non-pressure chronic ulcer of other part of right foot with necrosis of bone; M86.671 Other chronic osteomyelitis, right ankle and foot; E11.40 Type 2 diabetes mellitus with diabetic neuropathy, unspecified; E11.39 Type 2 diabetes mellitus with other diabetic ophthalmic complication; H42 Glaucoma in diseases classified elsewhere; I10 Essential (primary) hypertension; F17.200 Nicotine dependence, unspecified, uncomplicated; Y83.8 Other surgical procedures as the cause of abnormal reaction of the patient, or of later complication, without mention of misadventure at the time of the procedure
CPT/HCPCS: 97605

== ENCOUNTER 2018-09-09 10:43 | Outpatient (CLI) | payer MEDICAID | END 2018-09-09 10:44 | disposition home or self-care (01) | LOC: WOUND 10:43 | PROVIDERS: ATTEND Surgery | DX: T81.89XD Other complications of procedures, not elsewhere classified, subsequent encounter (principal); E11.621 Type 2 diabetes mellitus with foot ulcer; L97.514 Non-pressure chronic ulcer of other part of right foot with necrosis of bone; M86.671 Other chronic osteomyelitis, right ankle and foot; E11.40 Type 2 diabetes mellitus with diabetic neuropathy, unspecified; E11.39 Type 2 diabetes mellitus with other diabetic ophthalmic complication; H42 Glaucoma in diseases classified elsewhere; I10 Essential (primary) hypertension; F17.200 Nicotine dependence, unspecified, uncomplicated; Y83.8 Other surgical procedures as the cause of abnormal reaction of the patient, or of later complication, without mention of misadventure at the time of the procedure | CPT/HCPCS: 97605 ==

== ENCOUNTER 2018-09-12 13:02 | Outpatient (CLI) | payer MEDICAID ==
[2018-09-12] MEDS ORDERED: XYLOCAINE TOPICAL 4% TP ONE (13:05)
[2018-09-12] MEDS ORDERED: SILVER NITRATE TP ONE (13:05)
== END 2018-09-12 13:03 | disposition home or self-care (01) ==
LOC: WOUND 13:02
PROVIDERS: ATTEND Surgery
DX: T81.89XD Other complications of procedures, not elsewhere classified, subsequent encounter (principal); E11.621 Type 2 diabetes mellitus with foot ulcer; L97.514 Non-pressure chronic ulcer of other part of right foot with necrosis of bone; M86.671 Other chronic osteomyelitis, right ankle and foot; E11.40 Type 2 diabetes mellitus with diabetic neuropathy, unspecified; E11.39 Type 2 diabetes mellitus with other diabetic ophthalmic complication; H42 Glaucoma in diseases classified elsewhere; I10 Essential (primary) hypertension; F17.200 Nicotine dependence, unspecified, uncomplicated; Y83.8 Other surgical procedures as the cause of abnormal reaction of the patient, or of later complication, without mention of misadventure at the time of the procedure
CPT/HCPCS: 97605

== ENCOUNTER 2018-09-16 10:34 | Outpatient (CLI) | payer MEDICAID | END 2018-09-16 10:35 | disposition home or self-care (01) | LOC: WOUND 10:34 | PROVIDERS: ATTEND Surgery | DX: T81.89XD Other complications of procedures, not elsewhere classified, subsequent encounter (principal); E11.621 Type 2 diabetes mellitus with foot ulcer; L97.514 Non-pressure chronic ulcer of other part of right foot with necrosis of bone; E11.69 Type 2 diabetes mellitus with other specified complication; M86.671 Other chronic osteomyelitis, right ankle and foot; E11.40 Type 2 diabetes mellitus with diabetic neuropathy, unspecified; E11.39 Type 2 diabetes mellitus with other diabetic ophthalmic complication; H42 Glaucoma in diseases classified elsewhere; I10 Essential (primary) hypertension; J42 Unspecified chronic bronchitis; F17.200 Nicotine dependence, unspecified, uncomplicated; Y83.8 Other surgical procedures as the cause of abnormal reaction of the patient, or of later complication, without mention of misadventure at the time of the procedure | CPT/HCPCS: 97605 ==

== ENCOUNTER 2018-09-19 10:29 | Outpatient (CLI) | payer MEDICAID | END 2018-09-19 10:30 | disposition home or self-care (01) | LOC: WOUND 10:29 | PROVIDERS: ATTEND Surgery | DX: T81.89XD Other complications of procedures, not elsewhere classified, subsequent encounter (principal); E11.621 Type 2 diabetes mellitus with foot ulcer; L97.514 Non-pressure chronic ulcer of other part of right foot with necrosis of bone; E11.69 Type 2 diabetes mellitus with other specified complication; M86.671 Other chronic osteomyelitis, right ankle and foot; E11.40 Type 2 diabetes mellitus with diabetic neuropathy, unspecified; E11.39 Type 2 diabetes mellitus with other diabetic ophthalmic complication; H42 Glaucoma in diseases classified elsewhere; I10 Essential (primary) hypertension; J42 Unspecified chronic bronchitis; F17.200 Nicotine dependence, unspecified, uncomplicated; Y83.8 Other surgical procedures as the cause of abnormal reaction of the patient, or of later complication, without mention of misadventure at the time of the procedure | CPT/HCPCS: 97605 ==

== ENCOUNTER 2018-09-26 10:20 | Outpatient (CLI) | payer MEDICAID ==
[2018-09-26] MEDS ORDERED: XYLOCAINE TOPICAL 4% TP ONE (10:56)
[2018-09-26] MEDS ORDERED: SILVER NITRATE TP ONE (10:56)
== END 2018-09-26 10:21 | disposition home or self-care (01) ==
LOC: WOUND 10:20
PROVIDERS: ATTEND Surgery
DX: T81.89XD Other complications of procedures, not elsewhere classified, subsequent encounter (principal); E11.621 Type 2 diabetes mellitus with foot ulcer; L97.514 Non-pressure chronic ulcer of other part of right foot with necrosis of bone; E11.69 Type 2 diabetes mellitus with other specified complication; M86.671 Other chronic osteomyelitis, right ankle and foot; E11.40 Type 2 diabetes mellitus with diabetic neuropathy, unspecified; E11.39 Type 2 diabetes mellitus with other diabetic ophthalmic complication; H42 Glaucoma in diseases classified elsewhere; I10 Essential (primary) hypertension; J42 Unspecified chronic bronchitis; F17.200 Nicotine dependence, unspecified, uncomplicated; Y83.8 Other surgical procedures as the cause of abnormal reaction of the patient, or of later complication, without mention of misadventure at the time of the procedure
CPT/HCPCS: 97605

== ENCOUNTER 2018-09-30 10:39 | Outpatient (CLI) | payer MEDICAID ==
[2018-09-30] MEDS ORDERED: DAKIN'S FULL STRENGTH TP ONE (10:52)
== END 2018-09-30 10:40 | disposition home or self-care (01) ==
LOC: WOUND 10:39
PROVIDERS: ATTEND Surgery
DX: T81.89XD Other complications of procedures, not elsewhere classified, subsequent encounter (principal); E11.621 Type 2 diabetes mellitus with foot ulcer; L97.514 Non-pressure chronic ulcer of other part of right foot with necrosis of bone; E11.69 Type 2 diabetes mellitus with other specified complication; M86.671 Other chronic osteomyelitis, right ankle and foot; E11.40 Type 2 diabetes mellitus with diabetic neuropathy, unspecified; E11.39 Type 2 diabetes mellitus with other diabetic ophthalmic complication; H42 Glaucoma in diseases classified elsewhere; I10 Essential (primary) hypertension; F17.200 Nicotine dependence, unspecified, uncomplicated; Y83.8 Other surgical procedures as the cause of abnormal reaction of the patient, or of later complication, without mention of misadventure at the time of the procedure
CPT/HCPCS: 99212; G0463

== ENCOUNTER 2018-10-03 10:49 | Outpatient (CLI) | payer MEDICAID ==
[2018-10-03] MEDS ORDERED: SILVER NITRATE TP ONE (11:30)
== END 2018-10-03 10:50 | disposition home or self-care (01) ==
LOC: WOUND 10:49
PROVIDERS: ATTEND Surgery
DX: T81.89XD Other complications of procedures, not elsewhere classified, subsequent encounter (principal); E11.621 Type 2 diabetes mellitus with foot ulcer; L97.514 Non-pressure chronic ulcer of other part of right foot with necrosis of bone; E11.69 Type 2 diabetes mellitus with other specified complication; M86.671 Other chronic osteomyelitis, right ankle and foot; E11.40 Type 2 diabetes mellitus with diabetic neuropathy, unspecified; E11.39 Type 2 diabetes mellitus with other diabetic ophthalmic complication; H42 Glaucoma in diseases classified elsewhere; I10 Essential (primary) hypertension; F17.200 Nicotine dependence, unspecified, uncomplicated; Y83.8 Other surgical procedures as the cause of abnormal reaction of the patient, or of later complication, without mention of misadventure at the time of the procedure
CPT/HCPCS: 97605

== ENCOUNTER 2018-10-10 10:33 | Outpatient (CLI) | payer MEDICAID ==
[2018-10-10] MEDS ORDERED: SILVER NITRATE TP ONE (11:30)
[2018-10-10] MEDS ORDERED: XYLOCAINE TOPICAL 4% TP ONE (11:30)
== END 2018-10-10 10:34 | disposition home or self-care (01) ==
LOC: WOUND 10:33
PROVIDERS: ATTEND Surgery
DX: T81.89XD Other complications of procedures, not elsewhere classified, subsequent encounter (principal); E11.621 Type 2 diabetes mellitus with foot ulcer; L97.514 Non-pressure chronic ulcer of other part of right foot with necrosis of bone; E11.69 Type 2 diabetes mellitus with other specified complication; M86.671 Other chronic osteomyelitis, right ankle and foot; E11.40 Type 2 diabetes mellitus with diabetic neuropathy, unspecified; E11.39 Type 2 diabetes mellitus with other diabetic ophthalmic complication; H42 Glaucoma in diseases classified elsewhere; I10 Essential (primary) hypertension; F17.200 Nicotine dependence, unspecified, uncomplicated; Y83.8 Other surgical procedures as the cause of abnormal reaction of the patient, or of later complication, without mention of misadventure at the time of the procedure
CPT/HCPCS: 97605

== ENCOUNTER 2018-10-24 10:45 | Outpatient (CLI) | payer MEDICAID | END 2018-10-24 10:46 | disposition home or self-care (01) | LOC: WOUND 10:45 | PROVIDERS: ATTEND Surgery | DX: T81.89XD Other complications of procedures, not elsewhere classified, subsequent encounter (principal); E11.621 Type 2 diabetes mellitus with foot ulcer; L97.514 Non-pressure chronic ulcer of other part of right foot with necrosis of bone; E11.69 Type 2 diabetes mellitus with other specified complication; M86.671 Other chronic osteomyelitis, right ankle and foot; E11.40 Type 2 diabetes mellitus with diabetic neuropathy, unspecified; E11.39 Type 2 diabetes mellitus with other diabetic ophthalmic complication; H42 Glaucoma in diseases classified elsewhere; I10 Essential (primary) hypertension; F17.200 Nicotine dependence, unspecified, uncomplicated; Y83.8 Other surgical procedures as the cause of abnormal reaction of the patient, or of later complication, without mention of misadventure at the time of the procedure | CPT/HCPCS: 97605 ==

== ENCOUNTER 2018-10-28 10:56 | Outpatient (CLI) | payer MEDICAID | END 2018-10-28 10:57 | disposition home or self-care (01) | LOC: WOUND 10:56 | PROVIDERS: ATTEND Surgery | DX: T81.89XD Other complications of procedures, not elsewhere classified, subsequent encounter (principal); E11.621 Type 2 diabetes mellitus with foot ulcer; L97.514 Non-pressure chronic ulcer of other part of right foot with necrosis of bone; E11.69 Type 2 diabetes mellitus with other specified complication; M86.671 Other chronic osteomyelitis, right ankle and foot; E11.40 Type 2 diabetes mellitus with diabetic neuropathy, unspecified; E11.39 Type 2 diabetes mellitus with other diabetic ophthalmic complication; H42 Glaucoma in diseases classified elsewhere; I10 Essential (primary) hypertension; F17.200 Nicotine dependence, unspecified, uncomplicated; Y83.8 Other surgical procedures as the cause of abnormal reaction of the patient, or of later complication, without mention of misadventure at the time of the procedure | CPT/HCPCS: 97605 ==

== ENCOUNTER 2018-10-31 10:51 | Outpatient (CLI) | payer MEDICAID | END 2018-10-31 10:52 | disposition home or self-care (01) | LOC: WOUND 10:51 | PROVIDERS: ATTEND Surgery | DX: T81.89XD Other complications of procedures, not elsewhere classified, subsequent encounter (principal); E11.621 Type 2 diabetes mellitus with foot ulcer; L97.514 Non-pressure chronic ulcer of other part of right foot with necrosis of bone; E11.69 Type 2 diabetes mellitus with other specified complication; M86.671 Other chronic osteomyelitis, right ankle and foot; E11.40 Type 2 diabetes mellitus with diabetic neuropathy, unspecified; E11.39 Type 2 diabetes mellitus with other diabetic ophthalmic complication; H42 Glaucoma in diseases classified elsewhere; I10 Essential (primary) hypertension; F17.200 Nicotine dependence, unspecified, uncomplicated; Y83.8 Other surgical procedures as the cause of abnormal reaction of the patient, or of later complication, without mention of misadventure at the time of the procedure | CPT/HCPCS: 97605 ==

== ENCOUNTER 2018-11-07 10:37 | Outpatient (CLI) | payer MEDICAID ==
[2018-11-07] MEDS ORDERED: XYLOCAINE TOPICAL 4% TP ONE (10:52)
[2018-11-07] MEDS ORDERED: SILVER NITRATE TP ONE (10:56)
[2018-11-07] MEDS ORDERED: DAKIN'S FULL STRENGTH TP ONE (10:56)
== END 2018-11-07 10:38 | disposition home or self-care (01) ==
LOC: WOUND 10:37
PROVIDERS: ATTEND Surgery
DX: T81.89XD Other complications of procedures, not elsewhere classified, subsequent encounter (principal); E11.621 Type 2 diabetes mellitus with foot ulcer; L97.514 Non-pressure chronic ulcer of other part of right foot with necrosis of bone; E11.69 Type 2 diabetes mellitus with other specified complication; M86.671 Other chronic osteomyelitis, right ankle and foot; E11.40 Type 2 diabetes mellitus with diabetic neuropathy, unspecified; E11.39 Type 2 diabetes mellitus with other diabetic ophthalmic complication; H42 Glaucoma in diseases classified elsewhere; I10 Essential (primary) hypertension; F17.200 Nicotine dependence, unspecified, uncomplicated; Y83.8 Other surgical procedures as the cause of abnormal reaction of the patient, or of later complication, without mention of misadventure at the time of the procedure

== ENCOUNTER 2018-11-25 10:41 | Outpatient (CLI) | payer MEDICAID | END 2018-11-25 10:42 | disposition home or self-care (01) | LOC: WOUND 10:41 | PROVIDERS: ATTEND Surgery | DX: T81.89XD Other complications of procedures, not elsewhere classified, subsequent encounter (principal); E11.621 Type 2 diabetes mellitus with foot ulcer; L97.514 Non-pressure chronic ulcer of other part of right foot with necrosis of bone; E11.69 Type 2 diabetes mellitus with other specified complication; M86.671 Other chronic osteomyelitis, right ankle and foot; E11.40 Type 2 diabetes mellitus with diabetic neuropathy, unspecified; E11.39 Type 2 diabetes mellitus with other diabetic ophthalmic complication; H42 Glaucoma in diseases classified elsewhere; I10 Essential (primary) hypertension; F17.200 Nicotine dependence, unspecified, uncomplicated; Y83.8 Other surgical procedures as the cause of abnormal reaction of the patient, or of later complication, without mention of misadventure at the time of the procedure | CPT/HCPCS: 99213; G0463 ==

== ENCOUNTER 2018-11-28 10:31 | Outpatient (CLI) | payer MEDICAID ==
[2018-11-28] MEDS ORDERED: LIDOCAINE (4%) 40 MG/ML TOPICAL SOLN 50 ML BOTTLE TP NR (11:00)
[2018-11-28] MEDS ORDERED: SILVER NITRATE APPLICATOR 1 EA TP NR (11:00)
== END 2018-11-28 10:32 | disposition home or self-care (01) ==
LOC: WOUND 10:31
PROVIDERS: ATTEND Surgery
DX: T81.89XD Other complications of procedures, not elsewhere classified, subsequent encounter (principal); E11.40 Type 2 diabetes mellitus with diabetic neuropathy, unspecified; E11.39 Type 2 diabetes mellitus with other diabetic ophthalmic complication; H42 Glaucoma in diseases classified elsewhere; I10 Essential (primary) hypertension; J42 Unspecified chronic bronchitis; Y83.8 Other surgical procedures as the cause of abnormal reaction of the patient, or of later complication, without mention of misadventure at the time of the procedure

== ENCOUNTER 2018-12-05 10:37 | Outpatient (CLI) | payer MEDICAID ==
[2018-12-05] MEDS ORDERED: SILVER NITRATE TP ONE (11:00)
[2018-12-05] MEDS ORDERED: XYLOCAINE TOPICAL 4% TP ONE (11:00)
== END 2018-12-05 10:38 | disposition home or self-care (01) ==
LOC: WOUND 10:37
PROVIDERS: ATTEND Surgery
DX: T81.89XD Other complications of procedures, not elsewhere classified, subsequent encounter (principal); E11.40 Type 2 diabetes mellitus with diabetic neuropathy, unspecified; E11.39 Type 2 diabetes mellitus with other diabetic ophthalmic complication; H42 Glaucoma in diseases classified elsewhere; I10 Essential (primary) hypertension; J42 Unspecified chronic bronchitis; Y83.8 Other surgical procedures as the cause of abnormal reaction of the patient, or of later complication, without mention of misadventure at the time of the procedure